=== PATIENT | male | born 1950 | race Caucasian/White ===

== ENCOUNTER 2020-10-27 12:43 | Inpatient (IN) ==
[2020-10-27] MEDS ORDERED: SODIUM CHLORIDE 0.9% 1000ML 1,000 ML IV ONE ×2 (12:59→13:52)
[2020-10-27 13:09] LABS: Basophils # (auto) 0.01 K/uL (0-0.2); Basophils % (auto) 0.2 %; Hematocrit (blood only) 38.5 % (42-52); Hemoglobin 13.2 g/dL (14.0-18.0); Immature Granulocytes # (auto) 0.01 K/uL (0.00-0.02); Immature Granulocytes % (auto) 0.2 %; Lymphocytes # (auto) 0.51 K/uL (1.2-3.4); Lymphocytes % (auto) 9.5 %; Mean Corpuscular Hemoglobin 29.7 pg (25-34); Mean Corpuscular Hgb Conc 34.3 g/dL (32-36); Mean Corpuscular Volume 86.7 fL (80-100); Mean Platelet Volume 9.6 fL (7.4-10.4); Monocytes # (auto) 0.44 K/uL (0.11-0.59); Monocytes % (auto) 8.2 %; Neutrophils # (auto) 4.42 K/uL (1.4-6.5); Neutrophils % (auto) 81.9 %; Platelet Count 271 K/uL (130-400); RDW Coefficient of Variation 13.9 % (11.5-14.5); RDW Standard Deviation 43.9 fL (36.4-46.3); Red Blood Count 4.44 M/uL (4.7-6.1); White Blood Count 5.39 K/uL (4.8-10.8)
[2020-10-27 13:20] LABS: BUN Creatinine Ratio 27.2 (10-20); Calcium 7.9 mg/dl (8.5-10.1); Est GFR (African American) 29.1; Est GFR (Non-African American) 25.1; Magnesium 2.7 mg/dl (1.8-2.4); Potassium 3.1 mmol/L (3.5-5.1)
[2020-10-27 13:21] LABS: Prothrombin Time 10.8 Seconds (9.0-12.0)
[2020-10-27 13:25] LABS: Albumin Globulin Ratio 0.7 (0.9-2); Bilirubin,Total 0.2 mg/dl (0.2-1); C Reactive Protein 5.79 mg/dl (0-0.29); Globulin 4.1 gm/dl (2.5-4.0); Total Protein 7.1 gm/dl (6.4-8.2); Troponin I 0.019 ng/ml (0-0.045)
[2020-10-27 13:51] LABS: Base Excess VBG 2.1 mEq/L; HCO3 VBG 27 mmol/L; Oxygen Saturation VBG < 60.0 %; PCO2 VBG 46 mmHg (38-50); PO2 VBG 26 mmHg
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
--- NOTE | 2020-10-27 14:31 | CT Scan Report ---
CT SCAN OF THE BRAIN WITHOUT IV CONTRAST CLINICAL HISTORY: Change in mental status. COMPARISON STUDY: MRI of the brain dated 05/09/2015. TECHNIQUE: Unenhanced axial CT scan of the brain is performed from the vertex to the skull base. A do se lowering technique was utilized adhering to the principles of ALARA. FINDINGS: Brain parenchyma: There are age-related involutional changes noting mild subcortical and periventric ular microangiopathic change. There is no hemorrhage, mass effect, or evidence of acute territorial i schemia by CT criteria. Tenorio-white matter differentiation is preserved. No extra-axial fluid collecti on is seen. Ventricles, sulci, cisterns: Prominent secondary to involutional change. Intracranial vasculature: There is atherosclerotic calcification of the cavernous carotid arteries. Calvarium: Unremarkable. Sinuses and mastoids: The visualized paranasal sinuses are clear. The mastoid air cells are well pneu matized. Orbits: The bony orbits are grossly intact. There are bilateral ocular lens implants. IMPRESSION: There is no hemorrhage, mass effect, or evidence of acute territorial ischemia by CT [facility]. ACT 112: Negative or not required by law. Electronically signed by: Basilio Ojeda M.D. 10/27/2020 2:30 PM
--- NOTE | 2020-10-27 14:37 | CT Scan Report ---
CT SCAN OF THE ABDOMEN AND PELVIS WITHOUT IV CONTRAST CLINICAL HISTORY: Acute renal insufficiency. COMPARISON STUDY: No priors. TECHNIQUE: CT scan of the abdomen and pelvis is performed from the lung bases to the proximal femora. Images are reviewed in the axial, sagittal, and coronal planes. IV contrast was not administered for this examination. A dose lowering technique was utilized adhering to the principles of ALARA. The ex amination is degraded by motion artifact, as well as by streak artifact from the arms which could not be elevated above the abdomen. CT DOSE: 2462.31 mGy.cm FINDINGS: Lung bases: The heart is enlarged and without pericardial effusion. There is patchy airspace consolid ation throughout the right lower lobe. No pleural effusion is identified. A calcified granuloma is no karuna in the lingula. Liver: The unenhanced liver is normal in size, contour, and attenuation. There is no intrahepatic sergey iary ductal dilatation. Gallbladder: Unremarkable. Spleen: Normal in size and attenuation. Pancreas: Unremarkable. Adrenal glands: Unremarkable. Kidneys: The unenhanced kidneys demonstrate mild cortical atrophy and are without hydronephrosis. The re are no renal calculi identified. There is no evidence of contour deforming renal mass lesion. Abdominal vasculature: There is mild/moderate atherosclerotic calcification and ectasia of the abdomi nal aorta. Bowel: There is mild colonic diverticulosis without CT evidence of acute diverticulitis. No bowel obs truction is seen. The appendix is normal in appearance. Peritoneum: There is no intraperitoneal free air or abdominal ascites. A benign-appearing mesenteric calcification is noted in the right lower quadrant. There is a small fat-containing umbilical hernia. Lymphadenopathy: None. Pelvic viscera: The prostate gland is enlarged and heterogeneous noting median lobe hypertrophy. The bladder is distended and otherwise normal as imaged. There are small fat-containing inguinal hernias. Skeletal structures: The skeletal structures are osteopenic. There is mild lumbosacral spondylosis. N o lytic or blastic lesions are seen. There are healed left pubic ring fractures. IMPRESSION: 1. Patchy airspace consolidation throughout the right lower lobe is typical for pneumonia/aspiration pneumonitis. Clinical correlation will be required and radiographic follow-up to resolution is recomm ended. 2. The kidneys demonstrate mild cortical atrophy and are without hydronephrosis. 3. Cardiomegaly. 4. Colonic diverticulosis without CT evidence of acute diverticulitis. 5. Additional findings as above. ACT 112: Negative or not required by law. Electronically signed by: Basilio Ojeda M.D. 10/27/2020 2:36 PM
[2020-10-27] MEDS ORDERED: PIPERACILLIN/TAZOBACTAM 4.5 GM/120 ML BAG IV ONE (14:42)
[2020-10-27] MEDS ORDERED: PIPERACILL/TAZOBAC CONSULT ACTIVE PRN ×2 (14:42→19:30)
--- NOTE | 2020-10-27 15:25 | XRay Report ---
XR chest 1V portable CLINICAL HISTORY: SEPSIS COMPARISON STUDY: Chest radiograph May 03, 2019. FINDINGS: There is no pneumothorax or pleural effusion. There is no evidence for pulmonary edema. Mod erate right lower lung consolidation is present. Minimal left basilar opacity favors atelectasis. The re is a calcified granuloma within the lingula. Cardiomediastinal silhouette is stable. IMPRESSION: Moderate right lower lung consolidation consistent with an infectious process. Radiograp hic follow-up is recommended to ensure resolution. ACT 112: Negative or not required by law. Electronically signed by: Ricki Stout M.D. 10/27/2020 3:23 PM
[2020-10-27 17:31] LABS: Influenza A virus by PCR Negative (Neg); Influenza B virus by PCR Negative (Neg); RSV by PCR Negative (Neg); SARS CoV2 RNA(COVID-19) InHosp NEGATIVE (Negative)
[2020-10-27] MEDS ORDERED: TRIAMCINOLONE ACET 0.1% OINT 15 GM TUBE TOP PRN (19:30)
[2020-10-27] MEDS ORDERED: POLYETHYLENE (MIRALAX) 17 GM PACK PO PRN (19:30)
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
[2020-10-27] MEDS ORDERED: LORazepam 1 MG/2 ML VIAL IV STA (21:11)
[2020-10-27] MEDS: PIPERACILLIN/TAZOBACTAM 3.375 GM in DEXTROSE 5% 100 ML IV SCH (22:10)
[2020-10-27] MEDS: POTASSIUM CHLORIDE / WTR 10 MEQ/100 ML PLCT IV SCH ×2 (22:11→23:15)
[2020-10-27] MEDS: HEPARIN SOD 5,000 UNIT/0.5 ML VIAL SQ SCH (22:13)
[2020-10-27 22:37] LABS: Appearance Urine Clear (Clear); Bacteria Urine Automated Negative (Negative); Bilirubin Urine Negative (Negative); Blood Urine Trace (Negative); Color Urine Yellow; Epithelial Cell Urine Auto 0-5 /lpf (0-5); Glucose Urine UA Negative (Negative); Ketones Urine Negative (Negative); Leukocyte Esterase Urine Negative (Negative); Nitrite Urine Negative (Negative); Protein Urine 1+ (Negative); RBC Urine Automated 0-4 /hpf (0-4); Specific Gravity Urine 1.019 (1.000-1.030); Urobilinogen Urine Negative (Negative)
--- NOTE | 2020-10-27 22:45 | Magnetic Resonance Report ---
MR brain wo con HISTORY: 70 years-old Male Altered mental status, Neg CT Brain acutely altered mental status COMPARISON: Head CT of same day, brain MRI from outside facility (images only without report) 06/08/20 TECHNIQUE: Multiplanar multisequence MRI of the brain was obtained without the use of IV contrast. FINDINGS: Study is mildly motion degraded. Potato Spotter localizer images demonstrate no gross extracranial abnormality . There is no restricted diffusion to suggest acute or subacute infarct. Midline structures including the corpus callosum, brainstem, optic chiasm, pituitary and pineal glands appear unremarkable on the sagittal T1 series. There is no cerebellar tonsillar herniation. Degenerative changes are noted invo lving the imaged cervical spine. No acute intracranial hemorrhage, midline shift, abnormal extra-axial collection, hydrocephalus or in tracranial mass. Mild age-related involutional changes with mild to moderate T2/FLAIR hyperintensitie s throughout the white matter suggestive of chronic microvascular ischemic disease. No pathologic blo oming artifact on the T2 star series. The cerebral venous sinuses and major arterial flow voids at the level the skull base appear unremark able as visualized. Findings suggest prior bilateral lens replacement. Skull and soft tissues are unr emarkable. Mastoid air cells are clear. Oral cavity susceptibility artifact is noted. IMPRESSION: Motion degraded exam without acute intracranial abnormality identified. Specifically, the re is no evidence of acute or subacute infarct. ACT 112: Negative or not required by law. The above report was generated using voice recognition software. It may contain grammatical, syntax o r spelling errors. Electronically signed by: Alton William M.D. 10/27/2020 10:44 PM
[2020-10-27 23:01] LABS: Amphetamines+Metham, Urine Neg (Neg); Barbiturates, Urine Neg (Neg); Benzodiazepine, Urine Neg (Neg); Cocaine, Urine Neg (Neg); MDMA (Ecstacy), Urine Neg (Neg); Methadone, Urine Neg (Neg); Opiate, Urine Neg (Neg); Phencyclidine, Urine Neg (Neg)
[2020-10-27] MEDS: CLOTRIMAZOLE/BETAMETHASONE CR 15 GM TUBE EXT SCH (23:25)
[2020-10-28] MEDS: POTASSIUM CHLORIDE / WTR 10 MEQ/100 ML PLCT IV SCH (00:03)
[2020-10-28] MEDS: NSS + 20MEQ KCL 20 MEQ/1,000 ML BAG IV SCH ×3 (01:02→17:01)
[2020-10-28] MEDS: PIPERACILLIN/TAZOBACTAM 3.375 GM in DEXTROSE 5% 100 ML IV SCH ×3 (05:36→22:11)
[2020-10-28 06:29] LABS: Basophils # (auto) 0.02 K/uL (0-0.2); Basophils % (auto) 0.5 %; Eosinophils # (auto) 0.01 K/uL (0-0.5); Eosinophils % (auto) 0.3 %; Hematocrit (blood only) 36.3 % (42-52); Hemoglobin 12.1 g/dL (14.0-18.0); Immature Granulocytes # (auto) 0.01 K/uL (0.00-0.02); Immature Granulocytes % (auto) 0.3 %; Lymphocytes % (auto) 30.9 %; Mean Corpuscular Hemoglobin 29.7 pg (25-34); Mean Corpuscular Hgb Conc 33.3 g/dL (32-36); Mean Platelet Volume 9.2 fL (7.4-10.4); Monocytes # (auto) 0.35 K/uL (0.11-0.59); Neutrophils # (auto) 2.29 K/uL (1.4-6.5); Platelet Count 265 K/uL (130-400); RDW Coefficient of Variation 14.2 % (11.5-14.5); RDW Standard Deviation 46.1 fL (36.4-46.3); Red Blood Count 4.08 M/uL (4.7-6.1); White Blood Count 3.88 K/uL (4.8-10.8)
--- NOTE | 2020-10-28 06:32 | Electrocardiogram Report ---
Test Reason : Blood Pressure : / mmHG Vent. Rate : 098 BPM Atrial Rate : 098 BPM P-R Int : 162 ms QRS Dur : 104 ms QT Int : 384 ms P-R-T Axes : 076 239 068 degrees QTc Int : 490 ms Poor data quality, interpretation may be adversely affected Sinus rhythm with sinus arrhythmia with atrial tachycardia Premature ventricular complexes Right superior axis deviation Right ventricular hypertrophy Abnormal ECG When compared with ECG of 01-JAN-1999 06:59, Questionable change in QRS axis Run of atrial tachycardia is now present Confirmed by Girish Briggs ([id number]) on 10/28/2020 6:32:20 AM Referred By: ED Confirmed By:Girish Briggs
[2020-10-28 07:12] LABS: BUN Creatinine Ratio 26.6 (10-20); Calcium 7.5 mg/dl (8.5-10.1); Creatinine Clr Calc Pharmacy 43.1 ml/min; Est GFR (African American) 53.5; Est GFR (Non-African American) 46.2; Potassium 3.1 mmol/L (3.5-5.1)
[2020-10-28] MEDS ORDERED: PNEUMOCOCCAL POLYSACCHARIDES 25 MCG/0.5 ML VIAL/SYR IM ONE (08:00)
[2020-10-28] MEDS ORDERED: PNEUMOCOCCAL ADMINISTRATION CHARGE ONE (08:00)
[2020-10-28] MEDS: CLOTRIMAZOLE/BETAMETHASONE CR 15 GM TUBE EXT SCH ×2 (08:46→22:09)
[2020-10-28] MEDS: LOSARTAN/HCTZ 50/12.5MG TAB PO SCH (08:46)
[2020-10-28] MEDS: HEPARIN SOD 5,000 UNIT/0.5 ML VIAL SQ SCH ×2 (08:47→22:12)
[2020-10-28] MEDS: FAMOTIDINE 20 MG in SYRINGE 3 ML IV SCH (09:47)
--- NOTE | 2020-10-28 15:08 | Hospitalist Progress Note ---
Date of Service October 28, 2020 Assessment & Plan (1) Pneumonia: Eren Saxena is a 70-year-old female with a notable past medical history of HTN, occipital neuralgia, chronic HAs, and a mild thoracic aortic aneurysm discovered on XR in 04/2019 who presented to [facility] by ambulance on 10/27 for evaluation of altered mental status, subsequently found to have historical items (provided by ex-) and imaging findings concerning for a possible underlying infection. He has been hemodynamically stable since his arrival. Altered Mental Status - Limited information is available regarding duration of this AMS, but - per ex- (Kanwal Dominguez, ) - this is not baseline for patient - Clinically, patient presents altered with increased speech latency and some word-searching patterns. No aphasia or dysarthria. Patient's ex- does note that she spoke with patient approx. 4 days prior to admission, where he was convinced he had calcium deficiency and that "his synapses were off" -- she reported that this type of report from him was very unusual. Hence, confusion may extend ~4+ days prior to admission. - Work-up upon admission was significant for: - Very mild anemia, no leukocytosis - Elevated inflammatory markers: ESR 56 / CRP 5.8 - Normal venous blood gasses - BMP: mild hyponatremia (133), hypokalemia (3.1), BUN elevated 67, Cr 2.48, Glc 101 - ECG without acute rhythm issues or ST-T abnormalities - CXR: Moderate RLL consolidation c/w infection - UA, UDS without abnormality - CT-Head: No acute process - MRI-Head: Motion-degraded, but no identified acute process / infarct - CT-Abd/Pelvis: Patchy airspace consolidation in RLL, concerning for PNA vs. aspiration pneumonitis - Blood Culture (preliminary, day 0): GPCs in clusters - No current evidence for CVA, neoplasm, metabolic derangement, UTI, drug/toxin, but considered - Suspect metabolic encephalopathy d/t possible infection (?PNA, ?bacteremia) and possible dehydration based on above findings and JUAN JOSE - await blood cultures, otherwise see below RLL Consolidation -- PNA vs. Aspiration Pneumonitis - Patient's ex- does report patient describing >1 week of chills, feelings of illness, and - by her report - increased work of breathing approx. 4 days prior to admission - Objectively normal ausculatory exam but with mild intermittent dry cough; is requiring 5L NC, but saturating >97% - CXR, CT Abd/Pelvis revealing of consolidation in RLL -- concerning for PNA vs. aspiration pneumonitis - COVID-19 negative x 2 - Sputum culture pending - Continue Zosyn -- await sputum/blood cultures, adjust PRN - Speech therapy consulted out of concern for aspiration - CBC qAM - F/U CXR on Friday (ordered) Acute Kidney Injury - Resolving - Presented with BUN/Cr of 67/2.48, suggestive of prerenal pattern -- possibly d/t dehydration - Improving 10/28: BUN/Cr at 40/1.5 - Continue NSS + KCl (20mEq) @ 125cc/hr - Pena in place for strict I+Os - BMP qAM Hypoklaemia - K at 3.1 at admission with normal magnesium - Replete with KCl 20+mEq PO PRN - Continue NSS + KCl, as above - BMP qAM HTN - Continue home losartan Dispo: Med/surg with Tele PPX: Heparin 5000U SQ F/E/N: NSS+KCl IVF, heart-healthy diet -- pending ST eval out of concern for aspiration Code: Full code (2) Acute alteration in mental status: (3) Acute kidney injury: (4) Hypertension: (5) Hypokalemia: (6) DVT prophylaxis: Admission and Anticipated Discharge Date Admission Date: October 27, 2020 Supervising Physician Co-Signing Physician Notes Resident Physician Supervision Note: I independently interviewed and examined the patient and verified the caldwell history and physical, reviewed labs and image studies, discussed the case with the resident Dr. Weldon and agree with the findings and care plan. Subjective No acute events overnight. Unfortunately, patient is not able to provide much of history given his altered mental status. Generally, he denies any pain, shortness of breath, or discomfort. When asked what happened yesterday that brought him into the hospital, he has trouble recollecting the events; he believes that he was at the dentist when 911 was called "for some reason." When asked if he feels confused, he does answer yes. Denies any recent illnesses subjectively, any weakness, numbness or tingling, or recent accidents. Although it took him some time to recall, he was able to provide his ex-'s phone number. He gave permission to speak with her directly and discussed medical information. On our discussion together, andpatient's ex-wifereports that she last talked with the patient approximately afternoon. At that time, he noted to her that he "could not get warm", was having chills, and feeling sick all week. She noted that on the phone, his breathing sounded "weird" which was not typical for him. Also endorses a mild cough. She also adds that he self diagnosed himself with a calcium deficiency, quoting something about his synapses being off. She denied that he had any history of alcohol abuse, regular use of any recreational drugs (although did note that he will occasionally utilize marijuana", and that approximately 25 years ago he was hospitalized at [facility] as well as [facility] because of some "unknown virus." Otherwise denies any similar instances of confusion in the past. Says this is definitely not his baseline. Review of Systems Review of Systems: Unobtainable due to cognitive status Physical Exam Constitutional: Relaxed appearing 70-year-old gentleman who is lying back in his hospital bed and eating his breakfast upon my entrance into the room. Even though he is confused, he does respond to my questions, but with significantly increased latency. There are intermittent periods of confabulation with his responses. No aphasia, no dysarthria. No acute distress. Respiratory: Good respiratory effort with symmetric expansion of the chest. Lungs are generally clear to auscultation bilaterally without any crackles or wheezes. Cardiovascular: Auscultation of the heart was somewhat difficult. Of what could be heard, S1 and S2 are present without any murmurs rubs or gallops. Gastrointestinal (Abdomen): Normal active bowel sounds. Abdomen is soft, very mildly distended, and nontender to palpation. No observable rashes. Neurologic: Cranial nerves II through XI grossly intact. Upper and lower extremity motor strength was 5 out of 5 bilaterally. Patient's baseline mental status is altered, but he does not report any sensory disturbances to light touch. Reflexes in upper and lower extremities were approximately 2-3+ bilaterally and equal throughout. No clonus. Gait not assessed. Psychiatric: Alert and oriented to person, time, and place. There are intermittent periods of confusion and confabulation. He is dressed appropriately. Behavior is appropriate, making good eye contact throughout our conversation. There is increased latency throughout his speech, and does intermittently exhibit word searching patterns. Insight to illness could not be properly assessed at this time. Results & Data Results & Data ([facility]) Vital Signs (Past 12 Hours) Vital Signs Temp Pulse Pulse Resp BP BP Pulse Ox 10/28/20 11:35 36.8 C 73 20 104/65 97 10/28/20 08:00 70 10/28/20 07:21 37.4 C 76 20 124/76 97 10/28/20 05:00 20 95 10/28/20 04:09 36.9 C 73 18 121/80 99 Resident Activity Tracking Resident Involvement: Resident Care Provided Care Provided: Adult Hospital Medicine (1) Pneumonia Laterality: unspecified laterality Lung location: unspecified part of lung Pneumonia type: due to unspecified organism Qualified Code(s): J18.9 - Pneumonia, unspecified organism
[2020-10-28 16:21] LABS: BUN Creatinine Ratio 25.7 (10-20); Calcium 7.5 mg/dl (8.5-10.1); Creatinine Clr Calc Pharmacy 47.8 ml/min; Est GFR (African American) 60.8; Est GFR (Non-African American) 52.4; Potassium 3.3 mmol/L (3.5-5.1)
[2020-10-28] MEDS: ACETAMINOPHEN 325 MG TAB PO PRN (20:01)
[2020-10-29] MEDS: NSS + 20MEQ KCL 20 MEQ/1,000 ML BAG IV SCH ×2 (03:01→11:59)
[2020-10-29] MEDS: PIPERACILLIN/TAZOBACTAM 3.375 GM in DEXTROSE 5% 100 ML IV SCH ×2 (05:14→11:59)
[2020-10-29] MEDS: ACETAMINOPHEN 325 MG TAB PO PRN ×3 (06:03→23:18)
[2020-10-29 07:42] LABS: Basophils # (auto) 0.02 K/uL (0-0.2); Basophils % (auto) 0.5 %; Eosinophils # (auto) 0.05 K/uL (0-0.5); Eosinophils % (auto) 1.3 %; Hematocrit (blood only) 34.1 % (42-52); Hemoglobin 11.1 g/dL (14.0-18.0); Immature Granulocytes # (auto) 0.01 K/uL (0.00-0.02); Immature Granulocytes % (auto) 0.3 %; Lymphocytes # (auto) 0.85 K/uL (1.2-3.4); Lymphocytes % (auto) 22.9 %; Mean Corpuscular Hemoglobin 29.2 pg (25-34); Mean Corpuscular Hgb Conc 32.6 g/dL (32-36); Mean Corpuscular Volume 89.7 fL (80-100); Mean Platelet Volume 9.2 fL (7.4-10.4); Monocytes # (auto) 0.44 K/uL (0.11-0.59); Monocytes % (auto) 11.9 %; Neutrophils # (auto) 2.34 K/uL (1.4-6.5); Neutrophils % (auto) 63.1 %; Platelet Count 290 K/uL (130-400); RDW Coefficient of Variation 14.4 % (11.5-14.5); RDW Standard Deviation 47.6 fL (36.4-46.3); White Blood Count 3.71 K/uL (4.8-10.8)
--- NOTE | 2020-10-29 07:59 | XRay Report ---
XR chest 1V portable HISTORY: 70 years-old Male Right lower lobe pneumonia acute shortness of breath with pneumonia COMPARISON: Chest radiograph 10/27/2020 TECHNIQUE: Portable AP view of the chest FINDINGS: Cardiomediastinal and hilar silhouettes are unchanged. Prominence of the thoracic aortic arch redemon strated. No pneumothorax. Progressively worsened right lung base airspace consolidation. Linear subse gmental left lung base opacities favor atelectasis. There is mild blunting of the costophrenic angles without large pleural effusion. Degenerative changes of the shoulders and spine. IMPRESSION: Progressively worsened right lung base airspace opacities suggestive of pneumonia. Follow -up recommended. ACT 112: Negative or not required by law. The above report was generated using voice recognition software. It may contain grammatical, syntax o r spelling errors. Electronically signed by: Alton William M.D. 10/29/2020 7:57 AM
[2020-10-29 08:41] LABS: BUN Creatinine Ratio 24.8 (10-20); Calcium 7.9 mg/dl (8.5-10.1); Creatinine Clr Calc Pharmacy 64.9 ml/min; Est GFR (African American) 88.4; Est GFR (Non-African American) 76.3; Potassium 3.3 mmol/L (3.5-5.1)
[2020-10-29] MEDS: CLOTRIMAZOLE/BETAMETHASONE CR 15 GM TUBE EXT SCH ×2 (09:39→20:47)
[2020-10-29] MEDS: LOSARTAN/HCTZ 50/12.5MG TAB PO SCH (09:39)
[2020-10-29] MEDS: HEPARIN SOD 5,000 UNIT/0.5 ML VIAL SQ SCH ×2 (09:39→20:47)
[2020-10-29] MEDS: FAMOTIDINE 20 MG in SYRINGE 3 ML IV SCH (09:40)
--- NOTE | 2020-10-29 10:56 | Hospitalist Progress Note ---
Date of Service October 29, 2020 Assessment & Plan (1) Pneumonia: Eren Saxena is a 70-year-old female with a notable past medical history of HTN, occipital neuralgia, chronic HAs, and a mild thoracic aortic aneurysm discovered on XR in 04/2019 who presented to [facility] by ambulance on 10/27 for evaluation of altered mental status, subsequently found to have historical items (provided by ex-) and imaging findings concerning for a possible underlying infection. He has been hemodynamically stable since his arrival. Altered Mental Status - Limited information is available regarding duration of this AMS, but - per ex- (Kanwal Dominguez, ) - this is not baseline for patient - Clinically, patient presents altered with increased speech latency and some word-searching patterns. No aphasia or dysarthria. Patient's ex- does note that she spoke with patient approx. 4 days prior to admission, where he was convinced he had calcium deficiency and that "his synapses were off" -- she reported that this type of report from him was very unusual. Hence, confusion may extend ~4+ days prior to admission. - Work-up upon admission was significant for: - Very mild anemia, no leukocytosis - Elevated inflammatory markers: ESR 56 / CRP 5.8 - Normal venous blood gasses - BMP: mild hyponatremia (133), hypokalemia (3.1), BUN elevated 67, Cr 2.48, Glc 101 - ECG without acute rhythm issues or ST-T abnormalities - CXR: Moderate RLL consolidation c/w infection - UA, UDS without abnormality - CT-Head: No acute process - MRI-Head: Motion-degraded, but no identified acute process / infarct - CT-Abd/Pelvis: Patchy airspace consolidation in RLL, concerning for PNA vs. aspiration pneumonitis - Blood Culture (preliminary, day 0): GPCs in clusters - No current evidence for CVA, neoplasm, metabolic derangement, UTI, drug/toxin, but considered - Suspect metabolic encephalopathy d/t possible infection (?PNA, ?bacteremia) and possible dehydration based on above findings and JUAN JOSE - Continue IV Zosyn for empiric treatment, await blood cultures, otherwise see below RLL Consolidation -- PNA vs. Aspiration Pneumonitis - Patient's ex- does report patient describing >1 week of chills, feelings of illness, and - by her report - increased work of breathing approx. 4 days prior to admission - Objectively normal ausculatory exam but with mild intermittent dry cough; is requiring 5L NC, but saturating >97% - CXR, CT Abd/Pelvis revealing of consolidation in RLL -- concerning for PNA vs. aspiration pneumonitis - COVID-19 negative x 2 - Sputum culture pending - Zosyn as above -- await sputum/blood cultures, adjust PRN - Speech therapy consulted out of concern for aspiration - CBC qAM - F/U CXR on Friday (ordered) Acute Kidney Injury - Resolving - Presented with BUN/Cr of 67/2.48, suggestive of prerenal pattern -- possibly d/t dehydration - Improving 10/28: BUN/Cr at 40/1.5 - Continue NSS + KCl (20mEq) @ 125cc/hr - Pena in place for strict I+Os - BMP qAM Hypoklaemia - K at 3.1 at admission with normal magnesium - Replete with KCl 20+mEq PO PRN - Continue NSS + KCl, as above - BMP qAM HTN - Continue home losartan Dispo: Med/surg with Tele PPX: Heparin 5000U SQ F/E/N: NSS+KCl IVF, heart-healthy diet -- pending ST eval out of concern for aspiration Code: Full code (2) Acute alteration in mental status: Patient with pneumonia and with acute kidney failure While this is possible etiology for his mental status changes other differentials need to be considered CT scan of the brain was negative. Consequently we will order an MRI of the brain with and without contrast tonight. Another consideration would be viral meningitis. If MRI is negative and patient has no significant provement in the next day or 2 with treatment for pneumonia and JUAN JOSE, consider LP No recent history of herpes zoster. This makes herpetic meningitis unlikely Patient is not on any prescription drugs that would cause encephalitis Ethyl alcohol level was less than 3 g/Philipp A urine drug profile is ordered and pending Continue to follow on medical telemetry (3) Acute kidney injury: Patient with elevated creatinine and BUN Pena catheter ordered for strict I's and O's Normal saline solution with 20 mEq of potassium chloride per liter ordered at 125 mL/h Follow serial labs (4) Hypertension: Continue losartan Follow vital signs per protocol (5) Hypokalemia: Potassium 3.1 30 mEq via rider have been ordered Magnesium is within normal limits Follow serial labs (6) DVT prophylaxis: Heparin 5000 units SQ every 12 hours Admission and Anticipated Discharge Date Admission Date: October 27, 2020 Results & Data Results & Data ([facility]) Vital Signs (Past 12 Hours) Vital Signs Temp Pulse Pulse Resp BP Pulse Ox 10/29/20 04:27 37.2 C 89 20 130/82 95 10/29/20 00:28 36.6 C 81 20 124/83 92 10/28/20 23:17 68 (1) Pneumonia Laterality: unspecified laterality Lung location: unspecified part of lung Pneumonia type: due to unspecified organism Qualified Code(s): J18.9 - Pneumonia, unspecified organism
--- NOTE | 2020-10-29 10:58 | Hospitalist Progress Note ---
Date of Service October 29, 2020 Assessment & Plan (1) Pneumonia: Eren Saxena is a 70-year-old female with a notable past medical history of HTN, occipital neuralgia, chronic HAs, and a mild thoracic aortic aneurysm discovered on XR in 04/2019 who presented to [facility] by ambulance on 10/27 for evaluation of altered mental status, subsequently found to have historical items (provided by ex-) and imaging findings concerning for Pneumonia. Altered Mental Status - Limited information is available regarding duration of this AMS, but - per ex- (Kanwal Dominguez, ) - this is not baseline for patient - Clinically, patient presents altered with increased speech latency and some word-searching patterns. No aphasia or dysarthria. Patient's ex- does note that she spoke with patient approx. 4 days prior to admission, where he was convinced he had calcium deficiency and that "his synapses were off" -- she reported that this type of report from him was very unusual. Hence, confusion may extend ~4+ days prior to admission. - Work-up upon admission was significant for: - Negative infection work up except pneumonia - JUAN JOSE - CT and MRI-Head: No acute process - CT-Abd/Pelvis: Patchy airspace consolidation in RLL, concerning for PNA vs. aspiration pneumonitis - Blood Culture: coag-negative staph (1/2) - suspect contaminant without true bacteremia - Suspect metabolic encephalopathy d/t possible infection (?PNA, ?bacteremia) and possible dehydration based on above findings and JUAN JOSE - treatment as below RLL Consolidation -- PNA vs. Aspiration Pneumonitis - Patient's ex- does report patient describing >1 week of chills, feelings of illness, and - by her report - increased work of breathing approx. 4 days prior to admission - Objectively normal ausculatory exam but with mild intermittent dry cough; is requiring 5L NC, but saturating >97% - CXR, CT Abd/Pelvis revealing of consolidation in RLL -- concerning for PNA vs. aspiration pneumonitis - COVID-19 negative x 2 - Sputum culture pending - Blood cx showed coag-negative staph (1/2) - likely contaminant - MRSA nares negative - Per speech therapy: concern for disordered swallowing - FL video swallow ordered for 10/30 to assess for aspiration - IV Zosyn transitioned to Augmentin 875/125mg PO BID x7 days (total of 10 days) to continue broad PO coverage (including anaerobes given concern for aspiration PNA) - CBC qAM Acute Kidney Injury - Resolved - Presented with BUN/Cr of 67/2.48, suggestive of prerenal pattern -- possibly d/t dehydration - Resolved 10/29: BUN 25, Cr 0.99 - d/c'd IVFs and coffman - BMP qAM Hypokalemia, resolving - K at 3.1 at admission with normal magnesium --> K 3.3 on 10/29 - BMP qAM, replete K PRN HTN - Continue home losartan Dispo: Med/surg with Tele PPX: Heparin 5000U SQ Q12H F/E/N: heart-healthy diet -- pending FL video swallow on 10/30 Code: Full code (2) Acute alteration in mental status: (3) Acute kidney injury: (4) Hypertension: (5) Hypokalemia: (6) DVT prophylaxis: Admission and Anticipated Discharge Date Admission Date: October 27, 2020 Supervising Physician Co-Signing Physician Notes Resident Physician Supervision Note: I independently interviewed and examined the patient and verified the caldwell history and physical, reviewed labs and image studies, discussed the case with the resident Dr. Peoples and agree with the findings and care plan. Subjective No acute events overnight. Patient is still unable to say which town or hospital he is in but continues to be oriented to self and date. Tolerating heart-healthy diet without swallowing issues, aspiration, N/V, abdominal pain. Denies fever/chills, cough, SOB, chest pain. Review of Systems Review of Systems: Pertinent positives and negatives mentioned in HPI Physical Exam Constitutional: WD/WN, vitals as above Respiratory: no labored breathing, no retractions and no cough Auscultation: + diminished lung sounds (bilaterally, although most pronounced in right lung base) and + crackles (right lung base); no wheezes Cardiovascular: RRR, no murmur, no edema Gastrointestinal (Abdomen): normal bowel sounds, soft, nontender, no hepatosplenomegaly Psychiatric: Orientation: alert, oriented to person and oriented to time; + not oriented to place Results & Data Results & Data ([facility]) Vital Signs (Past 12 Hours) Vital Signs Temp Pulse Pulse Resp BP Pulse Ox 10/29/20 04:27 37.2 C 89 20 130/82 95 10/29/20 00:28 36.6 C 81 20 124/83 92 10/28/20 23:17 68 Resident Activity Tracking Resident Involvement: Resident Care Provided Care Provided: Adult Hospital Medicine (1) Pneumonia Laterality: unspecified laterality Lung location: unspecified part of lung Pneumonia type: due to unspecified organism Qualified Code(s): J18.9 - Pneumonia, unspecified organism
[2020-10-29] MEDS: AMOXICILLIN/CLAVULANATE 875 MG TAB PO SCH (17:05)
[2020-10-30] MEDS: ACETAMINOPHEN 325 MG TAB PO PRN ×2 (05:59→19:29)
[2020-10-30 07:44] LABS: Basophils # (auto) 0.01 K/uL (0-0.2); Basophils % (auto) 0.2 %; Eosinophils # (auto) 0.11 K/uL (0-0.5); Hematocrit (blood only) 35.5 % (42-52); Hemoglobin 11.6 g/dL (14.0-18.0); Immature Granulocytes # (auto) 0.02 K/uL (0.00-0.02); Immature Granulocytes % (auto) 0.4 %; Lymphocytes # (auto) 1.35 K/uL (1.2-3.4); Lymphocytes % (auto) 25.1 %; Mean Corpuscular Hemoglobin 29.4 pg (25-34); Mean Corpuscular Hgb Conc 32.7 g/dL (32-36); Mean Corpuscular Volume 90.1 fL (80-100); Mean Platelet Volume 9.4 fL (7.4-10.4); Monocytes # (auto) 0.58 K/uL (0.11-0.59); Monocytes % (auto) 10.8 %; Neutrophils # (auto) 3.31 K/uL (1.4-6.5); Neutrophils % (auto) 61.5 %; Platelet Count 331 K/uL (130-400); RDW Coefficient of Variation 14.4 % (11.5-14.5); Red Blood Count 3.94 M/uL (4.7-6.1); White Blood Count 5.38 K/uL (4.8-10.8)
[2020-10-30 08:22] LABS: BUN Creatinine Ratio 22.9 (10-20); Calcium 8.2 mg/dl (8.5-10.1); Creatinine Clr Calc Pharmacy 85.1 ml/min; Est GFR (African American) 106.4; Est GFR (Non-African American) 91.8; Potassium 3.3 mmol/L (3.5-5.1)
[2020-10-30] MEDS: CLOTRIMAZOLE/BETAMETHASONE CR 15 GM TUBE EXT SCH ×2 (09:22→19:30)
[2020-10-30] MEDS: HEPARIN SOD 5,000 UNIT/0.5 ML VIAL SQ SCH ×2 (09:22→19:29)
[2020-10-30] MEDS: LOSARTAN/HCTZ 50/12.5MG TAB PO SCH (09:22)
[2020-10-30] MEDS: FAMOTIDINE 20 MG TAB PO SCH (09:22)
[2020-10-30] MEDS: POTASSIUM CHLORIDE CRTAB 20 MEQ TABCR PO SCH (09:23)
[2020-10-30] MEDS: AMOXICILLIN/CLAVULANATE 875 MG TAB PO SCH ×2 (09:23→16:57)
--- NOTE | 2020-10-30 11:59 | Fluoroscopy Report ---
FL video swallow CLINICAL HISTORY: 70 years-old Male with r/o aspiration. Acute shortness of breath with possible asp iration TECHNIQUE: Video fluoroscopic evaluation of swallowing was performed in the AP and lateral projection s by the speech pathology staff. The patient is fed nectar-thick and thin liquid barium, a barium coa karuna wafer, and barium pudding. FLUOROSCOPY TIME: 2.6 minutes.. COMPARISON STUDY: Chest radiograph 10/29/2020. FINDINGS: No appreciable penetration or aspiration identified. Mild esophageal dysmotility with necta r thick and pudding consistencies. IMPRESSION: 1. No aspiration identified. 2. Please see the speech pathologist report for detailed findings and recommendations. ACT 112: Negative or not required by law. Electronically signed by: Alton William M.D. 10/30/2020 11:57 AM
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
--- NOTE | 2020-10-30 13:16 | Hospitalist Progress Note ---
Date of Service October 30, 2020 Assessment & Plan (1) Pneumonia: Eren Saxena is a 70-year-old female with a notable past medical history of HTN, occipital neuralgia, chronic HAs, and a mild thoracic aortic aneurysm discovered on XR in 04/2019 who presented to [facility] by ambulance on 10/27 for evaluation of altered mental status, subsequently found to have historical items (provided by ex-) and imaging findings concerning for Pneumonia. He remained hemodynamically stable throughout his stay. Altered Mental Status - Limited information is available regarding duration of this AMS, but - per ex- - the presenting mental status was not typical for patient - Clinically, patient presented altered with increased speech latency and significant word-searching patterns. No aphasia or dysarthria. Patient's ex- does note that she spoke with patient approx. 4 days prior to admission, when she also thought he sounded confused - Work-up upon admission was significant for: - Negative infection work up except RLL infiltrate, likely PNA - JUAN JOSE - CT and MRI-Head: No acute process - CT-Abd/Pelvis: Patchy airspace consolidation in RLL, concerning for PNA vs. aspiration pneumonitis - Blood Culture: coag-negative staph in 11/13 after 48 hours, likely represented contaminant rather than true bacteremia (see below) - Suspect the primary cause for this metabolic encephalopathy d/t PNA and dehydration - Mentation has greatly improved since admission, but does still fluctuate throughout the day - BMP qAM Pneumonia of the RLL - Patient and his ex- endorse >1 week of chills, feelings of illness, and - by her report - increased work of breathing approx. 4 days prior to admission - CXR, CT Abd/Pelvis revealed consolidation in RLL that had showed worsening second day of admission (by CXR) - suggestive of RLL PNA - Work-up significant for the following: - Sputum culture demonstrated many GPCs alongside yeast - Blood cx showed coag-negative staph (11/13) after 48 hour, suggestive of contamination - Given patient's low risk for bacteremia (e.g., no hardware, prosthetic valve, catheter, etc.) and these findings, repeat blood cultures were deferred - MRSA nares negative - COVID-19 negative x 2 - Per speech therapy: concern for disordered swallowing - FL video swallow ordered to assess for aspiration, await results and appreciate recommendations - Study 10/30 demonstrated mild esophageal dysmotility, no aspiration identified - 2-step ordered for prior to d/c - Augmentin 875/125 PO b.i.d. until 11/05 for broad coverage (including anaerobes) [IV Zosyn discontinued for before] - CBC qAM Acute Kidney Injury - Resolved - Presented with BUN/Cr of 67/2.48, suggestive of prerenal pattern -- likely d/t dehydration while ill with PNA - Resolved 10/29: BUN 25, Cr 0.99 - BMP as above Hypokalemia, resolving - K at 3.1 at admission with normal magnesium --> K 3.3 on 10/29 - KCl 20mEq PO qAM - BMP qAM HTN - Home losartan Dispo: Med/surg with Tele PPX: Heparin 5000U SQ Q12H F/E/N: heart-healthy diet -- pending FL video swallow on 10/30 Code: Full code (2) Acute alteration in mental status: (3) Acute kidney injury: (4) Hypertension: (5) Hypokalemia: (6) DVT prophylaxis: Admission and Anticipated Discharge Date Admission Date: October 27, 2020 Supervising Physician Co-Signing Physician Notes Resident Physician Supervision Note: I independently interviewed and examined the patient and verified the [place] history and physical, reviewed labs and image studies, discussed the case with the resident Dr. Weldon and agree with the findings and care plan. Subjective Patient was attempted to wean off oxygen supplementation last night, but did have desaturations to the mid 80s. As such he was put back on 2 L by nasal cannula. Other than that no acute events overnight. At the bedside this morning, Mr. Saxena reports feeling well. Denies any shortness of breath, chills, or muscle aches. When asked more about his hospitalization (given that during this particular conversation, he was much more alert and oriented than previously), he did said that over the last week or so he had chills, myalgias, maybe a little bit of heavy breathing. Otherwise has felt fine. Denies any pain this morning. Continues to ask when he can go home. Afternoon update: Nurse called me at approximately 1 PM reporting that patient was appearing more confused to her compared to my exam this morning. She reported that he was unaware of what town he was in, and the time of day. Otherwise, remains hemodynamically stable and well. Review of Systems Review of Systems: As per HPI Physical Exam Constitutional: Generally, well-appearing 70-year-old gentleman who is lying back in his hospital bed, just having finished breakfast prior to my arrival. He does continue to display intermittent word finding difficulties, with just mildly increased latency throughout his speech. He is fully alert and oriented, referring to the hospital as a "retirement" as a joke. No acute distress. Eyes: Conjunctive a are noninjected, sclerae are nonicteric. Respiratory: Good respiratory effort with symmetric expansion of the chest. Lungs did demonstrate decreased lung sounds alongside crackles in the right lower lung area, egophony was present. Otherwise no crackles or wheezes throughout other lung linder. No conversational dyspnea. Cardiovascular: Normal rate and regular rhythm. S1 and S2 are present without any murmurs rubs or gallops. Gastrointestinal (Abdomen): Normoactive bowel sounds. Abdomen is soft, nontender, nondistended. Psychiatric: Appearance and behavior are appropriate for this interaction. He makes good eye contact throughout our conversation. Speech is notable for very mildly increased latency, as well as intermittent word finding difficulties, that has improved somewhat since 2 days ago. Otherwise rate and tone are appropriate. Mood is "okay". Affect is consistent with mood, objectively he does demonstrate improvements in his general impression compared to previous. During my interaction, he was alert and oriented x4. Results & Data Results & Data ([facility]) Vital Signs (Past 12 Hours) Vital Signs Temp Pulse Pulse Resp BP BP Pulse Ox 10/30/20 11:52 36.7 C 75 20 124/82 90 10/30/20 08:30 37.0 C 73 22 160/97 H 90 10/30/20 08:00 70 10/30/20 04:47 36.8 C 73 20 146/82 H 92 Pulse Ox 10/30/20 11:52 10/30/20 08:30 10/30/20 08:00 90 10/30/20 04:47 Resident Activity Tracking Resident Involvement: Resident Care Provided Care Provided: Adult Hospital Medicine (1) Pneumonia Laterality: unspecified laterality Lung location: unspecified part of lung Pneumonia type: due to unspecified organism Qualified Code(s): J18.9 - Pneumonia, unspecified organism
[2020-10-31] MEDS: ACETAMINOPHEN 325 MG TAB PO PRN (06:33)
[2020-10-31 07:13] LABS: Basophils # (auto) 0.03 K/uL (0-0.2); Basophils % (auto) 0.4 %; Eosinophils # (auto) 0.12 K/uL (0-0.5); Eosinophils % (auto) 1.8 %; Immature Granulocytes # (auto) 0.01 K/uL (0.00-0.02); Immature Granulocytes % (auto) 0.1 %; Lymphocytes # (auto) 1.31 K/uL (1.2-3.4); Lymphocytes % (auto) 19.3 %; Mean Corpuscular Hemoglobin 29.7 pg (25-34); Mean Corpuscular Hgb Conc 33.3 g/dL (32-36); Mean Corpuscular Volume 89.1 fL (80-100); Mean Platelet Volume 9.2 fL (7.4-10.4); Monocytes # (auto) 0.78 K/uL (0.11-0.59); Monocytes % (auto) 11.5 %; Neutrophils # (auto) 4.53 K/uL (1.4-6.5); Neutrophils % (auto) 66.9 %; Platelet Count 364 K/uL (130-400); RDW Coefficient of Variation 14.1 % (11.5-14.5); RDW Standard Deviation 46.3 fL (36.4-46.3); Red Blood Count 4.04 M/uL (4.7-6.1); White Blood Count 6.78 K/uL (4.8-10.8)
[2020-10-31 07:44] LABS: Calcium 8.7 mg/dl (8.5-10.1); Creatinine Clr Calc Pharmacy 91.9 ml/min; Est GFR (African American) 108.2; Est GFR (Non-African American) 93.3; Potassium 3.5 mmol/L (3.5-5.1)
[2020-10-31] MEDS: HEPARIN SOD 5,000 UNIT/0.5 ML VIAL SQ SCH (08:01)
[2020-10-31] MEDS: AMOXICILLIN/CLAVULANATE 875 MG TAB PO SCH (08:01)
[2020-10-31] MEDS: LOSARTAN/HCTZ 50/12.5MG TAB PO SCH (08:02)
[2020-10-31] MEDS: POTASSIUM CHLORIDE CRTAB 20 MEQ TABCR PO SCH (08:02)
[2020-10-31] MEDS: FAMOTIDINE 20 MG TAB PO SCH (08:02)
[2020-10-31] MEDS: CLOTRIMAZOLE/BETAMETHASONE CR 15 GM TUBE EXT SCH (08:03)
[2020-10-31 08:18] LABS: Base Excess ABG 2.9 mEq/L (-9-1.8); HCO3 ABG 26 mmol/L (19-24); Oxygen Saturation ABG 89.6 % (90-95); PCO2 ABG 35 mmHg (35-46); PO2 ABG 54 mmHg (80-95); pH ABG 7.49 (7.35-7.45)
[2020-10-31 08:19] LABS: Allen Test Pos (Pos)
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
== END 2020-10-31 12:58 | disposition home health service (06) ==
LOC: ED 12:43 → 2N 17:49 → SUATTDRO 17:49 → 2N 18:44

== ENCOUNTER 2022-11-18 18:50 | Inpatient (IN) ==
[2022-11-18 19:24] LABS: Basophils # (auto) 0.03 K/uL (0-0.2); Basophils % (auto) 0.4 %; Eosinophils # (auto) 0.16 K/uL (0-0.50); Hematocrit (blood only) 39.8 % (40.1-51.0); Hemoglobin 12.9 g/dl (14.0-18.0); Immature Granulocytes # (auto) 0.02 K/uL (0.00-0.02); Immature Granulocytes % (auto) 0.3 %; Mean Corpuscular Hemoglobin 29.4 pg (25.0-34.0); Mean Corpuscular Hgb Conc 32.4 g/dL (32.0-36.0); Mean Corpuscular Volume 90.7 fL (80.0-100.0); Mean Platelet Volume 9.6 fL (9.4-12.4); Monocytes # (auto) 0.94 K/uL (0.24-0.82); Monocytes % (auto) 11.9 %; Neutrophils # (auto) 5.63 K/uL (1.4-6.5); Neutrophils % (auto) 71.4 %; Platelet Count 253 K/uL (130-400); RDW Coefficient of Variation 14.5 % (11.5-14.5); RDW Standard Deviation 47.6 fL (36.4-46.3); Red Blood Count 4.39 M/uL (4.63-6.08); White Blood Count 7.88 K/ul (4.8-10.8)
[2022-11-18] MEDS ORDERED: methylPREDNISolone 125 MG/2 ML VIAL IV STA (19:36)
[2022-11-18] MEDS ORDERED: ALBUT/IPRATROP 3MG/0.5MG NEB 3 ML VIAL NEB ONE (19:36)
--- NOTE | 2022-11-18 19:40 | Emergency Department Note ---
Impression & Plan Acute exacerbation of chronic obstructive pulmonary disease, Hypoxia, Cough ED Provider Note Provider: Orlando Powers MD DATE OF SERVICE: 11/13/2022 CHIEF COMPLAINT: Shortness of breath, cough HISTORY OF PRESENT ILLNESS: Patient is a 72-year-old gentleman history of COPD and hypertension presenting here today reporting worsening shortness of breath and cough since yesterday. Some productive quality of cough with yellowish sputum. Reports a bit of slight chest pressure. Worsening shortness of breath with movement. Has used his albuterol at home without much improvement. Denies fever or sick contact. Denies GI upset. Patient reports former smoker and has quit and not on home oxygen. Denies leg swelling or pain. PAST MEDICAL HISTORY: As noted above MEDICATIONS: Reviewed home medications SOCIAL HISTORY: Former smoker, lives by himself PHYSICAL EXAM: GENERAL: alert and oriented seated on the stretcher with some increased work of breathing Head: normocephalic and atraumatic EYES: No injection, discharge or icterus. NECK: Trachea midline. Supple. ENT: Mucous membranes pink and moist. LUNGS: Airway patent. No retractions. Breath sounds diminished with poor air mo vement and some pursed lip breathing as well as increased work of breathing HEART: Regular rate and rhythm. No chest wall tenderness ABDOMEN: Soft and non-tender, without guarding or rebound. SKIN: Acyanotic, warm, dry, without rashes EXTREMITIES: Without swelling, tenderness or deformity NEUROLOGICAL: No focal deficits. No aphasia. No facial droop or slurred speech. Normal strength and tone in the extremities. Sensation to gross touch normal. Ambulatory. EKG: Rate beats per minute normal sinus rhythm with a right bundle branch block. No acute ST segment elevation with nonspecific T wave inversions and a QTC of 523 CONTINUOUS CARDIAC MONITORING: was ordered and showed a heart rate of bpm in normal sinus rhythm to sinus tachycardia Patient's laboratory studies and imaging reviewed. Differential includes Reactive airway disease, pneumonia, pneumothorax, COPD, CHF, infections, cardiac ischemia, pulmonary embolism, musculoskeletal, gastrointestinal, as well as other pathologies. IMPRESSION/MEDICAL DECISION MAKING: Patient without stigmata significant fluid overload in the lower extremities. Lower suspicion for VTE and again does not have any significant calf tenderness. Question exacerbation underlying COPD. Flu and COVID test sent. Given Solu- Medrol and DuoNeb given his increased work of breathing placed on BiPAP. Is requiring oxygen supplementation which is a new issue as well. Chest x-ray completed. Basic blood work including EKG and troponin sent. Mild troponin elevation. Unsure of chronic given on the last day. No severe electrolyte abnormality or signs of renal dysfunction. CO2 without abnormality and lower suspicion for hypercarbia given this and his fairly clear mental status. Mild anemia. No leukocytosis. Chest x-ray per radiology reassuring without evidence of pneumonia. Given work of breathing is on BiPAP with mild oxygen support but not normally requiring O2. COVID and flu test again is pending. With the DuoNeb he is receiving is not having some wheezing now and seems to be moving a bit more air. Discussed with him further care at the hospital. Hospitalist was contacted. DIAGNOSIS: COPD exacerbation, shortness of breath, hypoxia DISPOSITION: Hospitalist will evaluate Patient was agreeable with this plan. Critical Care I have personally spent 31 minutes of critical care time in the direct page gement of this patient. This includes bedside care, interpretation of diagnostic studies, and testing, discussion with consultants, patient, and other required patient management activities. These 31 minutes is in excess of all separately billable procedures. Past Med/Surg History Medical History (Updated 11/18/22 @ 23:08 by Orlando Powers M.D.) Chronic daily headache COPD (chronic obstructive pulmonary disease) based on CXR and smoking history, patient declines PFT's Hypertension Impaired fasting glucose Nocturnal hypoxia On 2L oxygen at night Thoracic aortic aneurysm seen on CXR, patient declines chest CT Surgical History History of cataract surgery Family History Father Myocardial infarction Other Dementia Heart disease Hypertension Denies family history of Rheumatoid arthritis Sudden SIDS (sudden infant syndrome) Ovarian cancer Prostate cancer Diabetes Deep vein thrombosis Osteoporosis Coronary heart disease Dyslipidemia Cerebral aneurysm Alzheimer disease Bipolar disorder Clotting disorder Crohn's disease Depression Kidney disease Osteoarthritis Breast cancer Schizophrenia Congenital kidney disease Gestational diabetes Lung cancer COPD (chronic obstructive pulmonary disease) Colorectal cancer Pulmonary embolism Lung disease Cancer Ulcerative colitis Colonic polyp Stroke Asthma Cystic kidney disease Social History (Updated 09/13/22 @ 09:03 by RASHAWN Loya) Smoking Status: Never smoker Tobacco Type: Cigarettes Age Started Using Tobacco: 19; Age Quit Using Tobacco: 70; packs per day: 1; Cigarettes Per Day: 20; Second Hand Exposure: No; Hx Alcohol Use: Yes Alcohol type: beer Alcohol Intake Frequency Comment: occasionally Hx Substance Use: No Preferred Language: Telugu Communication Ability: Effective Visual Impairment: No Limitations Hearing Ability: Normal Beliefs That Will Affect Care: None marital status: Current Living Situation: Alone Current Living Situation Comment: pt states lives alone in a house current occupational status: retired 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 Feels Safe at Home: Yes Childhood Exposure to Second-Hand Smoke: No caffeine: No during the past year weight has: remained stable Dental Care, Regularly: Yes Physical Activity Frequency: Does not Exercise Seatbelt Use: sometimes Sunscreen Use: Yes Assistive Devices: Oxygen - Continuous Allergies Allergies Allergy/AdvReac Type Severity Reaction Status Date / Time No Known Allergies Allergy Verified 11/18/22 20:48 Home Meds Home Medications Medication Instructions Recorded Confirmed turmeric 400 mg capsule 400 mg PO DAILY 04/20/19 11/18/22 Previous Rx's Medication Instructions Recorded clotrimazole-betamethasone 1 1 applic topical BID #15 grams 09/12/21 %-0.05 % topical cream sildenafil 50 mg tablet See Rx Instructions PO DAILY PRN 09/12/21 sexual activity #9 tabs losartan 50 mg-hydrochlorothiazide 1 tab PO DAILY #90 tabs 01/10/22 12.5 mg tablet albuterol sulfate 90 mcg/actuation 2 puff inhalation Q6H PRN 03/13/22 aerosol inhaler shortness of breath or wheezing #8.5 grams rosuvastatin 10 mg tablet 10 mg PO DAILY #30 tabs 10/08/22 triamcinolone acetonide 0.1 % 1 applic topical BID PRN / 10/22/22 topical ointment itching #80 grams tiotropium bromide 2.5 2 puff inhalation DAILY #4 grams 11/11/22 mcg/actuation mist for inhalation Results & Data (ED) Vital Signs Vital Signs - 24 hr 11/18/22 18:58 11/18/22 19:01 11/18/22 19:14 Temperature 36.7 C Temperature Source Temporal Artery Scan Pulse Rate 108 H Pulse Rate [Finger] Pulse Rate from SpO2 Sensor Pulse Rhythm [Finger] Pulse Strength [Finger] Respiratory Rate 22 30 H Respiratory Effort / Characteristics Non-Labored Spontaneous Respiratory Depth Normal Respiratory Pattern Blood Pressure 164/113 H Blood Pressure [Left Arm] Blood Pressure Mean 130 Blood Pressure Mean [Left Arm] Blood Pressure Position [Left Arm] Pulse Oximetry 83 L 83 L 94 Oxygen Delivery Method Room Air Room Air Nasal Cannula Nasal Cannula Oxygen Flow Rate 0 Fraction of Inspired Oxygen Sepsis Recent Fever Within 48 Hours No Sepsis New/Unexplained Change in Mental Status N/A Sepsis Action Taken by Nursing No Action Required Oxygen Flow Rate - Titration 4 Pulse Oximetry Post Tiitration 92 11/18/22 19:29 11/18/22 19:29 11/18/22 19:29 Temperature Temperature Source Pulse Rate Pulse Rate [Finger] 100 H Pulse Rate from SpO2 Sensor Pulse Rhythm [Finger] Regular Pulse Strength [Finger] Normal Respiratory Rate 26 H 26 H Respiratory Effort / Characteristics Labored Labored Nasal Flaring Pursed Lip Short of Breath Respiratory Depth Retractive Respiratory Pattern Regular Blood Pressure Blood Pressure [Left Arm] 158/104 H Blood Pressure Mean Blood Pressure Mean [Left Arm] 122 Blood Pressure Position [Left Arm] Sitting Pulse Oximetry 97 96 Oxygen Delivery Method Nasal Cannula Nasal Cannula Nasal Cannula Oxygen Flow Rate 4 4 Fraction of Inspired Oxygen Sepsis Recent Fever Within 48 Hours Sepsis New/Unexplained Change in Mental Status Sepsis Action Taken by Nursing Oxygen Flow Rate - Titration Pulse Oximetry Post Tiitration 11/18/22 20:12 11/18/22 19:50 11/18/22 19:20 Temperature Temperature Source Pulse Rate 95 H 103 H Pulse Rate [Finger] 94 H Pulse Rate from SpO2 Sensor 104 H Pulse Rhythm [Finger] Pulse Strength [Finger] Respiratory Rate 23 27 H Respiratory Effort / Characteristics Non-Labored Spontaneous Spontaneous Labored Short of Breath Respiratory Depth Deep Respiratory Pattern Blood Pressure Blood Pressure [Left Arm] Blood Pressure Mean Blood Pressure Mean [Left Arm] Blood Pressure Position [Left Arm] Pulse Oximetry 97 95 98 Oxygen Delivery Method Nebulizer Oxygen Flow Rate 6 Fraction of Inspired Oxygen 40 Sepsis Recent Fever Within 48 Hours Sepsis New/Unexplained Change in Mental Status Sepsis Action Taken by Nursing Oxygen Flow Rate - Titration Pulse Oximetry Post Tiitration 11/18/22 19:30 11/18/22 19:30 11/18/22 20:00 Temperature Temperature Source Pulse Rate 102 H 103 H Pulse Rate [Finger] Pulse Rate from SpO2 Sensor 102 H Pulse Rhythm [Finger] Pulse Strength [Finger] Respiratory Rate 15 23 Respiratory Effort / Characteristics Respiratory Depth Respiratory Pattern Blood Pressure 129/84 Blood Pressure [Left Arm] Blood Pressure Mean 99 Blood Pressure Mean [Left Arm] Blood Pressure Position [Left Arm] Pulse Oximetry 97 Oxygen Delivery Method Oxygen Flow Rate Fraction of Inspired Oxygen Sepsis Recent Fever Within 48 Hours Sepsis New/Unexplained Change in Mental Status Sepsis Action Taken by Nursing Oxygen Flow Rate - Titration Pulse Oximetry Post Tiitration 11/18/22 20:01 11/18/22 20:01 11/18/22 20:30 Temperature Temperature Source Pulse Rate 94 H Pulse Rate [Finger] Pulse Rate from SpO2 Sensor Pulse Rhythm [Finger] Pulse Strength [Finger] Respiratory Rate 21 Respiratory Effort / Characteristics Respiratory Depth Respiratory Pattern Blood Pressure 142/108 H 154/94 H Blood Pressure [Left Arm] Blood Pressure Mean 119 114 Blood Pressure Mean [Left Arm] Blood Pressure Position [Left Arm] Pulse Oximetry Oxygen Delivery Method Oxygen Flow Rate Fraction of Inspired Oxygen Sepsis Recent Fever Within 48 Hours Sepsis New/Unexplained Change in Mental Status Sepsis Action Taken by Nursing Oxygen Flow Rate - Titration Pulse Oximetry Post Tiitration 11/18/22 20:30 11/18/22 21:00 11/18/22 21:16 Temperature Temperature Source Pulse Rate 93 H 100 H Pulse Rate [Finger] Pulse Rate from SpO2 Sensor 95 H 100 H Pulse Rhythm [Finger] Pulse Strength [Finger] Respiratory Rate 18 22 Respiratory Effort / Characteristics Respiratory Depth Respiratory Pattern Blood Pressure 141/70 H Blood Pressure [Left Arm] Blood Pressure Mean 93 Blood Pressure Mean [Left Arm] Blood Pressure Position [Left Arm] Pulse Oximetry 98 96 Oxygen Delivery Method Oxygen Flow Rate Fraction of Inspired Oxygen Sepsis Recent Fever Within 48 Hours Sepsis New/Unexplained Change in Mental Status Sepsis Action Taken by Nursing Oxygen Flow Rate - Titration Pulse Oximetry Post Tiitration 11/18/22 21:16 11/18/22 21:30 11/18/22 21:30 Temperature Temperature Source Pulse Rate 111 H 116 H Pulse Rate [Finger] Pulse Rate from SpO2 Sensor 111 H 116 H Pulse Rhythm [Finger] Pulse Strength [Finger] Respiratory Rate 19 30 H Respiratory Effort / Characteristics Respiratory Depth Respiratory Pattern Blood Pressure 147/118 H Blood Pressure [Left Arm] Blood Pressure Mean 127 Blood Pressure Mean [Left Arm] Blood Pressure Position [Left Arm] Pulse Oximetry 100 93 Oxygen Delivery Method Oxygen Flow Rate Fraction of Inspired Oxygen Sepsis Recent Fever Within 48 Hours Sepsis New/Unexplained Change in Mental Status Sepsis Action Taken by Nursing Oxygen Flow Rate - Titration Pulse Oximetry Post Tiitration Laboratory Data 11/18/22 19:15 11/18/22 19:15 Lab Results 11/18/22 11/18/22 11/18/22 Range/Units 19:15 19:15 19:15 WBC 7.88 (4.8-10.8) K/ul RBC 4.39 L (4.63-6.08) M/uL Hgb 12.9 L (14.0-18.0) g/dl Hct 39.8 L (40.1-51.0) % MCV 90.7 (80.0-100.0) fL MCH 29.4 (25.0-34.0) pg MCHC 32.4 (32.0-36.0) g/dL RDW Std Deviation 47.6 H (36.4-46.3) fL RDW Coeff of Ge 14.5 (11.5-14.5) % Plt Count 253 (130-400) K/uL MPV 9.6 (9.4-12.4) fL Immature Gran % (Auto) 0.3 % Neut % (Auto) 71.4 % Lymph % (Auto) 14.0 % [place] % (Auto) 11.9 % Eos % (Auto) 2.0 % Baso % (Auto) 0.4 % Neut # (Auto) 5.63 (1.4-6.5) K/uL Lymph # (Auto) 1.10 L (1.2-3.4) K/uL [place] # (Auto) 0.94 H (0.24-0.82) K/uL Eos # (Auto) 0.16 (0-0.50) K/uL Baso # (Auto) 0.03 (0-0.2) K/uL Immature Gran # (Auto) 0.02 (0.00-0.02) K/uL PT 10.9 (9.0-12.0) Seconds INR 1.0 (0.9-1.1) APTT 25.3 (21.0-31.0) Seconds PTT Ratio 0.9 Sodium 138 (136-145) mmol/L Potassium 3.9 (3.5-5.1) mmol/L Chloride 100 (98-107) mmol/L Carbon Dioxide 30 (21-32) mmol/L Anion Gap 8 (3-11) BUN 15 (6-23) mg/dl Creatinine 1.03 (0.6-1.4) mg/dl Est Cr Clr Drug Dosing 69.0 ml/min Est GFR ( Amer) 83.1 ml/min Est GFR (Non-Af Amer) 71.7 ml/min BUN/Creatinine Ratio 14.6 (10-20) Glucose 190 H (70-99(Fasting)) mg/dl Calcium 9.1 (8.5-10.1) mg/dl Magnesium 1.7 (1.7-2.4) mg/dl Total Bilirubin 0.2 (0.2-1.0) mg/dl AST 26 (13-39) U/L ALT 35 (7-52) U/L Alkaline Phosphatase 83 (34-104) U/L Troponin I High Sens 24.3 H (0-20) pg/ml Total Protein 7.8 (6.0-8.3) gm/dl Albumin 4.4 (3.4-5.0) gm/dl Globulin 3.4 (2.5-4.0) gm/dl Albumin/Globulin Ratio 1.3 (0.9-2) SARS-CoV-2 (PCR) (Negative) Influenza Type A (PCR) (Neg) Influenza Type B (PCR) (Neg) RSV (RT-PCR) (Neg) 11/18/22 Range/Units 20:15 WBC (4.8-10.8) K/ul RBC (4.63-6.08) M/uL Hgb (14.0-18.0) g/dl Hct (40.1-51.0) % MCV (80.0-100.0) fL MCH (25.0-34.0) pg MCHC (32.0-36.0) g/dL RDW Std Deviation (36.4-46.3) fL RDW Coeff of Ge (11.5-14.5) % Plt Count (130-400) K/uL MPV (9.4-12.4) fL Immature Gran % (Auto) % Neut % (Auto) % Lymph % (Auto) % [place] % (Auto) % Eos % (Auto) % Baso % (Auto) % Neut # (Auto) (1.4-6.5) K/uL Lymph # (Auto) (1.2-3.4) K/uL [place] # (Auto) (0.24-0.82) K/uL Eos # (Auto) (0-0.50) K/uL Baso # (Auto) (0-0.2) K/uL Immature Gran # (Auto) (0.00-0.02) K/uL PT (9.0-12.0) Seconds INR (0.9-1.1) APTT (21.0-31.0) Seconds PTT Ratio Sodium (136-145) mmol/L Potassium (3.5-5.1) mmol/L Chloride (98-107) mmol/L Carbon Dioxide (21-32) mmol/L Anion Gap (3-11) BUN (6-23) mg/dl Creatinine (0.6-1.4) mg/dl Est Cr Clr Drug Dosing ml/min Est GFR ( Amer) ml/min Est GFR (Non-Af Amer) ml/min BUN/Creatinine Ratio (10-20) Glucose (70-99(Fasting)) mg/dl Calcium (8.5-10.1) mg/dl Magnesium (1.7-2.4) mg/dl Total Bilirubin (0.2-1.0) mg/dl AST (13-39) U/L ALT (7-52) U/L Alkaline Phosphatase (34-104) U/L Troponin I High Sens (0-20) pg/ml Total Protein (6.0-8.3) gm/dl Albumin (3.4-5.0) gm/dl Globulin (2.5-4.0) gm/dl Albumin/Globulin Ratio (0.9-2) SARS-CoV-2 (PCR) NEGATIVE (Negative) Influenza Type A (PCR) Negative (Neg) Influenza Type B (PCR) Negative (Neg) RSV (RT-PCR) Negative (Neg) Administered Medications Discontinued Medications Albuterol (Albut/Ipratrop 3mg/0.5mg Neb 3 Ml Vial) 12 ml NEB ONE ONE; Protocol Stop: 11/18/22 19:37 Last Admin: 11/18/22 20:07 Dose: 12 ml Documented By: EZIO Methylprednisolone (Methylprednisolone 125 Mg/2 Ml Vial) 125 mg IV NOW STA Stop: 11/18/22 19:37 Last Admin: 11/18/22 20:26 Dose: 125 mg Documented By: [place] Imaging Data Radiologist's Impression: Chest X-Ray 11/18/22 19:02 XR chest 1V portable HISTORY: Shortness of breath. COMPARISON: Chest 12/19/2020. FINDINGS: No pneumothorax. No pleural effusions. Punctate calcified granulomas again noted within the lungs. These remain unchanged. No new focal lung consoli dations to suggest a pneumonia. No evidence for pulmonary edema. There is a tortuous thoracic aorta, unchanged. The heart is normal in size. Mild emphysema persists. IMPRESSION: No significant change compared to the prior study. No acute process. ACT 112: Negative or not required by law. Electronically signed by: Shade Landaverde M.D. 11/18/2022 7:51 PM Discharge Plan Visit Data Chief Complaint: Shortness of Breath/Dyspnea Stated Complaint: TROUBLE BREATHING,COPD,SOB,FATIGUE ED Provider: Orlando Powers Discharge Problem: Acute exacerbation of chronic obstructive pulmonary disease, Hypoxia, Cough Patient Disposition: Admitted As Inpatient Discharge Instructions Interventions: ED Discharge Assessment Last Done: 11/18/22 22:46
[2022-11-18 19:41] LABS: Partial Thromboplastin Ratio 0.9; Partial Thromboplastin Time 25.3 Seconds (21.0-31.0); Prothrombin Time 10.9 Seconds (9.0-12.0)
--- NOTE | 2022-11-18 19:52 | XRay Report ---
XR chest 1V portable HISTORY: Shortness of breath. COMPARISON: Chest 12/19/2020. FINDINGS: No pneumothorax. No pleural effusions. Punctate calcified granulomas again noted within the lungs. These remain unchanged. No new focal lung consolidations to suggest a pneumonia. No evidence for pulmonary edema. There is a tortuous thoracic aorta, unchanged. The heart is normal in size. Mild emphysema persists. IMPRESSION: No significant change compared to the prior study. No acute process. ACT 112: Negative or not required by law. Electronically signed by: Shade Landaverde M.D. 11/18/2022 7:51 PM
[2022-11-18 19:55] LABS: Albumin Globulin Ratio 1.3 (0.9-2); Albumin Level 4.4 gm/dl (3.4-5.0); BUN Creatinine Ratio 14.6 (10-20); Bilirubin,Total 0.2 mg/dl (0.2-1.0); Calcium 9.1 mg/dl (8.5-10.1); Est GFR (African American) 83.1 ml/min; Est GFR (Non-African American) 71.7 ml/min; Globulin 3.4 gm/dl (2.5-4.0); Magnesium 1.7 mg/dl (1.7-2.4); Potassium 3.9 mmol/L (3.5-5.1); Total Protein 7.8 gm/dl (6.0-8.3)
[2022-11-18 20:00] LABS: Troponin I High Sensitivity 24.3 pg/ml (0-20)
[2022-11-18 21:09] LABS: Influenza A virus by PCR Negative (Neg); Influenza B virus by PCR Negative (Neg); RSV by PCR Negative (Neg); SARS CoV2 RNA(COVID-19) Ceph NEGATIVE (Negative)
--- NOTE | 2022-11-18 21:36 | History & Physical Report ---
Date of Service November 18, 2022 Assessment & Plan (1) Acute respiratory failure with hypoxia: Plan: 72yo male with history of HTN, presumed COPD presenting with 1-2 days of progressive cough productive for yellow sputum, fatigue and dyspnea. Hypoxic on arrival to 83% on room air (no home oxygen), increased work of breathing in the ER resulting in trial of BiPAP. Presently saturating well. BiPAP has been removed, now on 2L NC saturating 97%. No leukocytosis. Viral panel NEGATIVE to include Covid/Influenza A&B/RSV. CXR with no infiltrate, PTX or edema. Assume acute exacerbation of COPD. -Admit to PCU -Continue supplemental O2 as needed, BiPAP vs NC. Goal saturation 90% -DuoNebs q4 hours -Albuterol q 2 hours PRN -Solumedrol 40mg IV TID -Flutter valve QID -Incentive spirometry q2h WA -Mucinex 1200mg BID -Azithromycin 500mg now then 250mg daily x 5 days (2) Acute exacerbation of chronic obstructive pulmonary disease: Plan: Presumed diagnosis - patient had been seen by his PCP on 11/05/22 with complaint of progressive CORONADO. He has a significant smoking history of appx 50 pack years - quit 2 years ago. He was offered PFTs in the past but declined. He is now scheduled for a chest CT this week and to have PFTs in January. -Solumedrol 40mg IV TID -DuoNeb q 4 hours -Albuterol q 2 hours PRN -Azithromycin -Supplemental O2 as needed - target saturation 90% -Pulmonary toilet (3) Elevated troponin: Plan: Mild elevation of troponin at 24.3. No chest pain. Suspect demand ischemia in setting of hypoxia -Telemetry monitoring -Repeat troponin in AM (4) Hypertension: Plan: Blood pressure mildly elevated. Presently 149/74 -Continue HCTZ/Losartan -Monitor (5) Hyperlipidemia: Plan: Chronic. On Crestor -Continue Crestor 10mg po daily F/E/N - Heplock. Electroltyes WNL. Heart healthy diet as tolerated Ppx - Lovenox Code- DNR/DNI per discussion with patient Dispo - Admit to PCU for acute hypoxic respiratory failure, COPD requiring BiPAP for increased work of breathing. History of Present Illness Chief Complaint: cough, sputum, SOB Primary Care Provider: MD Eren Wallis is a 72yo male with history of HTN, presumed COPD presenting with 1-2 days of cough productive for yellow sputum, cough and SOB. Patient reports progression of cough, sputum production and SOB over the last day. Today he was having a difficult time catching his breath and dyspnea with minimal exertion and fatigue. He was using his home Albuterol with minimal improvement. He denies fever, chills, chest pain, palpitations, nausea, vomiting, diarrhea. No home oxygen use. Patient denies sick contacts or recent travel. Upon arrival to the ER he was tachycardic with HR of 108, tachypneic with RR of 30, saturating 83% on room air. He was placed on nasal cannula 4L with improvement in oxygen saturation to 98%, although still with increased work of breathing therefore was placed on BiPAP with improvement. No additional complaints at this time. ER Course: Solumedrol 125mg IV, Albuterol 12mL neb Allergies Allergy/AdvReac Type Severity Reaction Status Date / Time No Known Allergies Allergy Verified 11/18/22 20:48 Home Medications Medication Instructions Recorded Confirmed Type turmeric 400 mg capsule 400 mg PO DAILY 04/20/19 11/18/22 History clotrimazole-betamethasone 1 1 applic topical BID #15 grams 09/12/21 11/18/22 Rx %-0.05 % topical cream sildenafil 50 mg tablet See Rx Instructions PO DAILY PRN 09/12/21 11/18/22 Rx sexual activity #9 tabs losartan 50 mg-hydrochlorothiazide 1 tab PO DAILY #90 tabs 01/10/22 11/18/22 Rx 12.5 mg tablet albuterol sulfate 90 mcg/actuation 2 puff inhalation Q6H PRN 03/13/22 11/18/22 Rx aerosol inhaler shortness of breath or wheezing #8.5 grams rosuvastatin 10 mg tablet 10 mg PO DAILY #30 tabs 10/08/22 11/18/22 Rx triamcinolone acetonide 0.1 % 1 applic topical BID PRN 10/22/22 11/18/22 Rx topical ointment itching #80 grams tiotropium bromide 2.5 2 puff inhalation DAILY #4 grams 11/11/22 11/18/22 Rx mcg/actuation mist for inhalation Past Med/Surg History Medical History (Updated 11/18/22 @ 23:24 by Dawn Arizmendi DO) Chronic daily headache COPD (chronic obstructive pulmonary disease) based on CXR and smoking history Patient is to get PFTs in January 2023 Hyperlipidemia Hypertension Impaired fasting glucose Nocturnal hypoxia On 2L oxygen at night Thoracic aortic aneurysm seen on CXR, patient declines chest CT Surgical History History of cataract surgery Family History Father Myocardial infarction Other Dementia Heart disease Hypertension Denies family history of Rheumatoid arthritis Sudden SIDS (sudden infant syndrome) Ovarian cancer Prostate cancer Diabetes Deep vein thrombosis Osteoporosis Coronary heart disease Dyslipidemia Cerebral aneurysm Alzheimer disease Bipolar disorder Clotting disorder Crohn's disease Depression Kidney disease Osteoarthritis Breast cancer Schizophrenia Congenital kidney disease Gestational diabetes Lung cancer COPD (chronic obstructive pulmonary disease) Colorectal cancer Pulmonary embolism Lung disease Cancer Ulcerative colitis Colonic polyp Stroke Asthma Cystic kidney disease Social History (Updated 11/18/22 @ 23:16 by Dawn Arizmendi DO) Smoking Status: Former smoker Tobacco Type: Cigarettes Age Started Using Tobacco: 19; Age Quit Using Tobacco: 70; packs per day: 1; Cigarettes Per Day: 20; Second Hand Exposure: No; Hx Alcohol Use: Yes Alcohol type: beer Alcohol Intake Frequency Comment: occasionally Hx Substance Use: No Preferred Language: Italian Communication Ability: Effective Visual Impairment: No Limitations Hearing Ability: Normal Supervisor Powdered Sugar Required: No Beliefs That Will Affect Care: None marital status: Current Living Situation: Alone Current Living Situation Comment: pt states lives alone in a house current occupational status: retired 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 Other Information That Helps Us Care for You: No Feels Safe at Home: Yes Safety Concerns: Feels Safe At This Time Childhood Exposure to Second-Hand Smoke: No caffeine: No during the past year weight has: remained stable Dental Care, Regularly: Yes Physical Activity Frequency: Does not Exercise Seatbelt Use: sometimes Sunscreen Use: Yes Assistive Devices: Oxygen - Continuous Review of Systems Review of Systems: All systems reviewed & are unremarkable except as noted in HPI & below Physical Exam Physical Exam: General: patient resting comfortably, NAD, non-toxic in appearance, AA&O x 4, BiPAP in place / 35% FiO2 Skin: warm, dry, intact, no rashes or lesions HEENT: NC/AT, PERRL, EOMI, anicteric sclera, conjunctiva without injection, external ear normal to inspection and nontender, nares patent, moist mucus membranes, dentition intact, no oropharyngeal lesions, neck supple, trachea mi dline, no LAD, no thyromegaly, no JVD Heart: +S1/S2, regular, tachycardic, no m/r/g Lungs: patient still with tachypnea, BiPAP in place 35% FiO2, diminished breath sounds bilaterally with scattered end-expiratory wheezing throughout, no rhonchi/rales appreciated Abd: +BS, soft, NT/ND, no masses/organomegaly/ascites Ext: warm, 2+ pulses in UE/LE bilaterally, no clubbing/cyanosis or edema Neuro: nonfocal, patient AA&O x 4, speech intact, no facial droop, moving all extremities on command with equal strength 5/5 Results & Data Results & Data ([facility]) Vital Signs (Past 12 Hours) Vital Signs Temp Pulse Pulse Resp BP BP Pulse Ox 11/18/22 21:30 116 H 30 H 93 11/18/22 21:16 111 H 19 100 11/18/22 21:16 141/70 H 11/18/22 21:00 100 H 22 96 11/18/22 20:30 93 H 18 98 11/18/22 20:30 154/94 H 11/18/22 20:01 94 H 21 11/18/22 20:01 142/108 H 11/18/22 20:00 103 H 23 11/18/22 19:30 102 H 15 97 11/18/22 19:30 129/84 11/18/22 19:20 103 H 27 H 98 11/18/22 19:50 95 H 23 95 11/18/22 20:12 94 H 97 11/18/22 19:29 11/18/22 19:29 26 H 96 11/18/22 19:29 100 H 26 H 158/104 H 97 11/18/22 19:14 30 H 94 11/18/22 19:01 83 L 11/18/22 18:58 36.7 C 108 H 22 164/113 H 83 L O2 Del Method O2 Flow Rate FiO2 11/18/22 21:30 11/18/22 21:16 11/18/22 21:16 11/18/22 21:00 11/18/22 20:30 11/18/22 20:30 11/18/22 20:01 11/18/22 20:01 11/18/22 20:00 11/18/22 19:30 11/18/22 19:30 11/18/22 19:20 11/18/22 19:50 40 11/18/22 20:12 Nebulizer 6 11/18/22 19:29 Nasal Cannula 11/18/22 19:29 Nasal Cannula 4 11/18/22 19:29 Nasal Cannula 4 11/18/22 19:14 Nasal Cannula 11/18/22 19:01 Room Air, Nasal Cannula 0 11/18/22 18:58 Room Air Laboratory Results Laboratory Results WBC 7.88 K/ul (4.8-10.8) 11/18/22 19:15 RBC 4.39 M/uL (4.63-6.08) L 11/18/22 19:15 Hgb 12.9 g/dl (14.0-18.0) L 11/18/22 19:15 Hct 39.8 % (40.1-51.0) L 11/18/22 19:15 MCV 90.7 fL (80.0-100.0) 11/18/22 19:15 MCH 29.4 pg (25.0-34.0) 11/18/22 19:15 MCHC 32.4 g/dL (32.0-36.0) 11/18/22 19:15 RDW Std Deviation 47.6 fL (36.4-46.3) H 11/18/22 19:15 RDW Coeff of Ge 14.5 % (11.5-14.5) 11/18/22 19:15 Plt Count 253 K/uL (130-400) 11/18/22 19:15 MPV 9.6 fL (9.4-12.4) 11/18/22 19:15 Immature Gran % (Auto) 0.3 % 11/18/22 19:15 Neut % (Auto) 71.4 % 11/18/22 19:15 Lymph % (Auto) 14.0 % 11/18/22 19:15 [place] % (Auto) 11.9 % 11/18/22 19:15 Eos % (Auto) 2.0 % 11/18/22 19:15 Baso % (Auto) 0.4 % 11/18/22 19:15 Neut # (Auto) 5.63 K/uL (1.4-6.5) 11/18/22 19:15 Lymph # (Auto) 1.10 K/uL (1.2-3.4) L 11/18/22 19:15 [place] # (Auto) 0.94 K/uL (0.24-0.82) H 11/18/22 19:15 Eos # (Auto) 0.16 K/uL (0-0.50) 11/18/22 19:15 Baso # (Auto) 0.03 K/uL (0-0.2) 11/18/22 19:15 Immature Gran # (Auto) 0.02 K/uL (0.00-0.02) 11/18/22 19:15 PT 10.9 Seconds (9.0-12.0) 11/18/22 19:15 INR 1.0 (0.9-1.1) 11/18/22 19:15 APTT 25.3 Seconds (21.0-31.0) 11/18/22 19:15 PTT Ratio 0.9 11/18/22 19:15 Sodium 138 mmol/L (136-145) 11/18/22 19:15 Potassium 3.9 mmol/L (3.5-5.1) 11/18/22 19:15 Chloride 100 mmol/L (98-107) 11/18/22 19:15 Carbon Dioxide 30 mmol/L (21-32) 11/18/22 19:15 Anion Gap 8 (3-11) 11/18/22 19:15 BUN 15 mg/dl (6-23) 11/18/22 19:15 Creatinine 1.03 mg/dl (0.6-1.4) 11/18/22 19:15 Est Cr Clr Drug Dosing 69.0 ml/min 11/18/22 19:15 Est GFR ( Amer) 83.1 ml/min 11/18/22 19:15 Est GFR (Non-Af Amer) 71.7 ml/min 11/18/22 19:15 BUN/Creatinine Ratio 14.6 (10-20) 11/18/22 19:15 Glucose 190 mg/dl (70-99(Fasting)) H 11/18/22 19:15 Calcium 9.1 mg/dl (8.5-10.1) 11/18/22 19:15 Magnesium 1.7 mg/dl (1.7-2.4) 11/18/22 19:15 Total Bilirubin 0.2 mg/dl (0.2-1.0) 11/18/22 19:15 AST 26 U/L (13-39) 11/18/22 19:15 ALT 35 U/L (7-52) 11/18/22 19:15 Alkaline Phosphatase 83 U/L (34-104) 11/18/22 19:15 Troponin I High Sens 24.3 pg/ml (0-20) H 11/18/22 19:15 Total Protein 7.8 gm/dl (6.0-8.3) 11/18/22 19:15 Albumin 4.4 gm/dl (3.4-5.0) 11/18/22 19:15 Globulin 3.4 gm/dl (2.5-4.0) 11/18/22 19:15 Albumin/Globulin Ratio 1.3 (0.9-2) 11/18/22 19:15 SARS-CoV-2 (PCR) NEGATIVE (Negative) 11/18/22 20:15 Influenza Type A (PCR) Negative (Neg) 11/18/22 20:15 Influenza Type B (PCR) Negative (Neg) 11/18/22 20:15 RSV (RT-PCR) Negative (Neg) 11/18/22 20:15 Impressions Chest X-Ray 11/18/22 19:02 XR chest 1V portable HISTORY: Shortness of breath. COMPARISON: Chest 12/19/2020. FINDINGS: No pneumothorax. No pleural effusions. Punctate calcified granulomas again noted within the lungs. These remain unchanged. No new focal lung consolidations to suggest a pneumonia. No evidence for pulmonary edema. There is a tortuous thoracic aorta, unchanged. The heart is normal in size. Mild emphysema persists. IMPRESSION: No significant change compared to the prior study. No acute process. ACT 112: Negative or not required by law. Electronically signed by: Shade Landaverde M.D. 11/18/2022 7:51 PM ECG Additional Comments: Poor study - ST at 107, RBBB Code Status & VTE Plan VTE Prophylaxis Plan VTE Prophylaxis will be ordered: Yes PG Care Time/CCT Total # of Minutes Spent Total Time Spent with Patient: Total time spent is greater than 50% in coordination of care (as documented) at patient's floor/unit and/or counseling patient: Coding Level of Care Code 48522 INT INP/OBS CARE 3/75MIN Diagnoses Acute respiratory failure with hypoxia J96.01 Acute exacerbation of chronic obstructive pulmonary disease J44.1 Elevated troponin R77.8 Hypertension I10 Hyperlipidemia E78.5
[2022-11-18] MEDS ORDERED: ALBUTEROL 0.5% NEB SOLN 2.5 MG/0.5 ML VIAL NEB PRN (22:26)
[2022-11-18] MEDS ORDERED: AZITHROMYCIN 250 MG TAB PO ONE (23:00)
[2022-11-18] MEDS: ENOXAPARIN INJ 40 MG/0.4 ML SYR SQ SCH (23:49)
[2022-11-19] MEDS: ALBUT/IPRATROP 3MG/0.5MG NEB 3 ML VIAL NEB SCH ×7 (00:13→22:54)
[2022-11-19] MEDS: methylPREDNISolone 40 MG in SYRINGE 0 ML IV SCH ×3 (05:08→23:26)
[2022-11-19] MEDS: ACETAMINOPHEN 325 MG TAB PO PRN ×2 (06:18→13:00)
[2022-11-19] MEDS: ROSUVASTATIN CALCIUM 10 MG TAB PO SCH ×2 (08:00→08:03)
[2022-11-19] MEDS: guaiFENesin 600 MG TABCR PO SCH ×2 (08:00→21:49)
[2022-11-19] MEDS: LOSARTAN/HCTZ 50/12.5MG TAB PO SCH ×2 (08:01→08:03)
--- NOTE | 2022-11-19 08:08 | Electrocardiogram Report ---
Test Reason : Blood Pressure : / mmHG Vent. Rate : 100 BPM Atrial Rate : 100 BPM P-R Int : 174 ms QRS Dur : 122 ms QT Int : 406 ms P-R-T Axes : 072 257 076 degrees QTc Int : 523 ms Normal sinus rhythm Right bundle branch block Abnormal ECG When compared with ECG of 27-OCT-2020 13:25, Premature ventricular complexes are no longer Present Right bundle branch block is now Present Atrial tachycardia no longer present Confirmed by Nhan Mas ([id number]) on 11/19/2022 8:08:12 AM Referred By: REFERRED SELF Confirmed By:Nhan Mas
--- NOTE | 2022-11-19 15:04 | Hospitalist Progress Note ---
Date of Service November 19, 2022 Assessment & Plan (1) Acute respiratory failure with hypoxia: Plan: 72yo male with history of HTN, presumed COPD presenting with 1-2 days of progressive cough productive for yellow sputum, fatigue and dyspnea. Hypoxic on arrival to 83% on room air (no home oxygen), increased work of breathing in the ER resulting in trial of BiPAP. Presently saturating well. BiPAP has been removed, now on 2L NC saturating 97%. No leukocytosis. Viral panel NEGATIVE to include Covid/Influenza A&B/RSV. CXR with no infiltrate, PTX or edema. Acute hypoxic respiratory failure 2/2 COPD exacerbation -Admit to PCU -Continue supplemental O2 as needed, BiPAP vs NC. Goal saturation 90% -DuoNebs q4 hours -Albuterol q 2 hours PRN -Solumedrol 40mg IV TID, narrowed to twice daily -Flutter valve QID -Incentive spirometry q2h WA -Mucinex 1200mg BID -Continue azithromycin for 5-day total course Clinically improving, but remains on oxygen. Wean to goal SPO2 above 89% (2) Acute exacerbation of chronic obstructive pulmonary disease: Plan: Presumed diagnosis - patient had been seen by his PCP on 11/05/22 with complaint of progressive CORONADO. He has a significant smoking history of appx 50 pack years - quit 2 years ago. He was offered PFTs in the past but declined. He is now scheduled for a chest CT this week and to have PFTs in January. Treatment as otherwise noted (3) Elevated troponin: Plan: Mild elevation of troponin at 24.3. Repeat normal. No chest pain at morning assessment. Suspect demand. If otherwise will consider outpatient follow-up for stress (4) Hypertension: Plan: -Continue HCTZ/Losartan -Monitor (5) Hyperlipidemia: Plan: Chronic. On Crestor -Continue Crestor 10mg po daily F/E/N - Heplock. Electroltyes WNL. Heart healthy diet as tolerated Ppx - Lovenox Code- DNR/DNI per discussion with patient Dispo - Admit to PCU for acute hypoxic respiratory failure, COPD requiring BiPAP for increased work of breathing. Admission and Anticipated Discharge Date Admission Date: November 18, 2022 Oliverio Jason is seen at bedside this morning. He reports he feels congested and has a mild headache which has not improved with Tylenol. He is not short of breath, but does remain on oxygen with no home requirement. He thinks his wheezing is little better today. He frequently uses peppermint oil both for headaches and congestion, has tried this but is not helped today. Would like to know if additional treatments for his congestion are available. Otherwise no questions/concerns. Denies chest pain, chest pressure, dyspnea, fever, chills. Eating lunch at time of assessment. Review of Systems Review of Systems: All systems reviewed & are unremarkable except as noted in Subjective Physical Exam Physical Exam: General: A&Ox3. NAD. Cooperative. HEENT: Atraumatic, normocephalic. Vision/hearing intact Pulm: Diminished, no expiratory wheezes, no rales. Symmetrical chest rise. No increase in work of breathing. No respiratory distress. Cardiac: RRR, -mrg. Radial pulses intact and symmetrical. Abdominal: Nontender, nondistended, soft. BS present. Results & Data Results & Data ([facility]) Vital Signs (Past 12 Hours) Vital Signs Temp Pulse Resp BP Pulse Ox O2 Del Method O2 Flow Rate 11/19/22 14:33 88 20 93 Nasal Cannula 2 11/19/22 13:49 92 Nasal Cannula 1 11/19/22 13:49 87 L Room Air 11/19/22 13:12 90 Room Air 11/19/22 12:00 36.7 C 88 20 122/66 97 Room Air 11/19/22 10:12 95 H 18 95 Nasal Cannula 2 11/19/22 08:00 Nasal Cannula 2 11/19/22 08:18 36.8 C 89 20 115/67 97 Room Air 11/19/22 07:07 88 20 86 L Room Air 11/19/22 03:51 36.7 C 102 H 18 128/73 93 Nasal Cannula 2 11/19/22 03:05 78 20 93 Nasal Cannula 2 PG Care Time/CCT Total # of Minutes Spent Total Time Spent with Patient: Total time spent is greater than 50% in coordination of care (as documented) at patient's floor/unit and/or counseling patient: Coding Level of Care Code 57744 SUB INP/OBS CARE 2/35MIN Diagnoses Acute respiratory failure with hypoxia J96.01 Acute exacerbation of chronic obstructive pulmonary disease J44.1 Elevated troponin R77.8 Hypertension I10 Hyperlipidemia E78.5
[2022-11-19] MEDS: FLUTICASONE PROPIONATE NA SPR 16 GM BTL SCH (16:26)
[2022-11-19] MEDS: ENOXAPARIN INJ 40 MG/0.4 ML SYR SQ SCH (20:00)
[2022-11-19] MEDS ORDERED: KETOROLAC TROMETHAMINE 15 MG/ML VIAL IV ONE (21:00)
[2022-11-19] MEDS ORDERED: AZITHROMYCIN 250 MG TAB PO SCH (21:00)
[2022-11-20] MEDS: ALBUT/IPRATROP 3MG/0.5MG NEB 3 ML VIAL NEB SCH ×3 (04:01→10:43)
[2022-11-20] MEDS: FLUTICASONE PROPIONATE NA SPR 16 GM BTL SCH (08:50)
[2022-11-20] MEDS: guaiFENesin 600 MG TABCR PO SCH (08:50)
[2022-11-20] MEDS: LOSARTAN/HCTZ 50/12.5MG TAB PO SCH (08:50)
[2022-11-20] MEDS: ROSUVASTATIN CALCIUM 10 MG TAB PO SCH (08:50)
[2022-11-20] MEDS ORDERED: KETOROLAC TROMETHAMINE 15 MG/ML VIAL IV ONE (10:06)
[2022-11-20] MEDS: methylPREDNISolone 40 MG in SYRINGE 0 ML IV SCH (12:43)
--- NOTE | 2022-11-20 13:11 | Discharge Summary ---
Date of Service November 20, 2022 Admission HPI Per Admitting Provider Eren Saxena is a 72yo male with history of HTN, presumed COPD presenting with 1-2 days of cough productive for yellow sputum, cough and SOB. Patient reports progression of cough, sputum production and SOB over the last day. Today he was having a difficult time catching his breath and dyspnea with minimal exertion and fatigue. He was using his home Albuterol with minimal improvement. He denies fever, chills, chest pain, palpitations, nausea, vomiting, diarrhea. No home oxygen use. Patient denies sick contacts or recent travel. Upon arrival to the ER he was tachycardic with HR of 108, tachypneic with RR of 30, saturating 83% on room air. He was placed on nasal cannula 4L with improvement in oxygen saturation to 98%, although still with increased work of breathing therefore was placed on BiPAP with improvement. No additional complaints at this time. ER Course: Solumedrol 125mg IV, Albuterol 12mL neb Principal Diagnosis COPD Exacerbation Discharge Exam The patient is awake, alert and oriented 3, well developed and well nourished, normocephalic and atraumatic, lying in bed and in no acute distress. HEENT--PERRL, EOMI, mucous membranes and oropharynx mildly dry Neck--supple. No JVD. No bruits. Thyroid normal, trachea midline, no adenopathy. Heart--normal S1 and S2. No murmurs, rubs or gallops. Lungs--clear bilaterally, no respiratory distress, no accessory muscle use. Abdomen--normal bowel sounds and soft. Mild epigastric and left sided abdominal pain Extremities--no cyanosis or clubbing. No edema. Dermatologic--normal skin turgor, normal color, no abnormal lymph nodes, no rash. Neurologic--cranial nerves II through XII grossly intact. Rheumatologic--normal range of motion. Psychiatric--normal affect. Discharge Data Allergies Allergy/AdvReac Type Severity Reaction Status Date / Time No Known Allergies Allergy Verified 11/18/22 20:48 Consultations 11/18/22 20:38 ED Decision to Admit Stat Hospital Course (1) Acute respiratory failure with hypoxia: 72yo male with history of HTN, presumed COPD presenting with 1-2 days of progressive cough productive for yellow sputum, fatigue and dyspnea. Hypoxic on arrival to 83% on room air (no home oxygen), increased work of breathing in the ER resulting in trial of BiPAP. Presently saturating well. BiPAP has been removed, now on 2L NC saturating 97%. No leukocytosis. Viral panel NEGATIVE to include Covid/Influenza A&B/RSV. CXR with no infiltrate, PTX or edema. Acute hypoxic respiratory failure 2/2 COPD exacerbation -Admit to PCU -Continue supplemental O2 as needed, BiPAP vs NC. Goal saturation 90% -DuoNebs q4 hours -Albuterol q 2 hours PRN -Solumedrol 40mg IV TID, narrowed to twice daily -Flutter valve QID -Incentive spirometry q2h WA -Mucinex 1200mg BID -Continue azithromycin for 5-day total course Clinically improving, but remains on oxygen. Wean to goal SPO2 above 89% -2 Step determined he will need oxygen,2L at all times -Patient expressed a willingness to be discharged home, said he needed to attend a meeting (2) Acute exacerbation of chronic obstructive pulmonary disease: Presumed diagnosis - patient had been seen by his PCP on 11/05/22 with complaint of progressive CORONADO. He has a significant smoking history of appx 50 pack years - quit 2 years ago. He was offered PFTs in the past but declined. He is now scheduled for a chest CT this week and to have PFTs in January. Treatment as otherwise noted (3) Elevated troponin: Mild elevation of troponin at 24.3. Repeat normal. No chest pain at morning assessment. Suspect demand. If otherwise will consider outpatient follow-up for stress (4) Hypertension: -Continue HCTZ/Losartan -Monitor (5) Hyperlipidemia: Chronic. On Crestor -Continue Crestor 10mg po daily F/E/N - Heplock. Electroltyes WNL. Heart healthy diet as tolerated Ppx - Lovenox Code- DNR/DNI per discussion with patient Dispo - Admit to PCU for acute hypoxic respiratory failure, COPD requiring BiPAP for increased work of breathing. Plan d/c home on home oxygen 2L continuous Total Time Total Time Spent Total Time Spent (In Minutes): 35 Discharge Plan Discharge Items Patient Disposition: Home - Self-Care Reason For Visit: SOB, COPD EXACERBATION Discharge Diagnosis: COPD Exacerbation Activity: Resume your previous activity Non-emergency contact: Primary Care Provider and Planer Hand Call non-emergency contact if: you have any medication questions and your symptoms worsen Follow-up/Referrals: Flower Roberto CRNP [Nurse Practitioner] - 11/25/22 1:30 pm Diet: Regular Addtl Attending Provider Instructions: please make appointment to follow up with your Pulmonolgist Pending Studies at Discharge: No Stand-Alone Forms: My [facility], Smoking Cessation Medications and DC Order Prescriptions: New guaifenesin [Mucinex] 600 mg Tablet Extended Release 12hr 1,200 mg PO Q12 5 Days Qty: 20 0RF azithromycin 250 mg Tablet 250 mg PO HS 5 Days Qty: 5 0RF Continued losartan-hydrochlorothiazide 50-12.5 mg tablet 1 tab PO DAILY Qty: 90 3RF rosuvastatin 10 mg tablet 10 mg PO DAILY Qty: 30 2RF triamcinolone acetonide 0.1 % ointment 1 applic topical BID PRN (Reason: rash / itching) Qty: 80 1RF turmeric 400 mg capsule 400 mg PO DAILY clotrimazole-betamethasone 1-0.05 % cream 1 applic TOP BID Qty: 15 3RF sildenafil 50 mg tablet See Rx Instructions PO DAILY PRN (Reason: sexual activity) Qty: 9 3RF Rx Instructions: 1-2 tabs PO daily PRN; administer 30 minutes to 4 hours before activity albuterol sulfate 90 mcg/actuation HFA aerosol inhaler 2 puff inhalation Q6H PRN (Reason: shortness of breath or wheezing) Qty: 8.5 5RF tiotropium bromide 2.5 mcg/actuation mist 2 puff inhalation DAILY Qty: 4 3RF Rx Instructions: samples given Discharge Orders: Discharge Order (Routine); Ordered 11/20/22 Ordered By: Jez Kiser Admission Data Admit Date/Time: 11/18/22 21:36 Attending Provider: Jez Kiser Admit Provider: Dawn Arizmendi Primary Care Provider: Day Stout Other Providers: Dawn Arizmendi Other Interventions: Discharge Summary Assessment (RN) Last Done: 11/20/22 13:00 Coding Level of Care Code HOSP INP/OBS DISCH >30 MIN Diagnoses Acute respiratory failure with hypoxia J96.01 Acute exacerbation of chronic obstructive pulmonary disease J44.1 Elevated troponin R77.8 Hypertension I10 Hyperlipidemia E78.5 Time Spent (min) 35
== END 2022-11-20 13:17 | disposition home or self-care (01) | DRG 190 ==
LOC: ED 18:50 → 2S 21:36 → SUATTDRO 21:36 → 2S 22:46

== ENCOUNTER 2024-02-25 16:21 | Inpatient (IN) ==
--- NOTE | 2024-02-25 16:39 | ED Triage Note ---
Date of Service February 25, 2024 Provider in Triage Author: Chelsie Cox History of Present Illness This patient was briefly evaluated while in triage. An abbreviated physical exam was performed. This patient is a 73-year-old Male who presents to the ED for evaluation of abnormal lab work performed by his PCP. States he was contacted by PCP to visit ED. Physical Exam Initial orders for labs and / or imaging were placed and patient was placed in the waiting area until a bed is available. Please see further documentation for the full ED course.
[2024-02-25 17:14] LABS: Hematocrit (blood only) 23.8 % (42.0-52.0); Hemoglobin 7.5 g/dl (14.0-18.0); Mean Corpuscular Hemoglobin 25.5 pg (25.0-34.0); Mean Corpuscular Hgb Conc 31.5 g/dL (32.0-36.0); Mean Platelet Volume 8.8 fL (9.4-12.4); Platelet Count 535 K/uL (130-400); RDW Coefficient of Variation 15.1 % (11.5-14.5); RDW Standard Deviation 44.2 fL (36.4-46.3); Red Blood Count 2.94 M/uL (4.70-6.10)
[2024-02-25] MEDS ORDERED: SODIUM CHLORIDE 0.9% 250 ML IV PRN ×2 (17:29→19:34)
[2024-02-25 17:30] LABS: Anion Gap 13 (3-11); BUN Creatinine Ratio 22.7 (10-20); Blood Urea Nitrogen 49 mg/dl (6-23); Calcium 9.3 mg/dl (8.6-10.3); Carbon Dioxide 25 mmol/L (21-32); Chloride 93 mmol/L (98-107); Est GFR (African American) 33.7 ml/min; Est GFR (Non-African American) 29.1 ml/min; Glucose 182 mg/dl (70-99(Fasting)); Potassium 4.4 mmol/L (3.5-5.1); Sodium 131 mmol/L (136-145)
--- NOTE | 2024-02-25 17:32 | Emergency Department Note ---
Impression & Plan Acute blood loss anemia, Symptomatic anemia, Acute GI bleeding, Leukocytosis, Mass of mediastinum, JUAN JOSE (acute kidney injury) ED Provider Note NAME: KIM MILLER AGE: 73 SEX: M : 1950 ARRIVES VIA: Walk-In INFORMANT: Patient ED PROVIDER(S): Candido Estevez DO CHIEF COMPLAINT: Weakness and lethargy HPI: Patient is a 73-year-old male with a past medical history of smoking, mediastinal mass, retroperitoneal mass who presents to the ER for weakness. He denies all other complaints. He notes has been weak over the past week. He had blood work obtained by his primary care doctor was found to be anemic with a leukocytosis of 24,000. He was referred in. He denies any headache or change in vision. No chest pain or shortness of breath. No nausea, vomiting, or diarrhea. No dysuria, urgency, or frequency. No cough or congestion. No other exacerbating or remitting factors. No blood in his stool or dark tarry stool. No black stool. ADDITIONAL HISTORY OBTAINED: Per HPI Chronic Medical/Social Conditions Affecting Care: Per HPI PAST MEDICAL HISTORY:See Below PAST SURGICAL HISTORY:See Below FAMILY HISTORY:See Below SOCIAL HISTORY:See Below HOME MEDICATIONS:See Below ALLERGIES:See Below VITALS:See Below PHYSICAL EXAMINATION: GENERAL: Sitting up in bed, alert, ill-appearing, disheveled EYE EXAM: normal conjunctiva. PERRL and EOM's grossly intact. OROPHARYNX: mucous membranes are moist NECK: supple, no nuchal rigidity, no adenopathy, non-tender LUNGS: Clear to auscultation. Normal chest wall mechanics HEART: no murmurs, S1 normal and S2 normal ABDOMEN: abdomen soft, non-tender, normo-active bowel sounds, no masses, no rebound or guarding. UPPER EXTREMITIES: upper extremities are grossly normal. LOWER EXTREMITIES: No pitting edema. NEURO EXAM: Normal sensorium, cranial nerves II-XII grossly intact, normal speech, no gross weakness of arms, no gross weakness of legs. MEDICAL DECISION MAKING: Patient is a 73-year-old male who presents ER for above-stated complaint. IV was established medicals obtained. Labs show leukocytosis of 26,000. Significant anemia 7.5 down from 10. Platelets were elevated at 535. INR was unremarkable. BMP with a creatinine of 2.1 up from baseline of 0.9. LFTs bilirubin was unremarkable. Troponin was negative. Pro-Ashwin slightly up 1.68. UA was pending upon admission. Patient was typed and crossed and ordered PRBCs due to drop in hemoglobin without positive rectal. He denies any black or dark tarry stools. CT abdomen pelvis shows multiple masses including the cecum which could be the cause of the GI bleed. He was discussed with the hospitalist for further evaluation management treatment. He was monitored closely while in the ER Consults/Care Managements Discussions: Per MDM Triage Nursing notes reviewed. Limited review of prior medical records performed Vital Signs: reviewed and remarkable for htn Differential diagnosis: Differential diagnosis includes etiologies such as sepsis, UTI, pneumonia, metabolic, electrolyte abnormalities, cardiac sources, intracerebral event, toxicologic, neurological, as well as others were entertained. ER treatment provided: See below Diagnostics interpreted by me include EKG and cardiac monitoring as listed below: -Cardiac Monitoring: An order was placed for continuous cardiac monitoring. The monitor shows a rate of 90 with sinus rhythm. -ECG: Sinus rhythm rate 92 Right bundle branch block No PVCs QTc 502 -Laboratory studies:Interpreted by me as stated above in MDM and shown below. Imaging studies: Xrays: As interpreted by me: Portable AP upright 1 view of the chest shows retrocardial mass CTs show: CT abdomen pelvis as described above Procedures:none Critical Care: I have personally spent 32 minutes of critical care time in the direct management of this patient. This includes bedside care, interpretation of diagnostic studies, and testing, discussion with consultants, patient, and family members, and other required patient management activities. This 32 minutes is in excess of all separately billable procedures. Past Med/Surg History Medical History (Updated 02/25/24 @ 23:34 by Candido Estevez DO) COPD (chronic obstructive pulmonary disease) Hypertension Hyperlipidemia declines statin Nocturnal hypoxia On 2L oxygen at night Chronic daily headache Surgical History History of cataract surgery Family History Father Myocardial infarction Other Dementia Heart disease Hypertension Denies family history of Rheumatoid arthritis Sudden SIDS (sudden infant syndrome) Ovarian cancer Prostate cancer Diabetes Deep vein thrombosis Osteoporosis Coronary heart disease Dyslipidemia Cerebral aneurysm Alzheimer disease Bipolar disorder Clotting disorder Crohn's disease Depression Kidney disease Osteoarthritis Breast cancer Schizophrenia Congenital kidney disease Gestational diabetes Lung cancer COPD (chronic obstructive pulmonary disease) Colorectal cancer Pulmonary embolism Lung disease Cancer Ulcerative colitis Colonic polyp Stroke Asthma Cystic kidney disease Social History (Updated 01/28/24 @ 14:39 by Hina Leon LPN) Smoking Status: Former smoker Tobacco Type: Cigarettes Age Started Using Tobacco: 19; Age Quit Using Tobacco: 70; packs per day: 1; Cigarettes Per Day: 20; Second Hand Exposure: No; Do You Dip or Chew Tobacco: No; Hx Alcohol Use: No Hx Substance Use: No Preferred Language: Maori Communication Ability: Effective Visual Impairment: No Limitations Hearing Ability: Normal Photostatic Copy Maker Required: No Beliefs That Will Affect Care: None marital status: Current Living Situation: Alone Current Living Situation Comment: pt states lives alone in a house current occupational status: 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 Feels Safe at Home: Yes Childhood Exposure to Second-Hand Smoke: No Diet: regular caffeine: No during the past year weight has: remained stable Dental Care, Regularly: Yes Physical Activity Frequency: Does not Exercise Seatbelt Use: sometimes Sunscreen Use: No Assistive Devices: Glasses Allergies Allergies Allergy/AdvReac Type Severity Reaction Status Date / Time No Known Allergies Allergy Unverified 02/25/24 19:45 Home Meds Home Medications Medication Instructions Recorded Confirmed turmeric 400 mg capsule 400 mg PO DAILY 04/20/19 02/25/24 losartan 50 mg-hydrochlorothiazide 1 tab PO QAM 01/10/24 02/25/24 12.5 mg tablet Previous Rx's Medication Instructions Recorded Portable Oxygen E0431 #1 ea 01/29/24 albuterol sulfate 90 mcg/actuation 2 puff inhalation Q6H PRN 01/30/24 aerosol inhaler shortness of breath or wheezing #3 Inhalers fluticasone fur. 100 mcg-umeclid 1 inh inhalation DAILY #3 Inhalers 01/30/24 62.5 mcg-vilant 25 mcg inhalat.powder (Trelegy Ellipta) oxycodone 5 mg capsule 5 mg PO TID PRN pain #90 caps 02/24/24 tamsulosin 0.4 mg capsule 0.4 mg PO DAILY #90 caps 02/24/24 Results & Data (ED) Vital Signs Vital Signs - 24 hr 02/25/24 16:38 02/25/24 17:27 02/25/24 17:27 Temperature 36.0 C L Temperature Source Temporal Artery Scan Pulse Rate 103 H Pulse Rate [Apical] 95 H Pulse Rhythm Regular Pulse Strength Normal Respiratory Rate 20 20 Respiratory Effort / Characteristics Non-Labored Spontaneous Non-Labored Respiratory Depth Normal Normal Respiratory Pattern Regular Blood Pressure 112/68 Blood Pressure [Right Arm] 141/68 H Blood Pressure Mean 82 Blood Pressure Mean [Right Arm] 92 Blood Pressure Position Sitting Pulse Oximetry 94 97 95 Oxygen Delivery Method Room Air Room Air Room Air Sepsis Recent Fever Within 48 Hours No Sepsis New/Unexplained Change in Mental Status No Sepsis Action Taken by Nursing No Action Required 02/25/24 18:59 02/25/24 19:00 02/25/24 20:21 Temperature 36.4 C L Temperature Source Oral Pulse Rate 80 86 Pulse Rate [Apical] 83 Pulse Rhythm Pulse Strength Respiratory Rate 18 17 Respiratory Effort / Characteristics Respiratory Depth Respiratory Pattern Blood Pressure 132/88 Blood Pressure [Right Arm] 102/77 Blood Pressure Mean 102 Blood Pressure Mean [Right Arm] 85 Blood Pressure Position Pulse Oximetry 93 95 Oxygen Delivery Method Room Air Sepsis Recent Fever Within 48 Hours Sepsis New/Unexplained Change in Mental Status Sepsis Action Taken by Nursing 02/25/24 20:39 02/25/24 20:54 02/25/24 21:24 Temperature 36.7 C 36.7 C 36.6 C Temperature Source Oral Oral Oral Pulse Rate 92 H 88 90 Pulse Rate [Apical] Pulse Rhythm Pulse Strength Respiratory Rate 18 18 20 Respiratory Effort / Characteristics Respiratory Depth Respiratory Pattern Blood Pressure 100/77 131/103 H 131/83 Blood Pressure [Right Arm] Blood Pressure Mean 84 112 99 Blood Pressure Mean [Right Arm] Blood Pressure Position Pulse Oximetry 95 94 92 Oxygen Delivery Method Sepsis Recent Fever Within 48 Hours Sepsis New/Unexplained Change in Mental Status Sepsis Action Taken by Nursing 02/25/24 22:15 02/25/24 22:53 Temperature 36.9 C Temperature Source Oral Pulse Rate 94 H 94 H Pulse Rate [Apical] Pulse Rhythm Pulse Strength Respiratory Rate 20 Respiratory Effort / Characteristics Respiratory Depth Respiratory Pattern Blood Pressure 127/79 Blood Pressure [Right Arm] Blood Pressure Mean 95 Blood Pressure Mean [Right Arm] Blood Pressure Position Pulse Oximetry 92 Oxygen Delivery Method Sepsis Recent Fever Within 48 Hours Sepsis New/Unexplained Change in Mental Status Sepsis Action Taken by Nursing Laboratory Data 02/25/24 16:53 02/25/24 16:53 Lab Results 02/25/24 02/25/24 02/25/24 Range/Units 16:53 18:42 20:54 WBC 26.70 H (4.8-10.8) K/ul RBC 2.94 L (4.70-6.10) M/uL Hgb 7.5 L (14.0-18.0) g/dl Hct 23.8 L (42.0-52.0) % MCV 81.0 (80.0-100.0) fL MCH 25.5 (25.0-34.0) pg MCHC 31.5 L (32.0-36.0) g/dL RDW Std Deviation 44.2 (36.4-46.3) fL RDW Coeff of Ge 15.1 H (11.5-14.5) % Plt Count 535 H (130-400) K/uL MPV 8.8 L (9.4-12.4) fL Immature Gran % (Auto) 2.5 % Neut % (Auto) 85.2 % Lymph % (Auto) 4.9 % [place] % (Auto) 6.9 % Eos % (Auto) 0.2 % Baso % (Auto) 0.3 % Neut # (Auto) 22.78 H (1.40-6.50) K/uL Lymph # (Auto) 1.30 (1.20-3.40) K/uL [place] # (Auto) 1.84 H (0.11-0.59) K/uL Eos # (Auto) 0.05 (0.00-0.50) K/uL Baso # (Auto) 0.07 (0.00-0.20) K/uL Immature Gran # (Auto) 0.66 H (0.01-0.20) K/uL Polychromasia 1+ Ovalocytes 1+ PT 12.4 H (9.0-12.0) Seconds INR 1.1 (0.9-1.1) APTT 30 (21-31) Seconds PTT Ratio 1.1 Sodium 131 L (136-145) mmol/L Potassium 4.4 (3.5-5.1) mmol/L Chloride 93 L (98-107) mmol/L Carbon Dioxide 25 (21-32) mmol/L Anion Gap 13 H (3-11) BUN 49 H (6-23) mg/dl Creatinine 2.16 H D (0.6-1.4) mg/dl Est Cr Clr Drug Dosing 30.0 ml/min Est GFR ( Amer) 33.7 ml/min Est GFR (Non-Af Amer) 29.1 ml/min BUN/Creatinine Ratio 22.7 H (10-20) Glucose 182 H (70-99(Fasting)) mg/dl Lactate 3.4 H* 1.2 (0.4-2.0) mmol/L Calcium 9.3 (8.6-10.3) mg/dl Total Bilirubin 0.3 (0.2-1.0) mg/dl AST 18 (13-39) U/L ALT 24 (7-52) U/L Alkaline Phosphatase 115 H (34-104) U/L Troponin I High Sens 10.2 (0-20) pg/ml Total Protein 7.0 (6.0-8.3) gm/dl Albumin 3.5 (3.4-5.0) gm/dl Globulin 3.5 (2.5-4.0) gm/dl Albumin/Globulin Ratio 1.0 (0.9-2) Lipase < 3 L (11-82) U/L Procalcitonin 0.68 H (0-0.5) ng/ml POC Stool Occult Blood Positive A (Negative) Blood Type A Positive Blood Type Recheck A Positive Antibody Screen NEGATIVE Crossmatch See Detail Administered Medications Discontinued Medications Sodium Chloride (Nss) 1,000 mls @ 999 mls/hr IV .Q1H1M ONE Stop: 02/25/24 18:29 Last Infusion: 02/25/24 21:29 Dose: Infused Documented By: Admin: 02/25/24 17:52 Dose: 999 mls/hr Documented By: DOTTIE Ceftriaxone Sodium (Rocephin) 2,000 mg in 50 mls @ 100 mls/hr IV NOW STA Stop: 02/25/24 17:58 Last Infusion: 02/25/24 19:04 Dose: Infused Documented By: Admin: 02/25/24 17:56 Dose: 100 mls/hr Documented By: DOTTIE Pantoprazole Sodium 40 mg/ (Syringe) 10 mls @ 5 mls/min IV NOW ONE Stop: 02/25/24 21:16 Last Admin: 02/25/24 21:22 Dose: 5 mls/min Documented By: [facility] Imaging Data Radiologist's Impression: Chest X-Ray 02/25/24 17:29 XR chest 1V portable CLINICAL HISTORY: Sepsis. COMPARISON STUDY: Chest radiograph and chest CT January 10, 2024. FINDINGS: There is no pneumothorax or pleural effusion. There is no radiographic evidence for pulmonary edema. Mild interstitial thickening is unchanged. Bibasilar opacities are similar to prior chest radiograph and chest CT. Cardiomegaly is unchanged. A mediastinal mass is better depicted on chest CT January 10, 2024. IMPRESSION: 1. Bibasilar opacities, similar to prior exam. The findings favor atelectasis or scarring. An infectious process is considered less likely. 2. Mediastinal mass, better depicted on chest CT January 10, 2024. ACT 112: Negative or not required by law. Electronically signed by: Ricki Stout M.D. 02/25/2024 6:11 PM Abdomen/Pelvis CT 02/25/24 17:54 CT OF THE ABDOMEN AND PELVIS WITHOUT CONTRAST CLINICAL HISTORY: Leukocytosis. Anemia. Mediastinal mass. COMPARISON STUDY: CT of the chest, abdomen and pelvis January 10, 2024. TECHNIQUE: Axial images of the abdomen and pelvis were obtained without IV contrast. Images were reviewed in the axial, sagittal, and coronal planes. Automated exposure control was utilized for the study. A dose lowering technique was utilized adhering to the principles of ALARA. FINDINGS: Posterior mediastinal mass is partially imaged on this exam. This has increased in size since CT of January 10, 2024. This now measures approximately 8.6 x 6.1 cm, previously 5.3 x 3.9 cm. An adjacent mildly enlarged mediastinal lymph node has also increased in size. Lower lung opacities are similar to prior exam. There is emphysema. Evaluation of the abdomen and pelvis is suboptimal on this unenhanced exam. No pneumatosis, free air or portal venous gas is present. There is hepatic steatosis. Spleen, right adrenal gland, kidneys and pancreas are unremarkable. There is no hydronephrosis. A 5.7 cm left adrenal mass has increased in size since prior exam. This previously measured 4.3 cm. Adjacent elliptical density within the left anterior pararenal space has decreased in size, now measuring 5.5 x 3 cm. The attenuation has decreased. Adjacent hemorrhage has also decreased. There is no evidence for a bowel obstruction. Mass-like thickening of the cecum and ascending colon, measuring approximately 5.8 cm has developed since CT of January 10, 2024. There is mild adjacent stranding. The appendix is mildly dilated, measuring 1 cm in caliber. However, there is no periappendiceal infiltration. The findings do not suggest acute appendicitis. Ileocolic lymph nodes have mildly increased in size. Index node measures 1.5 x 1.2 cm. Several additional lymph nodes within the abdomen and pelvis also mildly increased in size. Aortocaval lymph node on image 120 measures 1.5 x 1 cm. There is colonic diverticulosis. IMPRESSION: 1. Increase in size of the mediastinal mass since CT of January 10, 2024. This is consistent with malignancy. 2. 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 Interval decrease in associated hemorrhage within the left anterior pararenal space. 3. Mass-like thickening of the cecum and ascending colon which has developed since CT of January 10, 2024. This is indeterminate and could be neoplastic or inflammatory. A neoplastic process is the diagnosis of exclusion although is atypical given rapid development. 4. Interval enlargement of multiple abdominal and pelvic lymph nodes since CT of January 10, 2024. These nodes are nonspecific but likely neoplastic. These could reflect metastatic disease. A lymphoproliferative disorder could appear similar. ACT 112: Negative or not required by law. Electronically signed by: Ricki Stout M.D. 02/25/2024 6:51 PM Discharge Plan Visit Data Chief Complaint: Abnormal Labs/Diagnostic Testing Stated Complaint: ABN LABS, WHITE/RED BLOOD COUNT OUT OF [facility] ED Provider: Candido Estevez Discharge Problem: Acute blood loss anemia, Symptomatic anemia, Acute GI bleeding, Leukocytosis, Mass of mediastinum, JUAN JOSE (acute kidney injury) Forms Stand Alone Forms: [facility] DocuTAP Prescriptions Prescriptions: No Action Trelegy Ellipta 100-62.5-25 mcg blister with device 1 inh inhalation DAILY Qty: 3 1RF albuterol sulfate 90 mcg/actuation HFA aerosol inhaler 2 puff inhalation Q6H PRN (Reason: shortness of breath or wheezing) Qty: 3 1RF oxycodone 5 mg capsule 5 mg PO TID PRN (Reason: pain) Qty: 90 0RF tamsulosin 0.4 mg capsule 0.4 mg PO DAILY Qty: 90 3RF turmeric 400 mg capsule 400 mg PO DAILY (DME) Portable Oxygen E0431 Misc See Rx Instructions .MEDSUPPLY Qty: 1 0RF Rx Instructions: Oxygen 3 liters continuous via nasal cannula on exertion with portable concentrator. JUAN 99 losartan-hydrochlorothiazide 50-12.5 mg tablet 1 tab PO QAM Referrals Referrals: Day Stout MD [Primary Care Provider] - Discharge Problem: Leukocytosis Qualifiers: Leukocytosis type: unspecified Qualified Code(s): D72.829 - Elevated white blood cell count, unspecified
[2024-02-25 17:33] LABS: Alanine Aminotransferase 24 U/L (7-52); Albumin Level 3.5 gm/dl (3.4-5.0); Alkaline Phosphatase 115 U/L (34-104); Aspartate Aminotransferase 18 U/L (13-39); Bilirubin,Total 0.3 mg/dl (0.2-1.0); Globulin 3.5 gm/dl (2.5-4.0); Lipase < 3 U/L (11-82)
[2024-02-25 17:36] LABS: Basophils # (auto) 0.07 K/uL (0.00-0.20); Basophils % (auto) 0.3 %; Eosinophils # (auto) 0.05 K/uL (0.00-0.50); Eosinophils % (auto) 0.2 %; Immature Granulocytes # (auto) 0.66 K/uL (0.01-0.20); Immature Granulocytes % (auto) 2.5 %; Lymphocytes % (auto) 4.9 %; Monocytes # (auto) 1.84 K/uL (0.11-0.59); Monocytes % (auto) 6.9 %; Neutrophils # (auto) 22.78 K/uL (1.40-6.50); Neutrophils % (auto) 85.2 %; Ovalocytes 1+; Polychromasia 1+; Troponin I High Sensitivity 10.2 pg/ml (0-20)
[2024-02-25 17:48] LABS: INR 1.1 (0.9-1.1); Partial Thromboplastin Ratio 1.1; Partial Thromboplastin Time 30 Seconds (21-31); Prothrombin Time 12.4 Seconds (9.0-12.0)
[2024-02-25] MEDS: SODIUM CHLORIDE 0.9% 1,000 ML IV ONE (17:52)
[2024-02-25] MEDS: cefTRIAXone SODIUM 2,000 MG/50 ML BAG IV STA (17:56)
--- NOTE | 2024-02-25 18:13 | XRay Report ---
XR chest 1V portable CLINICAL HISTORY: Sepsis. COMPARISON STUDY: Chest radiograph and chest CT January 10, 2024. FINDINGS: There is no pneumothorax or pleural effusion. There is no radiographic evidence for pulmona ry edema. Mild interstitial thickening is unchanged. Bibasilar opacities are similar to prior chest r adiograph and chest CT. Cardiomegaly is unchanged. A mediastinal mass is better depicted on chest CT January 10, 2024. IMPRESSION: 1. Bibasilar opacities, similar to prior exam. The findings favor atelectasis or scarring. An infecti ous process is considered less likely. 2. Mediastinal mass, better depicted on chest CT January 10, 2024. ACT 112: Negative or not required by law. Electronically signed by: Ricki Stout M.D. 02/25/2024 6:11 PM
--- NOTE | 2024-02-25 18:54 | CT Scan Report ---
CT OF THE ABDOMEN AND PELVIS WITHOUT CONTRAST CLINICAL HISTORY: Leukocytosis. Anemia. Mediastinal mass. COMPARISON STUDY: CT of the chest, abdomen and pelvis January 10, 2024. TECHNIQUE: Axial images of the abdomen and pelvis were obtained without IV contrast. Images were revi ewed in the axial, sagittal, and coronal planes. Automated exposure control was utilized for the koffi dy. A dose lowering technique was utilized adhering to the principles of ALARA. FINDINGS: Posterior mediastinal mass is partially imaged on this exam. This has increased in size sin ce CT of January 10, 2024. This now measures approximately 8.6 x 6.1 cm, previously 5.3 x 3.9 cm. An adj acent mildly enlarged mediastinal lymph node has also increased in size. Lower lung opacities are sim ilar to prior exam. There is emphysema. Evaluation of the abdomen and pelvis is suboptimal on this un enhanced exam. No pneumatosis, free air or portal venous gas is present. There is hepatic steatosis. Spleen, right adrenal gland, kidneys and pancreas are unremarkable. There is no hydronephrosis. A 5.7 cm left adrenal mass has increased in size since prior exam. This previously measured 4.3 cm. Adjace nt elliptical density within the left anterior pararenal space has decreased in size, now measuring 5 .5 x 3 cm. The attenuation has decreased. Adjacent hemorrhage has also decreased. There is no evidenc e for a bowel obstruction. Mass-like thickening of the cecum and ascending colon, measuring approxima tely 5.8 cm has developed since CT of January 10, 2024. There is mild adjacent stranding. The appendix i s mildly dilated, measuring 1 cm in caliber. However, there is no periappendiceal infiltration. The f indings do not suggest acute appendicitis. Ileocolic lymph nodes have mildly increased in size. Index node measures 1.5 x 1.2 cm. Several additional lymph nodes within the abdomen and pelvis also mildly increased in size. Aortocaval lymph node on image 120 measures 1.5 x 1 cm. There is colonic divertic ulosis. IMPRESSION: 1. Increase in size of the mediastinal mass since CT of January 10, 2024. This is consistent with malign leonel. 2. 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 Interval decrease in associated hemorrhage within t he left anterior pararenal space. 3. Mass-like thickening of the cecum and ascending colon which has developed since CT of January 09 4. This is indeterminate and could be neoplastic or inflammatory. A neoplastic process is the diagnos is of exclusion although is atypical given rapid development. 4. Interval enlargement of multiple abdominal and pelvic lymph nodes since CT of January 10, 2024. These nodes are nonspecific but likely neoplastic. These could reflect metastatic disease. A lymphoprolife rative disorder could appear similar. ACT 112: Negative or not required by law. Electronically signed by: Ricki Stout M.D. 02/25/2024 6:51 PM
--- NOTE | 2024-02-25 19:45 | History & Physical Report ---
Date of Service February 25, 2024 Assessment & Plan (1) Adenocarcinoma of lung, stage 4: Plan: Pt is a 73 yo male with PMH of recently diagnosed metastatic lung cancer (set to start chemo next week), HLD, HTN, and COPD presenting after discussion with his PCP d/t concerning outpatient lab work. Acute anemia secondary to blood loss - lab work significant for Hgb 7.5 (drop from 10.2 one month ago): FOBT positive - suspect pt's presyncope/syncopal episode while driving secondary to anemia; would recommend further discussion with pt concerning whether or not he is safe to drive - pt has never had a colonoscopy; CTAP showed new mass since last scan one month ago concerning for metastatic spread as described below - suspect anemia secondary to bleeding from new presumed met to colon - pt given protonix 40 mg IV; will continue daily upon admission - s/p 1 unit pRBCs transfused in ER; repeat H&H 1 hr after transfusion - keep NPO; GI consulted Metastatic lung adenocarcinoma - recently diagnosed; has not yet received any chemo tx - chest CT 01/2024 demonstrated posterior mediastinal mass; CTAP showed left hemorrhagic retroperitoneal mass - CTAP upon admission showed increased size of mediastinal mass, increased size of left adrenal met w/ decreased hemorrhage, and a new thickening of the cecum/ascending colon in addition to multiple abdominal/pelvic lymph nodes both concerning for metastatic spread - pt was set to start chemo tomorrow which has now obviously been delayed; consider hem/onc consult - pt does note that he has had considerable trouble swallowing d/t the mediastinal mass; he can only eat things now that are pureed or else he will vomit Leukocytosis - mild leukocytosis to 13 one month ago, outpatient labs 24.17, upon admission 26.70 - VSS, afebrile; no obvious sources of infection- CXR stable from prior; no recent PO steroid use - UA pending (however, pt w/o symptoms); pt notes he did have trouble urinating but this has seen resolved since restarting tamsulosin - blood cultures pending - s/p ceftriaxone given in ER; defer continued antibiotics upon admission as unclear etiology for infection and pt stable - recommend trending CBC, monitoring for signs of infection JUAN JOSE - Cr 1.66 on outpatient labs; Cr 2.16 upon admission; baseline around 0.8-1.0 - suspect pre renal in the setting of poor PO intake and decreased perfusion d/t anemia - hold home anti-hypertensives; renally dose meds as appropriate - s/p 1L NS given in ER, transfusing 1 unit pRBCs upon admission - monitor BMP COPD - no acute exacerbation - continue home inhalers HTN - will hold home losartan/HCTZ in the setting of JUAN JOSE BPH - will continue home tamsulosin 0.4mg daily Diet: NPO VTE ppx: deferred in the setting of acute bleed; however, d/t pt's active cancer, he should be placed on chemical VTE as soon as medically able Code: full Dispo: admit to med/tele (2) Hyperlipidemia: (3) Hypertension: (4) Acute kidney injury: (5) Leukocytosis: (6) COPD (chronic obstructive pulmonary disease): (7) Acute blood loss anemia: History of Present Illness Chief Complaint: referred by PCP d/t abnormal labs Primary Care Provider: Day Stout MD Pt is a 73 yo male with PMH of recently diagnosed metastatic lung cancer (set to start chemo next week), HLD, HTN, and COPD presenting after discussion with his PCP d/t concerning outpatient lab work. Pt's PCP notes that the pt was to be evaluated for worsening weakness, fatigue, and left hip pain for which she ordered lab work prior to an appointment. This l ab work revealed a leukocytosis to 24 and Hgb 7.5 (10.2 one month ago). PCP was concerned for bleeding metastasis as pt had a previous CTAP showing hemorrhagic mass. Pt notes that he has been feeling increasingly weak over the past days to weeks. He does note that he has had issues with his "brain" as in he feels unsafe to drive. He says he passed out for a very short amount of time while driving earlier this week which caused him to drive off the road. His left hip pain began suddenly on Friday. No injury and no hx of hip pain. He denies pain elsewhere. He denies any overt bleeding- no bright red blood per rectum, no hematemesis; however, he does say he thinks he has dark stools. In the ER, the pt was given 1L NS, ceftriaxone x1, and was ordered 1 unit of pRBCs. Allergies Allergy/AdvReac Type Severity Reaction Status Date / Time No Known Allergies Allergy Unverified 02/25/24 19:45 Home Medications Medication Instructions Recorded Confirmed Type turmeric 400 mg capsule 400 mg PO DAILY 04/20/19 02/25/24 History losartan 50 mg-hydrochlorothiazide 1 tab PO QAM 01/10/24 02/25/24 History 12.5 mg tablet Portable Oxygen E0431 #1 ea 01/29/24 02/25/24 Rx albuterol sulfate 90 mcg/actuation 2 puff inhalation Q6H PRN 01/30/24 02/25/24 Rx aerosol inhaler shortness of breath or wheezing #3 Inhalers fluticasone fur. 100 mcg-umeclid 1 inh inhalation DAILY #3 Inhalers 01/30/24 02/25/24 Rx 62.5 mcg-vilant 25 mcg inhalat.powder (Trelegy Ellipta) oxycodone 5 mg capsule 5 mg PO TID PRN pain #90 caps 02/24/24 02/25/24 Rx tamsulosin 0.4 mg capsule 0.4 mg PO DAILY #90 caps 02/24/24 02/25/24 Rx Past Med/Surg History Medical History (Updated 02/25/24 @ 23:34 by Candido Estevez DO) COPD (chronic obstructive pulmonary disease) Hypertension Hyperlipidemia declines statin Nocturnal hypoxia On 2L oxygen at night Chronic daily headache Surgical History History of cataract surgery Family History Father Myocardial infarction Other Dementia Heart disease Hypertension Denies family history of Rheumatoid arthritis Sudden SIDS (sudden infant syndrome) Ovarian cancer Prostate cancer Diabetes Deep vein thrombosis Osteoporosis Coronary heart disease Dyslipidemia Cerebral aneurysm Alzheimer disease Bipolar disorder Clotting disorder Crohn's disease Depression Kidney disease Osteoarthritis Breast cancer Schizophrenia Congenital kidney disease Gestational diabetes Lung cancer COPD (chronic obstructive pulmonary disease) Colorectal cancer Pulmonary embolism Lung disease Cancer Ulcerative colitis Colonic polyp Stroke Asthma Cystic kidney disease Social History (Updated 01/28/24 @ 14:39 by Hina Leon LPN) Smoking Status: Former smoker Tobacco Type: Cigarettes Age Started Using Tobacco: 19; Age Quit Using Tobacco: 70; packs per day: 1; Cigarettes Per Day: 20; Second Hand Exposure: No; Do You Dip or Chew Tobacco: No; Hx Alcohol Use: No Hx Substance Use: No Preferred Language: Norwegian Communication Ability: Effective Visual Impairment: No Limitations Hearing Ability: Normal Nuclear Equipment Test Engineer Required: No Beliefs That Will Affect Care: None marital status: Current Living Situation: Alone Current Living Situation Comment: pt states lives alone in a house current occupational status: retired 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 Respiratory: CTA bilaterally but diminished breath sounds throughout. Non labored breathing. No rhonchi, wheezing, or crackles. Cardiovascular: RRR. No murmurs noted. No LE edema. Gastrointestinal (Abdomen): Nontender, minimally distended, +BS. No masses noted. Skin: No rashes or skin lesions noted. Neurologic: Sensation grossly intact. No FND appreciated. Psychiatric: Speech of normal pace and content. Mood and affect congruent. Results & Data Results & Data Vital Signs (Past 12 Hours) Vital Signs Temp Pulse Pulse Resp BP BP Pulse Ox 02/25/24 18:59 80 02/25/24 17:27 95 02/25/24 17:27 95 H 20 141/68 H 97 02/25/24 16:38 36.0 C L 103 H 20 112/68 94 O2 Del Method 02/25/24 18:59 02/25/24 17:27 Room Air 02/25/24 17:27 Room Air 02/25/24 16:38 Room Air Supervising Physician Co-Signing Physician Notes Attending addendum: I have physically seen this patient, have supervised the medical residents activities, and agree with the H&P unless as otherwise noted. Assessment and Plan: Acute anemia secondary to blood loss- Likely cause of syncope/presyncope NPO Patient scheduled to receive 1 unit PRBCs from the ED H&H 1 hour after first transfusion H&H every 6 hours Pantoprazole 40 mg IV daily Admitted to monitored bed Metastatic lung adenocarcinoma stage IV- CT suggest increasing mediastinal mass, with increasing left adrenal mets with decreased hemorrhage compared to 01/31 Thickness in the cecum and ascending colon with increased lymphadenopathy Patient reports he was to start chemotherapy tomorrow Consult hematology/oncology Acute kidney injury- Creatinine 2.16 on admission, with baseline 0.9 to Should improve with transfusion and IV fluids Follow serial laboratories Remaining orders and notations as noted Resident Activity Tracking Resident Involvement: Resident Care Provided Care Provided: Adult Hospital Medicine
[2024-02-25] MEDS ORDERED: ACETAMINOPHEN 325 MG TAB PO PRN (20:54)
[2024-02-25] MEDS ORDERED: ONDANSETRON INJ 2 MG/ML 2 ML VIAL IV PRN (20:54)
[2024-02-25] MEDS: PANTOprazole 40 MG in SYRINGE 0 ML IV ONE (21:22)
[2024-02-25] MEDS ORDERED: ALBUTEROL HFA 8 GM INHALER INH PRN (23:54)
[2024-02-26 00:08] LABS: Hematocrit (blood only) 24.5 % (42.0-52.0); Hemoglobin 7.9 g/dl (14.0-18.0)
[2024-02-26 00:15] LABS: Appearance Urine Cloudy (Clear); Bacteria Urine Automated None Seen (None Seen); Bilirubin Urine Negative (Negative); Blood Urine Negative (Negative); Cast Urine Automated >20 /lpf (0-2); Color Urine Yellow; Epithelial Cell Urine Auto 0-2 /hpf (0-2); Glucose Urine UA Negative (Negative); Ketones Urine Negative (Negative); Leukocyte Esterase Urine Negative (Negative); Nitrite Urine Negative (Negative); Protein Urine 1+ (Negative); RBC Urine Automated 0-2 /hpf (0-2); Specific Gravity Urine 1.018 (1.000-1.030); Urobilinogen Urine Negative (Negative); WBC Urine Automated 0-5 /hpf (0-5)
[2024-02-26 00:27] LABS: Granular Casts Urine Present /lpf (None Prsent)
[2024-02-26] MEDS: MELATONIN 3 MG TAB PO PRN (02:01)
[2024-02-26 06:38] LABS: BUN Creatinine Ratio 28.9 (10-20); Calcium 8.5 mg/dl (8.6-10.3); Creatinine Clr Calc Pharmacy 45.6 ml/min; Est GFR (Non-African American) 48.3 ml/min; Potassium 4.2 mmol/L (3.5-5.1)
[2024-02-26 06:40] LABS: Hematocrit (blood only) 23.1 % (42.0-52.0); Hemoglobin 7.3 g/dl (14.0-18.0); Mean Corpuscular Hemoglobin 25.8 pg (25.0-34.0); Mean Corpuscular Hgb Conc 31.6 g/dL (32.0-36.0); Mean Corpuscular Volume 81.6 fL (80.0-100.0); Mean Platelet Volume 8.9 fL (9.4-12.4); Platelet Count 440 K/uL (130-400); RDW Coefficient of Variation 14.6 % (11.5-14.5); RDW Standard Deviation 43.5 fL (36.4-46.3); Red Blood Count 2.83 M/uL (4.70-6.10); White Blood Count 19.14 K/ul (4.8-10.8)
[2024-02-26] MEDS: UMECLIDINIUM/VILANTEROL 62.5/25MCG 7 PUFFS/INHALER INH SCH (08:45)
[2024-02-26] MEDS: FLUTICASONE FUROATE 100MCG 14 PUFFS/INHALER INH SCH (08:45)
[2024-02-26] MEDS ORDERED: NON-FORMULARY MEDICATION (Fluticasone-Umeclidin-Vilanter [Trelegy Ellipta] 100-62.5-25 mcg INH SCH (09:00)
--- NOTE | 2024-02-26 09:07 | Electrocardiogram Report ---
Test Reason : Blood Pressure : / mmHG Vent. Rate : 092 BPM Atrial Rate : 092 BPM P-R Int : 144 ms QRS Dur : 126 ms QT Int : 406 ms P-R-T Axes : 054 075 069 degrees QTc Int : 502 ms Normal sinus rhythm Right bundle branch block Abnormal ECG When compared with ECG of 12-JAN-2024 07:58, QRS axis Shifted right T wave inversion no longer evident in Anterior leads Confirmed by Carlos Tello ([id number]) on 02/26/2024 9:07:17 AM Referred By: Day Stout Confirmed By:Abel Tello
[2024-02-26] MEDS: TAMSULOSIN HCL 0.4 MG CAP PO SCH (10:04)
[2024-02-26 10:13] LABS: Hematocrit (blood only) 23.7 % (42.0-52.0); Hemoglobin 7.8 g/dl (14.0-18.0)
--- NOTE | 2024-02-26 11:00 | Gastrointestinal Consultation ---
Date of Consultation February 26, 2024 Assessment & Plan (1) Symptomatic anemia: Discussed with Dr. Mckenzie. Patient has metastatic lung cancer with likely non- obstructing mass in the cecum as seen on CT. Can cover patient with PPI for any potential upper GI source, however given his cancer we already have a reason for his anemia. Colonoscopy will not change the trajectory of his care at present and would advise conservative monitoring of his H/H. Proceed with cancer treatment as advised by oncologist. Supervising Physician Co-Signing Physician Notes Agree with АНДРЕЙ Pascual as above Interviewed and examined patient and agree with above Abd: Soft, NT, ND, +BS Continue current therapy and supportive care History of Present Illness Reason for Consultation: Anemia Attending Physician: Carlos Jesus MD History of Present Illness Patient is a 73 yo male who was recently diagnosed with metastatic lung cancer. CT imaging has show a hemorrhagic colonic mass. Pt is a 73 yo male with PMH of recently diagnosed metastatic lung cancer (set to start chemo next week), HLD, HTN, and COPD presenting after discussion with his PCP d/t concerning outpatient lab work. Pt's PCP notes that the pt was to be evaluated for worsening weakness, fatigue, and left hip pain for which she ordered lab work prior to an appointment. This lab work revealed a leukocytosis to 24 and Hgb 7.5 (10.2 one month ago). PCP was concerned for bleeding metastasis as pt had a previous CTAP shows a likely mass of the cecum concerning for metastatic disease: * Impression: Mass-like thickening of the cecum and ascending colon which has developed since CT of January 10, 2024. This is indeterminate and could be neoplastic or inflammatory. A neoplastic process is the diagnosis of exclusion although is atypical given rapid development. Patient had been feeling weaker and notes some dyspnea with exertion. Since arrival to the hospital, he was noted to have an H/H of 7.3/23.1. He denies overt GI bleeding--no melena, hematochezia, etc. He denies abdominal pain. Allergies Allergy/AdvReac Type Severity Reaction Status Date / Time No Known Allergies Allergy Unverified 02/25/24 19:45 Home Medications Medication Instructions Recorded Confirmed Type turmeric 400 mg capsule 400 mg PO DAILY 04/20/19 02/25/24 History losartan 50 mg-hydrochlorothiazide 1 tab PO QAM 01/10/24 02/25/24 History 12.5 mg tablet Portable Oxygen E0431 #1 ea 01/29/24 02/25/24 Rx albuterol sulfate 90 mcg/actuation 2 puff inhalation Q6H PRN 01/30/24 02/25/24 Rx aerosol inhaler shortness of breath or wheezing #3 Inhalers fluticasone fur. 100 mcg-umeclid 1 inh inhalation DAILY #3 Inhalers 01/30/24 02/25/24 Rx 62.5 mcg-vilant 25 mcg inhalat.powder (Trelegy Ellipta) oxycodone 5 mg capsule 5 mg PO TID PRN pain #90 caps 02/24/24 02/25/24 Rx tamsulosin 0.4 mg capsule 0.4 mg PO DAILY #90 caps 02/24/24 02/25/24 Rx Patient History Medical History (Updated 02/25/24 @ 23:34 by Candido Estevez DO) COPD (chronic obstructive pulmonary disease) Hypertension Hyperlipidemia declines statin Nocturnal hypoxia On 2L oxygen at night Chronic daily headache Surgical History History of cataract surgery Family History Father Myocardial infarction Other Dementia Heart disease Hypertension Denies family history of Rheumatoid arthritis Sudden SIDS (sudden syndrome) Ovarian cancer Prostate cancer Diabetes Deep vein thrombosis Osteoporosis Coronary heart disease Dyslipidemia Cerebral aneurysm Alzheimer disease Bipolar disorder Clotting disorder Crohn's disease Depression Kidney disease Osteoarthritis Breast cancer Schizophrenia Congenital kidney disease Gestational diabetes Lung cancer COPD (chronic obstructive pulmonary disease) Colorectal cancer Pulmonary embolism Lung disease Cancer Ulcerative colitis Colonic polyp Stroke Asthma Cystic kidney disease Social History (Updated 01/28/24 @ 14:39 by Hina Leon LPN) Smoking Status: Former smoker Tobacco Type: Cigarettes Age Started Using Tobacco: 19; Age Quit Using Tobacco: 70; packs per day: 1; Cigarettes Per Day: 20; Second Hand Exposure: No; Do You Dip or Chew Tobacco: No; Hx Alcohol Use: No Hx Substance Use: No Preferred Language: Bulgarian Communication Ability: Effective Visual Impairment: No Limitations Hearing Ability: Normal Production Crew Supervisor Required: No Beliefs That Will Affect Care: None marital status: Current Living Situation: Alone Current Living Situation Comment: pt states lives alone in a house current occupational status: retired 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 Other Information That Helps Us Care for You: No Feels Safe at Home: Yes Safety Concerns: Feels Safe At This Time Childhood Exposure to Second-Hand Smoke: No Diet: regular caffeine: No during the past year weight has: remained stable Dental Care, Regularly: Yes Physical Activity Frequency: Does not Exercise Seatbelt Use: sometimes Sunscreen Use: No Assistive Devices: Cane and Oxygen - at Night Review of Systems Constitutional: no fever and no chills Respiratory: no cough and no dyspnea Cardiovascular: no chest pain Gastrointestinal: no abdominal pain, no diarrhea/loose stools, no blood in stools and no melena Physical Exam Constitutional: well developed Respiratory: normal respiratory effort Cardiovascular: Rate/Rhythm: regular rate Gastrointestinal (Abdomen): normal bowel sounds, soft, nontender, no hepatosplenomegaly Psychiatric: Orientation: alert and oriented x 3 Results & Data Vital Signs (Past 12 Hours) Vital Signs Temp Pulse Pulse Pulse Resp BP BP 02/26/24 08:00 02/26/24 07:42 37 C 87 12 113/72 02/26/24 07:00 86 02/26/24 03:11 36.8 C 100 H 20 121/69 02/26/24 01:45 02/26/24 01:38 02/26/24 00:10 92 H 02/25/24 23:20 94 H 23 02/25/24 23:10 95 H 20 02/25/24 23:01 94 H 13 02/25/24 23:01 111/66 02/25/24 23:00 93 H 18 Pulse Ox O2 Del Method O2 Flow Rate 02/26/24 08:00 Room Air 02/26/24 07:42 92 Nasal Cannula 3 02/26/24 07:00 02/26/24 03:11 93 Nasal Cannula 3 02/26/24 01:45 Nasal Cannula 3 02/26/24 01:38 Nasal Cannula 4 02/26/24 00:10 02/25/24 23:20 95 02/25/24 23:10 91 Nasal Cannula 2 02/25/24 23:01 86 L Room Air 02/25/24 23:01 02/25/24 23:00 92 PG Care Time/CCT Total # of Minutes Spent Total Time Spent with Patient: Total time spent is greater than 50% in coordination of care (as documented) at patient's floor/unit and/or counseling patient: Coding Level of Care Code 23996 INT INP/OBS CARE MIN Diagnoses Symptomatic anemia D64.9
[2024-02-26] MEDS: PANTOprazole 40 MG in SYRINGE 0 ML IV SCH ×2 (11:08→20:11)
--- NOTE | 2024-02-26 11:24 | Hospitalist Progress Note ---
Date of Service February 26, 2024 Assessment & Plan (1) Adenocarcinoma of lung, stage 4: (2) Hyperlipidemia: (3) Hypertension: (4) Leukocytosis: (5) COPD (chronic obstructive pulmonary disease): (6) Acute blood loss anemia: Plan Mr. Saxena is a 73 yo male with PMH of recently diagnosed metastatic lung cancer (set to start chemo next week), HLD, HTN, and COPD who was admitted after he had been experiencing weakness, fatigue, and syncopal episode while driving, and labs done by his PCP showed hgb level of 7.5 with leukocytosis of 24. Of note, his hgb was 10.2 a month ago. Acute anemia secondary to blood loss - lab work significant for Hgb 7.5 (drop from 10.2 one month ago): FOBT positive - suspect pt's presyncope/syncopal episode while driving secondary to anemia - CTAP showed left hemorrhagic retroperitoneal mass which is possibly the source of his anemia - Hgb stabilized from 7.3 this morning to 7.8 four hours later - VSS - Continue Protonix 40mg IV and Zofran prn - Will monitor CBC in am labs - GI evaluated: consider CT findings are consistent with probable non-obstructing mass in the cecum Colonoscopy would not change his trajectory of care Agree with PPI Metastatic lung adenocarcinoma - Recently diagnosed; has not yet received any chemo tx - Chest CT 01/2024 demonstrated posterior mediastinal mass; CTAP showed left hemorrhagic retroperitoneal mass - CTAP upon admission showed increased size of mediastinal mass, increased size of left adrenal met w/ decreased hemorrhage, and a new thickening of the cecum/ascending colon in addition to multiple abdominal/pelvic lymph nodes both concerning for metastatic spread - Will defer on Heme/Onc consult for now - Ordered pureed diet due to trouble swallowing as a consequence to his mediastinal mass. Nutritional shakes also ordered tid. - Patient to f/u with Oncologist after discharge Leukocytosis - Leukocytosis of ~26 at admission that decreased to ~19 in am labs - CXR negative and no clear source of infection. No fevers recorded - U/A doesn't appear infected - Blood cultures pending - Single dose of Ceftriaxone given in the ER - Will defer initiation of abx until clear source is identified - Will continue monitoring CBC JUAN JOSE - Cr 2.16 upon admission which decreased to 1.42 in am labs (baseline 0.8-1) - Suspect pre renal in the setting of poor PO intake and decreased perfusion d/t anemia - Continue to hold home anti-hypertensives - Encourage PO fluid intake - Monitor BMP COPD - no acute exacerbation - continue home inhalers HTN - will hold home losartan/HCTZ in the setting of JUAN JOSE BPH - will continue home tamsulosin 0.4mg daily Diet: HH (pureed) diet plus nutritional shakes tid VTE ppx: will continue to hold; SCD Code: full Admission and Anticipated Discharge Date Admission Date: February 25, 2024 Supervising Physician Co-Signing Physician Notes Attending attestation Pt seen and examined in concert with Dr. Oliva. In agreement with the documented findings as noted in the resident documentation with any exceptions or additions as noted here. Resting in bed without complaint at present. Only coughing history reported is when he deviates from his mechanical soft diet resulting in significant vomiting/coughing, but nothing recently. Reports no fevers, urinary symptoms, abd pain, diarrhea, rashes, joint pain. On examination, S1/S2 nl RRR no MCG. CTAB. Abd NT/ND BS+ve. Tolerating PO intake well. Acute GI bleed with mild blood loss anemia - GI consultation - stable hemoglobin, continue to monitor q12 and re-evaluate in AM. PPI BID, ondansetron PRN Leukocytosis in the setting of stage IV adenocarcinoma of the lung - improved with hydration but persistently elevated without apparent infectious source. Fo llow up cultures (from 4.17 PM) and monitor for changes, restart abx coverage at that time. Else see resident documentation as noted. Subjective Mr. Saxena is a 73 yo male with PMH of recently diagnosed metastatic lung cancer (set to start chemo next week), HLD, HTN, and COPD who was admitted after he had been experiencing weakness, fatigue, and syncopal episode while driving, and labs done by his PCP showed hgb level of 7.5 with leukocytosis of 24. Of note, his hgb was 10.2 a month ago. He was evaluated at bedside and found to be alone, AAOx3, afebrile, and in NAD. He states he still feels some of the fatigue/weakness he had before being admitted, but not as severe. Denies chest pain, SOB, lightheadedness, fevers, chills, or any other symptom. Review of Systems Review of Systems: As per HPI Physical Exam Physical Exam: General: AAOx3, afebrile, NAD Chest: symmetric chest expansions with respirations CV: RRR, no r/m/g Pulm: no wheezing, crackles or rales; mild end-expiratory wheezing and mild decreased breath sounds; normal respiratory effort, no respiratory distress GI: soft, nontender, nondistended Ext: no swelling in bilateral LE, no calf tenderness Results & Data Results & Data Vital Signs (Past 12 Hours) Vital Signs Temp Pulse Pulse Pulse Resp BP Pulse Ox 02/26/24 08:00 02/26/24 07:42 37 C 87 12 113/72 92 02/26/24 07:00 86 02/26/24 03:11 36.8 C 100 H 20 121/69 93 02/26/24 01:45 02/26/24 01:38 02/26/24 00:10 92 H O2 Del Method O2 Flow Rate 02/26/24 08:00 Room Air 02/26/24 07:42 Nasal Cannula 3 02/26/24 07:00 02/26/24 03:11 Nasal Cannula 3 02/26/24 01:45 Nasal Cannula 3 02/26/24 01:38 Nasal Cannula 4 02/26/24 00:10 Resident Activity Tracking Resident Involvement: Resident Care Provided Care Provided: Adult Hospital Medicine
--- NOTE | 2024-02-26 21:41 | Billing Data ---
Date of Service February 26, 2024 Coding Level of Care Code 49888 INT INP/OBS CARE
[2024-02-27 06:32] LABS: Hematocrit (blood only) 24.7 % (42.0-52.0); Hemoglobin 7.9 g/dl (14.0-18.0); Mean Corpuscular Hemoglobin 26.2 pg (25.0-34.0); Mean Corpuscular Volume 82.1 fL (80.0-100.0); Mean Platelet Volume 9.1 fL (9.4-12.4); Platelet Count 479 K/uL (130-400); RDW Coefficient of Variation 14.9 % (11.5-14.5); RDW Standard Deviation 44.5 fL (36.4-46.3); Red Blood Count 3.01 M/uL (4.70-6.10); White Blood Count 18.69 K/ul (4.8-10.8)
[2024-02-27 06:55] LABS: BUN Creatinine Ratio 23.4 (10-20); Creatinine Clr Calc Pharmacy 60.6 ml/min; Est GFR (African American) 78.8 ml/min; Potassium 3.8 mmol/L (3.5-5.1)
[2024-02-27] MEDS: oxyCODONE HCL IR 5 MG TAB (IMMEDIATE RELEASE) PO PRN (08:44)
[2024-02-27] MEDS ORDERED: SODIUM CHLORIDE 0.9% 250 ML IV PRN (10:26)
--- NOTE | 2024-02-27 11:03 | XRay Report ---
XR chest 1V portable CLINICAL HISTORY: shortness of breath with leukocytosis COMPARISON STUDY: Chest CT January 10, 2024. Chest radiograph February 25, 2024. FINDINGS: No pneumothorax or pleural effusion is present. Posterior mediastinal mass is better depict ed on prior chest CT. Cardiomediastinal silhouette is stable. Bibasilar opacities favor atelectasis. No evidence for pulmonary edema. IMPRESSION: 1. Linear bibasilar densities which favor atelectasis. 2. No consolidation. 3. Posterior mediastinal mass better depicted on prior chest CT. ACT 112: Negative or not required by law. Electronically signed by: Ricki Stout M.D. 02/27/2024 11:01 AM
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
[2024-02-28 06:18] LABS: BUN Creatinine Ratio 22.6 (10-20); Creatinine Clr Calc Pharmacy 69.7 ml/min; Est GFR (African American) 93.4 ml/min; Est GFR (Non-African American) 80.6 ml/min; Potassium 4.1 mmol/L (3.5-5.1)
[2024-02-28 06:28] LABS: Hematocrit (blood only) 30.6 % (42.0-52.0); Mean Corpuscular Hemoglobin 26.4 pg (25.0-34.0); Mean Corpuscular Hgb Conc 32.7 g/dL (32.0-36.0); Mean Corpuscular Volume 80.7 fL (80.0-100.0); Mean Platelet Volume 8.8 fL (9.4-12.4); Platelet Count 450 K/uL (130-400); RDW Coefficient of Variation 15.4 % (11.5-14.5); RDW Standard Deviation 45.1 fL (36.4-46.3); Red Blood Count 3.79 M/uL (4.70-6.10); White Blood Count 20.99 K/ul (4.8-10.8)
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
== END 2024-02-28 15:35 | disposition home or self-care (01) | DRG 371 ==
LOC: ED 16:21 → EDINP 20:54 → SUATTDRO 20:54 → 2N 02-26 01:35

== ENCOUNTER 2024-04-25 16:01 | Inpatient (IN) ==
--- OUTSIDE RECORDS SUMMARY | 2024-04-25 16:07 | External Medical Summary | Summary of Care ---
Author Name Unknown Organization [facility] Address [address] [facility] [place] [address] Phone [phone] Care Team Providers Care Mental Health Assistant Name Role Phone Day Stout MD Primary Care Provid er Reason for Visit * Reason Onset Date Comments [facility]: Maintenance 04/25/2024 Encounter Details Date Type Department Care Team (Late st Contact Info) Description 04/25/2024 9:45 AM EDT Scheduled Telephone [facility], [facility] [address] [place] [address] [facility], Nurse [facility] 132 [place] [address] Allergies No known active allergiesdocumented as of this encounter (statuses as of 04/25/2024) Medications Medication Sig Dispensed Refills Start Date End Date Status Losartan Potassium-HCTZ 50-12.5 MG Oral Tablet (Hyzaar) Take 1 Tablet by mouth in the morning. Active Trelegy Ellipta 100-62.5-25 MCG/ACT Aerosol Powder Breath Activated (Fluticasone-Umeclidi nium-Vilanterol) Inhale 1 puff by mouth daily 60 Each 5 01/29/2024 Active Aspirin-Acetaminophen -Caffeine 250-250-65 MG Oral Tablet (Excedrin Migraine) Take 1 Tablet by mouth every 6 hours as needed for Headache. Active Peppermint Oil Oil Use 1 mL as directed once. Active Albuterol Sulfate HFA 108 (90 Base) MCG/ACT Inhalation Aerosol Solution Inhale 2 puffs by mouth every 6 hours As Needed for shortness of breath or wheezing 54 g 1 01/30/2024 Active oxyCODONE HCl 5 MG Oral Capsule (Oxy IR) TAKE 1 CAPSULE BY MOUTH EVERY 8 HOURS NEEDED FOR PAIN 01/28/2024 Active Docusate Sodium 100 MG Oral Capsule (Colace) Take 1 Capsule by mouth in the morning. Active Pantoprazole Sodium 40 MG Oral Tablet Delayed Release (Protonix) Take 1 Tablet by mouth in the morning. Active [place]-3 1000 MG Oral Capsule Take 2 Capsules by mouth in the morning and 2 Capsules before bedtime. Active Flaxseed Oil 1000 MG Oral Capsule Take 2 Capsules by mouth in the morning and 2 Capsules before bedtime. Active Cod Liver Oil Oral Capsule Take 3 Capsules by mouth in the morning and 3 Capsules before bedtime. Active Vitamin A 3 MG (75102 UT) Oral Capsule (Aquasol-A) Take 1 Capsule by mouth in the morning. Active documented as of this encounter (statuses as of 04/25/2024) Active Problems Problem Noted Date Diagnosed Date Chronic obstructive pulmonary disease 01/18/2024 Migraine without status migrainosus, not intract able 01/18/2024 Chronic hypoxemic respiratory failure 01/18/2024 Left renal mass 01/18/2024 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 01/18/2024 HTN, goal below 140/90 07/01/2014 Tension type headache 05/16/2014 History of tobacco use 05/16/2014 Marijuana abuse 05/16/2014 Dermatitis 12/06/2002 documented as of this encounter (statuses as of 04/25/2024) Social History Tobacco Use Types Packs/Day Years Used Date Smoking Tobacco: Former Cigarettes Smokeless Tobacco: Never Alcohol Use Standard Drinks/Week Comments Yes 1.7 (1 standard drink = 0.6 oz p ure alcohol) occ Sex and Gender Information Value Date Recorded Sex Assigned at Not on file Gender Identity Not on file Sexual Orientation Not on file Job Start Date Occupation Industry Not on file Not on file Not on file documented as of this encounter Miscellaneous Notes * Telephone Encounter - Inocencia Araujo RN - 04/25/2024 9:36 AM EDT Telephone call to pt to f/u on SOB Was advised to go to ED yesterday am No answer. LMOM for pt to return call documented in this encounter Plan of Treatment Upcoming Encounters Date Type Department Care Team (Late st Contact Info) Description 04/29/2024 9:00 AM EDT [facility], [facility] [place] [address] Mk Hairston PA-C [address] [place] [address] 05/21/2024 2:30 PM EDT [facility] Visit [facility] [place], [facility] [address] [place] [address] Inocencia Araujo RN [facility] [place] [address] 01/19/2025 9:00 AM EDT Office Visit [facility] [address] [place] [address] Evelia Manrique PA-C [address] [place], [place] [id number] Health Maintenance Due Date Last Done Comments Albumin/Creatinine Ratio 1967 Alpha-1 Antitrypsin 1967 Hepatitis C Screening 1967 DTaP,Tdap,and Td Vaccines (1 - Tdap) 1968 Zoster Vaccines (1 of 2) 1968 Depression Screening 04/20/2016 04/20/2015 GFR 04/24/2016 04/24/2015, 110 06/2014, 02/07/2014, Additional history exists *COPD SEVERITY VERIFIED BY PFT 01/20/2024 Influenza Vaccine (FLU shot) (Season Ended) 2024 09/06/2022, 08/20/2021, 08/10/2020, Additional history exists O2 ASSESSMENT COMPLETED IN PAST YEAR FOR COPD 02/11/2025 02/12/2024 Pneumococcal Vaccine: 65+ Years Completed 11/18/2022 COVID-19 Vaccine Completed 12/04/2023, , 09/06/2022, Additional history exists GARDASIL-HPV IMMUNIZATION SERIES Aged Out No longer eligible based on patient's age to complete this topic Hepatitis B Aged Out No longer eligi ble based on patient's age to complete this topic MENINGOCOCCAL (MENACTRA/MENVEO) Aged Out No longer eligible based on patient's age to complete this topic documented as of this encounter Medical Devices Implanted Type Area Airline Operations Agent Device Identifier Shelf Expiration Date Model / Serial / Lot Lens Intraoc 19.0 - [id number] - [id number] Implanted:Qty: 1 on 02/04/2019 by Ash Santamaria MD at OR [facility] [address] Left: Eye [employer]OM[employer] 09/09/2023 [id number] / [id number] / [id number] Lens Intraoc 20.0 - [id number] - [id number] Implanted:Qty: 1 on 02/16/2019 by Ash Santamaria MD at OR [facility] [address] Right: Eye [employer] LOMB 08/09/2023 [id number] / [id number] / [id number] documented as of this encounter Care Teams Mental Health Assistant Relationship Specialty Start Date End Date Day Stout MD [address] [place] [place] [address] [place] [address] PCP - General Internal Medicine 11/24/18 documented as of this encounter
--- OUTSIDE RECORDS SUMMARY | 2024-04-25 16:07 | External Medical Summary | Summary of Care ---
Author Name Unknown Organization [facility] Address [address] [facility] [place] [address] Phone [phone] Care Team Providers Care Lawn Care Professional Name Role Phone Day Stout MD Primary Care Provid er Reason for Visit * Reason Onset Date Comments [facility]: Maintenance 04/24/2024 Encounter Details Date Type Department Care Team (Late st Contact Info) Description 04/24/2024 9:30 AM EDT Scheduled Telephone [facility], [facility] 132 [facility] [place] [address] [facility], Nurse [facility] 132 [place] [address] Allergies No known active allergiesdocumented as of this encounter (statuses as of 04/24/2024) Medications Medication Sig Dispensed Refills Start Date [...] Tablet by mouth in the morning. Active [place]-3 1000 MG Oral Capsule Take 2 Capsules by mouth in the morning and 2 Capsules before bedtime. Active Flaxseed Oil 1000 MG Oral Capsule Take 2 Capsules by mouth in the morning and 2 Capsules before bedtime. Active Cod Liver Oil Oral Capsule Take 3 Capsules by mouth in the morning and 3 Capsules before bedtime. Active Vitamin A 3 MG (44332 UT) Oral Capsule (Aquasol-A) Take 1 Capsule by mouth in the morning. Active documented as of this encounter (statuses as of 04/24/2024) Active Problems Problem Noted Date Diagnosed Date [...] as of this encounter (statuses as of 04/24/2024) Social History Tobacco Use Types Packs/Day Years [...] Telephone Encounter - Inocencia Araujo RN - 04/24/2024 8:37 AM EDT Telephone call to pt to f/u occupational therapy manager in to [facility] this am. No answer. Left message on to return call when able. documented in this encounter Plan of Treatment Upcoming Encounters Date Type Department Care Team (Late st Contact Info) Description 04/29/2024 9:00 AM EDT [facility] Visit [facility], [facility] [address] [facility] [place] [address] Mk Hairston PA-C [address] [place] [address] 05/21/2024 2:30 PM EDT [facility] Visit [facility] [place], [facility] [address] [place] [address] Inocencia Araujo RN [address] [facility] [address] 01/19/2025 9:00 AM EDT Office Visit [facility] [address] [place] [address] Evelia Manrique PA-C [address] [place], [place] [phone] Health Maintenance Due Date Last Done Comments Albumin/Creatinine Ratio 1967 Alpha-1 Antitrypsin 1967 Hepatitis C Screening 1967 DTaP,Tdap,and Td Vaccines (1 - Tdap) 1968 Zoster Vaccines (1 of 2) 1968 Depression Screening 04/20/2016 04/20/2015 GFR 04/24/2016 04/24/2015, 06/2014, 02/07/2014, Additional history exists *COPD SEVERITY [...] this encounter Medical Devices Implanted Type Area Generalist Device Identifier Shelf Expiration Date Model / Serial / Lot Lens Intraoc 19.0 - [id number] - [id number] Implanted:Qty: 1 on 02/04/2019 by Ash Satnamaria MD at OR [facility] Left: Eye [employer] LOM[employer] 09/09/2023 [id number] / [id number] / [id number] Lens Intraoc 20.0 - [id number] - [id number] Implanted:Qty: 1 on 02/16/2019 by Ash Santamaria MD at OR [facility] Right: Eye [employer]CH [employer] LOMB 08/09/2023 [id number] / [id number] / [id number] documented as of this encounter Care Teams Lawn Care Professional Relationship Specialty Start Date End Date Day Stout MD [address] [place] [address] [place] [address] PCP - General Internal Medicine 11/24/18 documented as of this encounter
--- OUTSIDE RECORDS SUMMARY | 2024-04-25 16:07 | External Medical Summary | Summary of Care ---
Author Name Unknown Organization [facility] Address [address] [facility] [address] Phone [phone] Care Team Providers Care Wrapper And Preserver Name Role Phone Day Stout MD Primary Care Provid er Reason for Visit * Reason Comments [facility]: Acute Encounter Details Date Type Department Care Team (Late st Contact Info) Description 04/25/2024 2:00 PM EDT [facility] Visit [facility], [facility] 132 [facility] [place] [address] [facility], Nurse [facility] [address] [facility] [place] [address] Allergies No known active allergiesdocumented as of [...] Tablet by mouth in the morning. Active [place]-3 1000 MG Oral Capsule Take 2 Capsules by mouth in the morning and 2 Capsules before bedtime. Active Flaxseed Oil 1000 MG Oral Capsule Take 2 Capsules by mouth in the morning and 2 Capsules before bedtime. Active Cod Liver Oil Oral Capsule Take 3 Capsules by mouth in the morning and 3 Capsules before bedtime. Active Vitamin A 3 MG (88128 UT) Oral Capsule (Aquasol-A) Take 1 Capsule [...] on file documented as of this encounter Last Filed Vital Signs Vital Sign Reading Time Taken Comments Blood Pressure 90/48 04/25/2024 2:23 PM EDT left arm standing Pulse 98 04/25/2024 2:14 PM EDT Temperature 38.7 C (101.6 F) 04/25/2024 2:14 PM EDT Respiratory Rate 24 04/25/2024 2:14 PM EDT Oxygen Saturation 89% 04/25/2024 2:2 3 PM EDT o2 on at 2.5 l/min via nc Inhaled Oxygen Concentration - - Weight - - Height - - Body Mass Index - - documented in this encounter Progress Notes * Inocencia Araujo RN - 04/25/2024 2:00 PM EDT [facility] Body FinisherRailroad Signal Technician Visit Date: 04/25/2024 Time: 2:01 PM Name: Eren Saxena : 1950 Current Concerns: Communication Note Name: Eren Saxena Situation: Pt called in to [facility] yesterday am reporting increased SOB and generally not feeling well x several days He was advised to go to the ED Nurses had tried to call him throughout the day to check status and there was no answer Called this am and no answer again, LMOM Pt returned call and reported that he still wasn't feeling well and did not go to the ED Complains of increase SOB Increased weakness and fatigue Background: 74 y/o male pt of [facility]. Stout [facility] [place]: HTN, Chronic hypoxemic resp failure, COPD, non-hodgkin lymphoma Thoracic aortic aneurysm, Had Endoscopic U/S done on 02/11 with biopsy and found to have lung adenocarcinoma Did chemo 4 days ago Assessment: Pt lethargic but awakens easily with verbali stimuli Mild confusion, taking longer to respond to questions Pulse ox 83% on RA Oxygen applied at 2.5 l/min with pulse ox of 88-90% When checking oxygen machine, oxygen was very forceful coming out - had to turn off machine and reset the liter flow - ball of liter flow was not adjusting properly - unsure how many liters patient was actually getting before Reports cough more than usually - yellow sputum BP 100/58 left arm sitting BP 90/48 left arm standing Unsteady on feet + generalized weakness and fatigue Denies dizziness Having difficulty staying awake Temp 101.6 - 98 Regular, Respirations 24 Wheezes scattered throughout lung linder Recommendation: TT to workers compensation attorney provider Dr. Dill with above assessment Recommends pt be seen in ED Pt did not want to go by ambulance - called [facility] Kanwal but no answer - LMOM Pt then called another friend and no answer Found cell number for Kanwal and spoke with her - she will come and take pt to [facility] ED Report called to [place] at ED Problems/Symptoms: Review of Systems Constitutional: Positive for activity change (decreased), fatigue and fever. Respiratory: Positive for cough (yellow sputum) and shortness of breath. Musculoskeletal: Positive for gait problem. Neurological: Positive for weakness. Psychiatric/Behavioral: Positive for confusion (having difficulty finishing sentences). Physical Exam: BP 90/48 Comment: left arm standing | Pulse 98 | Temp (!) 38.7 C (101.6 F) | Resp 24 | SpO2 89%Comment: o2 on at 2.5 l/min via nc Pain 0 Physical Exam Constitutional: Appearance: Eren is ill-appearing. Cardiovascular: Rate and Rhythm: Tachycardia present. Pulses: Normal pulses. Pulmonary: Breath sounds: Wheezing present. Skin: General: Skin is warm and dry. Coloration: Skin is pale. Neurological: Mental Status: Eren is disoriented. [facility]-10 Completed this Visit: Yes. [facility]: Reason Completed: Status post acute event/change in baseline [facility]-10 ([facility]) Fall Risk Assessment Tool Age 65+: Yes (04/25/241399) Diagnosis (3 or more co-existing): Yes (04/25/241399) Prior history of falls within 3 months: Yes (04/25/241399) Incontinence: No (04/25/241399) Visual impairment: No (04/25/241399) Impaired functional mobility: Yes (04/25/241399) Environmental hazards: Yes (04/25/241399) Poly Pharmacy (4 or more prescriptions - any type): Yes (04/25/241399) Pain affecting level of function: No (04/25/241399) Cognitive impairment: Yes (04/25/241399) Score - a score of 4 or more is considered at risk for fallin (04/25/241399) [facility]-10 Interventions: Fall education provided, reviewed/provided Fall brochure Treatment/Plan: Pt to go to [facility] ED for further evaluation FCC scheduled for tomorrow to check status Pt refused ambulance - Friend Kanwal is going to drive him to ED Report called to [place] at [facility] ED Home Interventions Provided: Home Intervention: Other; eval Consulted PCP/Specialist Arranged Next Level of Care: Emergency Department Was the Transfer Center contacted? Yes Patient's 'Red Flags': Increased SOB Increased fatigue/weakness Uncontrolled pain Patient Needs to Remember: Call [facility] at with any new or worsening health concerns or problems, red flag symptoms. Referrals Needed: Other none Follow Up: Is there cellular connectivity/connectivity in the home? Yes Does the patient have internet in the home? Yes Patient encouraged to call the intake phone number for all urgent but not emergent issues. Scheduled to follow up with patient in 24 hrs. Inocencia Araujo RN 04/25/2024 2:01 PM documented in this encounter Plan of Treatment Upcoming Encounters Date Type Department Care Team (Late st Contact Info) Description 04/26/2024 1:00 PM EDT Scheduled Telephone [facility], [facility] [address] [place] [address] Coordinator, [facility] [address] [place] [address] 04/29/2024 9:00 AM EDT [facility], [facility] [address] [place] [address] Mk Hairston PA-C [address] [place] [address] 05/21/2024 2:30 PM EDT [facility] Visit [facility], [facility] [address] [place] [address] Inocencia Araujo RN [address] [place] [address] 01/19/2025 9:00 AM EDT Office Visit [facility] [address] [place] [id number] Evelia Manrique PA-C [address] [place] [address] Health Maintenance Due Date Last Done Comments [...] this encounter Medical Devices Implanted Type Area Industrial Electrician Journeyman Device Identifier Shelf Expiration Date Model / Serial / Lot Lens Intraoc 19.0 - [id number] - [id number] Implanted:Qty: 1 on 02/04/2019 by Ash Santamaria MD at OR [facility] Left: Eye [employer]OM[employer] 09/09/2023 [id number] / [id number] / [id number] Lens Intraoc 20.0 - [id number] - [id number] Implanted:Qty: 1 on 02/16/2019 by Ash Santamaria MD at OR [facility] Right: Eye BAUSCH [employer] LOMB 08/09/2023 [id number] / [id number] / [id number] documented as of this encounter Care Teams Wrapper And Preserver Relationship Specialty Start Date End Date Day Stout MD [address] [place] [address] [place] [address] PCP - General Internal Medicine 11/24/18 documented as of this encounter"
--- OUTSIDE RECORDS SUMMARY | 2024-04-25 16:08 | External Medical Summary | Summary of Care ---
Author Name Unknown Organization [facility] Address [address] [address] Phone [phone] Care Team Providers Care Crop Scout Name Role Phone Day Stout MD Primary Care Provid er Reason for Visit * Reason Comments [facility]: Enrollment Encounter Details Date Type Department Care Team (Late st Contact Info) Description 04/08/2024 12:30 PM EDT [facility] Visit [facility], [facility] [address] [place] [address] Inocencia Araujo, RN [address] [facility] [place] [address] Allergies No known active allergiesdocumented as of this encounter (statuses as of 04/08/2024) Medications Medication Sig Dispensed Refills Start Date End Date Status Losartan Potassium-HCTZ 50-12.5 MG Oral Tablet (Hyzaar) Take 1 Tablet by mouth in the morning. Active Trelegy Ellipta 100-62.5-25 MCG/ACT Aerosol Powder Breath Activated (Fluticasone-Umecl idinium-Vilanterol ) Inhale 1 puff by mouth daily 60 Each 5 01/29/2024 Active Aspirin-Acetaminop hen-Caffeine 250-250-65 MG Oral Tablet (Excedrin Migraine) Take [...] Tablet by mouth in the morning. Active Spalding-3 1000 MG Oral Capsule Take 2 Capsules by mouth in the morning and 2 Capsules before bedtime. Active Flaxseed Oil 1000 MG Oral Capsule Take 2 Capsules by mouth in the morning and 2 Capsules before bedtime. Active Cod Liver Oil Oral Capsule Take 3 Capsules by mouth in the morning and 3 Capsules before bedtime. Active Vitamin A 3 MG (75453 UT) Oral Capsule (Aquasol-A) Take 1 Capsule by mouth in the morning. Active Triamcinolone Acetonide 0.5 % creamIndications:P ruritic disorder APPLY TOPICALLY TO AFFECTED AREA 2 TIMES A DAY. TO AFFECTED AREA. 15 g 1 08/29/2016 04/08/2024 Discontinued (Medication List Clean Up) Riboflavin 400 MG Capsule Take 1 Cap by mouth daily. 30 Cap 11 01/01/2019 04/08/2024 Discontinued (Medication List Clean Up) amLODIPine (NORVASC) 5 MG Tablet Take 5 mg by mouth daily. 04/08/2024 Discontinued (Medication List Clean Up) topiramate (TOPAMAX) 25 MG TABS Two tablets at bedtime 75 Tab 5 05/24/2019 04/08/2024 Discontinued (Medication/ Dose Changed) ProAir HFA 108 (90 Base) MCG/ACT Inhalation Aerosol Solution Inhale by mouth . 04/08/2024 Discontinued (Medication List Clean Up) Aimovig 70 MG/ML Subcutaneous Solution Auto-injector (Erenumab-aooe) Inject under the skin 1 mL Every Month . 1 mL 5 06/11/2022 04/08/2024 Discontinued (Medication List Clean Up) Stiolto Respimat 2.5-2.5 MCG/ACT Inhalation Aerosol Solution (Tiotropium-Olodat antwon) inhale 2 puffs by mouth daily 12 g 3 01/09/2024 04/08/2024 Discontinued (Medication List Clean Up) Albuterol Sulfate HFA 108 (90 Base) MCG/ACT Inhalation Aerosol Solution Inhale 2 puffs by mouth every six hours as needed for shortness of breath or wheezing 8.5 g 5 01/29/2024 04/08/2024 Discontinued (Medication List Clean Up) Trelegy Ellipta 100-62.5-25 MCG/ACT Aerosol Powder Breath Activated (Fluticasone-Umecl idinium-Vilanterol ) Inhale 1 puff by mouth daily 180 Each 1 01/30/2024 04/08/2024 Discontinued (Medication List Clean Up) documented as of this encounter (statuses as of 04/08/2024) Active Problems Problem Noted Date Diagnosed Date [...] as of this encounter (statuses as of 04/08/2024) Social History Tobacco Use Types Packs/Day Years [...] Sign Reading Time Taken Comments Blood Pressure 114/64 04/08/2024 1:11 PM EDT Pulse 102 04/08/2024 1:11 PM EDT Temperature 37.1 C (98.8 F) 04/08/2024 1:11 PM ED T Respiratory Rate 18 04/08/2024 1:11 PM EDT Oxygen Saturation 95% 04/08/2024 1:11 PM EDT Inhaled Oxygen Concentration - - Weight - - Height - - Body Mass Index - - documented in this encounter Progress Notes * Inocencia Araujo RN - 04/08/2024 11:57 AM EDT [facility] 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 Stout with [facility] Dx include: Chronic hypoxemic respiratory failure, COPD, HTN, hx of tobacco use, left renal mass, non-hodgkin lymphoma. Thoracic aortic aneurysm, Had Endoscopic U/S done on 02/11 with biopsy and found to have lung adenocarcinoma Oncologist is Dr. Garnica Pt reports he had two infusions of chemotherapy and immunotherapy - going to be getting these every3 weeks He states he doesn't feel too bad getting these He did experience some severe itching all over between the 1st and 2nd infusions He was told it was because of the Keytruda and was told to take Zyrtec and was given a prescriptionof prednisone - he stopped taking the prednisone because it was keeping him awake all night and he reports he did tell his oncologist this He reports no further itching Next treatment is next week Denies any concerns with pain at this time Was having issues with back pain and was prescribed oxycodone and was taking up to 4 tablets a day - has since stopped taking oxy in past few weeks and no longer having pain He reports appetite is "not bad" He had to eat pureed foods x 2 weeks d/t mass pressing against his esophagus but reports that has subsided and is now back to eating a regular diet Has oxygen concentrator and portable oxygen tank that he uses as needed - uses between 2-3 l/min Physical Exam: BP 114/64 | Pulse 102 | Temp 37.1 C (98.8 F) | Resp 18 | SpO2 95% Pain 0 Physical Exam Constitutional: General: Eren is not in acute distress. Cardiovascular: Rate and Rhythm: Regular rhythm. Tachycardia present. Pulses: Normal pulses. Heart sounds: Normal heart sounds. Pulmonary: Effort: Pulmonary effort is normal. Comments: Lungs diminished throughout Skin: General: Skin is warm and dry. Neurological: Mental Status: Eren is alert. Problems/Symptoms: Review of Systems Constitutional: Positive for fatigue. HENT: Negative. Eyes: Negative. Respiratory: Positive for shortness of breath (CORONADO - at baseline). Cardiovascular: Negative. Gastrointestinal: Negative. Genitourinary: Negative. Musculoskeletal: Negative. Skin: Negative. Neurological: Positive for headaches (chronic). Psychiatric/Behavioral: Negative. Medication Reconciliation: (See medication list) Does patient take medications as ordered: No When asked about taking pantoprazole, states he only takes it if he thinks he needs it Patient Well Being: PHQ2/9: About Me Question 03/26/2024 5:14 PM EDT - Filed by Patient Demographics Section: I identify my ethnicity as: Not or I identify my race as: or or Other White My preferred language is: [place] I need an furniture arranger to communicate with you: No I identify my gender as: My pronouns are: she/her/hers he/him/his My sex assigned at and orginally recorded on my certificate was: My sexual orientation is: Have you ever served in the ? Never Served (Not a [employer]) Myc Visit Accident Related Question Question 03/26/2024 5:15 PM EDT - Filed by Patient Is this visit related to an accident? (i.e work, motor vehicle) No Lives alone in mobile home Has 2 cats indoor/outdoor Ex- helps out as needed Pt still drives - takes himself to his appts Uses case when outside of the home Does reports several falls - states it was because he tripped one time, cannot remember details of other fall [facility] Completed this Visit: Yes. [facility]: Reason Completed: Enrollment [facility] ([facility]) Fall Risk Assessment Tool Age 65+: Yes (04/08/241299) Diagnosis (3 or more co-existing): Yes (04/08/241299) Prior history of falls within 3 months: Yes (04/08/241299) Incontinence: No (04/08/241299) Visual impairment: No (04/08/241299) Impaired functional mobility: No (04/08/241299) Environmental hazards: No (04/08/241299) Poly Pharmacy (4 or more prescriptions - any type): Yes (04/08/241299) Pain affecting level of function: No (04/08/241299) Cognitive impairment: No (05/30/24 1300) Score - a score of 4 or more is considered at risk for fallin (04/08/24 1300) [facility] Interventions: Fall education provided, reviewed/provided Fall brochure Advanced Care Planning: No documentation, acp in progress. Patient's Goals of Care: Better sleep Less fatigue Reinforcement/Education: COPD: Pt instructed to: -Call with increased SOB, wheezing, chest tightness, increased cough, increased sputum with change in color or consistency and fever. -Wash hands often -Drink plenty of fluids -Use inhalers as directed, do not stop or skip doses -Avoid stress -Rest when tired or SOB -Avoid triggers -Clean inhalers once a week Educated on home safety: Create a fall proof home Clear floors of clutter, loose wires, throw rugs, and cords. Make sure halls, stairways, and entrances are well lit. Install a nightlight in your bedroom, hallway and bathroom. Install grab bars or handrails in the bathroom and on stairs. Use a non-skid tub/shower mat. Avoid climbing on a chair; instead use a step stool with a high handrail. Keep sidewalks and steps in good repair Keep steps and sidewalks free of snow and ice. Using aids to support and prevent falls If you have poor balance or have fallen in the past, consider additional support such as a cane or walker. Use a cane with good support and that is the proper length for you. Use a walker if a cane doesnt provide enough support. Avoid medications that increase the risk of falling by causing dizziness, change in sensation or slowed reflexes. Certain medicines may cause falls - blood pressure pills, heart medicines, water pills, or sleepingpills. Be sure to understand each medicine that you are taking and any side effects that may occur. Improve your balance and flexibility with muscle strengthening exercises. Ask your health care provider for some exercises that will be right for you. Reinforced safety education and fall prevention. and Reinforced medication regimen. Timing., Dosing., and Purspose. Treatment/Plan: Continue meds as prescribed/reviewed Oxygen at 2 l/min via [place] PRN Keep all appts as scheduled and attend [facility] PCP Dr. Girish Garnica is Oncologist at [facility] Bicycle I Assembler is [facility] - next appt in May Home Interventions Provided: Home Intervention: Other; eval Reinforced current Plan of Care, including self-management and medication regimen Updated Exacerbation Plan Patient's 'Red Flags': Increased SOB Increased fatigue/weakness Uncontrolled pain Patient Needs to Remember: Call [facility] at with any new or worsening health concerns or problems, red flag symptoms. Referrals Needed: Other none Follow Up: Is there cellular connectivity/connectivity in the home? Yes Does the patient have internet in the home? Yes Patient encouraged to call the intake phone number for all urgent but not emergent issues. Is the patient new to [facility] within the last 30 days? Yes, Is this a Transitions of Care visit? No Provider is in agreement with Plan of Care: Yes Scheduled to follow up with patient in 3 weeks with provider, 3 weeks after with RNCM . Inocencia Araujo RN 04/08/2024 11:58 AM documented in this encounter Plan of Treatment Upcoming Encounters Date Type Department Care Team (Late st Contact Info) Description 04/29/2024 9:00 AM EDT [facility] [address] [place] [address] Mk Hairston PA-C [address] [place] [address] 05/21/2024 2:30 PM EDT [facility] Visit [facility], [facility] [address] [address] Inocencia Araujo RN [address] [place] [address] 01/19/2025 9:00 AM EDT [facility] Visit [facility] [address] [place] [address] Evelia Manrique PA-C [address] [place] [address] Health Maintenance Due Date Last Done Comments Albumin/Creatinine Ratio 1967 Alpha-1 Antitrypsin 1967 Hepatitis C Screening 1967 DTaP,Tdap,and Td Vaccines (1 - Tdap) 1968 Zoster Vaccines (1 of 2) 1968 Depression Screening 04/20/2016 04/20/2015 GFR 04/24/2016 04/24/2015, 11/0 06/2014, 02/07/2014, Additional history exists *COPD SEVERITY [...] this encounter Medical Devices Implanted Type Area Supervisor Bleach Plant Device Identifier Shelf Expiration Date Model / Serial / Lot Lens Intraoc 19.0 - [id number] - [id number] Implanted:Qty: 1 on 02/04/2019 by Ash Santamaria MD at OR [facility] Left: Eye [employer] 09/09/2023 [id number] / [id number] / [id number] Lens Intraoc 20.0 - [id number] - [id number] Implanted:Qty: 1 on 02/16/2019 by Ash Santamaria MD at OR [facility] Right: Eye [employer] 08/09/2023 [id number] / [id number] / [id number] documented as of this encounter Care Teams Crop Scout Relationship Specialty Start Date End Date Day Stout MD [address] [place] [address] [place] [address] PCP - General Internal Medicine 11/24/18 documented as of this encounter
--- NOTE | 2024-04-25 16:15 | Emergency Department Note ---
Impression & Plan Sepsis, Acute and chronic respiratory failure with hypoxia, Adenocarcinoma of lung, stage 4, Pancytopenia, Multifocal pneumonia, COPD with acute exacerbation ED Provider Note NAME: KIM MILLER AGE: 74 SEX: M : 1950 ARRIVES VIA: Walk-In INFORMANT: Patient ED PROVIDER(S): Sukhwinder Andrade MD CHIEF COMPLAINT: Shortness of breath PLAN: Disposition: Admit MEDICAL DECISION MAKING: The patient is a pleasant 74-year-old gentleman with a past medical history of COPD, metastatic lung cancer with brain metastases who presents to the emergency department via walk-in accompanied by his sister for evaluation of worsening shortness of breath over the past week in setting of decline over the past couple of months. Patient reports she had not been using his oxygen all the time at home but over the past week she has needed it 02/06. He is a poor historian but denies fevers, chills, nausea, vomiting or diarrhea. He has had poor oral intake and has been continuing to lose weight. On my evaluation the patient is in mild to moderate respiratory distress O2 saturation 75% on room air improving to upper 80s/low 90s on nasal cannula. He appears clinically dry. He appears cachectic. He exhibits wheezes and rhonchi of bilateral mid to lower lung linder with moderate increased work of breathing. Respiratory rate was in the mid to upper 30s. Heart rate is in the 120s. Blood pressure stable. EKG without overt acute ischemia. CXR with multifocal airspace opacities concerning for pneumonia per my preliminary independent interpretation. WBC 1.35 with ANC of 0.30 consistent with neutropenia in the setting of the patient's cancer therapy. H/H 8.1/24.1 decreased from 9.6/3.310 days ago. Platelets 33 K, newly decreased in the past month. VBG without significant abnormality. Chemistry without metabolic acidosis. Potassium 3.1 and electrolytes otherwise without significant abnormality. High-sensitivity troponin 29, nonspecific as is BNP of 174. Lipase not elevated. Procalcitonin is elevated at 1.17, consistent with suspicion for pneumonia and sepsis in this immunocompromise patient. Respiratory BioFire was negative. CTA of the chest was performed and was negative for PE though further confirmed multifocal pneumonia seen on chest x-ray. CT of the abdomen pelvis was negative for acute intra-abdominal process. CT of the head demonstrates no acute changes but with previously seen subcentimeter lesions of the right cerebrum not visualized on the noncontrast CT. Further description of progressive mediastinal and hilar lymphadenopathy is seen. There is decrease in size of the large necrotic posterior mediastinal mass and left adrenal metastatic lesion suggestive of positive treatment response. The patient was treated with empiric Zosyn and vancomycin. He was additionally treated with hour-long DuoNeb, Solu-Medrol, guaifenesin and BiPAP therapy with improvement in his respiratory status. Case was discussed with KIA Joseph PAC, with Dr. Boyle [facility] hospitalist who will evaluate the patient for admission. Triage Nursing notes reviewed and agree them. Prior/external medical records reviewed Vital Signs: reviewed Differential diagnosis: Reactive airway disease, pneumonia, pneumothorax, COPD, CHF, infections, cardiac ischemia, pulmonary embolism, musculoskeletal, gastrointestinal, as well as other pathologies. ER treatment provided: See below. Diagnostics interpreted by me: ECG: Sinus tachycardia, 116 bpm, no ectopy, no overt ST elevation or depression, QTc 472, QTC 120. Cardiac Monitoring: An order for continuous cardiac monitoring was placed and demonstrated Sinus tachycardia, 116 bpm, no ectopy Laboratory studies: See below Imaging studies: See below Consultation(s): Case was discussed with KIA Joseph PAC, with Dr. Boyle [facility] hospitalist who will evaluate the patient for admission. HPI: The patient is a pleasant 74-year-old gentleman with a past medical history of COPD, metastatic lung cancer with brain metastases who presents to the emergency department via walk-in accompanied by his sister for evaluation of worsening shortness of breath over the past week in setting of decline over the past couple of months. Patient reports she had not been using his oxygen all the time at home but over the past week she has needed it 24/7. He is a poor historian but denies fevers, chills, nausea, vomiting or diarrhea. He has had poor oral intake and has been continuing to lose weight. ROS: See above HPI for pertinent positives & negatives. A total of 10 systems reviewed and were otherwise negative. VITALS:See Below PHYSICAL EXAMINATION: GENERAL: Awake, alert, acute on chronically ill-appearing, cachectic. Moderate respiratory distress. HENT: Normocephalic, atraumatic. Oropharynx unremarkable. EYES: Normal conjunctiva. Sclera non-icteric. NECK: Supple. No nuchal rigidity. FROM. No JVD. RESPIRATORY: Wheezes and rhonchi bilateral mid to lower lung linder with moderate increased work of breathing. CARDIAC: Tachycardic rate, normal rhythm. Extremities warm and well perfused. Pulses equal. ABDOMEN: Soft, non-distended. No tenderness to palpation. No rebound or guarding. No masses. MUSCULOSKELETAL: Chest examination reveals no tenderness. The back is symmetrical on inspection without obvious abnormality. There is no CVA tenderness to palpation. No joint edema. LOWER EXTREMITIES: Calves are equal size bilaterally and non-tender. No edema. No discoloration. NEURO: Normal sensorium. No sensory or motor deficits noted. SKIN: No rash or jaundice noted. ED COURSE: Critical Care: I have personally spent greater than 65 minutes of critical care time in the direct management of this patient. This includes bedside care, interpretation of diagnostic studies, and testing, discussion with consultants, patient, and family members, and other required patient management activities. This 65 minutes is in excess of all separately billable procedures. Sukhwinder Andrade MD Past Med/Surg History Problem List (Updated 04/26/24 @ 01:01 by Sukhwinder Andrade MD) COPD with acute exacerbation (Acute) Acute and chronic respiratory failure with hypoxia (Acute) Sepsis (Acute) Multifocal pneumonia (Acute) Pancytopenia (Acute) Lung cancer metastatic to brain (Chronic 03/11/24) COPD (chronic obstructive pulmonary disease) Leukocytosis Hypertension Adenocarcinoma of lung, stage 4 (Acute) Chronic respiratory failure with hypoxia Exertional shortness of breath Ex-smoker Hypokalemia (Acute) Mass of mediastinum (Acute) Retroperitoneal mass (Acute) Hyperlipidemia (Chronic) declines statin Chronic daily headache (Chronic) Medical History JUAN JOSE (acute kidney injury) Leukocytosis Acute GI bleeding Symptomatic anemia Acute blood loss anemia Nocturnal hypoxia On 2L oxygen at night Surgical History S/P tonsillectomy History of cataract surgery Bilateral Family History Father , 65yo Myocardial infarction Mother , 96yo Natural with unknown cause Brother Medical history unknown Son No problems noted. Daughter No problems noted. Other Dementia Heart disease Hypertension Denies family history of Rheumatoid arthritis Sudden SIDS (sudden syndrome) Ovarian cancer Prostate cancer Diabetes Deep vein thrombosis Osteoporosis Coronary heart disease Dyslipidemia Cerebral aneurysm Alzheimer disease Bipolar disorder Clotting disorder Crohn's disease Depression Kidney disease Osteoarthritis Breast cancer Schizophrenia Congenital kidney disease Gestational diabetes Lung cancer COPD (chronic obstructive pulmonary disease) Colorectal cancer Pulmonary embolism Lung disease Cancer Ulcerative colitis Colonic polyp Stroke Asthma Cystic kidney disease Social History Smoking Status: Former smoker Tobacco Type: Cigarettes Age Started Using Tobacco: 19; Age Quit Using Tobacco: 70; packs per day: 1; Cigarettes Per Day: 20; Second Hand Exposure: No; Do You Dip or Chew Tobacco: No; Hx Alcohol Use: No Hx Substance Use: No Preferred Language: Kiswahili Communication Ability: Effective Visual Impairment: No Limitations Hearing Ability: Normal Corporate 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 Required: No Beliefs That Will Affect Care: None marital status: Current Living Situation: Alone Current Living Situation Comment: pt states lives alone in a house current occupational status: retired current occupation: [email or web address] for 18 years How many Children do You have: 2 other: Ex- is supportive to pt Feels Safe at Home: Yes Safety Concerns: Feels Safe At This Time Diet: regular caffeine: No during the past year weight has: decreased > 10 lbs Seatbelt Use: sometimes Assistive Devices: Cane Allergies Allergies Allergy/AdvReac Type Severity Reaction Status Date / Time No Known Allergies Allergy Unverified 04/07/24 11:07 Home Meds Home Medications Medication Instructions Recorded Confirmed turmeric 400 mg capsule 400 mg PO DAILY 04/20/19 04/25/24 folic acid 1 mg tablet 1 mg PO DAILY 04/25/24 04/25/24 Previous Rx's Medication Instructions Recorded Portable Oxygen #1 ea 01/29/24 albuterol sulfate 90 mcg/actuation 2 puff inhalation Q6H PRN 01/30/24 aerosol inhaler shortness of breath or wheezing #3 Inhalers oxycodone 5 mg capsule 5 mg PO TID PRN pain #90 caps 02/24/24 tamsulosin 0.4 mg capsule 0.4 mg PO DAILY #90 caps 02/24/24 fluticasone fur. 100 mcg-umeclid 1 inh inhalation DAILY #3 Inhalers 04/19/24 62.5 mcg-vilant 25 mcg inhalat.powder (Trelegy Ellipta) losartan 50 mg-hydrochlorothiazide 1 tab PO DAILY #90 tabs 04/19/24 12.5 mg tablet Results & Data (ED) Vital Signs Vital Signs - 24 hr 04/25/24 16:03 04/25/24 16:11 04/25/24 16:21 Temperature 37.0 C Temperature Source Oral Pulse Rate 120 H 118 H Pulse Rate [Apical] Pulse Rate from SpO2 Sensor Respiratory Rate Respiratory Effort / Characteristics Blood Pressure 126/84 Blood Pressure [Left Arm] Blood Pressure Mean 98 Blood Pressure Mean [Left Arm] Pulse Oximetry 75 L 94 Oxygen Delivery Method Room Air Nasal Cannula Oxygen Flow Rate 6 Fraction of Inspired Oxygen Sepsis Recent Fever Within 48 Hours No Sepsis New/Unexplained Change in Mental Status No Sepsis Action Taken by Nursing No Action Required 04/25/24 17:00 04/25/24 17:09 04/25/24 17:37 Temperature Temperature Source Pulse Rate 111 H Pulse Rate [Apical] 111 H Pulse Rate from SpO2 Sensor 114 H Respiratory Rate 37 H 20 Respiratory Effort / Characteristics Spontaneous Blood Pressure 125/82 Blood Pressure [Left Arm] Blood Pressure Mean 92 Blood Pressure Mean [Left Arm] Pulse Oximetry 94 99 Oxygen Delivery Method Nasal Cannula Oxygen Flow Rate 6 Fraction of Inspired Oxygen 50 Sepsis Recent Fever Within 48 Hours Sepsis New/Unexplained Change in Mental Status Sepsis Action Taken by Nursing 04/25/24 17:37 04/25/24 18:27 04/25/24 19:15 Temperature Temperature Source Pulse Rate 111 H 120 H 124 H Pulse Rate [Apical] Pulse Rate from SpO2 Sensor 123 H Respiratory Rate 20 31 H 26 H Respiratory Effort / Characteristics Spontaneous Blood Pressure Blood Pressure [Left Arm] Blood Pressure Mean Blood Pressure Mean [Left Arm] Pulse Oximetry 99 93 94 Oxygen Delivery Method BiPAP Oxygen Flow Rate Fraction of Inspired Oxygen 50 50 40 Sepsis Recent Fever Within 48 Hours Sepsis New/Unexplained Change in Mental Status Sepsis Action Taken by Nursing 04/25/24 19:27 04/25/24 20:00 Temperature Temperature Source Pulse Rate 119 H Pulse Rate [Apical] 126 H Pulse Rate from SpO2 Sensor Respiratory Rate 21 31 H Respiratory Effort / Characteristics Blood Pressure Blood Pressure [Left Arm] 106/77 Blood Pressure Mean Blood Pressure Mean [Left Arm] 86 Pulse Oximetry 96 94 Oxygen Delivery Method BiPAP BiPAP Oxygen Flow Rate Fraction of Inspired Oxygen Sepsis Recent Fever Within 48 Hours Sepsis New/Unexplained Change in Mental Status Sepsis Action Taken by Nursing Laboratory Data Attestation: I reviewed the patient's lab results. 04/25/24 17:09 04/25/24 16:36 Lab Results 04/25/24 04/25/24 04/25/24 Range/Units 16:36 16:51 17:09 WBC Cancelled 1.35 L RBC Cancelled 2.80 L Hgb Cancelled 8.1 L Hct Cancelled 24.1 L MCV Cancelled 86.1 MCH Cancelled 28.9 MCHC Cancelled 33.6 RDW Std Deviation Cancelled 68.1 H RDW Coeff of Ge Cancelled 22.2 H Plt Count Cancelled 33 L MPV Cancelled 10.5 Immature Gran % (Auto) Cancelled Neut % (Auto) Cancelled Lymph % (Auto) Cancelled Chambers % (Auto) Cancelled Eos % (Auto) Cancelled Baso % (Auto) Cancelled Neut # (Auto) Cancelled Lymph # (Auto) Cancelled Chambers # (Auto) Cancelled Eos # (Auto) Cancelled Baso # (Auto) Cancelled Immature Gran # (Auto) Cancelled Absolute Nucleated RBC Cancelled Nucleated RBC % (auto) Cancelled Neutrophils % (Manual) Cancelled 22 Band Neutrophils % Cancelled Lymphocytes % (Manual) Cancelled 60 Prolymphocyte % Cancelled Reactive Lymphs % (Man) Cancelled Monocytes % (Manual) Cancelled 8 Eosinophils % (Manual) Cancelled Basophils % (Manual) Cancelled Metamyelocytes % (Man) Cancelled 7 Myelocytes % (Man) Cancelled 3 Promyelocytes % (Man) Cancelled Blast Cells % (Manual) Cancelled Plasma Cell % (Manual) Cancelled Other Cells % Cancelled Nucleated RBC % Cancelled Neutrophils # (Manual) Cancelled 0.30 L Band Neutrophils # Cancelled Total Absolute Neuts Cancelled 0.30 L* Lymphocytes # (Manual) Cancelled 0.81 L Prolymphocyte # Cancelled Reactive Lymphs # Cancelled Total Abs Lymphocytes Cancelled 0.81 L Monocytes # (Manual) Cancelled 0.11 Eosinophils # (Manual) Cancelled Basophils # (Manual) Cancelled Metamyelocytes # (Man) Cancelled 0.09 H Myelocytes # (Manual) Cancelled 0.04 H Promyelocytes # (Man) Cancelled Blast Cells # (Man) Cancelled Plasma Cell # (Manual) Cancelled Other Cells # Cancelled Nucleated RBCs # (Man) Cancelled Hypersegmented Neuts Cancelled Hyposegmented Neuts Cancelled Hypogranular Neuts Cancelled Large Granular Lymphs Cancelled # Lrg Granular Lymphs Cancelled Hairy Cells Cancelled Smudge Cells Cancelled Toxic Granulation Cancelled 1+ Toxic Vacuolation Cancelled Dohle Bodies Cancelled 1+ Elizabeth Rods Cancelled Platelet Estimate Cancelled Hypogranular Platelets Cancelled Giant Platelets Cancelled Platelet Satelliting Cancelled RBC Morphology Cancelled Polychromasia Cancelled 1+ Hypochromasia Cancelled Poikilocytosis Cancelled Basophilic Stippling Cancelled Anisocytosis Cancelled Microcytosis Cancelled Macrocytosis Cancelled Spherocytes Cancelled Pappenheimer Bodies Cancelled Sickle Cells Cancelled Target Cells Cancelled Tear Drop Cells Cancelled Ovalocytes Cancelled Stomatocytes Cancelled [place] Bodies Cancelled Echinocytes Cancelled Acanthocytes (Spur) Cancelled Rouleaux Cancelled RBC Agglutinates Cancelled Schistocytes Cancelled Sezary Cell Cancelled VBG pH 7.42 H (7.36-7.41) VBG pCO2 47 (38-50) mmHg VBG pO2 32 mmHg VBG HCO3 31 mmol/L VBG O2 Saturation < 60.0 % VBG Base Excess 5.1 mEq/L Sodium 136 (136-145) mmol/L Potassium 3.1 L (3.5-5.1) mmol/L Chloride 96 L (98-107) mmol/L Carbon Dioxide 29 (21-32) mmol/L Anion Gap 11 (3-11) BUN 32 H (6-23) mg/dl Creatinine 1.04 (0.6-1.4) mg/dl Est Cr Clr Drug Dosing Not Reportable Est GFR ( Amer) 81.0 ml/min Est GFR (Non-Af Amer) 69.9 ml/min BUN/Creatinine Ratio 30.8 H (10-20) Glucose 153 H (70-99(Fasting)) mg/dl Lactate 1.4 (0.4-2.0) mmol/L Calcium 9.3 (8.6-10.3) mg/dl Magnesium 1.7 (1.7-2.4) mg/dl Total Bilirubin 0.8 (0.2-1.0) mg/dl AST 17 (13-39) U/L ALT 18 (7-52) U/L Alkaline Phosphatase 112 H (34-104) U/L Troponin I High Sens 29.7 H (0-20) pg/ml B-Natriuretic Peptide 174 H (0-100) pg/ml Total Protein 7.5 (6.0-8.3) gm/dl Albumin 3.5 (3.4-5.0) gm/dl Globulin 4.0 (2.5-4.0) gm/dl Albumin/Globulin Ratio 0.9 (0.9-2) Lipase 7 L (11-82) U/L Procalcitonin 1.17 H (0-0.5) ng/ml Blood Parasites ID Cancelled 04/25/24 04/25/24 Range/Units 18:24 20:03 WBC RBC Hgb Hct MCV MCH MCHC RDW Std Deviation RDW Coeff of Ge Plt Count MPV Immature Gran % (Auto) Neut % (Auto) Lymph % (Auto) Chambers % (Auto) Eos % (Auto) Baso % (Auto) Neut # (Auto) Lymph # (Auto) Chambers # (Auto) Eos # (Auto) Baso # (Auto) Immature Gran # (Auto) Absolute Nucleated RBC Nucleated RBC % (auto) Neutrophils % (Manual) Band Neutrophils % Lymphocytes % (Manual) Prolymphocyte % Reactive Lymphs % (Man) Monocytes % (Manual) Eosinophils % (Manual) Basophils % (Manual) Metamyelocytes % (Man) Myelocytes % (Man) Promyelocytes % (Man) Blast Cells % (Manual) Plasma Cell % (Manual) Other Cells % Nucleated RBC % Neutrophils # (Manual) Band Neutrophils # Total Absolute Neuts Lymphocytes # (Manual) Prolymphocyte # Reactive Lymphs # Total Abs Lymphocytes Monocytes # (Manual) Eosinophils # (Manual) Basophils # (Manual) Metamyelocytes # (Man) Myelocytes # (Manual) Promyelocytes # (Man) Blast Cells # (Man) Plasma Cell # (Manual) Other Cells # Nucleated RBCs # (Man) Hypersegmented Neuts Hyposegmented Neuts Hypogranular Neuts Large Granular Lymphs # Lrg Granular Lymphs Hairy Cells Smudge Cells Toxic Granulation Toxic Vacuolation Dohle Bodies Elizabeth Rods Platelet Estimate Hypogranular Platelets Giant Platelets Platelet Satelliting RBC Morphology Polychromasia Hypochromasia Poikilocytosis Basophilic Stippling Anisocytosis Microcytosis Macrocytosis Spherocytes Pappenheimer Bodies Sickle Cells Target Cells Tear Drop Cells Ovalocytes Stomatocytes [place] Bodies Echinocytes Acanthocytes (Spur) Rouleaux RBC Agglutinates Schistocytes Sezary Cell VBG pH 7.38 (7.36-7.41) VBG pCO2 44 (38-50) mmHg VBG pO2 48 mmHg VBG HCO3 26 mmol/L VBG O2 Saturation 79.9 % VBG Base Excess 0.5 mEq/L Sodium (136-145) mmol/L Potassium (3.5-5.1) mmol/L Chloride (98-107) mmol/L Carbon Dioxide (21-32) mmol/L Anion Gap (3-11) BUN (6-23) mg/dl Creatinine (0.6-1.4) mg/dl Est Cr Clr Drug Dosing Est GFR ( Amer) ml/min Est GFR (Non-Af Amer) ml/min BUN/Creatinine Ratio (10-20) Glucose (70-99(Fasting)) mg/dl Lactate (0.4-2.0) mmol/L Calcium (8.6-10.3) mg/dl Magnesium (1.7-2.4) mg/dl Total Bilirubin (0.2-1.0) mg/dl AST (13-39) U/L ALT (7-52) U/L Alkaline Phosphatase (34-104) U/L Troponin I High Sens 27.6 H (0-20) pg/ml B-Natriuretic Peptide (0-100) pg/ml Total Protein (6.0-8.3) gm/dl Albumin (3.4-5.0) gm/dl Globulin (2.5-4.0) gm/dl Albumin/Globulin Ratio (0.9-2) Lipase (11-82) U/L Procalcitonin (0-0.5) ng/ml Blood Parasites ID Administered Medications Lactated Ringer's (Lr) 1,000 mls @ 100 mls/hr IV .Q10H KATHLEEN Stop: 04/26/24 17:29 Last Admin: 04/25/24 22:04 Dose: 100 mls/hr Documented By: SKM Piperacillin Sod/Tazobactam (Sod 4.5 gm/ Dextrose) 100 mls @ 25 mls/hr IV Q8H [facility]; Protocol Stop: 05/03/24 01:59 Last Admin: 04/26/24 04:21 Dose: 25 mls/hr Documented By: SELMA Discontinued Medications Albuterol (Albut/Ipratrop 3mg/0.5mg Neb 3 Ml Vial) 12 ml NEB ONE ONE; Protocol Stop: 04/25/24 16:37 Last Admin: 04/25/24 17:29 Dose: 12 ml Documented By: KAITLYNN Filgrastim (Filgrastim 480 Mcg/1.6 Ml Vial) 480 mcg SQ ONE ONE Stop: 04/25/24 22:16 Last Admin: 04/25/24 21:53 Dose: 480 mcg Documented By: NADEGE Guaifenesin (Guaifenesin 600 Mg Tabcr) 1,200 mg PO NOW STA Stop: 04/25/24 16:37 Last Admin: 04/25/24 17:25 Dose: 1,200 mg Documented By: AMADO Sodium Chloride (Nss) 1,000 mls @ 999 mls/hr IV .Q1H1M STA Stop: 04/25/24 17:14 Last Infusion: 04/25/24 18:30 Dose: Infused Documented By: Admin: 04/25/24 17:25 Dose: 999 mls/hr Documented By: AMADO Piperacillin Sod/Tazobactam (Sod 4.5 gm/ Dextrose) 100 mls @ 200 mls/hr IV NOW ONE; Protocol Stop: 04/25/24 19:32 Last Infusion: 04/25/24 21:12 Dose: Infused Documented By: Admin: 04/25/24 20:38 Dose: 200 mls/hr Documented By: NADEGE Sodium Chloride (Nss) 1,000 mls @ 999 mls/hr IV .Q1H1M ONE Stop: 04/25/24 20:10 Last Infusion: 04/25/24 22:03 Dose: Infused Documented By: Admin: 04/25/24 20:37 Dose: 999 mls/hr Documented By: NADEGE Vancomycin HCl 2,000 mg/ (Sodium Chloride) 540 mls @ 200 mls/hr IV NOW ONE Stop: 04/25/24 21:59 Last Infusion: 04/25/24 23:29 Dose: Infused Documented By: Admin: 04/25/24 20:43 Dose: 200 mls/hr Documented By: NADEGE Potassium Chloride (K Jason / Wtr) 10 meq in 100 mls @ 100 mls/hr IV Q1H KATHLEEN Stop: 04/25/24 22:59 Last Infusion: 04/26/24 00:07 Dose: Infused Documented By: Admin: 04/25/24 23:05 Dose: 100 mls/hr Documented By: Infusion: 04/25/24 23:03 Dose: Infused Documented By: Admin: 04/25/24 22:03 Dose: 100 mls/hr Documented By: Infusion: 04/25/24 22:03 Dose: Infused Documented By: Admin: 04/25/24 21:11 Dose: 100 mls/hr Documented By: NADEGE Ioversol (Optiray 320 125ml) 120 ml IV ONCE ONE Stop: 04/25/24 18:57 Last Admin: 04/25/24 18:56 Dose: 120 ml Documented By: MARY Methylprednisolone (Methylprednisolone 125 Mg/2 Ml Vial) 125 mg IV NOW STA Stop: 04/25/24 16:35 Last Admin: 04/25/24 17:27 Dose: 125 mg Documented By: Admin: 04/25/24 17:25 Dose: 125 mg Documented By: AMADO Imaging Data Radiologist's Impression: Abdomen/Pelvis CT 04/25/24 16:34 CT angio chest PE protocol, CT abd pelvis IV con only HISTORY: 74 years-old Male with sob, lung ca, r/o PE. Acute sepsis with shortness of breath. History of lung cancer. TECHNIQUE: Multiple CTA images of the chest were obtained after the intravenous administration of 120 ml Optiray. Coronal and sagittal MIPS were obtained from the axial data set and were submitted for review. All measurements were obtained according to NASCET criteria. CT abdomen and pelvis with IV contrast only also obtained. A dose lowering technique was utilized adhering to the principles of ALARA. COMPARISON: PET CT 03/04/2024, CT abdomen and pelvis 01/10/2024. FINDINGS: Motion degraded exam. CTA: Mild cardiomegaly. No pericardial effusion. Ectasia of the ascending thoracic aorta, 3.9 cm. Proximal descending thoracic aorta measures 3.7 cm with descending thoracic aortic tortuosity. No dissection. No pulmonary emboli identified. Suboptimal evaluation of the segmental and subsegmental branches secondary to respiratory motion. CT CHEST: Unremarkable thyroid. Pathologically enlarged mediastinal and hilar lymph nodes. 10 mm precarinal lymph node image 145 is stable. 2.4 x 1.3 cm AP window lymph node on image 149 previously measured 1.7 x 1.0 cm. Bilateral hilar lymph nodes measuring up to 1.3 cm in short axis on image 118 have increased in size. Large centrally necrotic posterior mediastinal mass measures up to 4 cm on image 81 series 8 previously 10 cm. Circumferential wall thickening with mild displacement/mass effect upon the adjacent esophagus. No pneumothorax, pleural effusion or overt pulmonary edema. Severe pulmonary emphysema. Patchy multifocal nodular areas of consolidation with associated groundglass density, most pronounced within the lung bases and right upper lobe, new from prior. Scattered calcified granulomata in the lungs. Central airways are patent. Unremarkable soft tissues. No acute fracture identified. No new skeletal lesions are seen. CT ABDOMEN/PELVIS: No free air. Unremarkable spleen, pancreas and visualized gallbladder. Hepatic steatosis. No hepatic mass lesions identified. There is patency of the hepatic and portal veins. Bilateral adrenal gland nodules redemonstrated measuring 1.47 m on the right which is stable. Central necrotic peripherally enhancing 3.4 x 3.1 cm left adrenal and metastatic focus previously measured 5.6 cm. No hydronephrosis. Prostatomegaly. Mild nonspecific urinary bladder wall thickening. Atherosclerosis of the aorta with eccentric plaque noted within the proximal abdominal aorta on image 112 series 11, progressed from 01/10/2024. No occlusion. No progressive lymphadenopathy. The majority of the large bowel is decompressed with wall thickening. Colonic diverticulosis. Surgical clips are noted adjacent to the cecum. The previously noted large hypermetabolic cecal mass measuring 5 cm is not clearly seen. Tiny fat filled umbilical hernia. No new skeletal lesions identified. IMPRESSION: 1. No pulmonary emboli identified on this limited exam. 2. Scattered bilateral multilobar distribution of nodular airspace opacities suggestive of multifocal pneumonia. Follow-up recommended. 3. Progressive mediastinal and hilar lymphadenopathy. 4. Decreased size of the large necrotic posterior mediastinal mass, and left adrenal metastatic lesion compatible with positive treatment response. The previously noted hypermetabolic cecal lesion is not visualized. 5. No bowel obstruction or bowel wall thickening. 6. Additional findings as above. ACT 112: Negative or not required by law. The above report was generated using voice recognition software. It may contain grammatical, syntax or spelling errors. Electronically signed by: Dwaine William M.D. 04/25/2024 7:55 PM Chest CTA 04/25/24 16:34 CT angio chest PE protocol, CT abd pelvis IV con only HISTORY: 74 years-old Male with sob, lung ca, r/o PE. Acute sepsis with shortness of breath. History of lung cancer. TECHNIQUE: Multiple CTA images of the chest were obtained after the intravenous administration of 120 ml Optiray. Coronal and sagittal MIPS were obtained from the axial data set and were submitted for review. All measurements were obtained according to NASCET criteria. CT abdomen and pelvis with IV contrast only also obtained. A dose lowering technique was utilized adhering to the principles of ALARA. COMPARISON: PET CT 03/04/2024, CT abdomen and pelvis 01/10/2024. FINDINGS: Motion degraded exam. CTA: Mild cardiomegaly. No pericardial effusion. Ectasia of the ascending thoracic aorta, 3.9 cm. Proximal descending thoracic aorta measures 3.7 cm with descending thoracic aortic tortuosity. No dissection. No pulmonary emboli identified. Suboptimal evaluation of the segmental and subsegmental branches secondary to respiratory motion. CT CHEST: Unremarkable thyroid. Pathologically enlarged mediastinal and hilar lymph nodes. 10 mm precarinal lymph node image 145 is stable. 2.4 x 1.3 cm AP window lymph node on image 149 previously measured 1.7 x 1.0 cm. Bilateral hilar lymph nodes measuring up to 1.3 cm in short axis on image 118 have increased in size. Large centrally necrotic posterior mediastinal mass measures up to 4 cm on image 81 series 8 previously 10 cm. Circumferential wall thickening with mild displacement/mass effect upon the adjacent esophagus. No pneumothorax, pleural effusion or overt pulmonary edema. Severe pulmonary emphysema. Patchy multifocal nodular areas of consolidation with associated groundglass density, most pronounced within the lung bases and right upper lobe, new from prior. Scattered calcified granulomata in the lungs. Central airways are patent. Unremarkable soft tissues. No acute fracture identified. No new skeletal lesions are seen. CT ABDOMEN/PELVIS: No free air. Unremarkable spleen, pancreas and visualized gallbladder. Hepatic steatosis. No hepatic mass lesions identified. There is patency of the hepatic and portal veins. Bilateral adrenal gland nodules redemonstrated measuring 1.47 m on the right which is stable. Central necrotic peripherally enhancing 3.4 x 3.1 cm left adrenal and metastatic focus previously measured 5.6 cm. No hydronephrosis. Prostatomegaly. Mild nonspecific urinary bladder wall thickening. Atherosclerosis of the aorta with eccentric plaque noted within the proximal abdominal aorta on image 112 series 11, progressed from 01/10/2024. No occlusion. No progressive lymphadenopathy. The majority of the large bowel is decompressed with wall thickening. Colonic diverticulosis. Surgical clips are noted adjacent to the cecum. The previously noted large hypermetabolic cecal mass measuring 5 cm is not clearly seen. Tiny fat filled umbilical hernia. No new skeletal lesions identified. IMPRESSION: 1. No pulmonary emboli identified on this limited exam. 2. Scattered bilateral multilobar distribution of nodular airspace opacities suggestive of multifocal pneumonia. Follow-up recommended. 3. Progressive mediastinal and hilar lymphadenopathy. 4. Decreased size of the large necrotic posterior mediastinal mass, and left adrenal metastatic lesion compatible with positive treatment response. The previously noted hypermetabolic cecal lesion is not visualized. 5. No bowel obstruction or bowel wall thickening. 6. Additional findings as above. ACT 112: Negative or not required by law. The above report was generated using voice recognition software. It may contain grammatical, syntax or spelling errors. Electronically signed by: Dwaine William M.D. 04/25/2024 7:[address] 04/25/24 16:34 CT head/brain wo con CLINICAL HISTORY: 74 years-old Male with ams. Acutely altered mental status TECHNIQUE: Multiple axial CT images of the head were obtained without contrast. A dose lowering technique was utilized adhering to the principles of ALARA. CT DOSE: 3113.47 mGy.cm COMPARISON: Brain MRI 03/11/2024 FINDINGS: No acute intracranial hemorrhage, midline shift, hydrocephalus, territorial ischemia or abnormal extra-axial collection. Involutional changes with chronic microvascular ischemic disease. Study is motion degraded. The previously noted subcentimeter enhancing lesions within the right cerebrum are not visualized by CT. The calvarium is intact. The paranasal sinuses, mastoid air cells, and middle ear cavities are clear. IMPRESSION: 1. No acute intracranial abnormality. 2.The previously noted subcentimeter enhancing lesions within the right cerebrum are not visualized on this nonenhanced exam ACT 112: Negative or not required by law. The above report was generated using voice recognition software. It may contain grammatical, syntax or spelling errors. Electronically signed by: Dwaine William M.D. 04/25/2024 7:25 PM Discharge Plan Visit Data Chief Complaint: Shortness of Breath/Dyspnea Stated Complaint: WEAKNESS,DIFFICULTY BREATHING,COPD, NOT EATING ED Provider: Sukhwinder Andrade Discharge Problem: Sepsis, Acute and chronic respiratory failure with hypoxia, Adenocarcinoma of lung, stage 4, Pancytopenia, Multifocal pneumonia, COPD with acute exacerbation Patient Disposition: Admitted As Inpatient Discharge Instructions Interventions: ED Discharge Assessment Last Done: 04/25/24 22:30 Discharge Problem: Sepsis Qualifiers: Sepsis type: sepsis due to unspecified organism Sepsis acute organ dysfunction status: with acute organ dysfunction Severe sepsis acute organ dysfunction type: acute respiratory failure Acute respiratory failure type: with hypoxia Severe sepsis shock status: without septic shock Qualified Code(s): A41.9 - Sepsis, unspecified organism Adenocarcinoma of lung, stage 4 Qualifiers: Laterality: unspecified laterality Qualified Code(s): C34.90 - Malignant neoplasm of unspecified part of unspecified bronchus or lung
--- NOTE | 2024-04-25 16:39 | XRay Report ---
XR chest 1V portable HISTORY: 74 years-old Male sob acute shortness of breath COMPARISON: PET CT 03/04/2024 TECHNIQUE: AP view of the chest FINDINGS: Large posterior mediastinal mass aerated. Mid to lower lung zone mixed interstitial and alveolar opac ities are new from prior. Emphysema. No pneumothorax or pleural effusion. Bones appear grossly intact . IMPRESSION: 1. Large posterior mediastinal mass redemonstrated, better evaluated on prior PET/CT. 2. Emphysema with mixed interstitial and alveolar opacities suggestive of multifocal pneumonia. ACT 112: Negative or not required by law. The above report was generated using voice recognition software. It may contain grammatical, syntax o r spelling errors. Electronically signed by: Dwaine William M.D. 04/25/2024 4:37 PM
[2024-04-25 16:53] LABS: Base Excess VBG 5.1 mEq/L; HCO3 VBG 31 mmol/L; Oxygen Saturation VBG < 60.0 %; PCO2 VBG 47 mmHg (38-50); PO2 VBG 32 mmHg; pH VBG 7.42 (7.36-7.41)
[2024-04-25 17:08] LABS: Albumin Level 3.5 gm/dl (3.4-5.0); Anion Gap 11 (3-11); Bilirubin,Total 0.8 mg/dl (0.2-1.0); Calcium 9.3 mg/dl (8.6-10.3); Carbon Dioxide 29 mmol/L (21-32); Chloride 96 mmol/L (98-107); Magnesium 1.7 mg/dl (1.7-2.4); Potassium 3.1 mmol/L (3.5-5.1); Sodium 136 mmol/L (136-145)
[2024-04-25 17:14] LABS: Alanine Aminotransferase 18 U/L (7-52); Albumin Globulin Ratio 0.9 (0.9-2); Alkaline Phosphatase 112 U/L (34-104); Aspartate Aminotransferase 17 U/L (13-39); BUN Creatinine Ratio 30.8 (10-20); Blood Urea Nitrogen 32 mg/dl (6-23); Est GFR (Non-African American) 69.9 ml/min; Glucose 153 mg/dl (70-99(Fasting)); Lipase 7 U/L (11-82); Total Protein 7.5 gm/dl (6.0-8.3)
[2024-04-25] MEDS: SODIUM CHLORIDE 0.9% 1,000 ML IV STA (17:25)
[2024-04-25] MEDS: guaiFENesin 600 MG TABCR PO STA (17:25)
[2024-04-25] MEDS: methylPREDNISolone 125 MG/2 ML VIAL IV STA (17:25)
[2024-04-25 17:29] LABS: Troponin I High Sensitivity 29.7 pg/ml (0-20)
[2024-04-25] MEDS: ALBUT/IPRATROP 3MG/0.5MG NEB 3 ML VIAL NEB ONE (17:29)
[2024-04-25 17:53] LABS: Hematocrit (blood only) 24.1 % (42.0-52.0); Hemoglobin 8.1 g/dl (14.0-18.0); Mean Corpuscular Hemoglobin 28.9 pg (25.0-34.0); Mean Corpuscular Hgb Conc 33.6 g/dL (32.0-36.0); Mean Corpuscular Volume 86.1 fL (80.0-100.0); Mean Platelet Volume 10.5 fL (9.4-12.4); Platelet Count 33 K/uL (130-400); RDW Coefficient of Variation 22.2 % (11.5-14.5); RDW Standard Deviation 68.1 fL (36.4-46.3); White Blood Count 1.35 K/ul (4.8-10.8)
[2024-04-25 18:32] LABS: Dohle Bodies 1+; Neutrophils % (manual) 22 %; Polychromasia 1+; Toxic Granulation 1+
[2024-04-25] MEDS: OPTIRAY 320 125ml IV ONE (18:56)
[2024-04-25 19:07] LABS: Adenovirus PCR Not Detected (NotDetected); Bordetella parapertussis PCR Not Detected (NotDetected); Bordetella pertussis PCR Not Detected (NotDetected); Chlamydia pneumoniae PCR Not Detected (NotDetected); Coronavirus 229E PCR Not Detected (NotDetected); Coronavirus CoV-2 (COVID19)PCR Not Detected (NotDetected); Coronavirus HKU1 PCR Not Detected (NotDetected); Coronavirus NL63 PCR Not Detected (NotDetected); Coronavirus OC43PCR Not Detected (NotDetected); Human Metapneumovirus PCR Not Detected (NotDetected); Influenza A PCR Not Detected (NotDetected); Influenza B PCR Not Detected (NotDetected); Mycoplasma pneumoniae PCR Not Detected (NotDetected); Parainfluenza Virus 1 PCR Not Detected (NotDetected); Parainfluenza Virus 2 PCR Not Detected (NotDetected); Parainfluenza Virus 3 PCR Not Detected (NotDetected); Parainfluenza Virus 4 PCR Not Detected (NotDetected); Respiratory Syncytial VirusPCR Not Detected (NotDetected); Rhinovirus/Enterovirus PCR Not Detected (NotDetected)
[2024-04-25] MEDS ORDERED: VANCOMYCIN CONSULT ACTIVE PRN (19:18)
--- NOTE | 2024-04-25 19:27 | CT Scan Report ---
CT head/brain wo con CLINICAL HISTORY: 74 years-old Male with ams. Acutely altered mental status TECHNIQUE: Multiple axial CT images of the head were obtained without contrast. A dose lowering tech nique was utilized adhering to the principles of ALARA. CT DOSE: 3113.47 mGy.cm COMPARISON: Brain MRI 03/11/2024 FINDINGS: No acute intracranial hemorrhage, midline shift, hydrocephalus, territorial ischemia or abnormal extr a-axial collection. Involutional changes with chronic microvascular ischemic disease. Study is motion degraded. The previously noted subcentimeter enhancing lesions within the right cerebrum are not vis ualized by CT. The calvarium is intact. The paranasal sinuses, mastoid air cells, and middle ear cavities are clear . IMPRESSION: 1. No acute intracranial abnormality. 2.The previously noted subcentimeter enhancing lesions within the right cerebrum are not visualized o n this nonenhanced exam ACT 112: Negative or not required by law. The above report was generated using voice recognition software. It may contain grammatical, syntax o r spelling errors. Electronically signed by: Dwaine William M.D. 04/25/2024 7:25 PM
--- NOTE | 2024-04-25 19:32 | History & Physical Report ---
Date of Service April 25, 2024 Assessment & Plan (1) Acute respiratory failure with hypoxia: Plan: Admit to the PCU on telemetry and pulse oximetry Currently stable on BiPAP and otherwise stable Presented to the ED today due to 3 to 4 days of progressive shortness of breath/respiratory distress Found to have multifocal pneumonia on chest x-ray and CTA of the chest CT of the chest with PE protocol was negative for pulmonary emboli, pleural effusion, and pulmonary edema Was given a dose of Zosyn and vancomycin while in the emergency department, will continue with both for now Will add on MRSA swab for further evaluation as well as sputum culture with Gram stain when patient is able to provide a sample Will continue with BiPAP for now, if repeat blood gases stable can consider trial of high flow nasal cannula If patient would continue to decline while on BiPAP to the point that he would require intubation he would want to be transition to comfort measures at that time Patient did receive 125 mg IV Solu-Medrol in the ED, will hold additional IV steroids for now as he does not appear to be in COPD exacerbation Can resume IV steroids tomorrow if needed Incentive spirometry, flutter therapy, scheduled DuoNebs, as needed O2 to keep SpO2 between 89 to 90% Will start bilateral SCDs for DVT prophylaxis with his thrombocytopenia Strict n.p.o. while on BiPAP AM CBC, CMP, mag, PT/INR,ABG (2) Sepsis: Plan: Patient met sepsis criteria on arrival with heart rate of 120, respiratory rate of 37, white blood cell count of 1.35, and source being his pneumonia Lactate was 1.4 Patient received 2 L normal saline, and a dose of both Zosyn and vancomycin in the ED Will continue maintenance fluids on admission along with broad-spectrum antibiotics moving forward (3) Pancytopenia: Plan: Patient noted to be pancytopenic today Neutropenic precautions have been ordered Hemoglobin is currently stable at 8 Absolute neutrophil count 0.30 Platelets at 33 No signs of acute bleeding on exam Likely due to chemotherapy and exacerbated with acute infection Will give 480 micrograms of SQ Neupogen tonight to see if we can stimulate his bone marrow Oncology consult placed as [facility] Blood consent has been obtained, will order type/screen and have 2 units of leukoirradiated packed red blood cells in preparation as there is a high chance he will require transfusion Monitor a.m. CBC (4) Hypokalemia: Plan: Potassium noted to be 3.1 on arrival Mag of 1.7 Will order 3 bags of 10 MEQ IV KCl on admission as he is currently n.p.o. while on BiPAP Continue to monitor on appellate conferee a.m. potassium and mag levels Continue to monitor on telemetry (5) Lung cancer metastatic to brain: Plan: Has completed 3 of 6 planned cycles of chemotherapy thus far Follow oncology consult (6) Elevated troponin: Plan: Initial high-sensitivity troponin elevated at 29, down to 27 on 2-hour repeat Patient denies chest pain, no acute ST segment or T wave changes on EKG today Likely due to demand for sepsis and acute hypoxic respiratory failure Continue to monitor on telemetry for now (7) COPD (chronic obstructive pulmonary disease): Plan: Care per acute hypoxic respiratory failure plan (8) Multifocal pneumonia: Plan: See acute hypoxic respiratory failure plan Plan The patient was discussed with Dr. 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 On arrival to the ED he was noted to be tachycardic at 120, tachypneic at 37, hypoxic at 75% on room air. Labs were significant for pancytopenia with a total absolute neutrophil count of 0.30. VBG pH of 7.42 with pCO2 and pO2 within normal limits, potassium of 3.1, initial high-sensitivity troponin of 29 with 2-hour repeat of 27, Pro- Ashwin of 1.17, and for respiratory bio fire negative. Chest x-ray was read as a large posterior mediastinal mass which was noted on his last PET/CT, emphysema with mixed interstitial and alveolar opacities suggestive of multifocal pneumonia. CT of the abdomen pelvis with IV contrast, CTA of the chest with PE protocol, and CT of the head/brain without contrast has been obtained but not yet read. Prior to admission the patient was given 125 mg IV Solu-Medrol, 1200 mg p.o. guaifenesin, and hour-long albuterol nebulizer, ordered 1 L normal saline, and ordered doses of Zosyn plus vancomycin. Patient was sitting in bed in no acute distress currently stable on BiPAP. He explains that he started having increased shortness of breath approximately 3 to 4 days ago, he tried to treat symptoms at home himself but they progressed. Denies recent fever/chills, denies current chest pain, does note increased cough with sputum production over this time, denies recent abdominal pain, nausea/vomiting, dysuria/hematuria, and recent trauma. He does note ongoing diarrhea with his chemotherapy but denies recent blood. When asked, he feels as though his breathing has improved compared to arrival, he is wanting to have BiPAP taken off. I explained to him that we will obtain a repeat VBG if stable, we can try to see how he is breathing off BiPAP. We discussed CODE STATUS, he clearly explains that he is a DNR/DNI. We discussed his wishes if he were to continue to clinically decline to the point that he would require intubation, at that point he would wish to be transition to comfort measures. His ex- would be his medical decision-maker if he cannot make decisions himself. Contact information for the patient's ex- is: Kanwal Garner [phone]. The patient gave permission for his ex- to be updated on his condition throughout his hospitalization. Please refer to Dr. Boyle's attestation for any changes to the treatment plan Allergies Allergy/AdvReac Type Severity Reaction Status Date / Time No Known Allergies Allergy Unverified 04/07/24 11:07 Home Medications Medication Instructions Recorded Confirmed Type turmeric 400 mg capsule 400 mg PO DAILY 04/20/19 04/25/24 History Portable Oxygen #1 ea 01/29/24 04/25/24 Rx albuterol sulfate 90 mcg/actuation 2 puff inhalation Q6H PRN 01/30/24 04/25/24 Rx aerosol inhaler shortness of breath or wheezing #3 Inhalers oxycodone 5 mg capsule 5 mg PO TID PRN pain #90 caps 02/24/24 04/25/24 Rx tamsulosin 0.4 mg capsule 0.4 mg PO DAILY #90 caps 02/24/24 04/25/24 Rx fluticasone fur. 100 mcg-umeclid 1 inh inhalation DAILY #3 Inhalers 04/19/24 04/25/24 Rx 62.5 mcg-vilant 25 mcg inhalat.powder (Trelegy Ellipta) losartan 50 mg-hydrochlorothiazide 1 tab PO DAILY #90 tabs 04/19/24 04/25/24 Rx 12.5 mg tablet folic acid 1 mg tablet 1 mg PO DAILY 04/25/24 04/25/24 History Past Med/Surg History Problem List (Updated 04/26/24 @ 01:01 by Sukhwinder Andrade MD) COPD with acute exacerbation (Acute) Acute and chronic respiratory failure with hypoxia (Acute) Sepsis (Acute) Multifocal pneumonia (Acute) Pancytopenia (Acute) Lung cancer metastatic to brain (Chronic 03/11/24) COPD (chronic obstructive pulmonary disease) Leukocytosis Hypertension Adenocarcinoma of lung, stage 4 (Acute) Chronic respiratory failure with hypoxia Exertional shortness of breath Ex-smoker Hypokalemia (Acute) Mass of mediastinum (Acute) Retroperitoneal mass (Acute) Hyperlipidemia (Chronic) declines statin Chronic daily headache (Chronic) Medical History JUAN JOSE (acute kidney injury) Leukocytosis Acute GI bleeding Symptomatic anemia Acute blood loss anemia Nocturnal hypoxia On 2L oxygen at night Surgical History S/P tonsillectomy History of cataract surgery Bilateral Family History Father , 65yo Myocardial infarction Mother , 96yo Natural with unknown cause Brother Medical history unknown Son No problems noted. Daughter No problems noted. Other Dementia Heart disease Hypertension Denies family history of Rheumatoid arthritis Sudden SIDS (sudden infant syndrome) Ovarian cancer Prostate cancer Diabetes Deep vein thrombosis Osteoporosis Coronary heart disease Dyslipidemia Cerebral aneurysm Alzheimer disease Bipolar disorder Clotting disorder Crohn's disease Depression Kidney disease Osteoarthritis Breast cancer Schizophrenia Congenital kidney disease Gestational diabetes Lung cancer COPD (chronic obstructive pulmonary disease) Colorectal cancer Pulmonary embolism Lung disease Cancer Ulcerative colitis Colonic polyp Stroke Asthma Cystic kidney disease Social History Smoking Status: Former smoker Tobacco Type: Cigarettes Age Started Using Tobacco: 19; Age Quit Using Tobacco: 70; packs per day: 1; Cigarettes Per Day: 20; Second Hand Exposure: No; Do You Dip or Chew Tobacco: No; Hx Alcohol Use: No Hx Substance Use: No Preferred Language: Romanian Communication Ability: Effective Visual Impairment: No Limitations Hearing Ability: Normal It Professional Required: No Beliefs That Will Affect Care: None marital status: Current Living Situation: Alone Current Living Situation Comment: pt states lives alone in a house current occupational status: retired 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 How many Children do You have: 2 other: Ex- is supportive to pt Feels Safe at Home: Yes Safety Concerns: Feels Safe At This Time Diet: regular caffeine: No during the past year weight has: decreased > 10 lbs Seatbelt Use: sometimes Assistive Devices: Cane Physical Exam Physical Exam: Physical Exam: General: In no acute distress, stated age, cachectic and chronically ill- appearing HEENT: Normocephalic, atraumatic, no scleral icterus, pupils around round, symmetrical, and reactive to light, dry mucus membranes, trachea midline, no thyromegaly Chest/Pulm: No respiratory distress while on Bipap, symmetrical chest expansion, scattered rhonchi and expiratory wheezing throughout Cardiac: tachycardic rate, regular rhythm, no murmurs noted Abdomen: Negative for ascites and bruising, normoactive bowel sounds, soft, non-tender to palpation throughout Musculoskeletal: Symmetrical and without signs of acute trauma, upper and lower extremities with full ROM, no atrophy, spasticity, or flaccidity Extremities: Radial, dorsalis pedis, and posterior tibial pulses are intact and symmetrical, no edema noted in the BL LE's Skin: Warm, dry, no rashes , lesions, or scars noted Neuro: Alert and oriented to person, place, month, year, and president, no focal defects, no tremors noted Psych: No acute distress, calm and cooperative during the exam Results & Data Results & Data Vital Signs (Past 12 Hours) Vital Signs Temp Pulse Pulse Resp BP Pulse Ox O2 Del Method 04/25/24 19:27 119 H 21 96 BiPAP 04/25/24 18:27 120 H 31 H 93 BiPAP 04/25/24 17:37 111 H 20 99 04/25/24 17:37 111 H 20 99 04/25/24 17:09 111 H 37 H 94 Nasal Cannula 04/25/24 17:00 125/82 04/25/24 16:21 118 H 04/25/24 16:11 94 Nasal Cannula 04/25/24 16:03 37.0 C 120 H 126/84 75 L Room Air O2 Flow Rate FiO2 04/25/24 19:27 04/25/24 18:27 50 04/25/24 17:37 50 04/25/24 17:37 50 04/25/24 17:09 6 04/25/24 17:00 04/25/24 16:21 04/25/24 16:11 6 04/25/24 16:03 Laboratory Results Abnormal lab results 04/25/24 04/25/24 04/25/24 Range/Units 16:36 16:51 17:09 WBC 1.35 L (4.8-10.8) K/ul RBC 2.80 L (4.70-6.10) M/uL Hgb 8.1 L (14.0-18.0) g/dl Hct 24.1 L (42.0-52.0) % RDW Std Deviation 68.1 H (36.4-46.3) fL RDW Coeff of Ge 22.2 H (11.5-14.5) % Plt Count 33 L (130-400) K/uL Neutrophils # (Manual) 0.30 L (1.40-6.50) K/uL Total Absolute Neuts 0.30 L* (1.4-6.5) K/uL Lymphocytes # (Manual) 0.81 L (1.2-3.4) K/uL Total Abs Lymphocytes 0.81 L (1.2-3.4) K/uL Metamyelocytes # (Man) 0.09 H (0-0) K/uL Myelocytes # (Manual) 0.04 H (0-0) K/uL VBG pH 7.42 H (7.36-7.41) Potassium 3.1 L (3.5-5.1) mmol/L Chloride 96 L (98-107) mmol/L BUN 32 H (6-23) mg/dl BUN/Creatinine Ratio 30.8 H (10-20) Glucose 153 H (70-99(Fasting)) mg/dl Alkaline Phosphatase 112 H (34-104) U/L Troponin I High Sens 29.7 H (0-20) pg/ml B-Natriuretic Peptide 174 H (0-100) pg/ml Lipase 7 L (11-82) U/L Procalcitonin 1.17 H (0-0.5) ng/ml / Range/Units 18:24 WBC (4.8-10.8) K/ul RBC (4.70-6.10) M/uL Hgb (14.0-18.0) g/dl Hct (42.0-52.0) % RDW Std Deviation (36.4-46.3) fL RDW Coeff of Ge (11.5-14.5) % Plt Count (130-400) K/uL Neutrophils # (Manual) (1.40-6.50) K/uL Total Absolute Neuts (1.4-6.5) K/uL Lymphocytes # (Manual) (1.2-3.4) K/uL Total Abs Lymphocytes (1.2-3.4) K/uL Metamyelocytes # (Man) (0-0) K/uL Myelocytes # (Manual) (0-0) K/uL VBG pH (7.36-7.41) Potassium (3.5-5.1) mmol/L Chloride (98-107) mmol/L BUN (6-23) mg/dl BUN/Creatinine Ratio (10-20) Glucose (70-99(Fasting)) mg/dl Alkaline Phosphatase (34-104) U/L Troponin I High Sens 27.6 H (0-20) pg/ml B-Natriuretic Peptide (0-100) pg/ml Lipase (11-82) U/L Procalcitonin (0-0.5) ng/ml ECG Additional Comments: Sinus tachycardia with occasional Premature ventricular complexes Right bundle branch block Abnormal ECG When compared with ECG of 25-FEB-2024 16:52, Premature ventricular complexes are now Present Questionable change in QRS axis Code Status & VTE Plan Code Status DNR/DNI VTE Prophylaxis Plan VTE Prophylaxis will be ordered: Yes Supervising Physician Co-Signing Physician Notes Attending addendum: I have physically seen this patient, have supervised the CATHRYN's activities, and agree with the H&P unless as otherwise noted. Assessment and Plan: Acute respiratory failure with hypoxia- The patient will be admitted to telemetry for serial cardiac enzymes, serial EKG's, cardiac rhythm monitoring CT chest PE protocol with multifocal pneumonia Continue vancomycin IV and Zosyn IV begun in the ED MRSA swab Presently improved on BiPAP, taper downward as symptoms improve Status post Solu-Medrol 125 mg IV from the ED Solu-Medrol 40 mg IV every 12 hours Duonebs every 4 hours while awake and every 2 hours when necessary. Sputum Gram stain and culture Zofran 4 mg IV every 6 hours as needed Sepsis due to multifocal pneumonia/neutropenic infection- Neutropenic precautions Give Neupogen 40 mcg subcu x 1 this evening Serial CBC with differential, chemistry profile and magnesium levels in the a.m. Pancytopenia-- WBC 1.35 with ANC 30, hemoglobin 8.1 and platelets 33 Follow serial laboratories Oncology consult Type and screen as noted Electrolyte disturbances/hypokalemia/hypomagnesemia- Potassium 3.1, replace with IV as noted, recheck laboratories in a.m. Magnesium 1.7 replace as noted, recheck laboratories in a.m. Remaining orders and notations as noted PG Care Time/CCT Total # of Minutes Spent Total Time Spent with Patient: Total time spent is greater than 50% in coordination of care (as documented) at patient's floor/unit and/or counseling patient: C[place] [address] INT INP/OBS CARE 3/75MIN Patient Type Established Medical Decision Making High Complexity Diagnoses Acute respiratory failure with hypoxia J96.01 Sepsis A41.9 Pancytopenia D61.818 Hypokalemia E87.6 Lung cancer metastatic to brain C34.90; C79.31 Elevated troponin R77.8 COPD (chronic obstructive pulmonary disease) J44.9 Multifocal pneumonia J18.9
--- NOTE | 2024-04-25 19:56 | CT Scan Report ---
CT angio chest PE protocol, CT abd pelvis IV con only HISTORY: 74 years-old Male with sob, lung ca, r/o PE. Acute sepsis with shortness of breath. Histor y of lung cancer. TECHNIQUE: Multiple CTA images of the chest were obtained after the intravenous administration of 120 ml Optiray. Coronal and sagittal MIPS were obtained from the axial data set and were submitted for review. All measurements were obtained according to NASCET criteria. CT abdomen and pelvis with IV c ontrast only also obtained. A dose lowering technique was utilized adhering to the principles of NING Juarez. COMPARISON: PET CT 03/04/2024, CT abdomen and pelvis 01/10/2024. FINDINGS: Motion degraded exam. CTA: Mild cardiomegaly. No pericardial effusion. Ectasia of the ascending thoracic aorta, 3.9 cm. Proximal descending thoracic aorta measures 3.7 cm with descending thoracic aortic tortuosity. No dissection. No pulmonary emboli identified. Suboptimal evaluation of the segmental and subsegmental branches sec ondary to respiratory motion. CT CHEST: Unremarkable thyroid. Pathologically enlarged mediastinal and hilar lymph nodes. 10 mm precarinal lym ph node image 145 is stable. 2.4 x 1.3 cm AP window lymph node on image 149 previously measured 1.7 x 1.0 cm. Bilateral hilar lymph nodes measuring up to 1.3 cm in short axis on image 118 have increased in size. Large centrally necrotic posterior mediastinal mass measures up to 4 cm on image 81 series 8 previously 10 cm. Circumferential wall thickening with mild displacement/mass effect upon the adjac ent esophagus. No pneumothorax, pleural effusion or overt pulmonary edema. Severe pulmonary emphysema. Patchy multif ocal nodular areas of consolidation with associated groundglass density, most pronounced within the l sunny bases and right upper lobe, new from prior. Scattered calcified granulomata in the lungs. Central airways are patent. Unremarkable soft tissues. No acute fracture identified. No new skeletal lesions are seen. CT ABDOMEN/PELVIS: No free air. Unremarkable spleen, pancreas and visualized gallbladder. Hepatic steatosis. No hepatic mass lesions identified. There is patency of the hepatic and portal veins. Bilateral adrenal gland no dules redemonstrated measuring 1.47 m on the right which is stable. Central necrotic peripherally enh ancing 3.4 x 3.1 cm left adrenal and metastatic focus previously measured 5.6 cm. No hydronephrosis. Prostatomegaly. Mild nonspecific urinary bladder wall thickening. Atherosclerosis of the aorta with eccentric plaque noted within the proximal abdominal aorta on image 112 series 11, progressed from 01/10/2024. No occlusion. No progressive lymphadenopathy. The majority of the large bow el is decompressed with wall thickening. Colonic diverticulosis. Surgical clips are noted adjacent to the cecum. The previously noted large hypermetabolic cecal mass measuring 5 cm is not clearly seen. Tiny fat filled umbilical hernia. No new skeletal lesions identified. IMPRESSION: 1. No pulmonary emboli identified on this limited exam. 2. Scattered bilateral multilobar distribution of nodular airspace opacities suggestive of multifocal pneumonia. Follow-up recommended. 3. Progressive mediastinal and hilar lymphadenopathy. 4. Decreased size of the large necrotic posterior mediastinal mass, and left adrenal metastatic lesio n compatible with positive treatment response. The previously noted hypermetabolic cecal lesion is no t visualized. 5. No bowel obstruction or bowel wall thickening. 6. Additional findings as above. ACT 112: Negative or not required by law. The above report was generated using voice recognition software. It may contain grammatical, syntax o r spelling errors. Electronically signed by: Dwaine William M.D. 04/25/2024 7:55 PM
[2024-04-25 20:08] LABS: Base Excess VBG 0.5 mEq/L; HCO3 VBG 26 mmol/L; Oxygen Saturation VBG 79.9 %; PCO2 VBG 44 mmHg (38-50); PO2 VBG 48 mmHg; pH VBG 7.38 (7.36-7.41)
[2024-04-25] MEDS: SODIUM CHLORIDE 0.9% 1,000 ML IV ONE (20:37)
[2024-04-25] MEDS: PIPERACILLIN/TAZOBACTAM 4.5 GM in DEXTROSE 5% MINI-B 100 ML IV ONE (20:38)
[2024-04-25] MEDS: VANCOMYCIN HCL 2,000 MG in SODIUM CHLORIDE 0.9% 500 ML IV ONE (20:43)
[2024-04-25] MEDS ORDERED: SODIUM CHLORIDE 0.9% 250 ML IV PRN (21:00)
[2024-04-25] MEDS: POTASSIUM CHLORIDE / WTR 10 MEQ/100 ML PLCT IV SCH (21:11)
[2024-04-25] MEDS: FILGRASTIM 480 MCG/1.6 ML VIAL SQ ONE (21:53)
[2024-04-25] MEDS: LACTATED RINGER'S 1,000 ML IV SCH (22:04)
[2024-04-26 02:41] LABS: Amorphous Sediment Urine Present (None Prsent); Appearance Urine Clear (Clear); Bacteria Urine Automated None Seen (None Seen); Bilirubin Urine Negative (Negative); Blood Urine Negative (Negative); Cast Urine Automated 0-2 /lpf (0-2); Color Urine Yellow; Epithelial Cell Urine Auto 0-2 /hpf (0-2); Glucose Urine UA Trace (Negative); Ketones Urine Trace (Negative); Leukocyte Esterase Urine Negative (Negative); Nitrite Urine Negative (Negative); Protein Urine 2+ (Negative); RBC Urine Automated 0-2 /hpf (0-2); Specific Gravity Urine > 1.045 (1.000-1.030); Urobilinogen Urine Negative (Negative); WBC Urine Automated 0-5 /hpf (0-5); pH Urine 5.5 (4.5-7.5)
[2024-04-26] MEDS: PIPERACILLIN/TAZOBACTAM 4.5 GM in DEXTROSE 5% MINI-B 100 ML IV SCH (04:21)
[2024-04-26] MEDS ORDERED: Nursing to Pharmacy Communication SCH (04:30)
[2024-04-26 05:56] LABS: HCO3 ABG 27 mmol/L (19-24); Oxygen Saturation ABG 99.4 % (90-95); PCO2 ABG 40 mmHg (35-46); PO2 ABG 137 mmHg (80-95); pH ABG 7.43 (7.35-7.45)
[2024-04-26 06:27] LABS: INR 1.1 (0.9-1.1); Prothrombin Time 11.9 Seconds (9.0-12.0)
[2024-04-26 06:34] LABS: Allen Test Pos (Pos)
[2024-04-26 06:35] LABS: Hematocrit (blood only) 21.7 % (42.0-52.0); Hemoglobin 6.9 g/dl (14.0-18.0); Mean Corpuscular Hemoglobin 28.5 pg (25.0-34.0); Mean Corpuscular Hgb Conc 31.8 g/dL (32.0-36.0); Mean Corpuscular Volume 89.7 fL (80.0-100.0); Mean Platelet Volume 10.4 fL (9.4-12.4); Platelet Count 21 K/uL (130-400); RDW Coefficient of Variation 22.5 % (11.5-14.5); RDW Standard Deviation 71.7 fL (36.4-46.3); Red Blood Count 2.42 M/uL (4.70-6.10); White Blood Count 1.92 K/ul (4.8-10.8)
[2024-04-26 06:52] LABS: Anisocytosis Present; Dohle Bodies 2+; Immature Granulocytes # (auto) 0.03 K/uL (0.01-0.20); Immature Granulocytes % (auto) 1.6 %; Lymphocytes # (auto) 0.53 K/uL (1.20-3.40); Lymphocytes % (auto) 27.6 %; Monocytes # (auto) 0.35 K/uL (0.11-0.59); Monocytes % (auto) 18.2 %; Neutrophils # (auto) 1.01 K/uL (1.40-6.50); Neutrophils % (auto) 52.6 %; Toxic Granulation 3+
[2024-04-26] MEDS: BUDESONIDE 0.5 MG/2 ML VIAL (PULMICORT) NEB SCH (07:08)
[2024-04-26] MEDS: FORMOTEROL 20 MCG/2 ML VIAL NEB SCH (07:08)
[2024-04-26] MEDS: ALBUT/IPRATROP 3MG/0.5MG NEB 3 ML VIAL NEB SCH (07:11)
[2024-04-26 07:25] LABS: Albumin Globulin Ratio 0.9 (0.9-2); BUN Creatinine Ratio 27.6 (10-20); Bilirubin,Total 0.4 mg/dl (0.2-1.0); Calcium 8.9 mg/dl (8.6-10.3); Creatinine Clr Calc Pharmacy 68.1 ml/min; Est GFR (African American) 87.1 ml/min; Est GFR (Non-African American) 75.1 ml/min; Globulin 3.4 gm/dl (2.5-4.0); Magnesium 1.8 mg/dl (1.7-2.4); Total Protein 6.4 gm/dl (6.0-8.3)
[2024-04-26] MEDS ORDERED: SODIUM CHLORIDE 0.9% 250 ML IV PRN (07:45)
--- NOTE | 2024-04-26 07:56 | Oncology Consultation ---
Date of Consultation April 26, 2024 Assessment & Plan (1) Acute and chronic respiratory failure with hypoxia: (2) Multifocal pneumonia: (3) Pancytopenia: Plan -Imaging suggestive of multifocal pneumonia. Doing better clinically. Agree with broad-spectrum antibiotics. If hypoxia persist, would have to entertain the possibility of immunotherapy induced pneumonitis. -Since ANC is above 500, no indication at this time for further G-CSF injections. -Transfuse for hemoglobin below 7.5 and platelet counts below 10,000. Recommend checking anemia labs although would expect iron studies to be falsely abnormal in the setting of recent PRBC transfusion -Plan to slightly dose reduce chemotherapy for future treatments given severe anemia and neutropenia thank you for this consult. Oncology will follow peripherally while he is in the hospital. Please feel free to call family further questions. History of Present Illness Reason for Consultation: Lung cancer Attending Physician: Candido Dimas DO History of Present Illness 74-year-old gentleman with stage IV adenocarcinoma of the lung for which he is currently on chemoimmunotherapy treatment with carboplatin, pemetrexed and pembrolizumab started on 03/04/2024. He received cycle 3 of treatment on 04/15/2024. Presented to the ER with hypoxia. CTA chest on 04/25/2024 was negative for PE but revealed scattered bilateral multilobar distribution with nodular airspace opacities suggestive of multifocal pneumonia, progressive mediastinal and hilar lymphadenopathy, decreased size of large necrotic posterior mediastinal mass and left adrenal metastatic lesion compatible with positive treatment response Labs revealed leukopenia with white cell count of 1.35 and ANC of 0.3 for which he received 1 dose of Neupogen. Labs today revealed WBC of 1.9, ANC of 1.01, hemoglobin of 6.9 and hematocrit of 21.7 platelet count of 21,000. Currently being transfused with 1 unit of PRBC Allergies Allergy/AdvReac Type Severity Reaction Status Date / Time No Known Allergies Allergy Unverified 04/07/24 11:07 Home Medications Medication Instructions Recorded Confirmed Type turmeric 400 mg capsule 400 mg PO DAILY 04/20/19 04/25/24 History Portable Oxygen #1 ea 01/29/24 04/25/24 Rx albuterol sulfate 90 mcg/actuation 2 puff inhalation Q6H PRN 01/30/24 04/25/24 Rx aerosol inhaler shortness of breath or wheezing #3 Inhalers oxycodone 5 mg capsule 5 mg PO TID PRN pain #90 caps 02/24/24 04/25/24 Rx tamsulosin 0.4 mg capsule 0.4 mg PO DAILY #90 caps 02/24/24 04/25/24 Rx fluticasone fur. 100 mcg-umeclid 1 inh inhalation DAILY #3 Inhalers 04/19/24 04/25/24 Rx 62.5 mcg-vilant 25 mcg inhalat.powder (Trelegy Ellipta) losartan 50 mg-hydrochlorothiazide 1 tab PO DAILY #90 tabs 04/19/24 04/25/24 Rx 12.5 mg tablet folic acid 1 mg tablet 1 mg PO DAILY 04/25/24 04/25/24 History Patient History Medical History JUAN JOSE (acute kidney injury) Leukocytosis Acute GI bleeding Symptomatic anemia Acute blood loss anemia Nocturnal hypoxia On 2L oxygen at night Surgical History S/P tonsillectomy History of cataract surgery Bilateral Family History Father , 65yo Myocardial infarction Mother , 96yo Natural with unknown cause Brother Medical history unknown Son No problems noted. Daughter No problems noted. Other Dementia Heart disease Hypertension Denies family history of Rheumatoid arthritis Sudden SIDS (sudden syndrome) Ovarian cancer Prostate cancer Diabetes Deep vein thrombosis Osteoporosis Coronary heart disease Dyslipidemia Cerebral aneurysm Alzheimer disease Bipolar disorder Clotting disorder Crohn's disease Depression Kidney disease Osteoarthritis Breast cancer Schizophrenia Congenital kidney disease Gestational diabetes Lung cancer COPD (chronic obstructive pulmonary disease) Colorectal cancer Pulmonary embolism Lung disease Cancer Ulcerative colitis Colonic polyp Stroke Asthma Cystic kidney disease Social History Smoking Status: Former smoker Tobacco Type: Cigarettes Age Started Using Tobacco: 19; Age Quit Using Tobacco: 70; packs per day: 1; Cigarettes Per Day: 20; Second Hand Exposure: No; Do You Dip or Chew Tobacco: No; Hx Alcohol Use: No Hx Substance Use: No Preferred Language: Kyrgyz Communication Ability: Effective Visual Impairment: No Limitations Hearing Ability: Normal Hemmer Automatic Required: No Beliefs That Will Affect Care: None marital status: Current Living Situation: Alone Current Living Situation Comment: pt states lives alone in a house current occupational status: retired 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 How many Children do You have: 2 other: Ex- is supportive to pt Feels Safe at Home: Yes Safety Concerns: Feels Safe At This Time Diet: regular caffeine: No during the past year weight has: decreased > 10 lbs Seatbelt Use: sometimes Assistive Devices: Cane Results & Data Vital Signs (Past 12 Hours) Vital Signs Temp Pulse Pulse Resp BP Pulse Ox Pulse Ox 04/26/24 07:18 36.7 C 92 H 20 135/86 95 04/26/24 07:12 98 H 18 94 04/26/24 05:25 80 16 104/68 93 04/26/24 04:00 81 04/26/24 04:00 04/26/24 03:30 36.7 C 82 18 98/61 L 97 04/26/24 02:02 04/26/24 02:00 93 H 16 141/91 H 92 04/26/24 00:00 91 H 21 122/81 97 04/26/24 00:00 987 H 04/25/24 22:00 103 H 28 H 112/85 96 04/25/24 20:17 118 H 04/25/24 20:00 126 H 31 H 106/77 94 O2 Del Method O2 Del Method O2 Flow Rate 04/26/24 07:18 Nasal Cannula 2 04/26/24 07:12 Nasal Cannula 5 04/26/24 05:25 Nasal Cannula 3 04/26/24 04:00 04/26/24 04:00 Nasal Cannula 3 04/26/24 03:30 Nasal Cannula 3 04/26/24 02:02 High Flow Nasal Cannula 04/26/24 02:00 High Flow Nasal Cannula 04/26/24 00:00 High Flow Nasal Cannula 04/26/24 00:00 High Flow Nasal Cannula 04/25/24 22:00 High Flow Nasal Cannula 04/25/24 20:17 04/25/24 20:00 BiPAP
[2024-04-26] MEDS: TAMSULOSIN HCL 0.4 MG CAP PO SCH (08:07)
[2024-04-26] MEDS: FOLIC ACID 1 MG TAB PO SCH (08:07)
[2024-04-26] MEDS: VANCOMYCIN HCL 1,500 MG in SODIUM CHLORIDE 0.9% 500 ML IV SCH (08:08)
--- NOTE | 2024-04-26 08:42 | Hospitalist Progress Note ---
Date of Service April 26, 2024 Assessment & Plan (1) Acute and chronic respiratory failure with hypoxia: Plan 1) Acute respiratory failure with hypoxia/Multifocal pneumonia Admit to the PCU on telemetry and pulse oximetry Currently stable on BiPAP and otherwise stable Presented to the ED today due to 3 to 4 days of progressive shortness of breath/respiratory distress Found to have multifocal pneumonia on chest x-ray and CTA of the chest CT of the chest with PE protocol was negative for pulmonary emboli, pleural effusion, and pulmonary edema Was given a dose of Zosyn and vancomycin while in the emergency department, will continue with both for now Will add on MRSA swab for further evaluation as well as sputum culture with Gram stain when patient is able to provide a sample Will continue with BiPAP for now, if repeat blood gases stable can consider trial of high flow nasal cannula If patient would continue to decline while on BiPAP to the point that he would require intubation he would want to be transition to comfort measures at that time Patient did receive 125 mg IV Solu-Medrol in the ED, will hold additional IV steroids for now as he does not appear to be in COPD exacerbation Can resume IV steroids tomorrow if needed Incentive spirometry, flutter therapy, scheduled DuoNebs, as needed O2 to keep SpO2 between 89 to 90% Will start bilateral SCDs for DVT prophylaxis with his thrombocytopenia Strict n.p.o. while on BiPAP AM CBC, CMP, mag, PT/INR,ABG (2) Sepsis: Plan: Patient met sepsis criteria on arrival with heart rate of 120, respiratory rate of 37, white blood cell count of 1.35, and source being his pneumonia Lactate was 1.4 Patient received 2 L normal saline, and a dose of both Zosyn and vancomycin in the ED Will continue maintenance fluids on admission along with broad-spectrum antibiotics moving forward (3) Pancytopenia Patient noted to be pancytopenic today Absolute neutrophil count 0.30 --> Neutropenic precautions have been ordered Hgb, 7.6 <-- 1 unit of PRBC's given <-- 6.9 <-- 8.1 Platelets, 33 No signs of acute bleeding on exam Likely due to chemotherapy and exacerbated with acute infection 480 micrograms of SQ Neupogen given upon admission Oncology consult placed as patient follows with the cancer [facility] Blood consent obtained, will order type/screen and have 2 units of leuko- irradiated packed red blood cells in preparation as there is a high chance he will require transfusion Daily CBC, H&H after blood transfusions (4) Hypokalemia, low-normal magnesium #resolved Potassium, 4.0 <-- 3.1 on arrival Mg, 1.8 <-- 1.7 on arrival 3 bags of 10 MEQ IV KCl on admissionwhile on BiPAP Continue to monitor on engineering consultant w/ AM labs: BMP, Mg (5) Lung cancer metastatic to brain: Has completed 3 of 6 planned cycles of chemotherapy thus far Follow oncology consult (6) Elevated troponin high-sensitivity troponin, 27 <-- 29 Patient denies chest pain, no acute ST segment or T wave changes on EKG today Likely due to demand for sepsis and acute hypoxic respiratory failure Continue to monitor on telemetry for now (7) COPD (chronic obstructive pulmonary disease): Care per acute hypoxic respiratory failure plan Code status: DNR/DNI Disposition: PCU-Tele DVT Prophylaxis: SCD FENGI: Heart Healthy, Soft bite-sized Admission and Anticipated Discharge Date Admission Date: April 25, 2024 Supervising Physician Co-Signing Physician Notes I personally examined the patient and verified all caldwell points of history and exam, discussed case, and agree with decision making with Dr Leyva feeling better than before. Notes he does have a little bit of trouble with his memory. Ex- present at the bedside and corroborates a lot of his history. Patient also notes that he has lost about 25 pounds before really working on nutrition was able to gain about 5 back. Has not had much of an appetite over the last week, but otherwise has been doing much better with nutrition. Ex- also notes that he has gotten frequent respiratory infections. wonders if there is anything that can be done to prevent them or at least treat them earlier. He notes that he stated home for at least a day past being recommended to seek care because it was too much work, too exhausting for him to get anywhere. Vitals noted, in general he is awake and alert does appear to be easily confused, but technically oriented, no distress but does appear to be quite fa tigued. HEENT normocephalic atraumatic mucous membranes moist. Lungs show faint diffuse wheezing good air entry no accessory muscle use. Skin without rashes pallor or icterus. Neuro without focal deficits. Acute hypoxic respiratory failure due to multi focal pneumonia with neutropenic sepsis in the context of chemotherapy-induced pancytopenia and mild myocardial demand ischemia all present on admissionimproving. MRSA nares negative, stop vancomycin. May not need quite as broader gram-negative coverage as Zosyn, but continue for now and continue to follow. Add flutter valve, continue inhalers. Follow wheezing, but given good air entry and feeling better, hold off on corticosteroids for now. no overt need for atypical coverage at this time - follow. Emphasized importance of nutrition. Appreciate access consultant input. Otherwise as above. 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 On arrival to the ED he was noted to be tachycardic at 120, tachypneic at 37, hypoxic at 75% on room air. Labs were significant for pancytopenia with a total absolute neutrophil count of 0.30. VBG pH of 7.42 with pCO2 and pO2 within normal limits, potassium of 3.1, initial high-sensitivity troponin of 29 with 2-hour repeat of 27, Pro-Ashwin of 1.17, and for respiratory bio fire negative. Chest x-ray was read as a large posterior mediastinal mass which was noted on his last PET/CT, emphysema with mixed interstitial and alveolar opacities suggestive of multifocal pneumonia. CT of the abdomen pelvis with IV contrast, CTA of the chest with PE protocol, and CT of the head/brain without contrast has been obtained but not yet read. Prior to admission the patient was given 125 mg IV Solu-Medrol, 1200 mg p.o. guaifenesin, and hour-long albuterol nebulizer, ordered 1 L normal saline, and ordered doses of Zosyn plus vancomycin.Patient had presented to the ED after three days of increasing fatigue Patient feeling subjectively better this morning although was still requiring 5 L O2 to maintain O2 Sat levels > 88%. Most concerning symptoms are significant fatigue, shortness of breath, productive cough. Review of Systems Constitutional: + fatigue; no fever and no chills Respiratory: no cough and no dyspnea (but on 5 L O2 NC) Cardiovascular: no chest pain and no palpitations Gastrointestinal: + diarrhea/loose stools (last BM yesterd ay and had diarrhea); no abdominal pain, no nausea and no vomiting Genitourinary: + difficulty urinating; no dysuria Neurologic: + tingling and + numbness (baseline carp al tunnel) Hematologic / Lymphatic: no easy bruising Physical Exam Constitutional: WD/WN, vitals as above Respiratory: + cough Auscultation: + crackles; + l ungs not clear to auscultation and breath sounds present Gastrointestinal (Abdomen): normal bowel sounds, soft, nontender, no hepatosplenomegaly Psychiatric: A+Ox3, euthymic affect Results & Data Results & Data Vital Signs (Past 12 Hours) Vital Signs Temp Pulse Pulse Resp BP Pulse Ox Pulse Ox 04/26/24 07:18 36.7 C 92 H 20 135/86 95 04/26/24 07:12 98 H 18 94 04/26/24 05:25 80 16 104/68 93 04/26/24 04:00 81 04/26/24 04:00 04/26/24 03:30 36.7 C 82 18 98/61 L 97 04/26/24 02:02 04/26/24 02:00 93 H 16 141/91 H 92 04/26/24 00:00 91 H 21 122/81 97 04/26/24 00:00 987 H 04/25/24 22:00 103 H 28 H 112/85 96 O2 Del Method O2 Del Method O2 Flow Rate 04/26/24 07:18 Nasal Cannula 2 04/26/24 07:12 Nasal Cannula 5 04/26/24 05:25 Nasal Cannula 3 04/26/24 04:00 04/26/24 04:00 Nasal Cannula 3 04/26/24 03:30 Nasal Cannula 3 04/26/24 02:02 High Flow Nasal Cannula 04/26/24 02:00 High Flow Nasal Cannula 04/26/24 00:00 High Flow Nasal Cannula 04/26/24 00:00 High Flow Nasal Cannula 04/25/24 22:00 High Flow Nasal Cannula
[2024-04-26 09:40] LABS: Plasma Cells # (manual) 0.04 K/uL (0-0); Plasma Cells % (manual) 3 %
[2024-04-26 09:44] LABS: ALC (manual) 0.63 K/uL (1.2-3.4); Lymphocytes % (manual) 44 %
[2024-04-26 09:45] LABS: Metamyelocytes % (manual) 0 %; Monocytes % (manual) 31 %; Myelocytes % (manual) 0 %
[2024-04-26 09:46] LABS: Lymphocytes # (manual) 0.59 K/uL (1.2-3.4); Monocytes # (manual) 0.42 K/uL (0.11-0.59)
[2024-04-26 14:53] LABS: Hemoglobin 7.6 g/dl (14.0-18.0)
--- NOTE | 2024-04-26 16:59 | Electrocardiogram Report ---
Test Reason : Blood Pressure : / mmHG Vent. Rate : 115 BPM Atrial Rate : 115 BPM P-R Int : 152 ms QRS Dur : 130 ms QT Int : 344 ms P-R-T Axes : 057 250 057 degrees QTc Int : 475 ms Sinus tachycardia with occasional Premature ventricular complexes Right bundle branch block Abnormal ECG When compared with ECG of 25-FEB-2024 16:52, Premature ventricular complexes are now Present Questionable change in QRS axis Confirmed by Robin Alejandre ([id number]) on 04/26/2024 4:59:29 PM Referred By: REFERRED SELF Confirmed By:Robin Alejandre
--- NOTE | 2024-04-26 18:30 | Billing Data ---
Date of Service April 26, 2024 Coding Level of Care Code 24720 SUB INP/OBS CARE MIN
--- NOTE | 2024-04-26 18:31 | Billing Data ---
Date of Service April 26, 2024 Coding Level of Care Code 77555 SUB INP/OBS CARE MIN
[2024-04-26] MEDS: ACETAMINOPHEN 325 MG TAB PO PRN (22:11)
[2024-04-27] MEDS: MELATONIN 3 MG TAB PO PRN (03:00)
[2024-04-27] MEDS: BENZONATATE 100 MG CAPSULE PO PRN (04:52)
[2024-04-27] MEDS: ALBUT/IPRATROP 3MG/0.5MG NEB 3 ML VIAL NEB STA (06:41)
[2024-04-27 07:25] LABS: Hematocrit (blood only) 26.7 % (42.0-52.0); Hemoglobin 8.8 g/dl (14.0-18.0); Mean Corpuscular Hemoglobin 28.9 pg (25.0-34.0); Mean Corpuscular Volume 87.5 fL (80.0-100.0); Platelet Count 17 K/uL (130-400); RDW Coefficient of Variation 21.1 % (11.5-14.5); RDW Standard Deviation 66.5 fL (36.4-46.3); Red Blood Count 3.05 M/uL (4.70-6.10); White Blood Count 5.24 K/ul (4.8-10.8)
[2024-04-27 07:36] LABS: Albumin Globulin Ratio 0.9 (0.9-2); BUN Creatinine Ratio 29.3 (10-20); Bilirubin,Total 0.7 mg/dl (0.2-1.0); Calcium 9.4 mg/dl (8.6-10.3); Creatinine Clr Calc Pharmacy 62.4 ml/min; Est GFR (Non-African American) 74.2 ml/min; Globulin 3.4 gm/dl (2.5-4.0); Magnesium 1.4 mg/dl (1.7-2.4); Potassium 3.2 mmol/L (3.5-5.1); Total Protein 6.4 gm/dl (6.0-8.3)
[2024-04-27 07:40] LABS: INR 1.1 (0.9-1.1); Prothrombin Time 11.8 Seconds (9.0-12.0)
[2024-04-27 08:08] LABS: Basophils # (auto) 0.06 K/uL (0.00-0.20); Basophils % (auto) 1.1 %; Dohle Bodies 1+; Immature Granulocytes # (auto) 0.42 K/uL (0.01-0.20); Lymphocytes # (auto) 1.26 K/uL (1.20-3.40); Monocytes # (auto) 0.31 K/uL (0.11-0.59); Monocytes % (auto) 5.9 %; Neutrophils # (auto) 3.19 K/uL (1.40-6.50); Polychromasia 2+; Toxic Granulation 1+
[2024-04-27] MEDS ORDERED: ALBUT/IPRATROP 3MG/0.5MG NEB 3 ML VIAL NEB PRN (08:09)
[2024-04-27] MEDS: MAGNESIUM OXIDE 400 MG TAB PO SCH (08:48)
[2024-04-27] MEDS: POTASSIUM CHLORIDE CRTAB 20 MEQ TABCR PO SCH (08:48)
[2024-04-27] MEDS: oxyCODONE HCL IR 5 MG TAB (IMMEDIATE RELEASE) PO PRN (08:50)
[2024-04-27] MEDS: MAGNESIUM SULFATE / D5W 1 GM/100 ML BAG IV SCH (12:03)
[2024-04-27] MEDS: DICLOFENAC SOD 1% GEL 100 GM TUBE EXT SCH (13:05)
[2024-04-27 16:36] LABS: Folate (Folic Acid),Ser orPlas 12.99 ng/ml (>5.38)
[2024-04-27 16:37] LABS: Vitamin B12 > 1500 pg/ml (180-914)
--- NOTE | 2024-04-27 19:33 | Hospitalist Progress Note ---
Date of Service April 27, 2024 Assessment & Plan (1) Acute and chronic respiratory failure with hypoxia: Plan 1) Acute respiratory failure with hypoxia: Plan: Due to multifocal pneumonia superimposed with sepsis present on admission on what appears to be severe COPD in the context of chemotherapy induced pancytopenia for lung cancer causing immune compromise ---> pneumonia appears to be improving. Considered de-escalating Zosyn to ceftriaxone, but given how tenuous his situation is, while we discontinued vancomycin yesterday, will continue Zosyn for now so as to not change spectrum of coverage. - Discussed catarrhal phase of pneumonia, and that unfortunately there is not a lot that we be able to do this very effective in helping suppress the cough, and also that we certainly want the mucus to come out. (2) Sepsis: Plan: Sepsis present on admissionfortunately improved (3) Pancytopenia: Plan: chemo-induced pancytopeniatransfused 1 unit packed red cells. Otherwise counts are largely stable. Continue to follow (4) deliriumfortunately seems to be mild delirium at this time, not really posing a risk to himself or othersi.e. no medical intervention appears to be warranted at all. This evening raising the curtains and getting him ice cream appeared to help calm him quite significantly. Unfortunately he is not fully disoriented, just seems to be easily agitated without being able to explain why. Reorientation, supportive care. Hopefully he will be on to get better sleep tonight (nursing was going to try to encourage him to sleep in the chair given that this may help him cough less while he is trying to rest (5) Lung cancer metastatic to brain: Plan: Has completed 3 of 6 planned cycles of chemotherapy thus far appreciate oncology inputfortunately lung findings are behaving more consistent with pneumonia than Immunotherapy pneumonitis at this point. (6) Elevated troponin: Plan: Initial high-sensitivity troponin elevated at 29, down to 27 on 2-hour repeat Patient denies chest pain, no acute ST segment or T wave changes on EKG today Likely due to demand for sepsis and acute hypoxic respiratory failure Continue to monitor on telemetry for now (7) COPD (chronic obstructive pulmonary disease): Plan: Care per acute hypoxic respiratory failure plan, continue inhalers (8) DVT prophylaxispharmacologic contraindicated due to severe thrombocytopenia; mechanical prophylaxis of dubious benefit and possible harm (fall risk, skin breakdown, delirium risk with more agitating factors) Admission and Anticipated Discharge Date Admission Date: April 25, 2024 Subjective breathing feels okaymaybe a little better. Still not good. Coughing but not bringing a whole lot upwas up most of the night coughing without good sleep. Low back pain. Later updated zac Brooks and answered all questions to the best my ability. Later around 6:00 was informed by nursing that he was getting very restless and agitated, urinated in the garbage can, and was angry. Reassessedhe could not really voice what was having him upset, felt trapped, but was also very easily distractible. Review of Systems Review of Systems: All systems reviewed & are unremarkable except as noted in HPI & below Physical Exam Physical Exam: Both times he is awake alert oriented x 3, although the second time he definitely has a harder time with any more complicated thought process and can even really express why he is upset and is quite easily distractible. This morning he is clearly focused. Cardio is distant, lungs are quiet but mostly clear no wheezing may be faint rales good effort no accessory muscle use. Lumbar paraspinals as well as thoracic paraspinals and rib cage high tone, tender, decreased range of motiondirect myofascial/inhibitory pressure with some improvement. Patient tolerated well. Results & Data Results & Data Vital Signs (Past 12 Hours) Vital Signs Temp Pulse Pulse Resp BP Pulse Ox O2 Del Method 04/27/24 17:32 105 H 04/27/24 15:00 97.7 F 109 H 18 137/76 91 Nasal Cannula 04/27/24 14:35 111 H 20 91 Nasal Cannula 04/27/24 10:39 97.5 F L 105 H 22 139/82 98 Nasal Cannula 04/27/24 10:29 102 H 20 92 Nasal Cannula 04/27/24 09:15 105 H 04/27/24 09:03 Nasal Cannula O2 Flow Rate 04/27/24 17:32 04/27/24 15:00 4 04/27/24 14:35 4 04/27/24 10:39 4 04/27/24 10:29 4 04/27/24 09:15 04/27/24 09:03 4 PG Care Time/CCT Total # of Minutes Spent Total Time Spent with Patient: Total time spent is greater than 50% in coordination of care (as documented) at patient's floor/unit and/or counseling patient: Coding Level of Care Code 63000 SUB INP/OBS CARE 350MIN Diagnoses Acute and chronic respiratory failure with hypoxia J96.21
[2024-04-27] MEDS: MELATONIN 3 MG TAB PO SCH (20:41)
--- NOTE | 2024-04-28 06:50 | Hospitalist Progress Note ---
Date of Service April 28, 2024 Assessment & Plan (1) Acute and chronic respiratory failure with hypoxia: Plan 1) Acute respiratory failure with hypoxia/Multifocal pneumonia Admit to the PCU on telemetry and pulse oximetry Currently stable on BiPAP and otherwise stable Presented to the ED due to 3-4 days of progressive shortness of breath/respiratory distress Found to have multifocal pneumonia on chest x-ray and CTA of the chest CT of the chest with PE protocol was negative for pulmonary emboli, pleural effusion, and pulmonary edema Was given a dose of Zosyn and vancomycin while in the emergency department, discontinued vancomycin Continued w/ BiPAP initially, transitioned to high flow nasal cannula Patient did receive 125 mg IV Solu-Medrol in the ED, held additional IV steroids afterwards COPD exacerbation Incentive spirometry, flutter therapy, scheduled DuoNebs, as needed O2 to keep SpO2 between 89 to 90% Will start bilateral SCDs for DVT prophylaxis with his thrombocytopenia AM CBC, CMP, mag, PT/INR,ABG - Consider DuoNebs when discharged as outpt (2) Sepsis: Patient met sepsis criteria on arrival with HR of 120, RR of 37, WBC of 1.35, and source being his pneumonia; lactate, 1.4 Patient received 2 L normal saline, and a dose of both Zosyn and vancomycin in the ED Broad-spectrum antibiotics narrowed to Zosyn only now - Blood Cx, negative after 48 hrs (3) Pancytopenia Patient noted to be pancytopenic on admission; ANC (Absolute neutrophil count), 0.30 --> Neutropenic precautions ordered - WBC, 7.6 <-- 5.2 <-- 1.4; ANC, 5.60 <-- 3.19 <-- 1.01 <-- 0.30 Hgb, 8.4 <-- 8.8 <-- 7.6 <-- 1 unit of PRBC's given <-- 6.9 <-- 8.1 Platelets, 14 <-- 17 <-- 21 <-- 33 No signs of acute bleeding on exam Likely due to chemotherapy and exacerbated with acute infection 480 micrograms of SQ Neupogen given upon admission Oncology consult placed as [facility] Blood consent obtained, will order type/screen and have 2 units of leuko- irradiated packed red blood cells in preparation as there is a high chance he will require transfusion Daily CBC, H&H after blood transfusions (4) Hypokalemia, low-normal magnesium #resolved Potassium, 4.0 <-- 3.1 on arrival Mg, 1.8 <-- 1.7 on arrival 3 bags of 10 MEQ IV KCl on admission while on BiPAP Continue to monitor on tool crib lead w/ AM labs: BMP, Mg (5) Lung cancer metastatic to brain: Has completed 3 of 6 planned cycles of chemotherapy thus far Follow oncology consult (6) Elevated troponin high-sensitivity troponin, 27 <-- 29 Patient denies chest pain, no acute ST segment or T wave changes on EKG today Likely due to demand for sepsis and acute hypoxic respiratory failure Continue to monitor on telemetry for now (7) COPD (chronic obstructive pulmonary disease): Care per acute hypoxic respiratory failure plan Code status: DNR/DNI Disposition: PCU-Tele DVT Prophylaxis: SCD FENGI: Heart Healthy, Soft bite-sized Admission and Anticipated Discharge Date Admission Date: April 25, 2024 Supervising Physician Co-Signing Physician Notes I personally examined the patient and verified all caldwell points of history and exam, discussed case, and agree with decision making with Dr Leyva feeling better, breathing better. Overall seems to be doing better. Feels like he slept better. Does still seem to be mildly easily confused but overall coherent to the situation. Vitals noted, in general he is awake alert oriented, just a little bit easily confused. HEENT normocephalic atraumatic mucous membranes moist. Lungs diminished air entry but no wheezing, faint Rales predominantly base left. No conversational dyspnea no accessory muscle use good effort. Gentle soft tissue myofascial OMT done to bilateral paraspinals both thoracic and lumbar (4 hopefully improved lung excursion/breathing, as well as improving low back pain). Acute hypoxic respiratory failure due to multi focal pneumonia with neutropenic sepsis in the context of chemotherapy-induced pancytopenia and mild myocardial demand ischemia all present on admissionimproving. Oxygen requirement bouncing around somesuspect that it is a combination of severe baseline COPD, acute pneumonia, and some degree of atelectasis/mucous plugging. Overall he is feeling better and examining betterwhich is all reassuring. Continue to follow closely. Does seem to be mildly confusedhard to tell how much might be a degree of delirium, versus (in discussion with his ex- who obviously knows him far better and notes this has been going on for a while) some degree of mild cognitive decline (age-related, vascular dementia, doubt relates to brain mets given how small they are)continue to follow. PT/OT eval and treat. Review of Systems Constitutional: + fatigue and + insomnia (better last ni ght after 6 mg instead of 3 mg melatonin); no fever and no chills Respiratory: + cough and + dyspnea (but on 5 L O2 NC) Cardiovascular: no chest pain and no palpitations Gastrointestinal: + diarrhea/loose stools (last BM yesterd ay and had diarrhea); no abdominal pain, no nausea and no vomiting Genitourinary: + difficulty urinating; no dysuria Neurologic: + tingling and + numbness (baseline carp al tunnel) Hematologic / Lymphatic: no easy bruising Physical Exam Constitutional: WD/WN, vitals as above Respiratory: + cough Auscultation: + crackles; + l ungs not clear to auscultation and breath sounds present Gastrointestinal (Abdomen): normal bowel sounds, soft, nontender, no h epatosplenomegaly Psychiatric: A+Ox3, euthymic affect Results & Data Results & Data Vital Signs (Past 12 Hours) Vital Signs Temp Pulse Pulse Pulse Resp BP BP 04/28/24 02:59 36.8 C 105 H 30 H 129/76 04/28/24 00:00 04/27/24 23:00 106 H 04/27/24 22:58 36.7 C 109 H 32 H 145/87 H 04/27/24 20:02 36.7 C 119 H 32 H 157/97 H 04/27/24 19:28 114 H 18 Pulse Ox Pulse Ox O2 Del Method O2 Del Method O2 Flow Rate O2 Flow Rate 04/28/24 02:59 91 Nasal Cannula 6 04/28/24 00:00 89 L Nasal Cannula 6 04/27/24 23:00 04/27/24 22:58 85 L Nasal Cannula 5 04/27/24 20:02 90 Nasal Cannula 5 04/27/24 19:28 87 L Nasal Cannula 3 Resident Activity Tracking Resident Involvement: Resident Care Provided Care Provided: Adult Hospital Medicine
[2024-04-28 07:28] LABS: Albumin Globulin Ratio 0.9 (0.9-2); Albumin Level 2.9 gm/dl (3.4-5.0); BUN Creatinine Ratio 18.8 (10-20); Bilirubin,Total 0.6 mg/dl (0.2-1.0); Calcium 9.3 mg/dl (8.6-10.3); Creatinine Clr Calc Pharmacy 72.6 ml/min; Est GFR (African American) 98.8 ml/min; Est GFR (Non-African American) 85.2 ml/min; Globulin 3.4 gm/dl (2.5-4.0); Magnesium 1.4 mg/dl (1.7-2.4); Potassium 3.5 mmol/L (3.5-5.1); Total Protein 6.3 gm/dl (6.0-8.3)
[2024-04-28 07:48] LABS: Basophils # (auto) 0.05 K/uL (0.00-0.20); Basophils % (auto) 0.7 %; Eosinophils # (auto) 0.01 K/uL (0.00-0.50); Eosinophils % (auto) 0.1 %; Hematocrit (blood only) 25.7 % (42.0-52.0); Hemoglobin 8.4 g/dl (14.0-18.0); Immature Granulocytes # (auto) 0.44 K/uL (0.01-0.20); Immature Granulocytes % (auto) 5.8 %; Lymphocytes # (auto) 1.05 K/uL (1.20-3.40); Lymphocytes % (auto) 13.9 %; Mean Corpuscular Hemoglobin 28.6 pg (25.0-34.0); Mean Corpuscular Hgb Conc 32.7 g/dL (32.0-36.0); Mean Corpuscular Volume 87.4 fL (80.0-100.0); Monocytes # (auto) 0.43 K/uL (0.11-0.59); Monocytes % (auto) 5.7 %; Neutrophils % (auto) 73.8 %; Nucleated RBC # (auto) 0.02 K/uL (0.00-0.12); Nucleated RBC % (auto) 0.3 %; Platelet Count 14 K/uL (130-400); RDW Standard Deviation 66.7 fL (36.4-46.3); Red Blood Count 2.94 M/uL (4.70-6.10); White Blood Count 7.58 K/ul (4.8-10.8)
[2024-04-28 07:53] LABS: INR 1.1 (0.9-1.1); Prothrombin Time 11.9 Seconds (9.0-12.0)
[2024-04-28] MEDS: MAGNESIUM SULFATE / D5W 1 GM/100 ML BAG IV SCH (09:23)
--- NOTE | 2024-04-28 13:23 | Billing Data ---
Date of Service April 28, 2024 Coding Level of Care Code 25460 SUB INP/OBS CARE MIN
[2024-04-29 08:41] LABS: Hematocrit (blood only) 24.1 % (42.0-52.0); Hemoglobin 7.9 g/dl (14.0-18.0); Mean Corpuscular Hemoglobin 28.8 pg (25.0-34.0); Mean Corpuscular Hgb Conc 32.8 g/dL (32.0-36.0); Platelet Count 18 K/uL (130-400); RDW Coefficient of Variation 21.1 % (11.5-14.5); RDW Standard Deviation 67.7 fL (36.4-46.3); Red Blood Count 2.74 M/uL (4.70-6.10); White Blood Count 6.89 K/ul (4.8-10.8)
[2024-04-29 09:16] LABS: Anisocytosis Present; Basophils # (auto) 0.02 K/uL (0.00-0.20); Basophils % (auto) 0.3 %; Dohle Bodies 1+; Eosinophils # (auto) 0.01 K/uL (0.00-0.50); Eosinophils % (auto) 0.1 %; Immature Granulocytes # (auto) 0.51 K/uL (0.01-0.20); Immature Granulocytes % (auto) 7.4 %; Lymphocytes # (auto) 0.84 K/uL (1.20-3.40); Lymphocytes % (auto) 12.2 %; Monocytes # (auto) 0.69 K/uL (0.11-0.59); Neutrophils # (auto) 4.82 K/uL (1.40-6.50); Toxic Granulation 1+
--- NOTE | 2024-04-29 09:16 | XRay Report ---
XR chest 2V PA/lateral CLINICAL HISTORY: increased O2 requirement, pneumonia, ?worsening TECHNIQUE: 2 views of the chest were obtained. Comparison: Comparison is made to chest radiograph 04/25/2024 FINDINGS: No lines and tubes are seen. The cardiomediastinal silhouette is normal. Multifocal airspace opacitie s are seen, slightly more pronounced than in the prior exam. Previously noted posterior mediastinal m ass is not well seen. No evidence of pleural effusion or pneumothorax. IMPRESSION: Slightly increased conspicuity of multifocal airspace opacities compatible with pneumonia. ACT 112: Negative or not required by law. Electronically signed by: Rajinder Payan M.D. 04/29/2024 9:15 AM
--- NOTE | 2024-04-29 10:46 | Hospitalist Progress Note ---
Date of Service April 29, 2024 Assessment & Plan (1) Acute and chronic respiratory failure with hypoxia: Plan 1) Acute respiratory failure with hypoxia/Multifocal pneumonia Admit to the PCU on telemetry and pulse oximetry Presented to the ED due to 3-4 days of progressive shortness of breath/respiratory distress Found to have multifocal pneumonia on chest x-ray and CTA of the chest --> see 2) Sepsis for Abx CT of the chest with PE protocol was negative for pulmonary emboli, pleural effusion, and pulmonary edema Continued w/ BiPAP initially, transitioned to high flow nasal cannula, currently on 7 L O2/min NC w/ O2 sats 91% Patient did receive 125 mg IV Solu-Medrol in the ED, held additional IV steroids afterwards COPD exacerbation Incentive spirometry, flutter therapy, scheduled DuoNebs, as needed O2 to keep SpO2 between 88 to 92% - Sputum culture: positive for Vicki albicans/dubliniensis (on chemotherapy, so most likely due to colonization) - repeat CXR: "slightly increased conspicuity of multifocal airspace opacities compatible w/ pneumonia" - schedule DuoNebs as inpatient, q4hrs, while awake (2) Sepsis: Patient met sepsis criteria on arrival with HR of 120, RR of 37, WBC of 1.35, and source being his pneumonia; lactate, 1.4 Patient received 2 L normal saline, and a dose of both Zosyn and vancomycin in the ED Broad-spectrum antibiotics narrowed to Zosyn only now - Blood Cx, negative after 48 hrs (3) Pancytopenia Patient noted to be pancytopenic on admission; ANC (Absolute neutrophil count), 0.30 --> Neutropenic precautions ordered - WBC, 6.9 <-- 5.2 <-- 1.4; ANC, 4.80 <-- 3.19 <-- 1.01 <-- 0.30 Hgb, 7.8 <-- 8.8 <-- 7.6 <-- 1 unit of PRBC's given <-- 6.9 <-- 8.1 Platelets, 18 <-- 14 <-- 21 <-- 33 No signs of acute bleeding on exam; Bilateral SCDs for DVT prophylaxis w/ thrombocytopenia Likely due to chemotherapy and exacerbated with acute infection 480 micrograms of SQ Neupogen given upon admission Oncology consult placed as [facility] Blood consent obtained, will order type/screen and have 2 units of leuko- irradiated packed red blood cells in preparation as there is a high chance he will require transfusion Daily CBC, H&H after blood transfusions (4) Hypokalemia, low-normal magnesium #resolved Potassium, 4.0 <-- 3.1 on arrival Mg, 1.8 <-- 1.7 on arrival 3 bags of 10 MEQ IV KCl on admission while on BiPAP Continue to monitor on supervisor edging w/ AM labs: BMP, Mg (5) Lung cancer metastatic to brain: Has completed 3 of 6 planned cycles of chemotherapy thus far Follow oncology consult (6) Elevated troponin high-sensitivity troponin, 27 <-- 29 Patient denies chest pain, no acute ST segment or T wave changes on EKG Likely due to demand for sepsis and acute hypoxic respiratory failure Continue to monitor on telemetry for now (7) COPD (chronic obstructive pulmonary disease): Care per acute hypoxic respiratory failure plan Code status: DNR/DNI Disposition: PCU-Tele DVT Prophylaxis: SCD FENGI: Heart Healthy, Soft bite-sized Admission and Anticipated Discharge Date Admission Date: April 25, 2024 Supervising Physician Co-Signing Physician Notes I personally examined the patient and verified all caldwell points of history and exam, discussed case, and agree with decision making with Dr Leyva no new complaints. Breathing feels okay. Increased oxygen requirement noted. Ex- present at the bedsideanswered all questions to the best my ability and to her satisfaction. Vitals noted, in general he is awake and alert pleasant no distress. HEENT normocephalic atraumatic mucous membranes moist. Breathing unlabored no accessory muscle use good effort. Lungs diminished bibasilar faint crackles slightly asymmetric but bilateral about a third of the way up, and then quiet but clear above. Skin without rashes pallor or icterus. Acute hypoxic respiratory failure due to multi focal pneumonia with neutropenic sepsis in the context of chemotherapy-induced pancytopenia and mild myocardial demand ischemia all present on admissionimproving. Oxygen requirement bouncing around somesuspect that it is a combination of severe baseline COPD, acute pneumonia, and some degree of atelectasis/mucous plugging. With increased oxygen requirement, repeated chest x-raybut it looks very comparable to before, and his exam seems to fit the most with atelectasis/mucous plugging. He is using incentive spirometry and flutter valve, and this seems to not be helping enoughgiven the severity of his COPD, will escalate pulmonary toilet with nebs [id number]. Continue to follow. PT/OT eval and treatcontinue to anticipate he will need rehab at discharge. Otherwise as above Subjective Patient continues to feel subjectively better today, as he felt yesterday, compared to how he felt on admission. Only slept ~ 4 hrs last night and has been having problems intermittently w/ insomnia since beginning chemotherapy treatment. Although patient is not having any subjective dyspnea at rest, he has required high NC O2 levels to maintain his O2 sats from 88-92%. Patient aware that goal would be to have him be discharged on no higher than his previous oxygen requirement (2 L NC O2/min) to maintain his O2 sats from 88-92%. Patient should have KATHLEEN q4hr duonebs Review of Systems Constitutional: + fatigue and + insomnia (now on 6 mg me latonin, qHS; has tried PCP Rx before but uncertain what med); no fever and no chills Respiratory: + cough and + dyspnea on exertion; no dy spnea (but on 7 L O2 NC) Cardiovascular: no chest pain and no palpitations Gastrointestinal: + diarrhea/loose stools (last BM yesterd ay and had diarrhea); no abdominal pain, no nausea and no vomiting Genitourinary: + difficulty urinating; no dysuria Neurologic: + tingling and + numbness (baseline carp al tunnel) Hematologic / Lymphatic: no easy bruising Physical Exam Constitutional: WD/WN, vitals as above Respiratory: + cough Auscultation: + crackles; + l ungs not clear to auscultation and breath sounds present Cardiovascular: RRR, no murmur, no edema Extremities: normal capillary refill; no calf tenderness and no pedal edema Gastrointestinal (Abdomen): normal bowel sounds, soft, nontender, no hepatosplenomegaly Psychiatric: A+Ox3, euthymic affect Results & Data Results & Data Vital Signs (Past 12 Hours) Vital Signs Temp Pulse Pulse Resp BP Pulse Ox Pulse Ox 04/29/24 07:47 36.4 C L 97 H 20 128/85 92 04/29/24 07:35 102 H 04/29/24 07:31 99 H 20 92 04/29/24 03:04 36.6 C 98 H 20 137/83 89 L 04/29/24 00:00 91 04/28/24 22:51 36.8 C 104 H 16 149/81 H 94 O2 Del Method O2 Del Method O2 Flow Rate O2 Flow Rate 04/29/24 07:47 Nasal Cannula 8 04/29/24 07:35 04/29/24 07:31 Nasal Cannula 8 04/29/24 03:04 Nasal Cannula 8 04/29/24 00:00 Nasal Cannula 6 04/28/24 22:51 High Flow Nasal Cannula 8
--- NOTE | 2024-04-29 17:58 | Billing Data ---
Date of Service April 29, 2024 Coding Level of Care Code 37770 SUB INP/OBS CARE MIN
[2024-04-29] MEDS: ALBUT/IPRATROP 3MG/0.5MG NEB 3 ML VIAL NEB SCH (19:49)
[2024-04-30 06:40] LABS: Hematocrit (blood only) 23.2 % (42.0-52.0); Hemoglobin 7.6 g/dl (14.0-18.0); Mean Corpuscular Hemoglobin 28.6 pg (25.0-34.0); Mean Corpuscular Hgb Conc 32.8 g/dL (32.0-36.0); Mean Corpuscular Volume 87.2 fL (80.0-100.0); Platelet Count 25 K/uL (130-400); RDW Coefficient of Variation 20.8 % (11.5-14.5); RDW Standard Deviation 66.2 fL (36.4-46.3); Red Blood Count 2.66 M/uL (4.70-6.10); White Blood Count 6.03 K/ul (4.8-10.8)
--- NOTE | 2024-04-30 06:57 | Hospitalist Progress Note ---
Date of Service April 30, 2024 Assessment & Plan (1) Acute and chronic respiratory failure with hypoxia: Plan 1) Acute respiratory failure with hypoxia/Multifocal pneumonia Presented to the ED due to 3-4 days of progressive shortness of breath/respiratory distress Found to have multifocal pneumonia on chest x-ray and CTA of the chest --> see 2) Sepsis for Abx CT of the chest with PE protocol was negative for pulmonary emboli, pleural effusion, and pulmonary edema Currently on 8 L O2/min NC w/ O2 sats 91% Patient did receive 125 mg IV Solu-Medrol in the ED, held additional IV steroids afterwards COPD exacerbation Incentive spirometry, flutter therapy, scheduled DuoNebs, as needed O2 to keep SpO2 between 88 to 92% - Sputum culture: positive for Vicki albicans/dubliniensis (on chemotherapy, so most likely due to colonization) - repeat CXR: "slightly increased conspicuity of multifocal airspace opacities compatible w/ pneumonia" - scheduled DuoNebs as inpatient, q4hrs, while awake but patient not endorsing improvement (2) Sepsis: Patient met sepsis criteria on arrival with HR of 120, RR of 37, WBC of 1.35, and source being his pneumonia; lactate, 1.4 Patient received 2 L normal saline, and a dose of both Zosyn and vancomycin in the ED Broad-spectrum antibiotics narrowed to Zosyn only now - Blood Cx, negative after 48 hrs (3) Pancytopenia Patient noted to be pancytopenic on admission; ANC (Absolute neutrophil count), 0.30 --> Neutropenic precautions ordered - WBC, 6.0 <-- 6.9 <-- 5.2 <-- 1.4; ANC, 4.80 <-- 3.19 <-- 1.01 <-- 0.30 Hgb, 7.6 <-- 8.8 <-- 7.6 <-- 1 unit of PRBC's given <-- 6.9 <-- 8.1 Platelets, 25 <-- 18 <-- 14 <-- 21 <-- 33 No signs of acute bleeding on exam; Bilateral SCDs for DVT prophylaxis w/ thrombocytopenia Likely due to chemotherapy and exacerbated with acute infection 480 micrograms of SQ Neupogen given upon admission Oncology consult placed as [facility] Daily CBC, H&H after blood transfusions (4) Hypokalemia, low-normal magnesium #resolved Potassium, 4.0 <-- 3.1 on arrival Mg, 1.8 <-- 1.7 on arrival Monitor w/ AM labs: BMP, Mg if necessary (5) Lung cancer metastatic to brain: Has completed 3 of 6 planned cycles of chemotherapy thus far Follow oncology consult (6) Elevated troponin #resolved high-sensitivity troponin, 27 <-- 29 Patient denies chest pain, no acute ST segment or T wave changes on EKG Likely due to demand for sepsis and acute hypoxic respiratory failure Continue to monitor on telemetry for now (7) COPD (chronic obstructive pulmonary disease): Care per acute hypoxic respiratory failure plan Code status: DNR/DNI Disposition: PCU-Tele DVT Prophylaxis: SCD FENGI: Heart Healthy, Soft bite-sized Admission and Anticipated Discharge Date Admission Date: April 25, 2024 Supervising Physician Co-Signing Physician Notes I personally examined the patient and verified all caldwell points of history and exam, discussed case, and agree with decision making with Dr Leyva Coughing a little bit more again, bring up a little bit more sputum again. No other new complaints. Ex- present at the bedside, answered all questions to the best my ability and to her satisfaction. Vitals noted, in general he is awake and alert pleasant no distress. HEENT normocephalic atraumatic mucous membranes moist. Breathing unlabored no accessory muscle use good effort. Stay lungs are more clear at the bases than they were yesterday (when they were diminished) now he has bibasilar crackles that clear to diminished but clear air entry from about a third of the way up to the top. No accessory muscle use good effort. Skin without rashes pallor or icterus Acute hypoxic respiratory failure due to multi focal pneumonia with neutropenic sepsis in the context of chemotherapy-induced pancytopenia and mild myocardial demand ischemia all present on admissionimproving. Oxygen requ irement bouncing around somesuspect that it is a combination of severe baseline COPD, acute pneumonia, and some degree of atelectasis/mucous plugging. With increased oxygen requirement, repeated chest x-raybut it looks very comparable to before, and his exam seems to fit the most with atelectasis/mucous plugging. continue incentive spirometry, flutter valve, nebulizersslowly improvingas I discussed with patient, I anticipate the catarrhal phase of his pneumonia to simply take a while due to his severity of baseline lung disease. PT/OT eval and treat ongoinganticipate either in [facility] at discharge once he is more stable overall. Otherwise as above Subjective Patient continues to feel subjectively better today, as he felt yesterday, compared to how he felt on admission. He has been having problems intermittently w/ insomnia since beginning chemotherapy treatment. Although patient is not having any subjective dyspnea at rest, he has required high NC O2 levels to maintain his O2 sats from 88-92%. Patient aware that goal would be to have him be discharged on no higher than his previous oxygen requirement (2 L NC O2/min) to maintain his O2 sats from 88-92%. This morning he was on 8L NC O2/min with an O2 sat of 91%. Patient also continues to express that the DuoNebs, regardless of how often they're administered, do not appear to be improving his health subjectively. Review of Systems Constitutional: + fatigue and + insomnia (now on 6 mg me latonin, qHS; has tried PCP Rx before but uncertain what med); no fever and no chills Respiratory: + cough and + dyspnea on exertion; no dy spnea (but on 7 L O2 NC) Cardiovascular: no chest pain and no palpitations Gastrointestinal: + diarrhea/loose stools (last BM yesterd ay and had d iarrhea); no abdominal pain, no nausea and no vomiting Genitourinary: + difficulty urinating; no dysuria Neurologic: + tingling and + numbness (baseline carp al tunnel) Hematologic / Lymphatic: no easy bruising Physical Exam Constitutional: WD/WN, vitals as above Respiratory: + cough Auscultation: + crackles (at bases of posterior lungs b/l as has been true throughout inpatient stay); + lungs not clear to auscultation and breath sounds present Cardiovascular: RRR, no murmur, no edema Extremities: normal capillary refi ll; no calf tenderness and no pedal edema Gastrointestinal (Abdomen): normal bowel sounds, soft, nontender, no hepatosplenomegaly Psychiatric: A+Ox3, euthymic affect Results & Data Results & Data Vital Signs (Past 12 Hours) Vital Signs Temp Pulse Pulse Resp BP Pulse Ox Pulse Ox 04/30/24 02:40 36.9 C 99 H 21 158/85 H 93 04/30/24 00:00 90 04/29/24 23:19 107 H 04/29/24 22:54 36.6 C 108 H 21 161/90 H 92 04/29/24 21:00 04/29/24 19:52 102 H 91 04/29/24 19:15 36.8 C 101 H 21 152/89 H 92 O2 Del Method O2 Del Method O2 Flow Rate O2 Flow Rate 04/30/24 02:40 High Flow Nasal Cannula 6 04/30/24 00:00 Nasal Cannula 6 04/29/24 23:19 04/29/24 22:54 High Flow Nasal Cannula 6 04/29/24 21:00 Nasal Cannula 6 04/29/24 19:52 Nasal Cannula 6 04/29/24 19:15 High Flow Nasal Cannula 6 Resident Activity Tracking Resident Involvement: Resident Care Provided Care Provided: Adult Hospital Medicine
[2024-04-30 06:58] LABS: Calcium 9.2 mg/dl (8.6-10.3); Creatinine Clr Calc Pharmacy 77.2 ml/min; Est GFR (African American) 101.3 ml/min; Est GFR (Non-African American) 87.4 ml/min; Potassium 3.8 mmol/L (3.5-5.1)
[2024-04-30 07:06] LABS: Basophils # (auto) 0.01 K/uL (0.00-0.20); Basophils % (auto) 0.2 %; Eosinophils # (auto) 0.01 K/uL (0.00-0.50); Eosinophils % (auto) 0.2 %; Immature Granulocytes # (auto) 0.31 K/uL (0.01-0.20); Immature Granulocytes % (auto) 5.1 %; Lymphocytes # (auto) 0.79 K/uL (1.20-3.40); Lymphocytes % (auto) 13.1 %; Monocytes # (auto) 0.97 K/uL (0.11-0.59); Monocytes % (auto) 16.1 %; Neutrophils # (auto) 3.94 K/uL (1.40-6.50); Neutrophils % (auto) 65.3 %; Polychromasia 1+; Spherocytes 1+; Toxic Granulation 1+
[2024-04-30 09:45] LABS: Base Excess VBG 9.4 mEq/L; HCO3 VBG 34 mmol/L; Oxygen Saturation VBG 79.3 %; PCO2 VBG 46 mmHg (38-50); PO2 VBG 46 mmHg; pH VBG 7.48 (7.36-7.41)
--- NOTE | 2024-04-30 17:20 | Billing Data ---
Date of Service April 30, 2024 Coding Level of Care Code 27121 SUB INP/OBS CARE MIN
--- NOTE | 2024-04-30 17:20 | Billing Data ---
Date of Service April 30, 2024 Coding Level of Care Code 33639 SUB INP/OBS CARE MIN
[2024-05-01] MEDS: MAGNESIUM SULFATE / D5W 1 GM/100 ML BAG IV SCH (07:51)
[2024-05-01] MEDS: SODIUM CHLORIDE 0.65% NA SOLN 45 ML (OCEAN) ONE (10:54)
--- NOTE | 2024-05-01 13:45 | Hospitalist Progress Note ---
Date of Service May 01, 2024 Assessment & Plan (1) Acute and chronic respiratory failure with hypoxia: Plan 1) Acute respiratory failure with hypoxia/Multifocal pneumonia Multifocal PNA CT of the chest with PE protocol was negative for pulmonary emboli, pleural effusion, and pulmonary edema Goal O2 88-92% One dose 125mg solumedrol given in ED, no steroids ongoing Incentive spirometry, flutter valve, scheduled DuoNebs q4 while awake - Sputum culture: positive for Vicki albicans/dubliniensis (on chemotherapy, so most likely due to colonization) - repeat CXR: "slightly increased conspicuity of multifocal airspace opacities compatible w/ pneumonia" - Zosyn - Pulm consult as he is followed by their service outpatient (2) Sepsis: - Blood Cx, negative after 48 hrs (3) Pancytopenia Patient noted to be pancytopenic on admission; ANC (Absolute neutrophil count), 0.30 --> Neutropenic precautions ordered SCDs for DVT prophylaxis w/ thrombocytopenia Likely due to chemotherapy and exacerbated with acute infection 480 micrograms of SQ Neupogen given upon admission Oncology consult placed as [facility] Daily CBC, H&H after blood transfusions (4) Hypokalemia, low-normal magnesium Goal K>4, Mg>2 Replete as indicated (5) Lung cancer metastatic to brain: Has completed 3 of 6 planned cycles of chemotherapy thus far oncology consult (6) Elevated troponin resolved HS trop peak 29 Suspect demand ischemia in setting of sepsis (7) COPD (chronic obstructive pulmonary disease): Care per acute hypoxic respiratory failure plan Code status: DNR/DNI Disposition: PCU-Tele DVT Prophylaxis: SCD FENGI: Heart Healthy, Soft bite-sized Admission and Anticipated Discharge Date Admission Date: April 25, 2024 Supervising Physician Co-Signing Physician Notes Attending Physician Supervision Note: I independently interviewed and examined the patient and verified the caldwell history and physical, reviewed labs and image studies and agree with findings and care plan noted above. Acute hypoxic respiratory failure sec to ? multifocal pneumonia vs extension of lung cancer vs mucous plugging with severe COPD Elevated procal could be from neoplastic process. -with worsening oxygen need again - consult pulmonology. -continue IV zosyn. -IS, flutter valve, nebs. -continue incentive spirometry, flutter valve, nebulizers Pancytopenia - wbc improved with Neupogen on admission. -platelet 25k- improving -hb 7.6 - stable. follow. PT/OT eval and treat ongoinganticipate [facility] at [facility] Subjective Patient seen and evaluated at bedside this morning. No acute events overnight. Now on 11l large bore NC. Not feeling much better today, states "it's all mental". Requiring 11L NC at this time Review of Systems Review of Systems: reviewed, per HPI Physical Exam Physical Exam: Constitutional: chronically ill appearing, NAD HEENT: NCAT CV: regular rhythm, extremities well-perfused, no LE edema Resp: 11L NC, diminished lung bases MSK: no gross deformities appreciated Skin: warm, dry, no rash appreciated Neuro: alert, oriented, no focal neurologic deficit appreciated Results & Data Results & Data Vital Signs (Past 12 Hours) Vital Signs Temp Pulse Pulse Resp BP Pulse Ox O2 Del Method 05/01/24 11:05 90 20 93 Nasal Cannula 05/01/24 10:55 36.4 C L 91 H 24 99/45 L 94 Nasal Cannula 05/01/24 07:19 36.5 C 89 20 151/83 H 92 Nasal Cannula 05/01/24 07:14 89 20 92 Nasal Cannula 05/01/24 07:00 95 H 05/01/24 02:40 36.6 C 78 20 143/77 H 98 Nasal Cannula O2 Flow Rate 05/01/24 11:05 11 05/01/24 10:55 11 05/01/24 07:19 9.0 05/01/24 07:14 9 05/01/24 07:00 05/01/24 02:40 6 Resident Activity Tracking Resident Involvement: Resident Care Provided Care Provided: Adult Hospital Medicine
[2024-05-01] MEDS: oxyCODONE HCL IR 5 MG TAB (IMMEDIATE RELEASE) PO STA (15:22)
--- NOTE | 2024-05-02 07:53 | Pulmonary Consultation ---
Date of Consultation May 02, 2024 Assessment & Plan (1) Acute and chronic respiratory failure with hypoxia: (2) Multifocal pneumonia: (3) Lung cancer metastatic to brain: (4) COPD (chronic obstructive pulmonary disease): Plan Impression: 74-year-old male with advanced adenocarcinoma of the lung now with progressive hypoxemic respiratory failure multifocal infiltrates. He did had an elevated procalcitonin on presentation and has been treated with aggressive antibiotics for 7 days but unfortunately clinical condition appears to be deteriorating with escalation of oxygen requirement and progression of pulmonary infiltrates. Pattern is highly concerning for pulmonary ICI toxicity. The patient is too unstable to consider bronchoscopy currently. Recommendations: 1. Diffuse pulmonary infiltrates with hypoxemic respiratory failure: Recommend initiation of high-dose Solu-Medrol 2 mg/kg and clinical and radiographic follow-up. If the patient deteriorates, consideration for pulsed dose might be appropriate but we will see how he does. Pembrolizumab should not be admin istered in the future. This would be grade 4 to grade 5 toxicity and is associated with significant morbidity and mortality 2. Patient is currently too unstable to consider bronchoscopy. Bronchoscopy may be useful in excluding other etiologies such as pulmonary hemorrhage (which would be treated by steroids) progression of malignancy, and potential infectious etiologies. Will recheck the patient's procalcitonin. Will also check BNP although the pattern is not consistent with atypical fluid overload. Other etiologies including PJP or fungal infections are likely. Will check galactomannan, urinary Legionella antigen, histoplasmosis antigen, and LDH. Patient has received 7 days of Zosyn which likely would be adequate. Continue until we are able to get repeat procalcitonin back. Repeating the sputum culture to see if we can get an adequate lower respiratory specimen would be appropriate 3. Lung cancer: Strongly recommend palliative care consultation in this patient with stage IV metastatic lung cancer in the event he fails to improve 4. Hypoxemic respiratory failure: Continue supplemental oxygen titrated to keep saturations at or above 88% Overall prognosis is guarded. Patient is significantly ill and a total of 75 minutes was spent in evaluation management stabilization of this patient History of Present Illness Attending Physician: Caroline Lehman MD History of Present Illness Asked by hospitalist to assist in evaluation management of this patient with metastatic non-small cell lung cancer currently undergoing chemo/immunotherapy with pulmonary infiltrates and hypoxemic respiratory failure. History is obtained from review electronic medical record as well as discussion with the patient at bedside. Patient is a 74-year-old male who has been seen by Dr. Hagan in the outpatient setting. He initially presented for evaluation of a subcarinal mass. EUS was performed with biopsy showing adenocarcinoma. staging was completed with MRI of the brain showing 2 punctate masses concerning for metastatic disease. He is seen by medical oncology and has been initiated on palliative chemoimmunotherapy with carboplatin and pemetrexed and pembrolizumab which started 03/04/2024. He is completed 3 cycles. He did develop some pruritus as well as dysphagia and itching. He presented to the hospital 04/25/2024 with shortness of breath and hypoxemia. He was pancytopenic. He had a CT scan showing multifocal airspace opacities. He received Solu-Medrol on presentation as well as Zosyn and vancomycin. Medical oncology consultation was obtained on presentation and the possibility of ICI toxicity was raised however it was felt the presentation initially was more consistent with multifocal pneumonia and the patient has received continued antibiotics. Unfortunately his oxygen requirement is escalated throughout his hospitalization. He is currently on 11 L with marginal saturations and tachypneic. He is day 7 Zosyn having received 2 days of vancomycin. He remains afebrile. The patient is coughing up some phlegm. An initial specimen was sent however it was contaminated with squamous epithelial cells. Cultures have been negative to date. Procalcitonin on presentation was elevated at 1.17. The patient denies any chest pain or palpitations. He has had some intermittent rash but states it is currently not an issue. He is not had any dysphagia or aspiration events Allergies Allergy/AdvReac Type Severity Reaction Status Date / Time No Known Allergies Allergy Unverified 04/07/24 11:07 Home Medications Medication Instructions Recorded Confirmed Type turmeric 400 mg capsule 400 mg PO DAILY 04/20/19 04/25/24 History Portable Oxygen #1 ea 01/29/24 04/25/24 Rx albuterol sulfate 90 mcg/actuation 2 puff inhalation Q6H PRN 01/30/24 04/25/24 Rx aerosol inhaler shortness of breath or wheezing #3 Inhalers oxycodone 5 mg capsule 5 mg PO TID PRN pain #90 caps 02/24/24 04/25/24 Rx tamsulosin 0.4 mg capsule 0.4 mg PO DAILY #90 caps 02/24/24 04/25/24 Rx fluticasone fur. 100 mcg-umeclid 1 inh inhalation DAILY #3 Inhalers 04/19/24 04/25/24 Rx 62.5 mcg-vilant 25 mcg inhalat.powder (Trelegy Ellipta) losartan 50 mg-hydrochlorothiazide 1 tab PO DAILY #90 tabs 04/19/24 04/25/24 Rx 12.5 mg tablet folic acid 1 mg tablet 1 mg PO DAILY 04/25/24 04/25/24 History Patient History Medical History JUAN JOSE (acute kidney injury) Leukocytosis Acute GI bleeding Symptomatic anemia Acute blood loss anemia Nocturnal hypoxia On 2L oxygen at night Surgical History S/P tonsillectomy History of cataract surgery Bilateral Family History Father , 65yo Myocardial infarction Mother , 96yo Natural with unknown cause Brother Medical history unknown Son No problems noted. Daughter No problems noted. Other Dementia Heart disease Hypertension Denies family history of Rheumatoid arthritis Sudden SIDS (sudden syndrome) Ovarian cancer Prostate cancer Diabetes Deep vein thrombosis Osteoporosis Coronary heart disease Dyslipidemia Cerebral aneurysm Alzheimer disease Bipolar disorder Clotting disorder Crohn's disease Depression Kidney disease Osteoarthritis Breast cancer Schizophrenia Congenital kidney disease Gestational diabetes Lung cancer COPD (chronic obstructive pulmonary disease) Colorectal cancer Pulmonary embolism Lung disease Cancer Ulcerative colitis Colonic polyp Stroke Asthma Cystic kidney disease Social History Smoking Status: Former smoker Tobacco Type: Cigarettes Age Started Using Tobacco: 19; Age Quit Using Tobacco: 70; packs per day: 1; Cigarettes Per Day: 20; Second Hand Exposure: No; Do You Dip or Chew Tobacco: No; Hx Alcohol Use: No Hx Substance Use: No Preferred Language: Hungarian Communication Ability: Effective Visual Impairment: No Limitations Hearing Ability: Normal Ballet Teacher Required: No Beliefs That Will Affect Care: None marital status: Current Living Situation: Alone Current Living Situation Comment: pt states lives alone in a house current occupational status: retired 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 No additions or deletions Physical Exam Constitutional: + ill appearing; not in distress Neck: trachea midline, no thyromegaly Respiratory: + labored breathing and + tachypneic; no cough Auscultation: + crackles and + rhonchi; no wheezes Cardiovascular: RRR, no murmur, no edema Gastrointestinal (Abdomen): normal bowel sounds, soft, nontender, no hepatosplenomegaly Musculoskeletal: Extremities: extremities normal to inspection Skin: no rashes, warm and dry Neurologic: Nonfocal exam Lymphatic: no cervical lymphadenopathy Results & Data Results & Data Vital Signs (Past 12 Hours) Vital Signs Temp Pulse Pulse Resp BP BP Pulse Ox 05/02/24 07:11 95 H 22 87 L 05/02/24 03:50 36.4 C L 88 16 125/78 94 05/02/24 00:00 05/01/24 23:41 36.7 C 99 H 16 138/84 94 05/01/24 23:00 98 H 05/01/24 20:25 36.4 C L 104 H 16 119/71 88 L 05/01/24 20:05 Pulse Ox O2 Del Method O2 Del Method O2 Flow Rate O2 Flow Rate 05/02/24 07:11 Nasal Cannula 11 05/02/24 03:50 High Flow Nasal Cannula 11 05/02/24 00:00 92 High Flow Nasal Cannula 11 05/01/24 23:41 High Flow Nasal Cannula 11 05/01/24 23:00 05/01/24 20:25 High Flow Nasal Cannula 11 05/01/24 20:05 High Flow Nasal Cannula 11 Critical Care Results & Data Vital Signs (Past 12 Hours) Vital Signs Temp Pulse Pulse Resp BP BP Pulse Ox 05/02/24 07:11 95 H 22 87 L 05/02/24 03:50 36.4 C L 88 16 125/78 94 05/02/24 00:00 05/01/24 23:41 36.7 C 99 H 16 138/84 94 05/01/24 23:00 98 H 05/01/24 20:25 36.4 C L 104 H 16 119/71 88 L 05/01/24 20:05 Pulse Ox O2 Del Method O2 Del Method O2 Flow Rate O2 Flow Rate 05/02/24 07:11 Nasal Cannula 11 05/02/24 03:50 High Flow Nasal Cannula 11 05/02/24 00:00 92 High Flow Nasal Cannula 11 05/01/24 23:41 High Flow Nasal Cannula 11 05/01/24 23:00 05/01/24 20:25 High Flow Nasal Cannula 11 05/01/24 20:05 High Flow Nasal Cannula 11 Lab & Micro Results (Past 24 Hours) No Data to Display No Data to Display No Data to Display Microbiology 04/25/24 16:35 Aerobic Blood Culture - Final Blood No growth in Aerobic bottle after 5 days. Anaerobic Blood Culture - Final No growth in Anaerobic bottle after 5 days. 04/25/24 16:51 Aerobic Blood Culture - Final Blood No growth in Aerobic bottle after 5 days. Anaerobic Blood Culture - Final No growth in Anaerobic bottle after 5 days. Diagnostic Findings (Past 24 Hours) CT of the chest from 04/25/2024 was independently reviewed. Multifocal interstitial opacities are identified. These appear to have progressed on the most recent chest x-ray. I & O Totals 24 Hours 05/01/24 05/02/24 05/03/24 06:59 06:59 06:59 Intake Total 1020 / 1020 1134.166 / 1134.166 Output Total 2701 / 2701 2175 / 2175 Balance -1681 / -1681 -1040.834 / -1040.834 Cumulative 04/25/24 16:01 thru 05/02/24 06:24 Intake Total 29545.333 Output Total 98184 Balance 1832.333 RT Ventilator Mngmt (Last Documented) Ventilator Ordered Settings Respiratory Rate 22 05/02/24 07:11 Fraction of Inspired Oxygen 40 04/25/24 19:15 Ventilator - PT Measurements Respiratory Rate 22 PG Care Time/CCT Total # of Minutes Spent Total Time Spent with Patient: Total time spent is greater than 50% in coordination of care (as documented) at patient's floor/unit and/or counseling patient: Coding Level of Care Code 01358 INT INP/OBS CARE 3/75MIN Diagnoses Acute and chronic respiratory failure with hypoxia J96.21 Multifocal pneumonia J18.9 Lung cancer metastatic to brain C34.90; C79.31 COPD (chronic obstructive pulmonary disease) J44.9
--- NOTE | 2024-05-02 08:09 | XRay Report ---
SINGLE VIEW CHEST CLINICAL HISTORY: Hypoxia FINDINGS: An AP, portable, upright chest radiograph is compared to study dated 04/29/2024 and correlat ed with chest CT dated 04/25/2024. The heart is enlarged noting atherosclerotic calcification and unco iling of the thoracic aorta. Fibrotic change in the left upper lung is unchanged. Advanced emphysema and chronic interstitial thickening is similar to previous. Multifocal airspace consolidation is aga in seen throughout both lungs with a mid to lower lobe predominance. This has worsened as compared to 04/29/2024. No large pleural effusion or pneumothorax is identified. The skeletal structures are oste openic. The bony thorax is grossly intact. IMPRESSION: 1. Cardiomegaly and advanced emphysema. 2. Multifocal airspace consolidation is again seen throughout both lungs. This has modestly worsened as compared to 04/29/2024 and the appearance favors multifocal pneumonia. Clinical correlation will be required and radiographic follow-up to resolution is recommended. ACT 112: Negative or not required by law. Electronically signed by: Basilio Ojeda M.D. 05/02/2024 8:07 AM
[2024-05-02 08:13] LABS: Basophils # (auto) 0.01 K/uL (0.00-0.20); Basophils % (auto) 0.1 %; Eosinophils # (auto) 0.01 K/uL (0.00-0.50); Eosinophils % (auto) 0.1 %; Hematocrit (blood only) 23.8 % (42.0-52.0); Hemoglobin 7.5 g/dl (14.0-18.0); Immature Granulocytes # (auto) 0.23 K/uL (0.01-0.20); Immature Granulocytes % (auto) 3.4 %; Lymphocytes # (auto) 0.76 K/uL (1.20-3.40); Lymphocytes % (auto) 11.1 %; Mean Corpuscular Hemoglobin 28.5 pg (25.0-34.0); Mean Corpuscular Hgb Conc 31.5 g/dL (32.0-36.0); Mean Corpuscular Volume 90.5 fL (80.0-100.0); Mean Platelet Volume 12.1 fL (9.4-12.4); Monocytes # (auto) 0.91 K/uL (0.11-0.59); Monocytes % (auto) 13.3 %; Platelet Count 52 K/uL (130-400); RDW Coefficient of Variation 21.4 % (11.5-14.5); RDW Standard Deviation 69.8 fL (36.4-46.3); Red Blood Count 2.63 M/uL (4.70-6.10); White Blood Count 6.82 K/ul (4.8-10.8)
[2024-05-02 08:26] LABS: Albumin Globulin Ratio 0.8 (0.9-2); Albumin Level 2.8 gm/dl (3.4-5.0); BUN Creatinine Ratio 14.7 (10-20); Bilirubin,Total 0.4 mg/dl (0.2-1.0); C Reactive Protein 12.89 mg/dl (0-0.5); Creatinine Clr Calc Pharmacy 62.9 ml/min; Est GFR (African American) 90.4 ml/min; Globulin 3.6 gm/dl (2.5-4.0); Magnesium 1.6 mg/dl (1.7-2.4); Potassium 4.1 mmol/L (3.5-5.1); Total Protein 6.4 gm/dl (6.0-8.3)
[2024-05-02] MEDS: methylPREDNISolone 60 MG in SYRINGE 0 ML IV SCH (08:38)
[2024-05-02 09:47] LABS: Anisocytosis Present; Polychromasia 1+
--- NOTE | 2024-05-02 12:04 | Hospitalist Progress Note ---
Date of Service May 02, 2024 Assessment & Plan (1) Acute and chronic respiratory failure with hypoxia: Plan 1) Acute respiratory failure with hypoxia/Multifocal pneumonia Multifocal PNA CT of the chest with PE protocol was negative for pulmonary emboli, pleural effusion, and pulmonary edema Goal O2 88-92% Incentive spirometry, flutter valve, scheduled DuoNebs q4 while awake - Sputum culture: positive for Vicki albicans/dubliniensis (on chemotherapy, s o most likely due to colonization) - Zosyn - Pulm consult as he is followed by their service outpatient Concern for Pembrolizumab toxicity high dose Solu-Medrol Testing for PJP, fungal, legionella, histoplasmosis Repeat sputum culture recommend palliative consult - ordered -Consult placed to oncology as well; Dr. Garnica is primary oncologist (2) Sepsis: - Blood Cx, negative after 48 hrs (3) Pancytopenia Patient noted to be pancytopenic on admission; counts improving Neutropenic precautions ordered SCDs for DVT prophylaxis w/ thrombocytopenia Likely due to chemotherapy and exacerbated with acute infection 480 micrograms of SQ Neupogen given upon admission Oncology consult placed as [facility] Daily CBC, H&H after blood transfusions (4) Hypokalemia, low-normal magnesium Goal K>4, Mg>2 Replete as indicated (5) Lung cancer metastatic to brain: Has completed 3 of 6 planned cycles of chemotherapy thus far oncology consult (6) Elevated troponin resolved HS trop peak 29 Suspect demand ischemia in setting of sepsis (7) COPD (chronic obstructive pulmonary disease): Care per acute hypoxic respiratory failure plan Code status: DNR/DNI Disposition: PCU-Tele DVT Prophylaxis: SCD FENGI: Heart Healthy, Soft bite-sized Admission and Anticipated Discharge Date Admission Date: April 25, 2024 Supervising Physician Co-Signing Physician Notes Attending Physician Supervision Note: I independently interviewed and examined the patient and verified the caldwell history and physical, reviewed labs and image studies and agree with findings and care plan noted above. Multifocal infiltrate - having treated appropriately with abx - presented highly concerning of Pulmonary ICI - Pembrolizumab. Severe underlying COPD Pul consulted -ICI - Start high dose IV steroids. -follow clinical and radiographic progress. -If deteriorates - to consider pulsed dose. -Too unstable to consider Bronchoscopy to r/o Pul hemorrhage(would be treated with steroids)/progression of malignancy and other infectious etiologies. -recheck procal -check BNP -check galactomannan - for fungal etiology including PJP. -urine legionella ag -histoplasma antigen -LDH. -continue zosyn -recheck sputum cx Lung ca- consult palliative and oncology. Acute hypoxic respiratory failure- Oxygen support for goal SaO2 88% and above. Pancytopenia - wbc improved with Neupogen on admission. -platelet 52k- improving -hb 7.5 - stable. follow. SCD PT/OT eval and treat ongoinganticipate [facility] at [facility] Subjective Patient seen and evaluated at bedside this morning. Increasing O2 requirement, now on 13L. Pt without complaints, in NAD. Episode of atrial flutter during encounter this morning. Spontaneously converted to NSR before 12 lead could be captured. 12 lead RBBB, poor quality. Review of Systems Review of Systems: reviewed, per HPI Physical Exam Physical Exam: Constitutional: chronically ill appearing, NAD HEENT: NCAT CV: regular rhythm, extremities well-perfused, no LE edema Resp: 13L NC, diminished lung bases MSK: no gross deformities appreciated Skin: warm, dry, no rash appreciated Neuro: alert, oriented, no focal neurologic deficit appreciated Results & Data Results & Data Vital Signs (Past 12 Hours) Vital Signs Temp Pulse Pulse Resp BP BP Pulse Ox 05/02/24 11:21 90 20 92 05/02/24 08:53 37 C 95 H 20 127/80 92 05/02/24 07:11 95 H 22 87 L 05/02/24 07:00 99 H 05/02/24 03:50 36.4 C L 88 16 125/78 94 05/02/24 00:00 Pulse Ox O2 Del Method O2 Del Method O2 Flow Rate O2 Flow Rate 05/02/24 11:21 Nasal Cannula 13 05/02/24 08:53 Nasal Cannula 13 05/02/24 07:11 Nasal Cannula 11 05/02/24 07:00 05/02/24 03:50 High Flow Nasal Cannula 11 05/02/24 00:00 92 High Flow Nasal Cannula 11 Resident Activity Tracking Resident Involvement: Resident Care Provided Care Provided: Adult Hospital Medicine
--- NOTE | 2024-05-03 07:04 | Hospitalist Progress Note ---
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 #Acute respiratory failure with hypoxia in the setting of multifocal pneumonia Multifocal PNA CT of the chest with PE protocol was negative for pulmonary emboli, pleural effusion, and pulmonary edema on admission Continue incentive spirometry, flutter valve, scheduled DuoNebs q4 while awake Goal O2 88-92%, wean O2 as tolerated to this goal range - Sputum culture: positive for Vicki albicans/dubliniensis (on chemotherapy, so most likely due to colonization) - Zosyn finished 05/03 for full 7 day course - Pulm consult as he is followed by their service outpatient; Concern for Pembrolizumab toxicity so avoid this high dose Solu-Medrol started, continue today Testing for PJP, fungal, legionella, histoplasmosis; pending Repeat sputum culture; pending recommend palliative consult; pending -Consult placed to oncology as well; Dr. Garnica is primary oncologist; pending recs #Sepsis: - Blood Cx, negative after 48 hrs #Pancytopenia -Patient noted to be pancytopenic on admission; counts improving -Neutropenic precautions ordered -SCDs for DVT prophylaxis w/ thrombocytopenia -Likely due to chemotherapy and exacerbated with acute infection -480 micrograms of SQ Neupogen given upon admission -Oncology consult placed as [facility] -will give 2 units PRBCs today for morning hemoglobin 7.1 #Hypokalemia, low-normal magnesium Goal K>4, Mg>2 Replete as indicated #Lung cancer metastatic to brain: Has completed 3 of 6 planned cycles of chemotherapy thus far oncology consult #Elevated troponin resolved HS trop peak 29 Suspect demand ischemia in setting of sepsis #COPD (chronic obstructive pulmonary disease): Care per acute hypoxic respiratory failure plan IVF; none DVT Prophylaxis: SCD Admission and Anticipated Discharge Date Admission Date: April 25, 2024 Supervising Physician Co-Signing Physician Notes Attending Physician Supervision Note: I independently interviewed and examined the patient and verified the caldwell history and physical, reviewed labs and image studies and agree with findings and care plan noted above. Multifocal infiltrate - having treated appropriately with abx - presented highly concerning of Pulmonary ICI toxicity - Pembrolizumab. Severe underlying COPD Pul consulted -ICI toxicity - Started high dose IV steroids 05/02 -follow clinical and radiographic progress. -If deteriorates - to consider pulsed dose. -Oncology considering infliximab as salvage therapy for ICI toxicity. -Too unstable to consider Bronchoscopy to r/o Pul hemorrhage(would be treated with steroids)/progression of malignancy and other infectious etiologies. -galactomannan pending - for fungal etiology including PJP. -urine legionella ag pending -histoplasma antigen pending -d/c continue zosyn -Added Bactrim MWF for prophylaxis. Lung ca with metastasis - consulted palliative and oncology. Acute hypoxic respiratory failure- Oxygen support for goal SaO2 88% and above. Pancytopenia - wbc improved with Neupogen on admission. -platelet 58k- improving -hb 7.1 - transfused 2 units of PRBC 05/03. 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 Today, pt states he really feels about the same as he has felt the last few days. He states his appetite is fine and his breathing feels no better or worse than yesterday. He notes that he has dismissed RT the last few times they have tried to see him because he states they have not been helpful. Otherwise, he has no questions or complaints. No chest pain but mild shortness of breath noted. Explained to him his hemoglobin this morning was 7.1 and he is agreeable to transfusion if needed. Review of Systems Review of Systems: Per HPI. Physical Exam Physical Exam: General:Alert and oriented, no acute distress, chronically ill appearing HEENT: Normocephalic, moist oral mucosa, Cardio: Regular rate and rhythm, no murmur, Resp:No wheezes on exam at this time, faint bibasilar crackles heard but otherwise clear to auscultation GI: Soft and nontender, nondistended, bowel sounds active Skin: Warm, pink, dry, Results & Data Results & Data Vital Signs (Past 12 Hours) Vital Signs Temp Pulse Pulse Resp BP BP Pulse Ox 05/03/24 03:03 37 C 74 18 136/82 98 05/03/24 00:00 05/02/24 23:11 36.6 C 96 H 18 141/95 H 94 05/02/24 21:40 05/02/24 19:53 36.4 C L 94 H 22 149/86 H 94 05/02/24 19:39 90 17 94 Pulse Ox O2 Del Method O2 Del Method O2 Flow Rate O2 Flow Rate 05/03/24 03:03 High Flow Nasal Cannula 12 05/03/24 00:00 94 High Flow Nasal Cannula 12 05/02/24 23:11 High Flow Nasal Cannula 12 05/02/24 21:40 High Flow Nasal Cannula 05/02/24 19:53 High Flow Nasal Cannula 13 05/02/24 19:39 Nasal Cannula 13 Resident Activity Tracking Resident Involvement: Resident Care Provided Care Provided: Adult Hospital Medicine
[2024-05-03 07:10] LABS: Basophils # (auto) 0.01 K/uL (0.00-0.20); Basophils % (auto) 0.2 %; Hematocrit (blood only) 22.6 % (42.0-52.0); Hemoglobin 7.1 g/dl (14.0-18.0); Immature Granulocytes # (auto) 0.12 K/uL (0.01-0.20); Immature Granulocytes % (auto) 2.8 %; Lymphocytes # (auto) 0.55 K/uL (1.20-3.40); Lymphocytes % (auto) 12.9 %; Mean Corpuscular Hemoglobin 28.3 pg (25.0-34.0); Mean Corpuscular Hgb Conc 31.4 g/dL (32.0-36.0); Monocytes # (auto) 0.33 K/uL (0.11-0.59); Monocytes % (auto) 7.7 %; Neutrophils # (auto) 3.26 K/uL (1.40-6.50); Neutrophils % (auto) 76.4 %; Platelet Count 58 K/uL (130-400); RDW Coefficient of Variation 20.8 % (11.5-14.5); RDW Standard Deviation 67.6 fL (36.4-46.3); Red Blood Count 2.51 M/uL (4.70-6.10); White Blood Count 4.27 K/ul (4.8-10.8)
[2024-05-03] MEDS ORDERED: SODIUM CHLORIDE 0.9% 250 ML IV PRN ×2 (07:22→09:15)
[2024-05-03 07:26] LABS: Albumin Globulin Ratio 0.8 (0.9-2); Albumin Level 2.8 gm/dl (3.4-5.0); BUN Creatinine Ratio 23.9 (10-20); Bilirubin,Total 0.3 mg/dl (0.2-1.0); Calcium 9.3 mg/dl (8.6-10.3); Creatinine Clr Calc Pharmacy 64.8 ml/min; Est GFR (Non-African American) 81.1 ml/min; Globulin 3.4 gm/dl (2.5-4.0); Magnesium 1.5 mg/dl (1.7-2.4); Potassium 4.5 mmol/L (3.5-5.1); Total Protein 6.2 gm/dl (6.0-8.3)
[2024-05-03 07:50] LABS: Polychromasia 1+
[2024-05-03] MEDS: MAGNESIUM SULFATE / D5W 1 GM/100 ML BAG IV SCH (08:05)
--- NOTE | 2024-05-03 08:23 | XRay Report ---
SINGLE VIEW CHEST CLINICAL HISTORY: Respiratory failure. FINDINGS: An AP, portable, upright chest radiograph is compared to study dated 05/02/2024 and correlat ed with chest CT dated 04/25/2024. The heart is enlarged noting atherosclerotic calcification and unco iling of the thoracic aorta. Fibrotic change in the left upper lung is unchanged. Advanced emphysema and chronic interstitial thickening is similar to previous. Multifocal airspace consolidation is aga in seen throughout both lungs with a mid to lower lobe predominance. This has not appreciably changed from yesterday. No large pleural effusion or pneumothorax is identified. The skeletal structures are osteopenic. The bony thorax is grossly intact. IMPRESSION: 1. Cardiomegaly and advanced emphysema. 2. Multifocal airspace consolidation is again seen throughout both lungs. This has not appreciably ch anged from yesterday. Clinical correlation will be required and radiographic follow-up to resolution is recommended. ACT 112: Negative or not required by law. Electronically signed by: Basilio Ojeda M.D. 05/03/2024 8:22 AM
--- NOTE | 2024-05-03 11:35 | Electrocardiogram Report ---
Test Reason : Blood Pressure : / mmHG Vent. Rate : 093 BPM Atrial Rate : 093 BPM P-R Int : 146 ms QRS Dur : 122 ms QT Int : 400 ms P-R-T Axes : 027 -20 050 degrees QTc Int : 497 ms Poor data quality, interpretation may be adversely affected Normal sinus rhythm Right bundle branch block Possible Old Inferior infarct Abnormal ECG When compared with ECG of 25-APR-2024 16:21, Borderline Criteria for Inferior infarct now present Premature ventricular complexes are no longer Present Confirmed by Nhan Mas ([id number]) on 05/03/2024 11:34:29 AM Referred By: REFERRED SELF Confirmed By:Nhan Mas
--- NOTE | 2024-05-03 11:43 | Hematology/Oncology Prog Note ---
Date of Service May 03, 2024 Assessment & Plan (1) Acute and chronic respiratory failure with hypoxia: (2) Chronic respiratory failure with hypoxia: (3) Adenocarcinoma of lung, stage 4: Plan -Currently on methylprednisolone 2 mg/kg/day for possible Grade 3 immune mediated pneumonitis. If oxygen requirement does not improve over the next 48 hours, consider a dose of infliximab 5 mg/kg. Will need hepatitis panel prior to infliximab.Would also need to have negative infectious workup prior to starting. -Agree with transfusing with 1 unit PRBC today for hemoglobin less than 7.5 Admission and Anticipated Discharge Date Admission Date: April 25, 2024 Subjective Oxygen requirement increasing despite being on antibiotics for about a week. Seen by pulmonology yesterday who started him on IV methylprednisolone 2 mg/kg/day for possible immune mediated pneumonitis. Being transfused with 1 unit PRBC for hemoglobin of 7.1 Results & Data Vital Signs (Past 12 Hours) Vital Signs Temp Pulse Pulse Resp BP BP Pulse Ox 05/03/24 11:26 94 H 22 95 05/03/24 11:09 36.4 C L 88 20 182/93 H 95 05/03/24 11:07 36.4 C L 92 H 20 182/93 H 95 05/03/24 10:39 88 18 171/95 H 96 05/03/24 10:24 36.5 C 85 18 162/92 H 96 05/03/24 10:24 36.5 C 85 18 162/92 H 96 05/03/24 10:00 36.4 C L 91 H 18 156/95 H 93 05/03/24 07:48 36.5 C 89 21 166/96 H 94 05/03/24 03:03 37 C 74 18 136/82 98 05/03/24 00:00 Pulse Ox O2 Del Method O2 Del Method O2 Flow Rate O2 Flow Rate 05/03/24 11:26 Nasal Cannula 12 05/03/24 11:09 05/03/24 11:07 12 05/03/24 10:39 05/03/24 10:24 05/03/24 10:24 05/03/24 10:00 12 05/03/24 07:48 High Flow Nasal Cannula 12 05/03/24 03:03 High Flow Nasal Cannula 12 05/03/24 00:00 94 High Flow Nasal Cannula 12 (3) Adenocarcinoma of lung, stage 4 Laterality: unspecified laterality Qualified Code(s): C34.90 - Malignant neoplasm of unspecified part of unspecified bronchus or lung
--- NOTE | 2024-05-03 14:44 | Pulmonology Progress Note ---
Date of Service May 03, 2024 Assessment & Plan (1) Acute and chronic respiratory failure with hypoxia: (2) Multifocal pneumonia: (3) Lung cancer metastatic to brain: (4) COPD (chronic obstructive pulmonary disease): Plan Impression: 74-year-old male with advanced adenocarcinoma of the lung now with progressive hypoxemic respiratory failure multifocal infiltrates. He did had an elevated procalcitonin on presentation and has been treated with aggressive antibiotics for 7 days but unfortunately clinical condition appears to be deteriorating with escalation of oxygen requirement and progression of pulmonary infiltrates. Pattern is highly concerning for pulmonary ICI toxicity. The patient is too unstable to consider bronchoscopy currently. Recommendations: 1. Diffuse pulmonary infiltrates with hypoxemic respiratory failure: Continue with IV methylprednisone. Oncology considering the initiation of infliximab as salvage therapy for ICI toxicity. Recommend initiating PJP prophylaxis with Bactrim every Friday, Friday and Friday. 2. Patient is currently too unstable to consider bronchoscopy. Bronchoscopy may be useful in excluding other etiologies such as pulmonary hemorrhage (which would be treated by steroids) progression of malignancy, and potential infectious etiologies. Procalcitonin and BNP were unremarkable. Discontinuing antibiotics at this time is reasonable. 3. Lung cancer: Recommend palliative care consultation. 4. Hypoxemic respiratory failure: Continue supplemental oxygen titrated to keep saturations at or above 88% Overall prognosis is guarded. Case discussed with bedside nurse and patient's hospitalist. Admission and Anticipated Discharge Date Admission Date: April 25, 2024 Subjective Lengthy discussion with patient and at bedside. All questions answered to the best of my ability. Patient's satisfied with the answers. He reports his symptoms are similar to yesterday and he has breathlessness with minimal activity such as sitting up. Minimal cough at this time. He has not been using his incentive spirometer. He notes that he has been using his flutter valve. Review of Systems Review of Systems: All systems reviewed & are unremarkable except as noted in HPI & below Physical Exam Constitutional: + ill appearing; not in distress Neck: trachea midline, no thyromegaly Respiratory: + labored breathing and + tachypneic; no cough Auscultation: + crackles and + rhonchi; no wheezes Cardiovascular: RRR, no murmur, no edema Gastrointestinal (Abdomen): normal bowel sounds, soft, nontender, no hepatosplenomegaly Musculoskeletal: Extremities: extremities normal to inspection Skin: no rashes, warm and dry Neurologic: Nonfocal exam Lymphatic: no cervical lymphadenopathy Results & Data Results & Data Vital Signs (Past 12 Hours) Vital Signs Temp Pulse Pulse Resp BP BP Pulse Ox 05/03/24 14:38 119 H 22 90 05/03/24 13:47 99 H 20 165/96 H 95 05/03/24 13:43 101 H 20 164/97 H 97 05/03/24 13:13 104 H 20 170/102 H 88 L 05/03/24 12:58 36.4 C L 99 H 20 160/100 H 94 05/03/24 12:39 36.5 C 99 H 20 158/91 H 92 05/03/24 12:24 36.5 C 97 H 20 169/97 H 94 05/03/24 12:09 36.4 C L 104 H 20 168/109 H 93 05/03/24 11:26 94 H 22 95 05/03/24 11:09 36.4 C L 88 20 182/93 H 95 05/03/24 11:07 36.4 C L 92 H 20 182/93 H 95 05/03/24 10:39 88 18 171/95 H 96 05/03/24 10:24 36.5 C 85 18 162/92 H 96 05/03/24 10:24 36.5 C 85 18 162/92 H 96 05/03/24 10:00 36.4 C L 91 H 18 156/95 H 93 05/03/24 07:48 36.5 C 89 21 166/96 H 94 05/03/24 07:00 05/03/24 03:03 37 C 74 18 136/82 98 O2 Del Method O2 Flow Rate 05/03/24 14:38 Nasal Cannula 7 05/03/24 13:47 05/03/24 13:43 05/03/24 13:13 05/03/24 12:58 05/03/24 12:39 12 05/03/24 12:24 05/03/24 12:09 12 05/03/24 11:26 Nasal Cannula 12 05/03/24 11:09 05/03/24 11:07 12 05/03/24 10:39 05/03/24 10:24 05/03/24 10:24 05/03/24 10:00 12 05/03/24 07:48 High Flow Nasal Cannula 12 05/03/24 07:00 High Flow Nasal Cannula 05/03/24 03:03 High Flow Nasal Cannula 12 PG Care Time/CCT Total # of Minutes Spent Total Time Spent with Patient: Total time spent is greater than 50% in coordination of care (as documented) at patient's floor/unit and/or counseling patient: Coding Level of Care Code 89239 SUB INP/OBS CARE 3/50MIN Diagnoses Acute and chronic respiratory failure with hypoxia J96.21 Multifocal pneumonia J18.9 Lung cancer metastatic to brain C34.90; C79.31 COPD (chronic obstructive pulmonary disease) J44.9
--- NOTE | 2024-05-03 15:31 | XRay Report ---
XR chest 1V portable CLINICAL HISTORY: Possible aspiration. COMPARISON STUDY: Chest CT April 25, 2024. Chest radiograph performed earlier today. FINDINGS: No pneumothorax or pleural effusion is present. There is no evidence for pulmonary edema. C ardiomediastinal silhouette is stable. Multifocal airspace opacities throughout the lungs have slight ly improved. This may be technical. There is underlying emphysema. IMPRESSION: Persistent multifocal airspace opacities, stable to slightly improved since prior exam. The findings favor pneumonia or aspiration pneumonitis. ACT 112: Negative or not required by law. Electronically signed by: Ricki Stout M.D. 05/03/2024 3:30 PM
[2024-05-03] MEDS ORDERED: SULFA/TRIMETH 400/80MG TAB PO SCH (15:45)
--- NOTE | 2024-05-03 16:34 | Palliative Care Consultation ---
Date of Consultation May 03, 2024 Assessment & Plan (1) Dyspnea and respiratory abnormalities: (2) Advanced care planning/counseling discussion: 45-minute advance care planning discussion was held with patient [id number] with his ex-, and, present by phone (speaker phone). He reports an understanding that he has an advanced lung cancer but that he is just initiated therapy and it is hopeful that the medicines will "fix things so that I am right again." And states that she would like more in-depth information about the overall complexity of his medical issues and would like to schedule a more [id number] in person meeting. We agreed to meet tomorrow at the bedside at 11 AM. Patient states that and is his primary support. Although they are , they have remained friendly through the years. He has 2 children who live in [place] and out of state. He is not close to either them and admits to an estranged relationship. They have not been updated about his medical condition nor does he feel they need to be at this time. He does not have other support when questioned however he states that "if I need help, I have friends who would help." And feels this is not sufficient. She feels he needs more help than he is allowing providers to be aware about and she worries about his safety. We discussed his overall respiratory decline and the fact that this is pneumonitis due to his immune checkpoint inhibitor therapy (pembrolizumab). He will not be able to start this medication again. Further determinations with regards to continuation of his chemo will be determined by oncology once he is over this acute admission. He anticipates a preference for being discharged home however and states she feels he should not be allowed to go home without going to rehab first. We agreed to discuss these and other issues further in depth tomorrow during our [id number] meeting. Patient has already elected and reaffirms a no CODE STATUS, CODE STATUS is noted to be DNR/DNI. He is clear that ultimately if he is not improving or his disease is worsening in time is more limited he would prefer to be at home and optimize what ever time he may have with his) as well as AN. He continues to insist he does not want his children involved or notified of the current issues. (3) Palliative care by specialist: Discussed Palliative Medicine provides specialized medical care for patients with a serious illness. We offer a focus on quality of life through reduction of symptom burden/more control over their illness, for patients and their family. Palliative Medicine interventions can be given along with curative treatment. I specifically clarified we are not hospice, which is a visiting nurse service that focuses on care delivered at the very end of life. Plan As above Thank you for allowing us to participate in the ongoing care of this patient. Please page with any additional concerns. Dylan An DNP Director, Palliative Medicine History of Present Illness Reason for Consultation: Goals of care, poor prognosis, new lung cancer Attending Physician: Caroline Lehman MD History of Present Illness 74-year-old gentleman admitted with acute on chronic respiratory failure (hypoxic) with adenocarcinoma of the lung, stage IV. 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 His oxygen requirement does not improve over the next 48 hours, dose of infliximab 5 mg/kg has been recommended by oncology. Reports initially being diagnosed in February of this year. He had a subcarinal mass for which biopsy demonstrated adenocarcinoma. MRI of the brain revealed 2 punctate masses concerning for metastatic disease. He was initiated on palliative chemotherapy with carboplatin and pemetrexed. Along with pembrolizumab beginning 03/04/2024. He has completed 3 cycles and reports that he did develop some pruritus and dysphagia. On 04/25/2024 he presented to the hospital with shortness of breath and hypoxemia and was found to be pancytopenic. CAT scan at that time demonstrated multifocal airspace opacities and he was started on Zosyn, bank, Solu-Medrol. A concern of ICI toxicity was noted however the initial presentation did seem more consistent with a multifocal pneumonia. Unfortunately, his oxygen requirement has been escalating throughout this hospitalization and he presently on 11 L with marginal saturations. He remains tachypneic. He has a loose rattling bronchitic cough. At times he will expectorate some sputum that has been puckett to clear. Cultures have been negative to date. Procalcitonin was elevated on admission (1.17.) He is currently receiving a unit of red blood cells at the time of my visit. He is not felt to be stable at this time for bronchoscopy. He states that he was overall feeling progressively more short of breath and weak for period of 2 weeks prior to coming to the hospital. He had sudden onset lower abdominal pain as well. He was started on antibiotics for presumptive pneumonia without substantial improvement. Yesterday, he was started on IV methylprednisolone 2 mg/kg/day for suspected pneumonitis.His imaging demonstrates diffuse pulmonary infiltrates. Overall, prognosis remains guarded. At the time of my evaluation, patient was on a phone call with his ex-, who he identifies as his primary support. She has to stay present by speaker phone for the duration of this consultation. Her name is Kanwal Garner. Allergies Allergy/AdvReac Type Severity Reaction Status Date / Time No Known Allergies Allergy Unverified 04/07/24 11:07 Home Medications Medication Instructions Recorded Confirmed Type turmeric 400 mg capsule 400 mg PO DAILY 04/20/19 04/25/24 History Portable Oxygen #1 ea 01/29/24 04/25/24 Rx albuterol sulfate 90 mcg/actuation 2 puff inhalation Q6H PRN 01/30/24 04/25/24 Rx aerosol inhaler shortness of breath or wheezing #3 Inhalers oxycodone 5 mg capsule 5 mg PO TID PRN pain #90 caps 02/24/24 04/25/24 Rx tamsulosin 0.4 mg capsule 0.4 mg PO DAILY #90 caps 02/24/24 04/25/24 Rx fluticasone fur. 100 mcg-umeclid 1 inh inhalation DAILY #3 Inhalers 04/19/24 04/25/24 Rx 62.5 mcg-vilant 25 mcg inhalat.powder (Trelegy Ellipta) losartan 50 mg-hydrochlorothiazide 1 tab PO DAILY #90 tabs 04/19/24 04/25/24 Rx 12.5 mg tablet folic acid 1 mg tablet 1 mg PO DAILY 04/25/24 04/25/24 History Patient History Medical History JUAN JOSE (acute kidney injury) Leukocytosis Acute GI bleeding Symptomatic anemia Acute blood loss anemia Nocturnal hypoxia On 2L oxygen at night Surgical History S/P tonsillectomy History of cataract surgery Bilateral Family History Father , 65yo Myocardial infarction Mother , 96yo Natural with unknown cause Brother Medical history unknown Son No problems noted. Daughter No problems noted. Other Dementia Heart disease Hypertension Denies family history of Rheumatoid arthritis Sudden SIDS (sudden syndrome) Ovarian cancer Prostate cancer Diabetes Deep vein thrombosis Osteoporosis Coronary heart disease Dyslipidemia Cerebral aneurysm Alzheimer disease Bipolar disorder Clotting disorder Crohn's disease Depression Kidney disease Osteoarthritis Breast cancer Schizophrenia Congenital kidney disease Gestational diabetes Lung cancer COPD (chronic obstructive pulmonary disease) Colorectal cancer Pulmonary embolism Lung disease Cancer Ulcerative colitis Colonic polyp Stroke Asthma Cystic kidney disease Social History Smoking Status: Former smoker Tobacco Type: Cigarettes Age Started Using Tobacco: 19; Age Quit Using Tobacco: 70; packs per day: 1; Cigarettes Per Day: 20; Second Hand Exposure: No; Do You Dip or Chew Tobacco: No; Hx Alcohol Use: No Hx Substance Use: No Preferred Language: Tunisian Communication Ability: Effective Visual Impairment: No Limitations Hearing Ability: Normal Abrasive Wheel Molder Required: No Beliefs That Will Affect Care: None marital status: Current Living Situation: Alone Current Living Situation Comment: pt states lives alone in a house current occupational status: retired 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 Bitemporal wasting noted. Conversational dyspnea noted. Use of accessory muscles noted. Trachea is midline, there is no JVD, there is no thyromegaly. He has a bronchitic wet cough. There are crackles and rhonchi throughout, there is no audible wheezing. Heart tones are S1-S2, there is no peripheral edema noted. Abdomen is soft, nontender with bowel sounds noted. His extremities are normal without peripheral edema. Generalized weakness. His skin is pale, warm and otherwise dry with a few scattered ecchymoses noted. He is awake alert and oriented x 3, at times his speech is pressured. Results & Data Vital Signs (Past 12 Hours) Vital Signs Temp Pulse Pulse Resp BP BP Pulse Ox 05/03/24 14:43 36.5 C 123 H 20 142/82 H 90 05/03/24 14:38 119 H 22 90 05/03/24 13:47 99 H 20 165/96 H 95 05/03/24 13:43 101 H 20 164/97 H 97 05/03/24 13:13 104 H 20 170/102 H 88 L 05/03/24 12:58 36.4 C L 99 H 20 160/100 H 94 05/03/24 12:39 36.5 C 99 H 20 158/91 H 92 05/03/24 12:24 36.5 C 97 H 20 169/97 H 94 05/03/24 12:09 36.4 C L 104 H 20 168/109 H 93 05/03/24 11:26 94 H 22 95 05/03/24 11:09 36.4 C L 88 20 182/93 H 95 05/03/24 11:07 36.4 C L 92 H 20 182/93 H 95 05/03/24 10:39 88 18 171/95 H 96 05/03/24 10:24 36.5 C 85 18 162/92 H 96 05/03/24 10:24 36.5 C 85 18 162/92 H 96 05/03/24 10:00 36.4 C L 91 H 18 156/95 H 93 05/03/24 07:48 36.5 C 89 21 166/96 H 94 05/03/24 07:00 O2 Del Method O2 Flow Rate 05/03/24 14:43 7.0 05/03/24 14:38 Nasal Cannula 7 05/03/24 13:47 05/03/24 13:43 05/03/24 13:13 05/03/24 12:58 05/03/24 12:39 12 05/03/24 12:24 05/03/24 12:09 12 05/03/24 11:26 Nasal Cannula 12 05/03/24 11:09 05/03/24 11:07 12 05/03/24 10:39 05/03/24 10:24 05/03/24 10:24 05/03/24 10:00 12 05/03/24 07:48 High Flow Nasal Cannula 12 05/03/24 07:00 High Flow Nasal Cannula Laboratory Results 05/03/24 05/03/24 05/02/24 Range/Units 07:30 06:45 16:40 WBC 4.27 L (4.8-10.8) K/ul RBC 2.51 L (4.70-6.10) M/uL Hgb 7.1 L (14.0-18.0) g/dl Hct 22.6 L (42.0-52.0) % MCV 90.0 (80.0-100.0) fL MCH 28.3 (25.0-34.0) pg MCHC 31.4 L (32.0-36.0) g/dL RDW Std Deviation 67.6 H (36.4-46.3) fL RDW Coeff of Ge 20.8 H (11.5-14.5) % Plt Count 58 L (130-400) K/uL MPV 11.0 (9.4-12.4) fL Immature Gran % (Auto) 2.8 % Neut % (Auto) 76.4 % Lymph % (Auto) 12.9 % [place] % (Auto) 7.7 % Eos % (Auto) 0.0 % Baso % (Auto) 0.2 % Neut # (Auto) 3.26 (1.40-6.50) K/uL Lymph # (Auto) 0.55 L (1.20-3.40) K/uL [place] # (Auto) 0.33 (0.11-0.59) K/uL Eos # (Auto) 0.00 (0.00-0.50) K/uL Baso # (Auto) 0.01 (0.00-0.20) K/uL Immature Gran # (Auto) 0.12 (0.01-0.20) K/uL Absolute Nucleated RBC (0.00-0.12) K/uL Nucleated RBC % (auto) % Toxic Granulation Dohle Bodies Polychromasia 1+ Anisocytosis Spherocytes PT (9.0-12.0) Seconds INR (0.9-1.1) VBG pH (7.36-7.41) VBG pCO2 (38-50) mmHg VBG pO2 mmHg VBG HCO3 mmol/L VBG O2 Saturation % VBG Base Excess mEq/L Sodium 136 (136-145) mmol/L Potassium 4.5 (3.5-5.1) mmol/L Chloride 98 (98-107) mmol/L Carbon Dioxide 33 H (21-32) mmol/L Anion Gap 5 (3-11) BUN 22 (6-23) mg/dl Creatinine 0.92 (0.6-1.4) mg/dl Est Cr Clr Drug Dosing 64.8 ml/min Est GFR ( Amer) 94.0 ml/min Est GFR (Non-Af Amer) 81.1 ml/min BUN/Creatinine Ratio 23.9 H (10-20) Glucose 221 H (70-99(Fasting)) mg/dl Calcium 9.3 (8.6-10.3) mg/dl Magnesium 1.5 L (1.7-2.4) mg/dl Total Bilirubin 0.3 (0.2-1.0) mg/dl AST 14 (13-39) U/L ALT 20 (7-52) U/L Alkaline Phosphatase 104 (34-104) U/L Lactate Dehydrogenase (86-244) U/L C-Reactive Protein (0-0.5) mg/dl Total Protein 6.2 (6.0-8.3) gm/dl Albumin 2.8 L (3.4-5.0) gm/dl Globulin 3.4 (2.5-4.0) gm/dl Albumin/Globulin Ratio 0.8 L (0.9-2) Vitamin B12 (180-914) pg/ml Folate (>5.38) ng/ml Procalcitonin (0-0.5) ng/ml U Histopl Galactoman Ag Pending Urine Legionella Ag Pending Beta-(1,3)-D-Glucan B-(1,3)-D-Glucan Intrp Blood Type A Positive Antibody Screen NEGATIVE Crossmatch See Detail 05/02/24 05/02/24 04/30/24 Range/Units 08:20 07:52 09:32 WBC 6.82 (4.8-10.8) K/ul RBC 2.63 L (4.70-6.10) M/uL Hgb 7.5 L (14.0-18.0) g/dl Hct 23.8 L (42.0-52.0) % MCV 90.5 (80.0-100.0) fL MCH 28.5 (25.0-34.0) pg MCHC 31.5 L (32.0-36.0) g/dL RDW Std Deviation 69.8 H (36.4-46.3) fL RDW Coeff of Ge 21.4 H (11.5-14.5) % Plt Count 52 L (130-400) K/uL MPV 12.1 (9.4-12.4) fL Immature Gran % (Auto) 3.4 % Neut % (Auto) 72.0 % Lymph % (Auto) 11.1 % [place] % (Auto) 13.3 % Eos % (Auto) 0.1 % Baso % (Auto) 0.1 % Neut # (Auto) 4.90 (1.40-6.50) K/uL Lymph # (Auto) 0.76 L (1.20-3.40) K/uL [place] # (Auto) 0.91 H (0.11-0.59) K/uL Eos # (Auto) 0.01 (0.00-0.50) K/uL Baso # (Auto) 0.01 (0.00-0.20) K/uL Immature Gran # (Auto) 0.23 H (0.01-0.20) K/uL Absolute Nucleated RBC (0.00-0.12) K/uL Nucleated RBC % (auto) % Toxic Granulation Dohle Bodies Polychromasia 1+ Anisocytosis Present Spherocytes PT (9.0-12.0) Seconds INR (0.9-1.1) VBG pH 7.48 H (7.36-7.41) VBG pCO2 46 (38-50) mmHg VBG pO2 46 mmHg VBG HCO3 34 mmol/L VBG O2 Saturation 79.3 % VBG Base Excess 9.4 mEq/L Sodium 136 (136-145) mmol/L Potassium 4.1 (3.5-5.1) mmol/L Chloride 96 L (98-107) mmol/L Carbon Dioxide 35 H (21-32) mmol/L Anion Gap 5 (3-11) BUN 14 (6-23) mg/dl Creatinine 0.95 (0.6-1.4) mg/dl Est Cr Clr Drug Dosing 62.9 ml/min Est GFR ( Amer) 90.4 ml/min Est GFR (Non-Af Amer) 78.0 ml/min BUN/Creatinine Ratio 14.7 (10-20) Glucose 147 H (70-99(Fasting)) mg/dl Calcium 9.0 (8.6-10.3) mg/dl Magnesium 1.6 L (1.7-2.4) mg/dl Total Bilirubin 0.4 (0.2-1.0) mg/dl AST 19 (13-39) U/L ALT 24 (7-52) U/L Alkaline Phosphatase 112 H (34-104) U/L Lactate Dehydrogenase 194 (86-244) U/L C-Reactive Protein 12.89 H (0-0.5) mg/dl Total Protein 6.4 (6.0-8.3) gm/dl Albumin 2.8 L (3.4-5.0) gm/dl Globulin 3.6 (2.5-4.0) gm/dl Albumin/Globulin Ratio 0.8 L (0.9-2) Vitamin B12 (180-914) pg/ml Folate (>5.38) ng/ml Procalcitonin 0.28 (0-0.5) ng/ml U Histopl Galactoman Ag Urine Legionella Ag Beta-(1,3)-D-Glucan Pending B-(1,3)-D-Glucan Intrp Pending Blood Type Antibody Screen Crossmatch 04/30/24 04/29/24 04/28/24 Range/Units 05:56 08:15 06:48 WBC 6.03 6.89 7.58 (4.8-10.8) K/ul RBC 2.66 L 2.74 L 2.94 L (4.70-6.10) M/uL Hgb 7.6 L 7.9 L 8.4 L (14.0-18.0) g/dl Hct 23.2 L 24.1 L 25.7 L (42.0-52.0) % MCV 87.2 88.0 87.4 (80.0-100.0) fL MCH 28.6 28.8 28.6 (25.0-34.0) pg MCHC 32.8 32.8 32.7 (32.0-36.0) g/dL RDW Std Deviation 66.2 H 67.7 H 66.7 H (36.4-46.3) fL RDW Coeff of Ge 20.8 H 21.1 H 21.0 H (11.5-14.5) % Plt Count 25 L* 18 L* 14 L* (130-400) K/uL MPV (9.4-12.4) fL Immature Gran % (Auto) 5.1 7.4 5.8 % Neut % (Auto) 65.3 70.0 73.8 % Lymph % (Auto) 13.1 12.2 13.9 % [place] % (Auto) 16.1 10.0 5.7 % Eos % (Auto) 0.2 0.1 0.1 % Baso % (Auto) 0.2 0.3 0.7 % Neut # (Auto) 3.94 4.82 5.60 (1.40-6.50) K/uL Lymph # (Auto) 0.79 L 0.84 L 1.05 L (1.20-3.40) K/uL [place] # (Auto) 0.97 H 0.69 H 0.43 (0.11-0.59) K/uL Eos # (Auto) 0.01 0.01 0.01 (0.00-0.50) K/uL Baso # (Auto) 0.01 0.02 0.05 (0.00-0.20) K/uL Immature Gran # (Auto) 0.31 H 0.51 H 0.44 H (0.01-0.20) K/uL Absolute Nucleated RBC 0.02 (0.00-0.12) K/uL Nucleated RBC % (auto) 0.3 % Toxic Granulation 1+ 1+ Dohle Bodies 1+ Polychromasia 1+ Anisocytosis Present Spherocytes 1+ PT 11.9 (9.0-12.0) Seconds INR 1.1 (0.9-1.1) VBG pH (7.36-7.41) VBG pCO2 (38-50) mmHg VBG pO2 mmHg VBG HCO3 mmol/L VBG O2 Saturation % VBG Base Excess mEq/L Sodium 137 139 (136-145) mmol/L Potassium 3.8 3.5 (3.5-5.1) mmol/L Chloride 97 L 100 (98-107) mmol/L Carbon Dioxide 34 H 31 (21-32) mmol/L Anion Gap 6 8 (3-11) BUN 12 16 (6-23) mg/dl Creatinine 0.80 0.85 (0.6-1.4) mg/dl Est Cr Clr Drug Dosing 77.2 72.6 ml/min Est GFR ( Amer) 101.3 98.8 ml/min Est GFR (Non-Af Amer) 87.4 85.2 ml/min BUN/Creatinine Ratio 15.0 18.8 (10-20) Glucose 185 H 189 H (70-99(Fasting)) mg/dl Calcium 9.2 9.3 (8.6-10.3) mg/dl Magnesium 1.4 L (1.7-2.4) mg/dl Total Bilirubin 0.6 (0.2-1.0) mg/dl AST 23 (13-39) U/L ALT 32 (7-52) U/L Alkaline Phosphatase 108 H (34-104) U/L Lactate Dehydrogenase (86-244) U/L C-Reactive Protein (0-0.5) mg/dl Total Protein 6.3 (6.0-8.3) gm/dl Albumin 2.9 L (3.4-5.0) gm/dl Globulin 3.4 (2.5-4.0) gm/dl Albumin/Globulin Ratio 0.9 (0.9-2) Vitamin B12 (180-914) pg/ml Folate (>5.38) ng/ml Procalcitonin (0-0.5) ng/ml U Histopl Galactoman Ag Urine Legionella Ag Beta-(1,3)-D-Glucan B-(1,3)-D-Glucan Intrp Blood Type Antibody Screen Crossmatch 04/27/24 04/25/24 Range/Units 06:46 21:17 WBC 5.24 (4.8-10.8) K/ul RBC 3.05 L (4.70-6.10) M/uL Hgb 8.8 L (14.0-18.0) g/dl Hct 26.7 L (42.0-52.0) % MCV 87.5 (80.0-100.0) fL MCH 28.9 (25.0-34.0) pg MCHC 33.0 (32.0-36.0) g/dL RDW Std Deviation 66.5 H (36.4-46.3) fL RDW Coeff of Ge 21.1 H (11.5-14.5) % Plt Count 17 L* (130-400) K/uL MPV (9.4-12.4) fL Immature Gran % (Auto) 8.0 % Neut % (Auto) 61.0 % Lymph % (Auto) 24.0 % [place] % (Auto) 5.9 % Eos % (Auto) 0.0 % Baso % (Auto) 1.1 % Neut # (Auto) 3.19 (1.40-6.50) K/uL Lymph # (Auto) 1.26 (1.20-3.40) K/uL [place] # (Auto) 0.31 (0.11-0.59) K/uL Eos # (Auto) 0.00 (0.00-0.50) K/uL Baso # (Auto) 0.06 (0.00-0.20) K/uL Immature Gran # (Auto) 0.42 H (0.01-0.20) K/uL Absolute Nucleated RBC (0.00-0.12) K/uL Nucleated RBC % (auto) % Toxic Granulation 1+ Dohle Bodies 1+ Polychromasia 2+ Anisocytosis Spherocytes PT 11.8 (9.0-12.0) Seconds INR 1.1 (0.9-1.1) VBG pH (7.36-7.41) VBG pCO2 (38-50) mmHg VBG pO2 mmHg VBG HCO3 mmol/L VBG O2 Saturation % VBG Base Excess mEq/L Sodium 140 (136-145) mmol/L Potassium 3.2 L (3.5-5.1) mmol/L Chloride 104 (98-107) mmol/L Carbon Dioxide 29 (21-32) mmol/L Anion Gap 7 (3-11) BUN 29 H (6-23) mg/dl Creatinine 0.99 (0.6-1.4) mg/dl Est Cr Clr Drug Dosing 62.4 ml/min Est GFR ( Amer) 86.0 ml/min Est GFR (Non-Af Amer) 74.2 ml/min BUN/Creatinine Ratio 29.3 H (10-20) Glucose 128 H (70-99(Fasting)) mg/dl Calcium 9.4 (8.6-10.3) mg/dl Magnesium 1.4 L (1.7-2.4) mg/dl Total Bilirubin 0.7 (0.2-1.0) mg/dl AST 50 H (13-39) U/L ALT 39 (7-52) U/L Alkaline Phosphatase 103 (34-104) U/L Lactate Dehydrogenase (86-244) U/L C-Reactive Protein (0-0.5) mg/dl Total Protein 6.4 (6.0-8.3) gm/dl Albumin 3.0 L (3.4-5.0) gm/dl Globulin 3.4 (2.5-4.0) gm/dl Albumin/Globulin Ratio 0.9 (0.9-2) Vitamin B12 > 1500 H (180-914) pg/ml Folate 12.99 (>5.38) ng/ml Procalcitonin (0-0.5) ng/ml U Histopl Galactoman Ag Urine Legionella Ag Beta-(1,3)-D-Glucan B-(1,3)-D-Glucan Intrp Blood Type Antibody Screen Crossmatch See Detail Diagnostic Findings Chest X-Ray 04/25/24 16:14 XR chest 1V portable HISTORY: 74 years-old Male sob acute shortness of breath COMPARISON: PET CT 03/04/2024 TECHNIQUE: AP view of the chest FINDINGS: Large posterior mediastinal mass aerated. Mid to lower lung zone mixed interstitial and alveolar opacities are new from prior. Emphysema. No pneumothorax or pleural effusion. Bones appear grossly intact. IMPRESSION: 1. Large posterior mediastinal mass redemonstrated, better evaluated on prior PET/CT. 2. Emphysema with mixed interstitial and alveolar opacities suggestive of multifocal pneumonia. ACT 112: Negative or not required by law. The above report was generated using voice recognition software. It may contain grammatical, syntax or spelling errors. Electronically signed by: Dwaine William M.D. 04/25/2024 4:37 PM Abdomen/Pelvis CT 04/25/24 16:34 CT angio chest PE protocol, CT abd pelvis IV con only HISTORY: 74 years-old Male with sob, lung ca, r/o PE. Acute sepsis with shortness of breath. History of lung cancer. TECHNIQUE: Multiple CTA images of the chest were obtained after the intravenous administration of 120 ml Optiray. Coronal and sagittal MIPS were obtained from the axial data set and were submitted for review. All measurements were obtained according to NASCET criteria. CT abdomen and pelvis with IV contrast only also obtained. A dose lowering technique was utilized adhering to the principles of ALARA. COMPARISON: PET CT 03/04/2024, CT abdomen and pelvis 01/10/2024. FINDINGS: Motion degraded exam. CTA: Mild cardiomegaly. No pericardial effusion. Ectasia of the ascending thoracic aorta, 3.9 cm. Proximal descending thoracic aorta measures 3.7 cm with descending thoracic aortic tortuosity. No dissection. No pulmonary emboli identified. Suboptimal evaluation of the segmental and subsegmental branches secondary to respiratory motion. CT CHEST: Unremarkable thyroid. Pathologically enlarged mediastinal and hilar lymph nodes. 10 mm precarinal lymph node image 145 is stable. 2.4 x 1.3 cm AP window lymph node on image 149 previously measured 1.7 x 1.0 cm. Bilateral hilar lymph nodes measuring up to 1.3 cm in short axis on image 118 have increased in size. Large centrally necrotic posterior mediastinal mass measures up to 4 cm on image 81 series 8 previously 10 cm. Circumferential wall thickening with mild displacement/mass effect upon the adjacent esophagus. No pneumothorax, pleural effusion or overt pulmonary edema. Severe pulmonary emphysema. Patchy multifocal nodular areas of consolidation with associated groundglass density, most pronounced within the lung bases and right upper lobe, new from prior. Scattered calcified granulomata in the lungs. Central airways are patent. Unremarkable soft tissues. No acute fracture identified. No new skeletal lesions are seen. CT ABDOMEN/PELVIS: No free air. Unremarkable spleen, pancreas and visualized gallbladder. Hepatic s teatosis. No hepatic mass lesions identified. There is patency of the hepatic and portal veins. Bilateral adrenal gland nodules redemonstrated measuring 1.47 m on the right which is stable. Central necrotic peripherally enhancing 3.4 x 3.1 cm left adrenal and metastatic focus previously measured 5.6 cm. No hydronephrosis. Prostatomegaly. Mild nonspecific urinary bladder wall thickening. Atherosclerosis of the aorta with eccentric plaque noted within the proximal abdominal aorta on image 112 series 11, progressed from 01/10/2024. No occlusion. No progressive lymphadenopathy. The majority of the large bowel is decompressed with wall thickening. Colonic diverticulosis. Surgical clips are noted adjacent to the cecum. The previously noted large hypermetabolic cecal mass measuring 5 cm is not clearly seen. Tiny fat filled umbilical hernia. No new skeletal lesions identified. IMPRESSION: 1. No pulmonary emboli identified on this limited exam. 2. Scattered bilateral multilobar distribution of nodular airspace opacities suggestive of multifocal pneumonia. Follow-up recommended. 3. Progressive mediastinal and hilar lymphadenopathy. 4. Decreased size of the large necrotic posterior mediastinal mass, and left adrenal metastatic lesion compatible with positive treatment response. The previously noted hypermetabolic cecal lesion is not visualized. 5. No bowel obstruction or bowel wall thickening. 6. Additional findings as above. ACT 112: Negative or not required by law. The above report was generated using voice recognition software. It may contain grammatical, syntax or spelling errors. Electronically signed by: Dwaine William M.D. 04/25/2024 7:55 PM Chest CTA 04/25/24 16:34 CT angio chest PE protocol, CT abd pelvis IV con only HISTORY: 74 years-old Male with sob, lung ca, r/o PE. Acute sepsis with shortness of breath. History of lung cancer. TECHNIQUE: Multiple CTA images of the chest were obtained after the intravenous administration of 120 ml Optiray. Coronal and sagittal MIPS were obtained from the axial data set and were submitted for review. All measurements were obtained according to NASCET criteria. CT abdomen and pelvis with IV contrast only also obtained. A dose lowering technique was utilized adhering to the principles of ALARA. COMPARISON: PET CT 03/04/2024, CT abdomen and pelvis 01/10/2024. FINDINGS: Motion degraded exam. CTA: Mild cardiomegaly. No pericardial effusion. Ectasia of the ascending thoracic aorta, 3.9 cm. Proximal descending thoracic aorta measures 3.7 cm with de scending thoracic aortic tortuosity. No dissection. No pulmonary emboli identified. Suboptimal evaluation of the segmental and subsegmental branches secondary to respiratory motion. CT CHEST: Unremarkable thyroid. Pathologically enlarged mediastinal and hilar lymph nodes. 10 mm precarinal lymph node image 145 is stable. 2.4 x 1.3 cm AP window lymph node on image 149 previously measured 1.7 x 1.0 cm. Bilateral hilar lymph nodes measuring up to 1.3 cm in short axis on image 118 have increased in size. Large centrally necrotic posterior mediastinal mass measures up to 4 cm on image 81 series 8 previously 10 cm. Circumferential wall thickening with mild displacement/mass effect upon the adjacent esophagus. No pneumothorax, pleural effusion or overt pulmonary edema. Severe pulmonary emphysema. Patchy multifocal nodular areas of consolidation with associated groundglass density, most pronounced within the lung bases and right upper lobe, new from prior. Scattered calcified granulomata in the lungs. Central airways are patent. Unremarkable soft tissues. No acute fracture identified. No new skeletal lesions are seen. CT ABDOMEN/PELVIS: No free air. Unremarkable spleen, pancreas and visualized gallbladder. Hepatic steatosis. No hepatic mass lesions identified. There is patency of the hepatic and portal veins. Bilateral adrenal gland nodules redemonstrated measuring 1.47 m on the right which is stable. Central necrotic peripherally enhancing 3.4 x 3.1 cm left adrenal and metastatic focus previously measured 5.6 cm. No hydronephrosis. Prostatomegaly. Mild nonspecific urinary bladder wall thickening. Atherosclerosis of the aorta with eccentric plaque noted within the proximal abdominal aorta on image 112 series 11, progressed from 01/10/2024. No occlusion. No progressive lymphadenopathy. The majority of the large bowel is decompressed with wall thickening. Colonic diverticulosis. Surgical clips are noted adjacent to the cecum. The previously noted large hypermetabolic cecal mass measuring 5 cm is not clearly seen. Tiny fat filled umbilical hernia. No new skeletal lesions identified. IMPRESSION: 1. No pulmonary emboli identified on this limited exam. 2. Scattered bilateral multilobar distribution of nodular airspace opacities suggestive of multifocal pneumonia. Follow-up recommended. 3. Progressive mediastinal and hilar lymphadenopathy. 4. Decreased size of the large necrotic posterior mediastinal mass, and left adrenal metastatic lesion compatible with positive treatment response. The previously noted hypermetabolic cecal lesion is not visualized. 5. No bowel obstruction or bowel wall thickening. 6. Additional findings as above. ACT 112: Negative or not required by law. The above report was generated using voice recognition software. It may contain grammatical, syntax or spelling errors. Electronically signed by: Dwaine William M.D. 04/25/2024 7:[address] 04/25/24 16:34 CT head/brain wo con CLINICAL HISTORY: 74 years-old Male with ams. Acutely altered mental status TECHNIQUE: Multiple axial CT images of the head were obtained without contrast. A dose lowering technique was utilized adhering to the principles of ALARA. CT DOSE: 3113.47 mGy.cm COMPARISON: Brain MRI 03/11/2024 FINDINGS: No acute intracranial hemorrhage, midline shift, hydrocephalus, territorial i schemia or abnormal extra-axial collection. Involutional changes with chronic microvascular ischemic disease. Study is motion degraded. The previously noted subcentimeter enhancing lesions within the right cerebrum are not visualized by CT. The calvarium is intact. The paranasal sinuses, mastoid air cells, and middle ear cavities are clear. IMPRESSION: 1. No acute intracranial abnormality. 2.The previously noted subcentimeter enhancing lesions within the right cerebrum are not visualized on this nonenhanced exam ACT 112: Negative or not required by law. The above report was generated using voice recognition software. It may contain grammatical, syntax or spelling errors. Electronically signed by: Dwaine William M.D. 04/25/2024 7:25 PM Chest X-Ray 04/29/24 07:51 XR chest 2V PA/lateral CLINICAL HISTORY: increased O2 requirement, pneumonia, ?worsening TECHNIQUE: 2 views of the chest were obtained. Comparison: Comparison is made to chest radiograph 04/25/2024 FINDINGS: No lines and tubes are seen. The cardiomediastinal silhouette is normal. Multifocal airspace opacities are seen, slightly more pronounced than in the prior exam. Previously noted posterior mediastinal mass is not well seen. No evidence of pleural effusion or pneumothorax. IMPRESSION: Slightly increased conspicuity of multifocal airspace opacities compatible with pneumonia. ACT 112: Negative or not required by law. Electronically signed by: Rajinder Payan M.D. 04/29/2024 9:15 AM Chest X-Ray 05/02/24 07:48 SINGLE VIEW CHEST CLINICAL HISTORY: Hypoxia FINDINGS: An AP, portable, upright chest radiograph is compared to study dated 04/29/2024 and correlated with chest CT dated 04/25/2024. The heart is enlarged no ting atherosclerotic calcification and uncoiling of the thoracic aorta. Fibrotic change in the left upper lung is unchanged. Advanced emphysema and chronic interstitial thickening is similar to previous. Multifocal airspace consolidation is again seen throughout both lungs with a mid to lower lobe predominance. This has worsened as compared to 04/29/2024. No large pleural effusion or pneumothorax is identified. The skeletal structures are osteopenic. The bony thorax is grossly intact. IMPRESSION: 1. Cardiomegaly and advanced emphysema. 2. Multifocal airspace consolidation is again seen throughout both lungs. This has modestly worsened as compared to 04/29/2024 and the appearance favors multifocal pneumonia. Clinical correlation will be required and radiographic follow-up to resolution is recommended. ACT 112: Negative or not required by law. Electronically signed by: Basilio Ojeda M.D. 05/02/2024 8:07 AM Chest X-Ray 05/03/24 07:00 SINGLE VIEW CHEST CLINICAL HISTORY: Respiratory failure. FINDINGS: An AP, portable, upright chest radiograph is compared to study dated 05/02/2024 and correlated with chest CT dated 04/25/2024. The heart is enlarged noting atherosclerotic calcification and uncoiling of the thoracic aorta. Fibrotic change in the left upper lung is unchanged. Advanced emphysema and chronic interstitial thickening is similar to previous. Multifocal airspace consolidation is again seen throughout both lungs with a mid to lower lobe predominance. This has not appreciably changed from yesterday. No large pleural effusion or pneumothorax is identified. The skeletal structures are osteopenic. The bony thorax is grossly intact. IMPRESSION: 1. Cardiomegaly and advanced emphysema. 2. Multifocal airspace consolidation is again seen throughout both lungs. This has not appreciably changed from yesterday. Clinical correlation will be required and radiographic follow-up to resolution is recommended. ACT 112: Negative or not required by law. Electronically signed by: Basilio Ojeda M.D. 05/03/2024 8:22 AM Chest X-Ray 05/03/24 14:49 XR chest 1V portable CLINICAL HISTORY: Possible aspiration. COMPARISON STUDY: Chest CT April 25, 2024. Chest radiograph performed earlier today. FINDINGS: No pneumothorax or pleural effusion is present. There is no evidence for pulmonary edema. Cardiomediastinal silhouette is stable. Multifocal airspace opacities throughout the lungs have slightly improved. This may be technical. There is underlying emphysema. IMPRESSION: Persistent multifocal airspace opacities, stable to slightly improved since prior exam. The findings favor pneumonia or aspiration pneumonitis. ACT 112: Negative or not required by law. Electronically signed by: Ricki Stout M.D. 05/03/2024 3:30 PM PG Care Time/CCT Total # of Minutes Spent Total Time Spent with Patient: Total time spent is greater than 50% in coordination of care (as documented) at patient's floor/unit and/or counseling patient: I spent 105 minutes overall addressing this case: 20 min in medical data review/discussion with referring provider(s) and/or preparation for the visit 20 min in direct interaction with the patient/exam 45 min in Advance Care Planning/Goals of Care discussions as detailed above in note (must be >16min) 10 min in subsequent review and synthesis of assessment and plan 10 min communicating with other providers regarding the patient's case: Primary team Advanced Care Planning 22668 Advanced Care Planning 30 Min 54513 Advanced Care Planning Additional 30 [place] [address] IN/OBS CONSULT LVL 4,60M (25 - SIGNIFICANT, SEPARATELY IDENTIFIABLE ) Patient Type New Medical Decision Making High Complexity Diagnoses Dyspnea and respiratory abnormalities R06.00; R06.89 Advanced care planning/counseling discussion Z71.89 Palliative care by specialist Z51.5 Additional Codes Advanced Care Planning - 16299 Advanced Care Planning 30 Min: 26033 Advanced Care Planning 30 Min ([id number]) Advanced Care Planning - 50124 Advanced Care Planning Additional 30 Min: 42656 Advanced Care Planning Additional 30 Min ([id number])
[2024-05-03] MEDS: SULFAMETHOXAZOLE/TRIMETHOPRIM DS 800/160MG TAB PO SCH (17:46)
[2024-05-03] MEDS: POTASSIUM CHLORIDE 20 MEQ/15 ML UDC PO SCH (21:18)
[2024-05-03] MEDS: SODIUM CHLORIDE 0.65% NA SOLN 45 ML (OCEAN) STA (22:59)
--- NOTE | 2024-05-04 07:16 | Hospitalist Progress Note ---
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 Overall pt with improved O2 status today, 12 L HF yesterday to 6 L NC this morning. Plan for palliative meeting today. Continue steroids and bactrim regime. [facility] plan once pt improvs further is rehab. #Acute respiratory failure with hypoxia in the setting of multifocal pneumonia, improving Multifocal PNA CT of the chest with PE protocol was negative for pulmonary emboli, pleural effusion, and pulmonary edema on admission Continue incentive spirometry, flutter valve, scheduled DuoNebs q4 transitioned to prn as pt declined it Goal O2 88-92%, wean O2 as tolerated to this goal range - Sputum culture: positive for Vicki albicans/dubliniensis (on chemotherapy, so most likely due to colonization) - Zosyn finished 05/03 for full 7 day course - Pulm consult as he is followed by their service outpatient; Concern for Pembrolizumab toxicity so avoid this high dose Solu-Medrol started, continue today Testing for PJP, fungal, legionella, histoplasmosis; pending Repeat sputum culture; pending recommend palliative consult; pending -Consult placed to oncology as well; Dr. Garnica is primary oncologist; continue steroids #Sepsis: - Blood Cx, negative after 5 days #Pancytopenia -Patient noted to be pancytopenic on admission; counts improving -Neutropenic precautions ordered -SCDs for DVT prophylaxis w/ thrombocytopenia -Likely due to chemotherapy and exacerbated with acute infection -480 micrograms of SQ Neupogen given upon admission -Oncology consult placed as [facility] - given 2 units PRBCs yesterday for hemoglobin 7.1, improved to 10.4 today #Lung cancer metastatic to brain: Has completed 3 of 6 planned cycles of chemotherapy thus far oncology consulted #Elevated troponin, resolved - HS trop peak 29 - Suspect demand ischemia in setting of sepsis #COPD (chronic obstructive pulmonary disease): Care per acute hypoxic respiratory failure plan IVF; none DVT Prophylaxis: SCD Admission and Anticipated Discharge Date Admission Date: April 25, 2024 Supervising Physician Co-Signing Physician Notes Attending Physician Supervision Note: I independently interviewed and examined the patient and verified the caldwell history and physical, reviewed labs and image studies and agree with findings and care plan noted above. Multifocal infiltrate - having treated appropriately with abx - presentation highly concerning of Pulmonary ICI toxicity - Pembrolizumab. Severe underlying COPD Pul consulted -ICI toxicity - Started high dose IV steroids 05/02 -oxygen demand improving. -Bronchoscopy not attempted d/t being too unstable - to r/o Pul hemorrhage(would be treated with steroids)/progression of malignancy and other infectious etiologies. -galactomannan pending - for fungal etiology including PJP. -urine legionella ag pending -histoplasma antigen pending -Added Bactrim MWF for PJP prophylaxis. Lung ca with metastasis - -consulted oncology and palliative - continue current care. . Acute hypoxic respiratory failure- Oxygen support for goal SaO2 88% and above. Pancytopenia - wbc improved with Neupogen on admission. -platelet 81k- improving -hb 10 - transfused 2 units of PRBC 05/03. 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 Today, pt states he is overall feeling better than yesterday. Breathing has improved some and he is in better spirits with family visiting him today. No questions or complaints at this time. Tolerating oral intake. No chest pain. Review of Systems Review of Systems: Per HPI. Physical Exam Physical Exam: General:Alert and oriented, no acute distress, chronically ill appearing but in brighter spirits today HEENT: Normocephalic, moist oral mucosa, Cardio: Regular rate and rhythm, no murmur, Resp:Faint wheezing bilaterally, otherwise clear to auscultation GI: Soft and nontender, nondistended, bowel sounds active Skin: Warm, pink, dry, Results & Data Results & Data Vital Signs (Past 12 Hours) Vital Signs Temp Pulse Pulse Resp BP BP Pulse Ox 05/04/24 02:26 36.7 C 78 18 159/94 H 92 05/04/24 00:00 05/03/24 22:45 36.6 C 93 H 18 168/93 H 90 05/03/24 20:02 05/03/24 19:54 37.1 C 100 H 20 89/64 L 99 Pulse Ox O2 Del Method O2 Del Method O2 Del Method O2 Flow Rate O2 Flow Rate 05/04/24 02:26 Nasal Cannula 05/04/24 00:00 93 High Flow Nasal Cannula Free Flow/Blow-by 6 05/03/24 22:45 Nasal Cannula 05/03/24 20:02 High Flow Nasal Cannula 6 05/03/24 19:54 Nasal Cannula 4 Resident Activity Tracking Resident Involvement: Resident Care Provided Care Provided: Adult Hospital Medicine
--- NOTE | 2024-05-04 07:24 | XRay Report ---
SINGLE VIEW CHEST CLINICAL HISTORY: Respiratory failure. FINDINGS: An AP, portable, upright chest radiograph is compared to study dated 05/03/2024 and correlat ed with chest CT dated 04/25/2024. The heart is enlarged noting atherosclerotic calcification and unco iling of the thoracic aorta. Fibrotic change in the left upper lung is unchanged. Advanced emphysema and chronic interstitial thickening is similar to previous. Multifocal airspace consolidation is aga in seen throughout both lungs with a mid to lower lobe predominance. This has not appreciably changed from yesterday. No large pleural effusion or pneumothorax is identified. The skeletal structures are osteopenic. The bony thorax is grossly intact. IMPRESSION: 1. Cardiomegaly and advanced emphysema. 2. Multifocal airspace consolidation is again seen throughout both lungs. This has not appreciably ch anged from yesterday. Clinical correlation will be required and radiographic follow-up to resolution is recommended. ACT 112: Negative or not required by law. Electronically signed by: Basilio Ojeda M.D. 05/04/2024 7:23 AM
[2024-05-04 07:53] LABS: Hematocrit (blood only) 31.3 % (42.0-52.0); Hemoglobin 10.4 g/dl (14.0-18.0); Mean Corpuscular Hemoglobin 29.1 pg (25.0-34.0); Mean Corpuscular Hgb Conc 33.2 g/dL (32.0-36.0); Mean Corpuscular Volume 87.4 fL (80.0-100.0); Mean Platelet Volume 9.9 fL (9.4-12.4); Platelet Count 81 K/uL (130-400); RDW Coefficient of Variation 20.5 % (11.5-14.5); RDW Standard Deviation 62.4 fL (36.4-46.3); Red Blood Count 3.58 M/uL (4.70-6.10); White Blood Count 5.96 K/ul (4.8-10.8)
[2024-05-04 08:02] LABS: Albumin Globulin Ratio 0.8 (0.9-2); BUN Creatinine Ratio 25.5 (10-20); Bilirubin,Total 0.4 mg/dl (0.2-1.0); Calcium 9.5 mg/dl (8.6-10.3); Creatinine Clr Calc Pharmacy 60.7 ml/min; Est GFR (African American) 87.1 ml/min; Est GFR (Non-African American) 75.1 ml/min; Globulin 3.8 gm/dl (2.5-4.0); Magnesium 1.5 mg/dl (1.7-2.4); Potassium 4.1 mmol/L (3.5-5.1); Total Protein 6.8 gm/dl (6.0-8.3)
[2024-05-04 08:18] LABS: ALC (manual) 0.95 K/uL (1.2-3.4); ANC (manual) 4.65 K/uL (1.4-6.5); Anisocytosis Present; Lymphocytes # (manual) 0.95 K/uL (1.2-3.4); Lymphocytes % (manual) 16 %; Monocytes % (manual) 5 %; Myelocytes # (manual) 0.06 K/uL (0-0); Myelocytes % (manual) 1 %; Neutrophils # (manual) 4.65 K/uL (1.40-6.50); Neutrophils % (manual) 78 %
--- NOTE | 2024-05-04 09:10 | Hematology/Oncology Prog Note ---
Date of Service May 04, 2024 Assessment & Plan (1) Acute and chronic respiratory failure with hypoxia: (2) Multifocal pneumonia: (3) Adenocarcinoma of lung, stage 4: Plan -Improvement in oxygenation with high-dose steroids indicated for immunotherapy induced pneumonitis. No indication for infliximab at this time since he is responding to steroids. -Will hold off on further immunotherapy treatments for now. Options for treatment would be continuation of chemotherapy with carboplatin/pemetrexed or switching to targeted therapy if liquid biopsy indicates targetable mutation. Admission and Anticipated Discharge Date Admission Date: April 25, 2024 Subjective Doing better. Supplemental O2 requirement has reduced to 6 L/min with high-dose steroids. Results & Data Vital Signs (Past 12 Hours) Vital Signs Temp Pulse Resp BP BP Pulse Ox Pulse Ox 05/04/24 07:59 36.8 C 88 16 151/63 H 92 05/04/24 07:28 18 91 05/04/24 07:16 05/04/24 02:26 36.7 C 78 18 159/94 H 92 05/04/24 00:00 93 05/03/24 22:45 36.6 C 93 H 18 168/93 H 90 O2 Del Method O2 Del Method O2 Del Method O2 Flow Rate O2 Flow Rate 05/04/24 07:59 Nasal Cannula 05/04/24 07:28 Nasal Cannula 6 05/04/24 07:16 High Flow Nasal Cannula 6 05/04/24 02:26 Nasal Cannula 05/04/24 00:00 High Flow Nasal Cannula Free Flow/Blow-by 6 05/03/24 22:45 Nasal Cannula (3) Adenocarcinoma of lung, stage 4 Laterality: unspecified laterality Qualified Code(s): C34.90 - Malignant neoplasm of unspecified part of unspecified bronchus or lung
[2024-05-04] MEDS ORDERED: ALBUT/IPRATROP 3MG/0.5MG NEB 3 ML VIAL NEB PRN (11:03)
[2024-05-04] MEDS: ALBUT/IPRATROP 3MG/0.5MG NEB 3 ML VIAL NEB SCH (14:15)
[2024-05-04] MEDS: ACETAMINOPHEN 325 MG TAB PO PRN (20:34)
--- NOTE | 2024-05-04 23:28 | Palliative Care Progress Note ---
Date of Service May 04, 2024 Assessment & Plan (1) Dyspnea and respiratory abnormalities: (2) Cancer related pain: (3) Advanced care planning/counseling discussion: Plan: A very lengthy and exhaustive, detailed advance care planning discussion was held [id number] with patient and his ex-/primary support and at the bedside today. Many questions were discussed with regards to his chemotherapy and cancer treatment options. He understands that his immune therapy at this point will be stopped due to the toxicity of his respiratory reaction. He is hopeful to resume chemotherapy and had discussed earlier today with Dr. Cole that he may be able to transition to an oral chemo formulation. We discussed that overall his scans were showing some improvement in disease so it is not unreasonable to plan for a resumption of cancer directed therapy once he improves from this acute hospitalization. Overall, we are hopeful that he will continue to demonstrate some improvement with reduction in oxygen needs. He will need to go to rehab and he has agreed to do that, and a noting they would prefer that [facility] because this has been the facility recommended to them. They have communicated this preference to the care management team. Emily feels the patient needs to be willing to engage in relying more on his friends and family for help. We discussed his unwillingness to share disclose his medical issues with his 2 adult children. He basically indicates that he is estranged from them and does not want to resume any relationship with them at this time. He was also quite hostile with and is recommendation that he allow his friends to help him because she feels that she is limited in what her capacity to help him i.e. she is happy to be his medical advocate and help manage his medical issues but she did not want to be respo nsible for things such as taking care of his cats, getting his mail, helping with the groceries, or mowing the lawn. Patient was quite angry with this line of discussion and ultimately we agreed that leaning on others especially those that we are close to who offered to help in times of need is not an unreasonable thing to do but 1 must be comfortable reaching out for help. We also discussed that our concerns as a medical team are always for his safety and wellbeing we would not want there to be an issue like a fall or an unintended complication at home where he was not able to reach out for help. He verbalized understanding of this but for now feels he does not need to reach out to his friends for additional assistance. We also discussed the findings of his swallow study and he reports that he feels this is a misunderstanding and it was just 1 issue 1 time with a rather large magnesium tablet that normally he would cut in half before taking. He declines the offer for further assessment and declines a video swallow. He has also declined radiation therapy for his brain lesions and feels that the risk is too high and will affect other areas of his brain such as his hearing, balance, walking etc. He feels that the chemo he is getting will "cross the blood-brain barrier and do the right thing." (4) Palliative care by specialist: (5) Lung cancer metastatic to brain: (6) COPD (chronic obstructive pulmonary disease): (7) Adenocarcinoma of lung, stage 4: Plan As noted above Thank you for allowing us to participate in the ongoing care of this patient. Please page with any additional concerns. Dylan An DNP Director, Palliative Medicine Admission and Anticipated Discharge Date Admission Date: April 25, 2024 Oliverio Jason is seen earlier this morning together with his ex-, Emily at the bedside. He is resting in bed and visibly dyspneic. He has conversational dyspnea. Steroids seem to be helping and overall, he feels like he is not working as hard to breathe. He had some issues with swallowing overnight and a bedside swallow study was done this morning. There was some subtle aspiration noted and a video swallow was suggested, which patient and his ex- would like to discuss further today. Review of Systems Review of Systems: All systems reviewed & are unremarkable except as noted in Subjective Physical Exam Physical Exam: Chronically ill-appearing, elderly male. Bitemporal wasting noted. Conversa tional dyspnea noted. Use of accessory muscles noted. Trachea is midline, there is no JVD, there is no thyromegaly. He has a bronchitic wet cough. There are crackles and rhonchi throughout, there is no audible wheezing. Heart tones are S1-S2, there is no peripheral edema noted. Abdomen is soft, nontender with bowel sounds noted. His extremities are normal without peripheral edema. Generalized weakness. His skin is pale, warm and otherwise dry with a few scattered ecchymoses noted. He is awake alert and oriented x 3, at times his speech is pressured. Results & Data Vital Signs (Past 12 Hours) Vital Signs Temp Pulse Pulse Resp BP BP Pulse Ox 05/04/24 22:50 36.5 C 83 20 160/93 H 96 05/04/24 20:46 93 H 20 93 05/04/24 20:00 05/04/24 19:29 37.2 C 100 H 22 156/93 H 93 05/04/24 16:00 36.6 C 115 H 18 145/78 H 94 O2 Del Method O2 Flow Rate 05/04/24 22:50 High Flow Nasal Cannula 05/04/24 20:46 Nasal Cannula 6 05/04/24 20:00 High Flow Nasal Cannula 6 05/04/24 19:29 High Flow Nasal Cannula 6 05/04/24 16:00 Nasal Cannula Laboratory Results Abnormal lab results 05/03/24 05/04/24 Range/Units 07:30 07:30 RBC 3.58 L (4.70-6.10) M/uL Hgb 10.4 L D (14.0-18.0) g/dl Hct 31.3 L (42.0-52.0) % RDW Std Deviation 62.4 H (36.4-46.3) fL RDW Coeff of Ge 20.5 H (11.5-14.5) % Plt Count 81 L (130-400) K/uL Lymphocytes # (Manual) 0.95 L (1.2-3.4) K/uL Total Abs Lymphocytes 0.95 L (1.2-3.4) K/uL Myelocytes # (Manual) 0.06 H (0-0) K/uL Chloride 97 L (98-107) mmol/L BUN 25 H (6-23) mg/dl BUN/Creatinine Ratio 25.5 H (10-20) Glucose 153 H (70-99(Fasting)) mg/dl Magnesium 1.5 L (1.7-2.4) mg/dl Alkaline Phosphatase 113 H (34-104) U/L Albumin 3.0 L (3.4-5.0) gm/dl Albumin/Globulin Ratio 0.8 L (0.9-2) Crossmatch See Detail Diagnostic Findings Laboratory Results WBC 5.96 K/ul (4.8-10.8) 05/04/24 07:30 RBC 3.58 M/uL (4.70-6.10) L 05/04/24 07:30 Hgb 10.4 g/dl (14.0-18.0) L D 05/04/24 07:30 Hct 31.3 % (42.0-52.0) L 05/04/24 07:30 MCV 87.4 fL (80.0-100.0) 05/04/24 07:30 MCH 29.1 pg (25.0-34.0) 05/04/24 07:30 MCHC 33.2 g/dL (32.0-36.0) 05/04/24 07:30 RDW Std Deviation 62.4 fL (36.4-46.3) H 05/04/24 07:30 RDW Coeff of Ge 20.5 % (11.5-14.5) H 05/04/24 07:30 Plt Count 81 K/uL (130-400) L 05/04/24 07:30 MPV 9.9 fL (9.4-12.4) 05/04/24 07:30 Immature Gran % (Auto) 2.8 % 05/03/24 06:45 Neut % (Auto) 76.4 % 05/03/24 06:45 Lymph % (Auto) 12.9 % 05/03/24 06:45 [place] % (Auto) 7.7 % 05/03/24 06:45 Eos % (Auto) 0.0 % 05/03/24 06:45 Baso % (Auto) 0.2 % 05/03/24 06:45 Neut # (Auto) 3.26 K/uL (1.40-6.50) 05/03/24 06:45 Lymph # (Auto) 0.55 K/uL (1.20-3.40) L 05/03/24 06:45 [place] # (Auto) 0.33 K/uL (0.11-0.59) 05/03/24 06:45 Eos # (Auto) 0.00 K/uL (0.00-0.50) 05/03/24 06:45 Baso # (Auto) 0.01 K/uL (0.00-0.20) 05/03/24 06:45 Immature Gran # (Auto) 0.12 K/uL (0.01-0.20) 05/03/24 06:45 Absolute Nucleated RBC 0.02 K/uL (0.00-0.12) 04/28/24 06:48 Nucleated RBC % (auto) 0.3 % 04/28/24 06:48 Neutrophils % (Manual) 78 % 05/04/24 07:30 Band Neutrophils % Cancelled 04/25/24 16:36 Lymphocytes % (Manual) 16 % 05/04/24 07:30 Prolymphocyte % Cancelled 04/25/24 16:36 Reactive Lymphs % (Man) Cancelled 04/25/24 16:36 Monocytes % (Manual) 5 % 05/04/24 07:30 Eosinophils % (Manual) Cancelled 04/25/24 16:36 Basophils % (Manual) Cancelled 04/25/24 16:36 Metamyelocytes % (Man) 0 % 04/25/24 17:09 Myelocytes % (Man) 1 % 05/04/24 07:30 Promyelocytes % (Man) Cancelled 04/25/24 16:36 Blast Cells % (Manual) Cancelled 04/25/24 16:36 Plasma Cell % (Manual) 3 % 04/25/24 17:09 Other Cells % Cancelled 04/25/24 16:36 Nucleated RBC % Cancelled 04/25/24 16:36 Neutrophils # (Manual) 4.65 K/uL (1.40-6.50) 05/04/24 07:30 Band Neutrophils # Cancelled 04/25/24 16:36 Total Absolute Neuts 4.65 K/uL (1.4-6.5) 05/04/24 07:30 Lymphocytes # (Manual) 0.95 K/uL (1.2-3.4) L 05/04/24 07:30 Prolymphocyte # Cancelled 04/25/24 16:36 Reactive Lymphs # Cancelled 04/25/24 16:36 Total Abs Lymphocytes 0.95 K/uL (1.2-3.4) L 05/04/24 07:30 Monocytes # (Manual) 0.30 K/uL (0.11-0.59) 05/04/24 07:30 Eosinophils # (Manual) Cancelled 04/25/24 16:36 Basophils # (Manual) Cancelled 04/25/24 16:36 Metamyelocytes # (Man) 0.00 K/uL (0-0) 04/25/24 17:09 Myelocytes # (Manual) 0.06 K/uL (0-0) H 05/04/24 07:30 Promyelocytes # (Man) Cancelled 04/25/24 16:36 Blast Cells # (Man) Cancelled 04/25/24 16:36 Plasma Cell # (Manual) 0.04 K/uL (0-0) H 04/25/24 17:09 Other Cells # Cancelled 04/25/24 16:36 Nucleated RBCs # (Man) Cancelled 04/25/24 16:36 Hypersegmented Neuts Cancelled 04/25/24 16:36 Hyposegmented Neuts Cancelled 04/25/24 16:36 Hypogranular Neuts Cancelled 04/25/24 16:36 Large Granular Lymphs Cancelled 04/25/24 16:36 # Lrg Granular Lymphs Cancelled 04/25/24 16:36 Hairy Cells Cancelled 04/25/24 16:36 Smudge Cells Cancelled 04/25/24 16:36 Blood Smear Review Cancelled 04/25/24 17:09 Toxic Granulation 1+ 04/30/24 05:56 Toxic Vacuolation Cancelled 04/25/24 16:36 Dohle Bodies 1+ 04/29/24 08:15 Elizabeth Rods Cancelled 04/25/24 16:36 Platelet Estimate Cancelled 04/25/24 16:36 Hypogranular Platelets Cancelled 04/25/24 16:36 Giant Platelets Cancelled 04/25/24 16:36 Platelet Satelliting Cancelled 04/25/24 16:36 RBC Morphology Cancelled 04/25/24 16:36 Polychromasia 1+ 05/03/24 06:45 Hypochromasia Cancelled 04/25/24 16:36 Poikilocytosis Cancelled 04/25/24 16:36 Basophilic Stippling Cancelled 04/25/24 16:36 Anisocytosis Present 05/04/24 07:30 Microcytosis Cancelled 04/25/24 16:36 Macrocytosis Cancelled 04/25/24 16:36 Spherocytes 1+ 04/30/24 05:56 Pappenheimer Bodies Cancelled 04/25/24 16:36 Sickle Cells Cancelled 04/25/24 16:36 Target Cells Cancelled 04/25/24 16:36 Tear Drop Cells Cancelled 04/25/24 16:36 Ovalocytes Cancelled 04/25/24 16:36 Stomatocytes Cancelled 04/25/24 16:36 [place] Bodies Cancelled 04/25/24 16:36 Echinocytes Cancelled 04/25/24 16:36 Acanthocytes (Spur) Cancelled 04/25/24 16:36 Rouleaux Cancelled 04/25/24 16:36 RBC Agglutinates Cancelled 04/25/24 16:36 Schistocytes Cancelled 04/25/24 16:36 Sezary Cell Cancelled 04/25/24 16:36 PT 11.9 Seconds (9.0-12.0) 04/28/24 06:48 INR 1.1 (0.9-1.1) 04/28/24 06:48 ABG pH 7.43 (7.35-7.45) 04/26/24 05:44 ABG pCO2 40 mmHg (35-46) 04/26/24 05:44 ABG pO2 137 mmHg (80-95) H 04/26/24 05:44 ABG HCO3 27 mmol/L (19-24) H 04/26/24 05:44 ABG O2 Saturation 99.4 % (90-95) H 04/26/24 05:44 ABG Base Excess 2.0 mEq/L (-9-1.8) H 04/26/24 05:44 Juan Test Pos (Pos) 04/26/24 05:44 VBG pH 7.48 (7.36-7.41) H 04/30/24 09:32 VBG pCO2 46 mmHg (38-50) 04/30/24 09:32 VBG pO2 46 mmHg 04/30/24 09:32 VBG HCO3 34 mmol/L 04/30/24 09:32 VBG O2 Saturation 79.3 % 04/30/24 09:32 VBG Base Excess 9.4 mEq/L 04/30/24 09:32 Oxygen Given 2L 04/26/24 05:44 Sodium 136 mmol/L (136-145) 05/04/24 07:30 Potassium 4.1 mmol/L (3.5-5.1) 05/04/24 07:30 Chloride 97 mmol/L (98-107) L 05/04/24 07:30 Carbon Dioxide 32 mmol/L (21-32) 05/04/24 07:30 Anion Gap 7 (3-11) 05/04/24 07:30 BUN 25 mg/dl (6-23) H 05/04/24 07:30 Creatinine 0.98 mg/dl (0.6-1.4) 05/04/24 07:30 Est Cr Clr Drug Dosing 60.7 ml/min 05/04/24 07:30 Est GFR ( Amer) 87.1 ml/min 05/04/24 07:30 Est GFR (Non-Af Amer) 75.1 ml/min 05/04/24 07:30 BUN/Creatinine Ratio 25.5 (10-20) H 05/04/24 07:30 Glucose 153 mg/dl (70-99(Fasting)) H 05/04/24 07:30 Lactate 1.4 mmol/L (0.4-2.0) 04/25/24 16:51 Calcium 9.5 mg/dl (8.6-10.3) 05/04/24 07:30 Magnesium 1.5 mg/dl (1.7-2.4) L 05/04/24 07:30 Total Bilirubin 0.4 mg/dl (0.2-1.0) 05/04/24 07:30 AST 19 U/L (13-39) 05/04/24 07:30 ALT 24 U/L (7-52) 05/04/24 07:30 Alkaline Phosphatase 113 U/L (34-104) H 05/04/24 07:30 Lactate Dehydrogenase 194 U/L (86-244) 05/02/24 07:52 Troponin I High Sens 27.6 pg/ml (0-20) H 04/25/24 18:24 C-Reactive Protein 12.89 mg/dl (0-0.5) H 05/02/24 07:52 B-Natriuretic Peptide 174 pg/ml (0-100) H 04/25/24 16:51 Total Protein 6.8 gm/dl (6.0-8.3) 05/04/24 07:30 Albumin 3.0 gm/dl (3.4-5.0) L 05/04/24 07:30 Globulin 3.8 gm/dl (2.5-4.0) 05/04/24 07:30 Albumin/Globulin Ratio 0.8 (0.9-2) L 05/04/24 07:30 Lipase 7 U/L (11-82) L 04/25/24 16:36 Vitamin B12 > 1500 pg/ml (180-914) H 04/27/24 06:46 Folate 12.99 ng/ml (>5.38) 04/27/24 06:46 Procalcitonin 0.28 ng/ml (0-0.5) 05/02/24 07:52 Urine Color Yellow 04/26/24 01:58 Urine Appearance Clear (Clear) 04/26/24 01:58 Urine pH 5.5 (4.5-7.5) 04/26/24 01:58 Ur Specific [place] > 1.045 (1.000-1.030) H 04/26/24 01:58 Urine Protein 2+ (Negative) H 04/26/24 01:58 Urine Glucose (UA) Trace (Negative) H 04/26/24 01:58 Urine Ketones Trace (Negative) H 04/26/24 01:58 Urine Blood Negative (Negative) 04/26/24 01:58 Urine Nitrite Negative (Negative) 04/26/24 01:58 Urine Bilirubin Negative (Negative) 04/26/24 01:58 Urine Urobilinogen Negative (Negative) 04/26/24 01:58 Ur Leukocyte Esterase Negative (Negative) 04/26/24 01:58 Urine WBC (Auto) 0-5 /hpf (0-5) 04/26/24 01:58 Urine RBC (Auto) 0-2 /hpf (0-2) 04/26/24 01:58 U Hyaline Cast (Auto) 0-2 /lpf (0-2) 04/26/24 01:58 U Epithel Cells (Auto) 0-2 /hpf (0-2) 04/26/24 01:58 Urine Bacteria (Auto) None Seen (None Seen) 04/26/24 01:58 Amorphous Sediment Present (None Prsent) A 04/26/24 01:58 Nasal Screen MRSA (PCR) Negative (Negative) 04/26/24 04:58 Adenovirus (PCR) Not Detected (NotDetected) 04/25/24 Unknown B. pertussis DNA (PCR) Not Detected (NotDetected) 04/25/24 Unknown B.parapertussis DNA PCR Not Detected (NotDetected) 04/25/24 Unknown C. pneumoniae DNA (PCR) Not Detected (NotDetected) 04/25/24 Unknown Coronavirus OC43 (PCR) Not Detected (NotDetected) 04/25/24 Unknown Coronavirus HKU1 (PCR) Not Detected (NotDetected) 04/25/24 Unknown Coronavirus 229E (PCR) Not Detected (NotDetected) 04/25/24 Unknown SARS-CoV-2 (PCR) Not Detected (NotDetected) 04/25/24 Unknown Coronavirus NL63 (PCR) Not Detected (NotDetected) 04/25/24 Unknown Human Metapneumovir PCR Not Detected (NotDetected) 04/25/24 Unknown Influenza Type A (PCR) Not Detected (NotDetected) 04/25/24 Unknown Influenza Type B (PCR) Not Detected (NotDetected) 04/25/24 Unknown M. pneumoniae (PCR) Not Detected (NotDetected) 04/25/24 Unknown Parainfluenza 1 (PCR) Not Detected (NotDetected) 04/25/24 Unknown Parainfluenza 2 (PCR) Not Detected (NotDetected) 04/25/24 Unknown Parainfluenza 3 (PCR) Not Detected (NotDetected) 04/25/24 Unknown Parainfluenza 4 (PCR) Not Detected (NotDetected) 04/25/24 Unknown RSV (PCR) Not Detected (NotDetected) 04/25/24 Unknown Entero/Rhino (PCR) Not Detected (NotDetected) 04/25/24 Unknown Blood Parasites ID Cancelled 04/25/24 16:36 Blood Type A Positive 05/03/24 07:30 Antibody Screen NEGATIVE 05/03/24 07:30 Crossmatch See Detail 05/03/24 07:30 Impressions Abdomen/Pelvis CT 04/25/24 16:34 CT angio chest PE protocol, CT abd pelvis IV con only HISTORY: 74 years-old Male with sob, lung ca, r/o PE. Acute sepsis with shortness of breath. History of lung cancer. TECHNIQUE: Multiple CTA images of the chest were obtained after the intravenous administration of 120 ml Optiray. Coronal and sagittal MIPS were obtained from the axial data set and were submitted for review. All measurements were obtained according to NASCET criteria. CT abdomen and pelvis with IV contrast only also obtained. A dose lowering technique was utilized adhering to the principles of ALARA. COMPARISON: PET CT 03/04/2024, CT abdomen and pelvis 01/10/2024. FINDINGS: Motion degraded exam. CTA: Mild cardiomegaly. No pericardial effusion. Ectasia of the ascending thoracic aorta, 3.9 cm. Proximal descending thoracic aorta measures 3.7 cm with descending thoracic aortic tortuosity. No dissection. No pulmonary emboli identified. Suboptimal evaluation of the segmental and subsegmental branches secondary to respiratory motion. CT CHEST: Unremarkable thyroid. Pathologically enlarged mediastinal and hilar lymph nodes. 10 mm precarinal lymph node image 145 is stable. 2.4 x 1.3 cm AP window lymph node on image 149 previously measured 1.7 x 1.0 cm. Bilateral hilar lymph nodes measuring up to 1.3 cm in short axis on image 118 have increased in size. Large centrally necrotic posterior mediastinal mass measures up to 4 cm on image 81 series 8 previously 10 cm. Circumferential wall thickening with mild displacement/mass effect upon the adjacent esophagus. No pneumothorax, pleural effusion or overt pulmonary edema. Severe pulmonary emphysema. Patchy multifocal nodular areas of consolidation with associated groundglass density, most pronounced within the lung bases and right upper lobe, new from prior. Scattered calcified granulomata in the lungs. Central airways are patent. Unremarkable soft tissues. No acute fracture identified. No new skeletal lesions are seen. CT ABDOMEN/PELVIS: No free air. Unremarkable spleen, pancreas and visualized gallbladder. Hepatic steatosis. No hepatic mass lesions identified. There is patency of the hepatic and portal veins. Bilateral adrenal gland nodules redemonstrated measuring 1.47 m on the right which is stable. Central necrotic peripherally enhancing 3.4 x 3.1 cm left adrenal and metastatic focus previously measured 5.6 cm. No hydronephrosis. Prostatomegaly. Mild nonspecific urinary bladder wall thickening. Atherosclerosis of the aorta with eccentric plaque noted within the proximal abdominal aorta on image 112 series 11, progressed from 01/10/2024. No occlusion. No progressive lymphadenopathy. The majority of the large bowel is decompressed with wall thickening. Colonic diverticulosis. Surgical clips are noted adjacent to the cecum. The previously noted large hypermetabolic cecal mass measuring 5 cm is not clearly seen. Tiny fat filled umbilical hernia. No new skeletal lesions identified. IMPRESSION: 1. No pulmonary emboli identified on this limited exam. 2. Scattered bilateral multilobar distribution of nodular airspace opacities suggestive of multifocal pneumonia. Follow-up recommended. 3. Progressive mediastinal and hilar lymphadenopathy. 4. Decreased size of the large necrotic posterior mediastinal mass, and left adrenal metastatic lesion compatible with positive treatment response. The previously noted hypermetabolic cecal lesion is not visualized. 5. No bowel obstruction or bowel wall thickening. 6. Additional findings as above. ACT 112: Negative or not required by law. The above report was generated using voice recognition software. It may contain grammatical, syntax or spelling errors. Electronically signed by: Dwaine William M.D. 04/25/2024 7:55 PM Chest CTA 04/25/24 16:34 CT angio chest PE protocol, CT abd pelvis IV con only HISTORY: 74 years-old Male with sob, lung ca, r/o PE. Acute sepsis with shortness of breath. History of lung cancer. TECHNIQUE: Multiple CTA images of the chest were obtained after the intravenous administration of 120 ml Optiray. Coronal and sagittal MIPS were obtained from the axial data set and were submitted for review. All measurements were obtained according to NASCET criteria. CT abdomen and pelvis with IV contrast only also obtained. A dose lowering technique was utilized adhering to the principles of ALARA. COMPARISON: PET CT 03/04/2024, CT abdomen and pelvis 01/10/2024. FINDINGS: Motion degraded exam. CTA: Mild cardiomegaly. No pericardial effusion. Ectasia of the ascending thoracic aorta, 3.9 cm. Proximal descending thoracic aorta measures 3.7 cm with descending thoracic aortic tortuosity. No dissection. No pulmonary emboli identified. Suboptimal evaluation of the segmental and subsegmental branches secondary to respiratory motion. CT CHEST: Unremarkable thyroid. Pathologically enlarged mediastinal and hilar lymph nodes. 10 mm precarinal lymph node image 145 is stable. 2.4 x 1.3 cm AP window lymph node on image 149 previously measured 1.7 x 1.0 cm. Bilateral hilar lymph nodes measuring up to 1.3 cm in short axis on image 118 have increased in size. Large centrally necrotic posterior mediastinal mass measures up to 4 cm on image 81 series 8 previously 10 cm. Circumferential wall thickening with mild disp lacement/mass effect upon the adjacent esophagus. No pneumothorax, pleural effusion or overt pulmonary edema. Severe pulmonary emphysema. Patchy multifocal nodular areas of consolidation with associated groundglass density, most pronounced within the lung bases and right upper lobe, new from prior. Scattered calcified granulomata in the lungs. Central airways are patent. Unremarkable soft tissues. No acute fracture identified. No new skeletal lesions are seen. CT ABDOMEN/PELVIS: No free air. Unremarkable spleen, pancreas and visualized gallbladder. Hepatic steatosis. No hepatic mass lesions identified. There is patency of the hepatic and portal veins. Bilateral adrenal gland nodules redemonstrated measuring 1.47 m on the right which is stable. Central necrotic peripherally enhancing 3.4 x 3.1 cm left adrenal and metastatic focus previously measured 5.6 cm. No hydronephrosis. Prostatomegaly. Mild nonspecific urinary bladder wall thickening. Atherosclerosis of the aorta with eccentric plaque noted within the proximal abdominal aorta on image 112 series 11, progressed from 01/10/2024. No occlusion. No progressive lymphadenopathy. The majority of the large bowel is decompressed with wall thickening. Colonic diverticulosis. Surgical clips are noted adjacent to the cecum. The previously noted large hypermetabolic cecal mass measuring 5 cm is not clearly seen. Tiny fat filled umbilical hernia. No new skeletal lesions identified. IMPRESSION: 1. No pulmonary emboli identified on this limited exam. 2. Scattered bilateral multilobar distribution of nodular airspace opacities suggestive of multifocal pneumonia. Follow-up recommended. 3. Progressive mediastinal and hilar lymphadenopathy. 4. Decreased size of the large necrotic posterior mediastinal mass, and left adr enal metastatic lesion compatible with positive treatment response. The previously noted hypermetabolic cecal lesion is not visualized. 5. No bowel obstruction or bowel wall thickening. 6. Additional findings as above. ACT 112: Negative or not required by law. The above report was generated using voice recognition software. It may contain grammatical, syntax or spelling errors. Electronically signed by: Dwaine William M.D. 04/25/2024 7:[address] 04/25/24 16:34 CT head/brain wo con CLINICAL HISTORY: 74 years-old Male with ams. Acutely altered mental status TECHNIQUE: Multiple axial CT images of the head were obtained without contrast. A dose lowering technique was utilized adhering to the principles of ALARA. CT DOSE: 3113.47 mGy.cm COMPARISON: Brain MRI 03/11/2024 FINDINGS: No acute intracranial hemorrhage, midline shift, hydrocephalus, territorial ischemia or abnormal extra-axial collection. Involutional changes with chronic microvascular ischemic disease. Study is motion degraded. The previously noted subcentimeter enhancing lesions within the right cerebrum are not visualized by CT. The calvarium is intact. The paranasal sinuses, mastoid air cells, and middle ear cavities are clear. IMPRESSION: 1. No acute intracranial abnormality. 2.The previously noted subcentimeter enhancing lesions within the right cerebrum are not visualized on this nonenhanced exam ACT 112: Negative or not required by law. The above report was generated using voice recognition software. It may contain grammatical, syntax or spelling errors. Electronically signed by: Dwaine William M.D. 04/25/2024 7:25 PM Chest X-Ray 05/04/24 07:00 SINGLE VIEW CHEST CLINICAL HISTORY: Respiratory failure. FINDINGS: An AP, portable, upright chest radiograph is compared to study dated 05/03/2024 and correlated with chest CT dated 04/25/2024. The heart is enlarged noting atherosclerotic calcification and uncoiling of the thoracic aorta. Fibrotic change in the left upper lung is unchanged. Advanced emphysema and chronic interstitial thickening is similar to previous. Multifocal airspace consolidation is again seen throughout both lungs with a mid to lower lobe predominance. This has not appreciably changed from yesterday. No large pleural effusion or pneumothorax is identified. The skeletal structures are osteopenic. The bony thorax is grossly intact. IMPRESSION: 1. Cardiomegaly and advanced emphysema. 2. Multifocal airspace consolidation is again seen throughout both lungs. This has not appreciably changed from yesterday. Clinical correlation will be required and radiographic follow-up to resolution is recommended. ACT 112: Negative or not required by law. Electronically signed by: Basilio Ojeda M.D. 05/04/2024 7:23 AM PG Care Time/CCT Total # of Minutes Spent Total Time Spent with Patient: Total time spent is greater than 50% in coordination of care (as documented) at patient's floor/unit and/or counseling patient: I spent 110 minutes overall addressing this case: 10 min in medical data review/discussion with referring provider(s) and/or preparation for the visit 10 min in direct interaction with the patient/exam 60 min in Advance Care Planning/Goals of Care discussions as detailed above in note (must be >16min) 15 min in subsequent review and synthesis of assessment and plan 15 min communicating with other providers regarding the patient's case: Advanced Care Planning 06234 Advanced Care Planning 30 Min 82923 Advanced Care Planning Additional 30 Min [place] [address] SUB INP/OBS CARE 3/50MIN (25 - SIGNIFICANT, SEPARATELY IDENTIFIABLE ) Patient Type Established Medical Decision Making High Complexity Diagnoses Dyspnea and respiratory abnormalities R06.00; R06.89 Cancer related pain G89.3 Advanced care planning/counseling discussion Z71.89 Palliative care by specialist Z51.5 Lung cancer metastatic to brain C34.90; C79.31 COPD (chronic obstructive pulmonary disease) J44.9 Adenocarcinoma of lung, stage 4 C34.90 Laterality: unspecified laterality Additional Codes Advanced Care Planning - 45331 Advanced Care Planning 30 Min: 49999 Advanced Care Planning 30 Min ([id number]) Advanced Care Planning - 57292 Advanced Care Planning Additional 30 Min: 08170 Advanced Care Planning Additional 30 Min ([id number]) (7) Adenocarcinoma of lung, stage 4 Laterality: unspecified laterality Qualified Code(s): C34.90 - Malignant neoplasm of unspecified part of unspecified bronchus or lung
--- NOTE | 2024-05-05 07:13 | Hospitalist Progress Note ---
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 #Acute respiratory failure with hypoxia in the setting of multifocal pneumonia, improving Multifocal PNA CT of the chest with PE protocol was negative for pulmonary emboli, pleural effusion, and pulmonary edema on admission Continue incentive spirometry, flutter valve, scheduled DuoNebs q4 transitioned to prn as pt declined it Goal O2 88-92%, wean O2 as tolerated to this goal range - Sputum culture: positive for Vicki albicans/dubliniensis (on chemotherapy, so most likely due to colonization) - Zosyn finished 05/03 for full 7 day course - Pulm consult as he is followed by their service outpatient; Concern for Pembrolizumab toxicity so avoid this high dose Solu-Medrol started, will transition to oral today 40 mg BID to be continued until eval by oncology next week Testing for PJP, fungal, legionella, histoplasmosis; pending Repeat sputum culture; negative recommend palliative consult; recs appreciated -Consult placed to oncology as well; Dr. Garnica is primary oncologist; continue steroids #Sepsis, resolved - Blood Cx, negative after 5 days #Pancytopenia -Patient noted to be pancytopenic on admission; counts improving -Neutropenic precautions ordered -SCDs for DVT prophylaxis w/ thrombocytopenia -Likely due to chemotherapy and exacerbated with acute infection -480 micrograms of SQ Neupogen given upon admission -Oncology consult placed as [facility] - given 2 units PRBCs 05/03 for hemoglobin 7.1, stable 10.4 today #Lung cancer metastatic to brain: Has completed 3 of 6 planned cycles of chemotherapy thus far oncology consulted #Elevated troponin, resolved - HS trop peak 29 - Suspect demand ischemia in setting of sepsis #COPD (chronic obstructive pulmonary disease): Care per acute hypoxic respiratory failure plan IVF; none DVT Prophylaxis: SCD Admission and Anticipated Discharge Date Admission Date: April 25, 2024 Supervising Physician Co-Signing Physician Notes Attending Physician Supervision Note: I independently interviewed and examined the patient and verified the caldwell history and physical, reviewed labs and image studies and agree with findings and care plan noted above. Diffuse Multifocal infiltrate - having treated appropriately with abx - presentation highly concerning of Pulmonary ICI toxicity - Pembrolizumab. Severe underlying COPD Pul consulted -ICI toxicity - Started high dose IV steroids 05/02. Transitioned to PO prednisone 05/05. -oxygen demand improving. -Bronchoscopy not attempted d/t being too unstable - to r/o Pul hemorrhage(would be treated with steroids)/progression of malignancy and other infectious etiologies. -galactomannan pending. -urine legionella ag pending -histoplasma antigen pending -Bactrim MWF for PJP prophylaxis. -sputum cx - many yeast. Lung ca with metastasis - -consulted oncology and palliative - continue current care. Acute hypoxic respiratory failure- Oxygen support for goal SaO2 88% and above. Pancytopenia - wbc improved with Neupogen on admission. -platelet 119k- improving -hb 10 - transfused 2 units of PRBC 05/03. SCD. consider chemical dvt proph starting in am. 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 Today, pt states he is feeling fine. No real questions or complaints today. He states his breathing has improved some since yesterday but hard to say how it is compared to baseline since he states it is just different. Still amendable to going to [facility]. No chest pain with quite mild SOB at times today. No abdominal pain or nausea. Tolerating meals well. Review of Systems Review of Systems: Per HPI. Physical Exam Physical Exam: General:Alert and oriented, no acute distress, chronically ill appearing HEENT: Normocephalic, moist oral mucosa, Cardio: Regular rate and rhythm, no murmur, Resp:Clear to auscultation bilaterally GI: Soft and nontender, nondistended, bowel sounds active Skin: Warm, pink, dry, Results & Data Results & Data Vital Signs (Past 12 Hours) Vital Signs Temp Pulse Pulse Resp BP BP Pulse Ox 05/05/24 07:09 87 16 88 L 05/05/24 02:35 36.5 C 72 20 151/80 H 96 05/05/24 00:00 05/04/24 22:50 36.5 C 83 20 160/93 H 96 05/04/24 20:46 93 H 20 93 05/04/24 20:00 05/04/24 19:29 37.2 C 100 H 22 156/93 H 93 Pulse Ox O2 Del Method O2 Del Method O2 Flow Rate O2 Flow Rate 05/05/24 07:09 Nasal Cannula 6 05/05/24 02:35 High Flow Nasal Cannula 6 05/05/24 00:00 94 High Flow Nasal Cannula 6 05/04/24 22:50 High Flow Nasal Cannula 05/04/24 20:46 Nasal Cannula 6 05/04/24 20:00 High Flow Nasal Cannula 6 05/04/24 19:29 High Flow Nasal Cannula 6 Resident Activity Tracking Resident Involvement: Resident Care Provided Care Provided: Adult Hospital Medicine
[2024-05-05 07:58] LABS: Hematocrit (blood only) 31.8 % (42.0-52.0); Hemoglobin 10.4 g/dl (14.0-18.0); Immature Granulocytes # (auto) 0.05 K/uL (0.01-0.20); Immature Granulocytes % (auto) 0.9 %; Lymphocytes # (auto) 0.94 K/uL (1.20-3.40); Lymphocytes % (auto) 16.7 %; Mean Corpuscular Hemoglobin 28.5 pg (25.0-34.0); Mean Corpuscular Hgb Conc 32.7 g/dL (32.0-36.0); Mean Corpuscular Volume 87.1 fL (80.0-100.0); Mean Platelet Volume 11.3 fL (9.4-12.4); Monocytes # (auto) 0.56 K/uL (0.11-0.59); Monocytes % (auto) 9.9 %; Neutrophils # (auto) 4.08 K/uL (1.40-6.50); Neutrophils % (auto) 72.5 %; Platelet Count 119 K/uL (130-400); RDW Coefficient of Variation 19.8 % (11.5-14.5); RDW Standard Deviation 61.7 fL (36.4-46.3); Red Blood Count 3.65 M/uL (4.70-6.10); White Blood Count 5.63 K/ul (4.8-10.8)
[2024-05-05 08:08] LABS: Albumin Globulin Ratio 0.9 (0.9-2); Albumin Level 3.2 gm/dl (3.4-5.0); BUN Creatinine Ratio 31.6 (10-20); Bilirubin,Total 0.4 mg/dl (0.2-1.0); Calcium 9.7 mg/dl (8.6-10.3); Est GFR (African American) 87.1 ml/min; Est GFR (Non-African American) 75.1 ml/min; Globulin 3.7 gm/dl (2.5-4.0); Magnesium 1.5 mg/dl (1.7-2.4); Potassium 4.4 mmol/L (3.5-5.1); Total Protein 6.9 gm/dl (6.0-8.3)
--- NOTE | 2024-05-05 08:27 | XRay Report ---
XR chest 1V portable CLINICAL HISTORY: resp failure TECHNIQUE: Single frontal radiograph of the chest was obtained. Comparison: Comparison is made to chest radiograph 05/04/2024 FINDINGS: No lines and tubes are seen. Cardiomegaly is noted. Interval mild improvement of airspace consolidati ons. No evidence of pleural effusion or pneumothorax. IMPRESSION: Interval mild improvement of airspace consolidations. ACT 112: Negative or not required by law. Electronically signed by: Rajinder Payan M.D. 05/05/2024 8:26 AM
[2024-05-05] MEDS: MAGNESIUM SULFATE / D5W 1 GM/100 ML BAG IV SCH (09:49)
--- NOTE | 2024-05-05 12:25 | Pulmonology Progress Note ---
Date of Service May 05, 2024 Assessment & Plan (1) Acute and chronic respiratory failure with hypoxia: (2) Multifocal pneumonia: (3) Lung cancer metastatic to brain: (4) COPD (chronic obstructive pulmonary disease): Plan Impression: 74-year-old male with advanced adenocarcinoma of the lung now with progressive hypoxemic respiratory failure multifocal infiltrates. He did had an elevated procalcitonin on presentation and has been treated with aggressive antibiotics for 7 days but unfortunately clinical condition appears to be deteriorating with escalation of oxygen requirement and progression of pulmonary infiltrates. Pattern is highly concerning for pulmonary ICI toxicity. The patient is too unstable to consider bronchoscopy currently. Recommendations: 1. Diffuse pulmonary infiltrates with hypoxemic respiratory failure: Continue prednisone 40 mg twice daily and then taper by 10 mg every 7 days. Continue PJP prophylaxis. PJP prophylaxis remain on board until he is down to 20 mg prednisone daily. Once he falls below 20 mg daily Bactrim should continue for 1 month after. 2. Patient is currently too unstable to consider bronchoscopy. Bronchoscopy may be useful in excluding other etiologies such as pulmonary hemorrhage (which would be treated by steroids) progression of malignancy, and potential infectious etiologies. Procalcitonin and BNP were unremarkable. Discontinuing antibiotics at this time is reasonable aside for PJP prophylaxis. 3. Lung cancer: Appreciate palliative care input. 4. Hypoxemic respiratory failure: Continue supplemental oxygen titrated to keep saturations at or above 88% Overall prognosis is guarded. No further recommendations from pulmonary perspective at this time. Consider transferring the patient to LTAC for long-term oxygen weaning. Discussed with hospitalist service. Please call with questions. Admission and Anticipated Discharge Date Admission Date: April 25, 2024 Subjective Patient seen and examined. He feels relatively better. Oxygen requirements remain stable compared to yesterday and remains on 6 L via nasal cannula with saturations of 90% Review of Systems Review of Systems: All systems reviewed & are unremarkable except as noted in HPI & below Physical Exam Constitutional: + ill appearing; not in distress Neck: trachea midline, no thyromegaly Respiratory: + labored breathing and + tachypneic; no cough Auscultation: + crackles and + rhonchi; no wheezes Cardiovascular: RRR, no murmur, no edema Gastrointestinal (Abdomen): normal bowel sounds, soft, nontender, no hepatosplenomegaly Musculoskeletal: Extremities: extremities normal to inspection Skin: no rashes, warm and dry Neurologic: Nonfocal exam Lymphatic: no cervical lymphadenopathy Results & Data Results & Data Vital Signs (Past 12 Hours) Vital Signs Temp Pulse Resp BP BP Pulse Ox O2 Del Method 05/05/24 10:45 36.3 C L 103 H 21 165/117 H 90 Nasal Cannula 05/05/24 07:24 36.6 C 82 20 166/115 H 90 Nasal Cannula 05/05/24 07:09 87 16 88 L Nasal Cannula 05/05/24 02:35 36.5 C 72 20 151/80 H 96 High Flow Nasal Cannula O2 Flow Rate 05/05/24 10:45 6 05/05/24 07:24 6 05/05/24 07:09 6 05/05/24 02:35 6 PG Care Time/CCT Total # of Minutes Spent Total Time Spent with Patient: Total time spent is greater than 50% in coordination of care (as documented) at patient's floor/unit and/or counseling patient: Coding Level of Care Code 58068 SUB INP/OBS CARE 2/35MIN Diagnoses Acute and chronic respiratory failure with hypoxia J96.21 Multifocal pneumonia J18.9 Lung cancer metastatic to brain C34.90; C79.31 COPD (chronic obstructive pulmonary disease) J44.9
[2024-05-05] MEDS: predniSONE 20 MG TAB PO SCH (20:08)
--- NOTE | 2024-05-06 07:05 | XRay Report ---
XR chest 1V portable CLINICAL HISTORY: resp failure TECHNIQUE: Single frontal radiograph of the chest was obtained. Comparison: Comparison is made to chest radiograph 05/05/2024 FINDINGS: No lines and tubes are seen. The aorta is tortuous. The remainder of the cardiomediastinal silhouette is unremarkable. Multifocal airspace opacities are seen. No evidence of pleural effusion or pneumoth orax. IMPRESSION: Multifocal airspace opacities may represent atelectasis, pneumonia, and/or aspiration. These are unch anged from prior exam. ACT 112: Negative or not required by law. Electronically signed by: Rajinder Payan M.D. 05/06/2024 7:04 AM
[2024-05-06 07:19] LABS: Basophils # (auto) 0.01 K/uL (0.00-0.20); Basophils % (auto) 0.2 %; Hematocrit (blood only) 30.8 % (42.0-52.0); Hemoglobin 9.9 g/dl (14.0-18.0); Immature Granulocytes # (auto) 0.05 K/uL (0.01-0.20); Immature Granulocytes % (auto) 0.9 %; Lymphocytes # (auto) 0.74 K/uL (1.20-3.40); Lymphocytes % (auto) 13.5 %; Mean Corpuscular Hemoglobin 28.5 pg (25.0-34.0); Mean Corpuscular Hgb Conc 32.1 g/dL (32.0-36.0); Mean Corpuscular Volume 88.8 fL (80.0-100.0); Mean Platelet Volume 10.5 fL (9.4-12.4); Monocytes % (auto) 9.1 %; Neutrophils # (auto) 4.17 K/uL (1.40-6.50); Neutrophils % (auto) 76.3 %; Platelet Count 142 K/uL (130-400); RDW Coefficient of Variation 19.7 % (11.5-14.5); RDW Standard Deviation 62.2 fL (36.4-46.3); Red Blood Count 3.47 M/uL (4.70-6.10); White Blood Count 5.47 K/ul (4.8-10.8)
--- NOTE | 2024-05-06 07:36 | Hospitalist Progress Note ---
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 Awaiting rehab placement. Pt prefers [facility]. #Acute respiratory failure with hypoxia in the setting of multifocal pneumonia, improving Multifocal PNA CT of the chest with PE protocol was negative for pulmonary emboli, pleural effusion, and pulmonary edema on admission Continue incentive spirometry, flutter valve, scheduled DuoNebs q4 transitioned to prn as pt declined it Goal O2 88-92%, wean O2 as tolerated to this goal range - Sputum culture: positive for Vicki albicans/dubliniensis (on chemotherapy, so most likely due to colonization) - Zosyn finished 05/03 for full 7 day course - Pulm consult as he is followed by their service outpatient; Concern for Pembrolizumab toxicity so avoid this high dose Solu-Medrol started, transitioned to oral 05/05 40 mg BID to be continued until eval by oncology next week Testing for PJP, fungal, legionella, histoplasmosis; pending Repeat sputum culture; negative recommend palliative consult; recs appreciated -Consult placed to oncology as well; Dr. Garnica is primary oncologist; continue steroids #Sepsis, resolved - Blood Cx, negative after 5 days #Pancytopenia -Patient noted to be pancytopenic on admission; counts improving -Neutropenic precautions ordered -SCDs for DVT prophylaxis w/ thrombocytopenia -Likely due to chemotherapy and exacerbated with acute infection -480 micrograms of SQ Neupogen given upon admission -Oncology consult placed as [facility] - given 2 units PRBCs 05/03 for hemoglobin 7.1, stable 9.9 today #Lung cancer metastatic to brain: Has completed 3 of 6 planned cycles of chemotherapy thus far oncology consulted #Elevated troponin, resolved - HS trop peak 29 - Suspect demand ischemia in setting of sepsis #COPD (chronic obstructive pulmonary disease): Care per acute hypoxic respiratory failure plan IVF; none DVT Prophylaxis: SCD Admission and Anticipated Discharge Date Admission Date: April 25, 2024 Supervising Physician Co-Signing Physician Notes Attending Physician Supervision Note: I independently interviewed and examined the patient and verified the caldwell history and physical, reviewed labs and image studies and agree with findings and care plan noted above. Diffuse Multifocal infiltrate - having treated appropriately with abx - presentation highly concerning of Pulmonary ICI toxicity - Pembrolizumab. Severe underlying COPD Pul consulted -ICI toxicity - Started high dose IV steroids 05/02. Transitioned to PO prednisone 05/05. O2 need stable at 6L. CXR unchanged -Bronchoscopy not attempted d/t being too unstable - to r/o Pul hemorrhage(would be treated with steroids)/progression of malignancy and other infectious etiologies. -galactomannan pending. -urine legionella ag pending -histoplasma antigen pending -Bactrim MWF for PJP prophylaxis. -sputum cx - many yeast. Lung ca with metastasis - -consulted oncology and palliative - continue current care. Acute hypoxic respiratory failure- Oxygen support for goal SaO2 88% and above. Pancytopenia - wbc improved with Neupogen on admission. -platelet normalized. -hb stable. transfused 2 units of PRBC 05/03. 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 Today, pt states he is feeling fine, no better or worse than yesterday. No questions or concerns at this time, awaiting rehab. No chest pain or SOB, no abdominal pain. Tolerating intake without issue. Review of Systems Review of Systems: Per HPI. Physical Exam Physical Exam: General:Alert and oriented, no acute distress, chronically ill appearing but more energetic today HEENT: Normocephalic, moist oral mucosa, Cardio: Regular rate and rhythm, no murmur, Resp:Clear to auscultation bilaterally GI: Soft and nontender, nondistended, bowel sounds active Skin: Warm, pink, dry, Results & Data Results & Data Vital Signs (Past 12 Hours) Vital Signs Temp Pulse Pulse Resp BP Pulse Ox Pulse Ox 05/06/24 07:05 87 20 93 05/06/24 03:05 36.5 C 69 18 139/78 98 05/06/24 00:00 89 L 05/05/24 22:44 36.6 C 83 20 149/95 H 94 05/05/24 22:00 85 05/05/24 20:43 05/05/24 20:23 88 16 90 O2 Del Method O2 Del Method O2 Flow Rate O2 Flow Rate 05/06/24 07:05 Nasal Cannula 7 05/06/24 03:05 Nasal Cannula 05/06/24 00:00 Oxymask 7 05/05/24 22:44 Nasal Cannula 05/05/24 22:00 05/05/24 20:43 Nasal Cannula 5 05/05/24 20:23 Nasal Cannula 6 Resident Activity Tracking Resident Involvement: Resident Care Provided Care Provided: Adult Hospital Medicine
[2024-05-06 07:46] LABS: Albumin Globulin Ratio 0.9 (0.9-2); Bilirubin,Total 0.3 mg/dl (0.2-1.0); Calcium 9.3 mg/dl (8.6-10.3); Creatinine Clr Calc Pharmacy 61.8 ml/min; Est GFR (Non-African American) 73.3 ml/min; Globulin 3.4 gm/dl (2.5-4.0); Magnesium 1.6 mg/dl (1.7-2.4); Potassium 4.3 mmol/L (3.5-5.1); Total Protein 6.4 gm/dl (6.0-8.3)
[2024-05-06] MEDS ORDERED: MAGNESIUM SULFATE / D5W 1 GM/100 ML BAG IV SCH (09:15)
[2024-05-06] MEDS: MAGNESIUM SULFATE / D5W 1 GM/100 ML BAG IV SCH (09:25)
[2024-05-06 19:52] LABS: Fungitell (1-3)-B-D-Glucan <31 pg/mL
[2024-05-06] MEDS: HEPARIN SOD 5,000 UNIT/0.5 ML VIAL SQ SCH (20:30)
[2024-05-07 07:23] LABS: Basophils # (auto) 0.01 K/uL (0.00-0.20); Basophils % (auto) 0.2 %; Hematocrit (blood only) 31.3 % (42.0-52.0); Hemoglobin 10.2 g/dl (14.0-18.0); Immature Granulocytes # (auto) 0.09 K/uL (0.01-0.20); Immature Granulocytes % (auto) 1.5 %; Lymphocytes # (auto) 0.76 K/uL (1.20-3.40); Lymphocytes % (auto) 12.6 %; Mean Corpuscular Hemoglobin 28.8 pg (25.0-34.0); Mean Corpuscular Hgb Conc 32.6 g/dL (32.0-36.0); Mean Corpuscular Volume 88.4 fL (80.0-100.0); Mean Platelet Volume 9.9 fL (9.4-12.4); Monocytes # (auto) 0.62 K/uL (0.11-0.59); Monocytes % (auto) 10.3 %; Neutrophils # (auto) 4.54 K/uL (1.40-6.50); Neutrophils % (auto) 75.4 %; Platelet Count 183 K/uL (130-400); RDW Coefficient of Variation 19.6 % (11.5-14.5); RDW Standard Deviation 62.1 fL (36.4-46.3); Red Blood Count 3.54 M/uL (4.70-6.10); White Blood Count 6.02 K/ul (4.8-10.8)
--- NOTE | 2024-05-07 07:23 | Hospitalist Progress Note ---
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 Awaiting rehab placement. Pt prefers [facility]. Insurance auth for [facility] pending. #Acute respiratory failure with hypoxia in the setting of multifocal pneumonia, improving presented with multifocal pneumonia noted on chest CT - pt has a known hx of lung cancer with mets to brain on chemotherapy currently, - Sputum culture: positive for Vicki albicans/dubliniensis (on chemotherapy, so most likely due to colonization) - was on zosyn for 7 days completed on 05/03 - pulm consulted this admission and recommend steroids for possible Pembrolizumab toxicity, oncology (Dr. Garnica is primary oncologist) in agreement and state to continue on discharge until evaluated by oncology next week, also recommend bactrim M-W-F dosing for PJP prevention - testing for PJP, histoplasmosis. legionella, pending - home O2 requirement is 2-3L #Sepsis, resolved - Blood Cx, negative after 5 days #Pancytopenia -Patient noted to be pancytopenic on admission; -Likely due to chemotherapy and exacerbated with acute infection -480 micrograms of SQ Neupogen given upon admission - given 2 units PRBCs 05/03 for hemoglobin 7.1, stable 10.2 today #Lung cancer metastatic to brain: Has completed 3 of 6 planned cycles of chemotherapy thus far oncology consulted #Elevated troponin, resolved - HS trop peak 29 - Suspect demand ischemia in setting of sepsis #COPD (chronic obstructive pulmonary disease): Care per acute hypoxic respiratory failure plan IVF; none DVT Prophylaxis: SCD Admission and Anticipated Discharge Date Admission Date: April 25, 2024 Anticipated date of discharge: 05/08/24 Supervising Physician Co-Signing Physician Notes Attending attestation Pt seen and examined in concert with Dr. Potts. In agreement with the documented findings as noted in the resident documentation with any exceptions or additions as noted here. Resting comfortably in bed, tolerating NC. On examination, S1/S2 nl RRR no MCG. Scattered ronchi w/ decreased breath sounds at bilateral bases. Abd NT/ND BS+ve Acute hypoxic respiratory failure in the setting of multifocal pneumonia, underlying adenocarcinoma of the lung - continue O2 per protocol and monitor. Completed course of abx. Follow up sendout testing Pancytopenia s/p 2U PRBC on 05.03 - stable, monitor CBC daily Else see resident documentation as noted. 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 Today, pt states he is feeling a bit better than yesterday with some improvement in his breathing. He states he is just tired of waiting to go to rehab at this point and states he is only willing to wait a few more days at most for rehab since he has already been here too long. Otherwise he has no questions or complaints. No chest pain, SOB, abdominal pain, nausea, or vomiting. Review of Systems Review of Systems: Per HPI. Physical Exam Physical Exam: General:Alert and oriented, no acute distress, chronically ill appearing HEENT: Normocephalic, moist oral mucosa, Cardio: Regular rate and rhythm, no murmur, Resp:Clear to auscultation bilaterally GI: Soft, nondistended, bowel sounds active Skin: Warm, pink, dry, Results & Data Results & Data Vital Signs (Past 12 Hours) Vital Signs Temp Pulse Pulse Resp BP Pulse Ox O2 Del Method 05/07/24 05:00 36.7 C 91 H 20 136/73 90 Nasal Cannula 05/06/24 22:41 36.6 C 99 H 20 161/98 H 91 Nasal Cannula 05/06/24 22:14 98 H 05/06/24 20:34 Nasal Cannula 05/06/24 20:05 85 18 90 Nasal Cannula O2 Flow Rate 05/07/24 05:00 05/06/24 22:41 7 05/06/24 22:14 05/06/24 20:34 7 05/06/24 20:05 7 Resident Activity Tracking Resident Involvement: Resident Care Provided Care Provided: Adult Hospital Medicine (1) COPD (chronic obstructive pulmonary disease) COPD type: chronic bronchitis Chronic bronchitis type: unspecified Qualified Code(s): J42 - Unspecified chronic bronchitis
[2024-05-07 07:46] LABS: Albumin Globulin Ratio 0.9 (0.9-2); BUN Creatinine Ratio 38.7 (10-20); Bilirubin,Total 0.3 mg/dl (0.2-1.0); Creatinine Clr Calc Pharmacy 66.4 ml/min; Est GFR (African American) 92.7 ml/min; Globulin 3.4 gm/dl (2.5-4.0); Magnesium 1.8 mg/dl (1.7-2.4); Potassium 4.6 mmol/L (3.5-5.1); Total Protein 6.4 gm/dl (6.0-8.3)
--- NOTE | 2024-05-07 11:49 | Discharge Summary ---
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 On arrival to the ED he was noted to be tachycardic at 120, tachypneic at 37, hypoxic at 75% on room air. Labs were significant for pancytopenia with a total absolute neutrophil count of 0.30. VBG pH of 7.42 with pCO2 and pO2 within normal limits, potassium of 3.1, initial high-sensitivity troponin of 29 with 2-hour repeat of 27, Pro- Ashwin of 1.17, and for respiratory bio fire negative. Chest x-ray was read as a large posterior mediastinal mass which was noted on his last PET/CT, emphysema with mixed interstitial and alveolar opacities suggestive of multifocal pneumonia. CT of the abdomen pelvis with IV contrast, CTA of the chest with PE protocol, and CT of the head/brain without contrast has been obtained but not yet read. Prior to admission the patient was given 125 mg IV Solu-Medrol, 1200 mg p.o. guaifenesin, and hour-long albuterol nebulizer, ordered 1 L normal saline, and ordered doses of Zosyn plus vancomycin. Patient was sitting in bed in no acute distress currently stable on BiPAP. He explains that he started having increased shortness of breath approximately 3 to 4 days ago, he tried to treat symptoms at home himself but they progressed. Denies recent fever/chills, denies current chest pain, does note increased cough with sputum production over this time, denies recent abdominal pain, nausea/vomiting, dysuria/hematuria, and recent trauma. He does note ongoing diarrhea with his chemotherapy but denies recent blood. When asked, he feels as though his breathing has improved compared to arrival, he is wanting to have BiPAP taken off. I explained to him that we will obtain a repeat VBG if stable, we can try to see how he is breathing off BiPAP. We discussed CODE STATUS, he clearly explains that he is a DNR/DNI. We discussed his wishes if he were to continue to clinically decline to the point that he would require intubation, at that point he would wish to be transition to comfort measures. His ex- would be his medical decision-maker if he cannot make decisions himself. Contact information for the patient's ex- is: Kanwal Garner [phone]. The patient gave permission for his ex- to be updated on his condition throughout his hospitalization. Please refer to Dr. Boyle's attestation for any changes to the treatment plan Admission Exam Per Admitting Provider General: In no acute distress, stated age, cachectic and chronically ill- appearing HEENT: Normocephalic, atraumatic, no scleral icterus, pupils around round, symmetrical, and reactive to light, dry mucus membranes, trachea midline, no thyromegaly Chest/Pulm: No respiratory distress while on Bipap, symmetrical chest expansion, scattered rhonchi and expiratory wheezing throughout Cardiac: tachycardic rate, regular rhythm, no murmurs noted Abdomen: Negative for ascites and bruising, normoactive bowel sounds, soft, non- tender to palpation throughout Musculoskeletal: Symmetrical and without signs of acute trauma, upper and lower extremities with full ROM, no atrophy, spasticity, or flaccidity Extremities: Radial, dorsalis pedis, and posterior tibial pulses are intact and symmetrical, no edema noted in the BL LE's Skin: Warm, dry, no rashes , lesions, or scars noted Neuro: Alert and oriented to person, place, month, year, and president, no focal defects, no tremors noted Psych: No acute distress, calm and cooperative during the exam Principal Diagnosis Acute hypoxic respiratory failure, multifocal pneumonia Discharge Exam General:Alert and oriented, no acute distress, chronically ill appearing HEENT: Normocephalic, moist oral mucosa, Cardio: Regular rate and rhythm, no murmur, Resp:Clear to auscultation bilaterally, no wheezes or rhonchi GI: Soft and nontender, nondistended, bowel sounds active Skin: Warm, pink, dry, Discharge Data Allergies Allergy/AdvReac Type Severity Reaction Status Date / Time No Known Allergies Allergy Unverified 04/07/24 11:07 Consultations 04/25/24 19:13 ED Decision to Admit Stat 04/25/24 20:58 Consult Oncology Routine 05/01/24 12:27 Consult Pulmonology Routine 05/02/24 09:55 Consult Oncology Routine 05/02/24 10:06 Consult Palliative Care Routine Ordered Studies 04/25/24 16:34 CT abd pelvis IV con only Stat CT angio chest PE protocol Stat CT head/brain wo con Stat Hospital Course (1) Acute and chronic respiratory failure with hypoxia: Plan Pt is a 74 yo male with a past med hx of 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 #Acute respiratory failure with hypoxia in the setting of multifocal pneumonia vs drug reaction, improved - pt noted Multifocal PNA CT of the chest with PE protocol was negative for pulmonary emboli, pleural effusion, and pulmonary edema on admission Continue incentive spirometry, flutter valve, scheduled DuoNebs q4 transitioned to prn as pt declined it Goal O2 88-92%, wean O2 as tolerated to this goal range - Sputum culture: positive for Vicki albicans/dubliniensis (on chemotherapy, so most likely due to colonization) - Zosyn finished 05/03 for full 7 day course - Pulm consult as he is followed by their service outpatient; Concern for Pembrolizumab toxicity so avoid this high dose Solu-Medrol started, transitioned to oral 05/05 40 mg BID to be continued until eval by oncology next week Testing for PJP, fungal, legionella, histoplasmosis; pending Repeat sputum culture; negative recommend palliative consult; recs appreciated -Consult placed to oncology as well; Dr. Garnica is primary oncologist; continue steroids #Sepsis, resolved - Blood Cx, negative after 5 days #Pancytopenia -Patient noted to be pancytopenic on admission; counts improving -Neutropenic precautions ordered -SCDs for DVT prophylaxis w/ thrombocytopenia -Likely due to chemotherapy and exacerbated with acute infection -480 micrograms of SQ Neupogen given upon admission -Oncology consult placed as [facility] - given 2 units PRBCs 05/03 for hemoglobin 7.1, stable 9.9 today #Lung cancer metastatic to brain: Has completed 3 of 6 planned cycles of chemotherapy thus far oncology consulted #Elevated troponin, resolved - HS trop peak 29 - Suspect demand ischemia in setting of sepsis #COPD (chronic obstructive pulmonary disease): Care per acute hypoxic respiratory failure plan IVF; none DVT Prophylaxis: SCD Total Time Total Time Spent Total Time Spent (In Minutes): As per attending attestation. Discharge Plan Discharge Items Patient Disposition: Transfer Inpatient Rehab Fac Reason For Visit: ACUTE HYPOXIC RESPIRATORY FAILURE, MULTIFOCAL PNEU Discharge Diagnosis: Acute hypoxic respiratory failure, multifocal pneumonia Activity: Resume your previous activity Non-emergency contact: Primary Care Provider Call non-emergency contact if: you have any medication questions, your symptoms worsen and your temperature is above 101 Follow-up/Referrals: Day Stout MD [Primary Care Provider] - Diet: Regular Addtl Attending Provider Instructions: You were admitted to the hospital for acute hypoxic respiratory failure (lower than normal blood oxygen levels) in the setting of multifocal pneumonia and possible toxicity of a cancer drug you were given called Pembrolizumab. You finished a course of antibiotics for your pneumonia and you are on steroids now for the inflammation caused by the drug. Please also follow up with your primary care physician once you are discharged from [facility] within 2-3 days of leaving [facility]. Our director nicu has suggested you take a medication called Bactrim (sulfamethoxazole-trimethoprim) on Friday, Friday, and Fridays to prevent you from getting an infection in your lungs that can occur more often in those who are immunocompromised called PJP. Oncology has suggested that you continue steroids at least until you see them in office next week. If you cannot get to your appointment next week, please call them for further instructions on tapering the steroid. Two weeks of this steroid has been sent to your pharmacy. Please do not stop this without further direction from your oncologist or director nicu. Pending Studies at Discharge: No Stand-Alone Forms: My [facility] Skilled Items Patient informed of condition?: Yes DNR: Yes Discharge Level of Care: Acute rehab Communicable Disease: No Discharge Prognosis: Stable Lines: None Urinary Catheter: No Medications and DC Order Prescriptions: New prednisone 20 mg Tablet 40 mg PO BID 14 Days Qty: 56 1RF sulfamethoxazole-trimethoprim [Bactrim DS] 800-160 mg Tablet 1 tab PO MoWeFr@0900 30 Days Qty: 13 1RF Continued albuterol sulfate 90 mcg/actuation HFA aerosol inhaler 2 puff inhalation Q6H PRN (Reason: shortness of breath or wheezing) Qty: 3 1RF oxycodone 5 mg capsule 5 mg PO TID PRN (Reason: pain) Qty: 90 0RF tamsulosin 0.4 mg capsule 0.4 mg PO DAILY Qty: 90 3RF Trelegy Ellipta 100-62.5-25 mcg blister with device 1 inh inhalation DAILY Qty: 3 1RF losartan-hydrochlorothiazide 50-12.5 mg tablet 1 tab PO DAILY Qty: 90 3RF Hold Instructions: Resume on 03/20/24. Hold until seen by your primary care physician. turmeric 400 mg capsule 400 mg PO DAILY (DME) Portable Oxygen Misc See Rx Instructions .MEDSUPPLY Qty: 1 0RF Rx Instructions: Oxygen 3 liters continuous via nasal cannula on exertion with portable concentrator. JUAN 99 folic acid 1 mg tablet 1 mg PO DAILY Discharge Orders: Discharge Order (Routine); Ordered 05/07/24 Ordered By: Rosie Potts Admission Data Admit Date/Time: 04/25/24 20:07 Attending Provider: Carlos Jesus Admit Provider: Cristian Boyle Primary Care Provider: Day Stout Other Providers: Cristian Boyle; Mynor Gonzalez; [facility]; [place]; Doyle Reddy; Kymberly Garnica; Nhi An
[2024-05-07] MEDS: IPRATROPIUM BROMIDE NASAL SPRAY 0.06% 15ML NAE PRN (17:35)
[2024-05-07] MEDS: FLUTICASONE PROPIONATE NA SPR 16 GM BTL PRN (20:22)
[2024-05-08 05:56] LABS: Basophils # (auto) 0.01 K/uL (0.00-0.20); Basophils % (auto) 0.2 %; Hematocrit (blood only) 32.1 % (42.0-52.0); Hemoglobin 10.4 g/dl (14.0-18.0); Immature Granulocytes # (auto) 0.07 K/uL (0.01-0.20); Immature Granulocytes % (auto) 1.2 %; Lymphocytes # (auto) 0.73 K/uL (1.20-3.40); Lymphocytes % (auto) 12.4 %; Mean Corpuscular Hemoglobin 28.8 pg (25.0-34.0); Mean Corpuscular Hgb Conc 32.4 g/dL (32.0-36.0); Mean Corpuscular Volume 88.9 fL (80.0-100.0); Mean Platelet Volume 9.8 fL (9.4-12.4); Monocytes % (auto) 6.8 %; Neutrophils # (auto) 4.67 K/uL (1.40-6.50); Neutrophils % (auto) 79.4 %; Platelet Count 197 K/uL (130-400); RDW Coefficient of Variation 19.7 % (11.5-14.5); RDW Standard Deviation 61.8 fL (36.4-46.3); Red Blood Count 3.61 M/uL (4.70-6.10); White Blood Count 5.88 K/ul (4.8-10.8)
[2024-05-08 06:18] LABS: Albumin Level 3.1 gm/dl (3.4-5.0); Bilirubin,Total 0.3 mg/dl (0.2-1.0); Calcium 9.3 mg/dl (8.6-10.3); Creatinine Clr Calc Pharmacy 70.2 ml/min; Est GFR (African American) 97.4 ml/min; Globulin 3.2 gm/dl (2.5-4.0); Magnesium 1.7 mg/dl (1.7-2.4); Potassium 4.9 mmol/L (3.5-5.1); Total Protein 6.3 gm/dl (6.0-8.3)
--- NOTE | 2024-05-08 07:32 | Hospitalist Progress Note ---
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 Awaiting rehab placement. Pt prefers [facility]. Insurance auth for [facility] pending. 1) Acute respiratory failure with hypoxia in the setting of multifocal pneumonia, improving presented with multifocal pneumonia noted on chest CT - pt has a known hx of lung cancer with mets to brain on chemotherapy currently, - Sputum culture: positive for Vicki albicans/dubliniensis (on chemotherapy, so most likely due to colonization) - was on zosyn for 7 days completed on 05/03 - pulm consulted this admission and recommend steroids for possible Pembrolizumab toxicity, oncology (Dr. Garnica is primary oncologist) in agreement and state to continue on discharge until evaluated by oncology next week, also recommend bactrim M-W-F dosing for PJP prevention - testing for PJP, histoplasmosis. legionella, pending - home O2 requirement is 2-3L 2) Sepsis, resolved # resolved - Blood Cx, negative after 5 days 3) Hypertension 4) Pancytopenia, resolved # resolved (but still at risk) -Patient noted to be pancytopenic on admission; -Likely due to chemotherapy and exacerbated with acute infection -480 micrograms of SQ Neupogen given upon admission - given 2 units PRBCs 05/03 for hemoglobin 7.1, stable 10.4 today - ANC, 4.7; Plts, 197 5) Lung cancer metastatic to brain: Has completed 3 of 6 planned cycles of chemotherapy thus far oncology consulted 6) Elevated troponin, resolved # resolved - HS trop peak 29 - Suspect demand ischemia in setting of sepsis 7) COPD (chronic obstructive pulmonary disease): Care per acute hypoxic respiratory failure plan Code status: Full IVF; none DVT Prophylaxis: SCD Admission and Anticipated Discharge Date Admission Date: April 25, 2024 Subjective Pt is a 74 yo male with a past med hx of 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 Today, pt feeling a bit better subjectively, oxygen levels almost at baseline, some improvement in his breathing. Inpatient waiting for rehab at this point and states he is only willing to wait a few more days at most for rehab since he has already been here too long. Otherwise he has no questions or complaints. No chest pain, SOB, abdominal pain, nausea, or vomiting. Review of Systems Review of Systems: Per HPI. Constitutional: + fatigue and + insomnia (now on 6 mg me latonin, qHS); no fever and no chills Respiratory: + cough and + dyspnea on exertion; no dy spnea (on 3 L NC O2, O2sat 93% this morning) Cardiovascular: no chest pain and no palpitations Gastrointestinal: + diarrhea/loose stools (last BM yesterd ay and had diarrhea); no abdominal pain, no nausea and no vomiting Genitourinary: no dysuria or no difficulty urinating Neurologic: + tingling and + numbness (baseline carp al tunnel) Hematologic / Lymphatic: no easy bruising Physical Exam Constitutional: WD/WN, vitals as above Respiratory: + cough Auscultation: + crackles (at bases of posterior lungs b/l as has been true throughout inpatient stay); + lungs not clear to auscultation and breath sounds present Cardiovascular: RRR, no murmur, no edema Extremities: normal capillary refill; no calf tenderness and no pedal edema Gastrointestinal (Abdomen): normal bowel sounds, soft, nontender, no hepatosplenomegaly Psychiatric: A+Ox3, euthymic affect Results & Data Results & Data Vital Signs (Past 12 Hours) Vital Signs Temp Pulse Pulse Pulse Resp BP BP 05/08/24 07:18 36.7 C 74 20 150/87 H 05/08/24 05:38 74 05/08/24 04:07 36.4 C L 67 18 143/75 H 05/07/24 23:55 05/07/24 23:53 36.4 C L 78 18 155/93 H 05/07/24 21:54 80 05/07/24 20:28 05/07/24 20:08 116 H 16 05/07/24 19:54 36.5 C 89 20 118/94 Pulse Ox Pulse Ox O2 Del Method O2 Del Method O2 Flow Rate O2 Flow Rate 05/08/24 07:18 94 Nasal Cannula 3 05/08/24 05:38 05/08/24 04:07 97 Nasal Cannula 3 05/07/24 23:55 93 Nasal Cannula 3 05/07/24 23:53 92 Nasal Cannula 5 05/07/24 21:54 05/07/24 20:28 Nasal Cannula 4 05/07/24 20:08 97 Nasal Cannula 4 05/07/24 19:54 94 Nasal Cannula 5
--- NOTE | 2024-05-08 14:45 | Discharge Summary ---
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 On arrival to the ED he was noted to be tachycardic at 120, tachypneic at 37, hypoxic at 75% on room air. Labs were significant for pancytopenia with a total absolute neutrophil count of 0.30. VBG pH of 7.42 with pCO2 and pO2 within normal limits, potassium of 3.1, initial high-sensitivity troponin of 29 with 2-hour repeat of 27, Pro-Ashwin of 1.17, and for respiratory bio fire negative. Chest x-ray was read as a large posterior mediastinal mass which was noted on his last PET/CT, emphysema with mixed interstitial and alveolar opacities suggestive of multifocal pneumonia. C T of the abdomen pelvis with IV contrast, CTA of the chest with PE protocol, and CT of the head/brain without contrast has been obtained but not yet read. Prior to admission the patient was given 125 mg IV Solu-Medrol, 1200 mg p.o. guaifenesin, and hour-long albuterol nebulizer, ordered 1 L normal saline, and ordered doses of Zosyn plus vancomycin. Patient was sitting in bed in no acute distress currently stable on BiPAP. He explains that he started having increased shortness of breath approximately 3 to 4 days ago, he tried to treat symptoms at home himself but they progressed. Denies recent fever/chills, denies current chest pain, does note increased cough with sputum production over this time, denies recent abdominal pain, nausea/vomiting, dysuria/hematuria, and recent trauma. He does note ongoing diarrhea with his chemotherapy but denies recent blood. When asked, he feels as though his breathing has improved compared to arrival, he is wanting to have BiPAP taken off. I explained to him that we will obtain a repeat VBG if stable, we can try to see how he is breathing off BiPAP. We discussed CODE STATUS, he clearly explains that he is a DNR/DNI. We discussed his wishes if he were to continue to clinically decline to the point that he would require intubation, at that point he would wish to be transition to comfort measures. His ex- would be his medical decision-maker if he cannot make decisions himself. Admission Exam Per Admitting Provider Physical Exam: General: In no acute distress, stated age, cachectic and chronically ill- appearing HEENT: Normocephalic, atraumatic, no scleral icterus, pupils around round, symmetrical, and reactive to light, dry mucus membranes, trachea midline, no thyromegaly Chest/Pulm: No respiratory distress while on Bipap, symmetrical chest expansion, scattered rhonchi and expiratory wheezing throughout Cardiac: tachycardic rate, regular rhythm, no murmurs noted Abdomen: Negative for ascites and bruising, normoactive bowel sounds, soft, non- tender to palpation throughout Musculoskeletal: Symmetrical and without signs of acute trauma, upper and lower extremities with full ROM, no atrophy, spasticity, or flaccidity Extremities: Radial, dorsalis pedis, and posterior tibial pulses are intact and symmetrical, no edema noted in the BL LE's Skin: Warm, dry, no rashes , lesions, or scars noted Neuro: Alert and oriented to person, place, month, year, and president, no focal defects, no tremors noted Psych: No acute distress, calm and cooperative during the exam Principal Diagnosis Pneumonia, COPD exacerbation Discharge Exam Constitutional WD/WN, vitals as above Respiratory + cough Auscultation: + crackles (residual crackles, bases of posterior lungs b/l, throughout inpatient stay); breath sounds present Cardiovascular RRR, no murmur, no edema Extremities: normal capillary refill; no calf tenderness and no pedal edema Gastrointestinal (Abdomen) normal bowel sounds, soft, nontender, no hepatosplenomegaly Psychiatric A+Ox3, euthymic affect Discharge Data Allergies Allergy/AdvReac Type Severity Reaction Status Date / Time No Known Allergies Allergy Unverified 04/07/24 11:07 Consultations 04/25/24 19:13 ED Decision to Admit Stat 04/25/24 20:58 Consult Oncology Routine 05/01/24 12:27 Consult Pulmonology Routine 05/02/24 09:55 Consult Oncology Routine 05/02/24 10:06 Consult Palliative Care Routine Ordered Studies 04/25/24 16:34 CT abd pelvis IV con only Stat CT angio chest PE protocol Stat CT head/brain wo con Stat Hospital Course (1) COPD with acute exacerbation: (2) Lung cancer metastatic to brain: (3) COPD (chronic obstructive pulmonary disease): (4) Adenocarcinoma of lung, stage 4: (5) Exertional shortness of breath: Plan 1) Acute respiratory failure with hypoxia in the setting of multifocal pneumonia, improving presented with multifocal pneumonia noted on chest CT - pt has a known hx of lung cancer with mets to brain on chemotherapy currently, - Sputum culture: positive for Vicki albicans/dubliniensis (on chemotherapy, so most likely due to colonization) - was on zosyn for 7 days completed on 05/03 - pulm consulted this admission and recommend steroids for possible Pembrolizumab toxicity, oncology (Dr. Garnica is primary oncologist) in agreement and state to continue on discharge until evaluated by oncology next week, also recommend bactrim M-W-F dosing for PJP prevention - testing for PJP, histoplasmosis. legionella, pending - home O2 requirement is 2-3L, patient's O2Sats between 88-92% on 2 L O2 --> back to home O2 requirements 2) Sepsis, resolved # resolved - Blood Cx, negative after 5 days 3) Hypertension - patient has been experiencing intermittent hypertensive readings throughout hospital stay, up to SBP of 162 - F/U w/ PCP as outpatient 4) Pancytopenia, resolved # resolved (but still at risk) -Patient noted to be pancytopenic on admission; -Likely due to chemotherapy and exacerbated with acute infection -480 micrograms of SQ Neupogen given upon admission - given 2 units PRBCs 05/03 for hemoglobin 7.1, stable 10.4 today - ANC, 4.7; Plts, 197 5) Lung cancer metastatic to brain: Has completed 3 of 6 planned cycles of chemotherapy thus far oncology consulted 6) Elevated troponin, resolved # resolved - HS trop peak 29 - Suspect demand ischemia in setting of sepsis 7) COPD (chronic obstructive pulmonary disease): Care per acute hypoxic respiratory failure plan Total Time Total Time Spent Total Time Spent (In Minutes): see attending attestation Discharge Plan Discharge Items Patient Disposition: Home - Self-Care Reason For Visit: ACUTE HYPOXIC RESPIRATORY FAILURE, MULTIFOCAL PNEU Discharge Diagnosis: Acute hypoxic respiratory failure, multifocal pneumonia Activity: Resume your previous activity Non-emergency contact: Primary Care Provider Call non-emergency contact if: you have any medication questions, your symptoms worsen and your temperature is above 101 Follow-up/Referrals: Day Stout MD [Primary Care Provider] - Diet: Regular Addtl Attending Provider Instructions: You were admitted to the hospital for acute hypoxic respiratory failure (lower than normal blood oxygen levels) in the setting of multifocal pneumonia and possible toxicity of a cancer drug you were given called Pembrolizumab. You finished a course of antibiotics for your pneumonia and you are on steroids now for the inflammation caused by the drug. Please also follow up with your primary care physician once you are discharged from [facility] within 2-3 days of leaving [facility]. Our consultant nurse has suggested you take a medication called Bactrim (sulfamethoxazole-trimethoprim) on Friday, Friday, and Fridays to prevent you from getting an infection in your lungs that can occur more often in those who are immunocompromised called PJP. Oncology has suggested that you continue steroids at least until you see them in office next week. If you cannot get to your appointment next week, please call them for further instructions on tapering the steroid. Two weeks of this steroid has been sent to your pharmacy. Please do not stop this without further direction from your oncologist or consultant nurse. Pending Studies at Discharge: Yes Studies:: urine Legionella antigen, urine histoplasma galactomannan antigen Stand-Alone Forms: My [facility] Takeac[employer], Smoking Cessation Medications and DC Order Prescriptions: New prednisone 20 mg Tablet 40 mg PO BID 14 Days Qty: 56 1RF sulfamethoxazole-trimethoprim [Bactrim DS] 800-160 mg Tablet 1 tab PO MoWeFr@0900 30 Days Qty: 13 1RF Continued albuterol sulfate 90 mcg/actuation HFA aerosol inhaler 2 puff inhalation Q6H PRN (Reason: shortness of breath or wheezing) Qty: 3 1RF oxycodone 5 mg capsule 5 mg PO TID PRN (Reason: pain) Qty: 90 0RF tamsulosin 0.4 mg capsule 0.4 mg PO DAILY Qty: 90 3RF Trelegy Ellipta 100-62.5-25 mcg blister with device 1 inh inhalation DAILY Qty: 3 1RF losartan-hydrochlorothiazide 50-12.5 mg tablet 1 tab PO DAILY Qty: 90 3RF Hold Instructions: Resume on 03/20/24. Hold until seen by your primary care physician. turmeric 400 mg capsule 400 mg PO DAILY (DME) Portable Oxygen Misc See Rx Instructions .MEDSUPPLY Qty: 1 0RF Rx Instructions: Oxygen 3 liters continuous via nasal cannula on exertion with portable concentrator. JUAN 99 folic acid 1 mg tablet 1 mg PO DAILY Discharge Orders: Discharge Order (Routine); Ordered 05/08/24 Ordered By: Carlos Araiza/Other Patient Handouts: What Is Heart Failure, Heart Failure Flare Up Signs, Heart Failure Make Changes Diet Admission Data Admit Date/Time: 04/25/24 20:07 Attending Provider: Carlos Jesus Admit Provider: Cristian Boyle Primary Care Provider: Day Stout Other Providers: Cristian Boyle; Mynor Gonzalez; [facility]; [place],[facility], [place]; Doyle Reddy; Kymberly Garnica; Nhi An Supervising Physician Co-Signing Physician Notes Attending attestation Pt seen and examined in concert with Dr. Potts. In agreement with the documented findings as noted in the resident documentation with any exceptions or additions as noted here. Resting comfortably in bed, tolerating NC at baseline 2-3L NC. Gradually improving symptoms. Tolerating exercises at bedside, working actively w/ PT. After discussion regarding ongoing delay in placement and clinical improvement, patient elects discharge to home rather than rehab services inpatient at [facility]. On examination, S1/S2 nl RRR no MCG. Scattered ronchi w/ decreased breath sounds at bilateral bases. Abd NT/ND BS+ve Acute hypoxic respiratory failure in the setting of multifocal pneumonia, underlying adenocarcinoma of the lung - baseline O2 2-3L NC. Completed course of abx. Follow up sendout testing for occult pulmonary infection Pancytopenia s/p 2U PRBC on . - stable, monitor CBC daily Else see resident documentation as noted. Total attending physician time spent with this patient's care on the day of discharge: 35 minutes. Resident Activity Tracking Resident Involvement: Resident Care Provided Care Provided: Adult Hospital Medicine
--- NOTE | 2024-05-08 19:24 | Electrocardiogram Report ---
Test Reason : Blood Pressure : / mmHG Vent. Rate : 102 BPM Atrial Rate : 102 BPM P-R Int : 152 ms QRS Dur : 120 ms QT Int : 372 ms P-R-T Axes : 058 225 063 degrees QTc Int : 484 ms Sinus tachycardia Right bundle branch block Inferior infarct (cited on or before 02-MAY-2024) Abnormal ECG When compared with ECG of 02-MAY-2024 08:20, QRS axis Shifted left Confirmed by Girish Briggs ([id number]) on 05/08/2024 7:23:44 PM Referred By: REFERRED SELF Confirmed By:Girish Briggs
== END 2024-05-08 17:46 | disposition home or self-care (01) | DRG 871 ==
LOC: ED 16:01 → EDINP 20:07 → SUATTDRO 20:07 → 2S 22:30

== ENCOUNTER 2024-08-15 17:01 | Inpatient (IN) ==
--- OUTSIDE RECORDS SUMMARY | 2024-08-15 17:07 | External Medical Summary | Summary of Care ---
Author Name Unknown Organization [facility] Address [address] [place] [address] Phone [phone] Care Team Providers Care Dowel Maker Name Role Phone Day Stout MD Primary Care Provid er Reason for Visit * Reason Onset Date Comments Information 08/09/2024 Encounter Details Date Type Department Care Team (Late st Contact Info) Description 08/09/2024 Telephone [facility] [place] [place] [address] [place] [address] [id number] Madan Sorenson OSA [address], [place] [phone] Information Allergies No known active allergiesdocumented as of this encounter (statuses as of 08/09/2024) Medications Medication Sig Dispensed Refills Start Date End Date Status Iker Ellipalcon 100-62.5-25 MCG/ACT Aerosol Powder Breath Activated (Fluticasone-Umecli dinium-Vilanterol) Inhale 1 puff by mouth daily 60 Each 5 01/29/2024 Active Additional Information Patient not taking.Reported on 08/05/2024 Albuterol Sulfate HFA 108 (90 Base) MCG/ACT Inhalation Aerosol Solution Inhale 2 puffs by mouth every 6 hours As Needed for shortness of breath or wheezing 54 g 1 01/30/2024 Active oxyCODONE HCl 5 MG Oral Capsule (Oxy IR) Take 2 Capsules by mouth every 6 hours as needed for Pain, Severe. 01/28/2024 Active predniSONE 20 MG Oral Tablet (Deltasone) Take 2 Tablets by mouth in the morning. Tapering dose managed by oncologist - on 40mg daily as of 06/15/24. Active Folic Acid 1 MG Oral Tablet Take 1 Tablet by mouth in the morning. Active Tamsulosin HCl 0.4 MG Oral Capsule (Flomax) Take 1 Capsule by mouth in the morning. Active Thiamine 100 MG OR Tablet Take 1 Tablet by mouth in the morning. Active Magnesium Citrate 100 MG Oral Tablet Take 100 mg by mouth in the morning. Active Vitamin D3 125 MCG (5000 UT) Oral Capsule Take 1 Capsule by mouth in the morning. Active Losartan Potassium 25 MG Oral Tablet (Cozaar) Take 0.5 Tablets by mouth in the morning. 30 Tablet 2 07/02/2024 Active Combivent Respimat 20-100 MCG/ACT Inhalation Aerosol Solution (Ipratropium-Albute rol) Inhale 1 Puff by mouth 4 times a day as needed for Wheezing. 07/21/2024 Active Vitamin C 1000 MG Oral Tablet Take 2 Tablets by mouth in the morning. Active Ipratropium-Albuter ol 0.5-2.5 (3) MG/3ML Inhalation Solution (Duoneb) Inhale 3 mL by mouth every 6 hours as needed for Wheezing or Shortness of Breath. 90 mL 2 08/05/2024 Active documented as of this encounter (statuses as of 08/09/2024) Active Problems Problem Noted Date Diagnosed Date Adenocarcinoma of lung, stage 4 05/27/2024 Overview: Diagnosis: Lung adenocarcinoma, diagnosed 02/12/2024 Stage: IV Palliative chemoimmunotherapy with carboplatin, pemetrexed and pembrolizumab started on 2024 Last Assessment & Plan: Has elected against further cancer treatment at this time Not interested in hospice yet Megaloblastic anemia due to poor nutrition 05/27 Pancytopenia 05/27/2024 Last Assessment & Plan: Given neupogen and PRBC during recent admission Atrial flutter 05/27/2024 Last Assessment & Plan: Single episode during recent admission, converted back to NSR spontaneously Immunodeficiency 05/27/2024 Last Assessment & Plan: On bactrim for PJP prophylaxis Lung cancer metastatic to brain 03/11/2024 Overview: Declined brain radiation Last Assessment & Plan: Declined brain radiation at this time Chronic obstructive pulmonary disease 01/18/2024 Last Assessment & Plan: Continue spiriva Supplemental o2, using prn Migraine without status migrainosus, not intract able 01/18/2024 Chronic hypoxemic respiratory failure 01/18/2024 Last Assessment & Plan: Has oxygen in the home, only using intermittently during the day Left renal mass 01/18/2024 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 01/18/2024 HTN, goal below 140/90 07/01/2014 Tension type headache 05/16/2014 History of tobacco use 05/16/2014 Marijuana abuse 05/16/2014 Dermatitis 12/06/2002 documented as of this encounter (statuses as of 08/09/2024) Social History Tobacco Use Types Packs/Day Years [...] encounter Miscellaneous Notes * Telephone Encounter - Madan Sorenson OSA - 08/09/2024 4:42 PM EDT DME order Referral [id number] Nebulizer Kit Message from Ohanae Maribel - supplier matched on [facility] [employer] - [employer] unable to contact pt for delivery August 06 [employer] still no answer to schedule delivery August 09 Spoke with patient and gave Ohanae phone number so patient can call and coordinate delivery. Scheduled a follow up call for tomorrow. documented in this encounter Plan of Treatment Upcoming Encounters Date Type Department Care Team (Late st Contact Info) Description 08/10/2024 9:30 AM EDT Scheduled Telephone [facility], [facility] [address] [place] [id number] Coordinator, [facility] [address] [place] [id number] 09/06/2024 3:00 PM EDT Home Visit [facility] [address] [place] [address] Mk Hairston PA-C [address] [place] [id number] 09/30/2024 8:30 AM EST Home Visit [facility], [facility] [address] [place] [address] Inocencia Araujo RN [address] [place] [address] 01/19/2025 9:00 AM EDT [facility] [address], [place] [phone] Evelia Manrique PA-C [address], [place] [phone] Health Maintenance Due Date Last Done Comments Albumin/Creatinine Ratio 1968 Alpha-1 Antitrypsin 1967 Hepatitis C Screening 1967 DTap/Tdap Vaccines (1 - Tdap) 1968 Zoster Vaccines (1 of 2) 1968 Depression Screening 04/20/2016 04/20/2015 GFR 04/24/2016 04/24/2015, 1106/2014, 02/07/2014, Additional history exists *COPD SEVERITY VERIFIED BY PFT 01/20/2024 COVID-19 Vaccine ( season) 2024 12/04/2023, 08/22/2023, 09/06/2022, Additional history exists Influenza Vaccine (FLU shot) (#1) 2024 09/06/2022, 08/20/2021, 08/10/2020, Additional history exists O2 ASSESSMENT COMPLETED IN PAST YEAR FOR COPD 02/11/2025 02/12/2024 Pneumococcal Vaccine: 65+ Years Completed 11/18/2022 HPV (Gardasil) Vaccine Aged Out No lo nger eligible based on patient's age to complete this topic Hepatitis B Vaccine Aged Out No longe r eligible based on patient's age to complete this topic MENINGOCOCCAL (MENACTRA/MENVEO) Aged Out No longer eligible based on patient's age to complete this topic documented as of this encounter Medical Devices Implanted Type Area Braider Operator Device Identifier Shelf Expiration Date Model / Serial / Lot Lens Intraoc 19.0 - [id number] - [id number] Implanted:Qty: 1 on 02/04/2019 by Ash Santamaria MD at [facility] Left: Eye [employer] 09/09/2023 [id number] / [id number] / [id number] Lens Intraoc 20.0 - [id number] - [id number] Implanted:Qty: 1 on 02/16/2019 by Ash Santamaria MD at [facility] Right: Eye [employer]OM[employer] 08/09/2023 [id number] / [id number] / [id number] documented as of this encounter Care Teams Dowel Maker Relationship Specialty Start Date End Date Day Stout MD [address] [place] [address] [place] [id number] PCP - General Internal Medicine 11/24/18 documented as of this encounter
--- OUTSIDE RECORDS SUMMARY | 2024-08-15 17:07 | External Medical Summary | Summary of Care ---
Author Name Unknown Organization [facility] Address [address] [facility] [place] [address] Phone [phone] Care Team Providers Care Box Toe Cutter Name Role Phone Day Stout MD Primary Care Provid er Reason for Visit * Reason Onset Date Comments [facility]: Maintenance 08/11/2024 Encounter Details Date Type Department Care Team (Late st Contact Info) Description 08/11/2024 9:00 AM EDT Scheduled Telephone [facility], [facility] [address] [facility] [place] [address] Coordinator, [facility] [address] [facility] [place] [address] Allergies No known active allergiesdocumented as of this encounter (statuses as of 08/11/2024) Medications Medication Sig Dispensed Refills Start Date End Date Status Treleberenice Ellipta 100-62.5-25 MCG/ACT Aerosol Powder Breath Activated (Fluticasone-Umecli [...] as of this encounter (statuses as of 08/11/2024) Active Problems Problem Noted Date Diagnosed Date [...] as of this encounter (statuses as of 08/11/2024) Social History Tobacco Use Types Packs/Day Years [...] Telephone Encounter - Madan Sorenson OSA - 08/11/2024 4:35 PM EDT DME order Referral [id number] Nebulizer Kit Status is delivered on [employer] 24/7. Spoke with patient, still has not received it. Patient said he just spoke with the supplier today to set date and time for delivery. It should be coming in by tomorrow or latest on Friday. Scheduled a follow up call for Friday. documented in this encounter Plan of Treatment Upcoming Encounters Date Type Department Care Team (Late st Contact Info) Description 08/13/2024 12:00 PM EDT Scheduled Telephone [facility], [facility] [address] [place] [address] Coordinator, [facility] [address] [place] [address] 09/06/2024 3:00 PM EDT Home Visit [facility], [facility] [address] [place] [address] Mk Hairston PA-C [address] [place] [address] 09/30/2024 8:30 AM EST Home Visit [facility], [facility] [address] [place] [address] Inocencia Araujo RN [address] [place] [address] 01/19/2025 9:00 AM EDT Office Visit [facility] [address] [place], [place] [phone] Evelia Manrique PA-C [address] [place] [address] Health Maintenance Due Date Last [...] this encounter Medical Devices Implanted Type Area Metal Hanging Helper Device Identifier Shelf Expiration Date Model / Serial / Lot Lens Intraoc 19.0 - [id number] - [id number] Implanted:Qty: 1 on 02/04/2019 by Ash Santamaria MD at OR [facility] Left: Eye [employer] 09/09/2023 [id number] / [id number] / [id number] Lens Intraoc 20.0 - [id number] - [id number] Implanted:Qty: 1 on 02/16/2019 by Ash Santamaria MD at OR [facility] Right: Eye [employer]OM[employer] 08/09/2023 [id number] / [id number] / [id number] documented as of this encounter Care Teams Box Toe Cutter Relationship Specialty Start Date End Date Day Stout MD [address] [place] [address] [place] [address] PCP - General Internal Medicine 11/24/18 documented as of this encounter
--- OUTSIDE RECORDS SUMMARY | 2024-08-15 17:07 | External Medical Summary | Summary of Care ---
Author Name Unknown Organization [facility] Address [address] [facility] [place] [address] Phone [phone] Care Team Providers Care Coater Carbon Paper Name Role Phone Day Stout MD Primary Care Provid er Reason for Visit * Reason Onset Date Comments [facility]: Maintenance 08/10/2024 Encounter Details Date Type Department Care Team (Late st Contact Info) Description 08/10/2024 9:30 AM EDT Scheduled Telephone [facility], [facility] [address] [facility] [place] [address] Coordinator, [facility] [address] [facility] [place] [address] Allergies No known active allergiesdocumented as of this encounter (statuses as of 08/10/2024) Medications Medication Sig Dispensed Refills Start Date [...] as of this encounter (statuses as of 08/10/2024) Active Problems Problem Noted Date Diagnosed Date [...] as of this encounter (statuses as of 08/10/2024) Social History Tobacco Use Types Packs/Day Years [...] Telephone Encounter - Madan Sorenson OSA - 08/10/2024 2:47 PM EDT DME order Referral [id number] Nebulizer Kit Message from [employer] Maribel - supplier matched on [facility] [employer] - still waiting to make contactwith patient to set up delivery. Spoke with patient and he forgot to call the supplier. He will give them a call today. Scheduled a follow up call for tomorrow. documented in this encounter Plan of Treatment Upcoming Encounters Date Type Department Care Team (Late st Contact Info) Description 08/11/2024 9:00 AM EDT Scheduled Telephone [facility], [facility] [address] [place] [address] Coordinator, [facility] [address] [place] [address] 09/06/2024 3:00 PM EDT Home Visit [facility], [facility] [address] [place] [address] Mk Hairston PA-C [address] [place] [address] 09/30/2024 8:30 AM EST Home Visit [facility], [facility] [address] [place] [address] Inocencia Araujo RN [address] [place] [address] 01/19/2025 9:00 AM EDT Office Visit [facility] [address] [place], [place] [id number] Evelia Manrique PA-C [address] [place] [address] Health Maintenance Due Date Last [...] this encounter Medical Devices Implanted Type Area Consulting Senior Practice Director Device Identifier Shelf Expiration Date Model / Serial / Lot Lens Intraoc 19.0 - [id number] - [id number] Implanted:Qty: 1 on 02/04/2019 by Ash Santamaria MD at OR [facility] Left: Eye [employer] 09/09/2023 [id number] / [id number] / [id number] Lens Intraoc 20.0 - [id number] - [id number] Implanted:Qty: 1 on 02/16/2019 by Ash Santamaria MD at OR [facility] Right: Eye [employer] 08/09/2023 [id number] / [id number] / [id number] documented as of this encounter Care Teams Coater Carbon Paper Relationship Specialty Start Date End Date Day Stout MD [address] [place] [address] [place] [address] PCP - General Internal Medicine 11/24/18 documented as of this encounter
--- OUTSIDE RECORDS SUMMARY | 2024-08-15 17:07 | External Medical Summary | Summary of Care ---
Author Name Unknown Organization [facility] Address [address] [facility] [place] [address] Phone [phone] Care Team Providers Care Screwhead Stoner And Polisher Name Role Phone Day Stout MD Primary Care Provid er Reason for Visit * Reason Onset Date Comments [facility]: Maintenance 08/13/2024 Encounter Details Date Type Department Care Team (Late st Contact Info) Description 08/13/2024 12:00 PM EDT Scheduled Telephone [facility], [facility] [address] [facility] [place] [address] Coordinator, [facility] [address] [facility] [place] [address] Allergies No known active allergiesdocumented as of this encounter (statuses as of 08/13/2024) Medications Medication Sig Dispensed Refills Start Date [...] as of this encounter (statuses as of 08/13/2024) Active Problems Problem Noted Date Diagnosed Date [...] as of this encounter (statuses as of 08/13/2024) Social History Tobacco Use Types Packs/Day Years [...] Telephone Encounter - Madan Sorenson OSA - 08/13/2024 2:10 PM EDT DME order Referral [id number] Nebulizer Kit Delivered on August 12 confirmed by patient. documented in this encounter Plan of Treatment Upcoming Encounters Date Type Department Care Team (Late st Contact Info) Description 09/06/2024 3:00 PM EDT Home Visit [facility], [facility] [address] [facility] [place] [address] Mk Hairston PA-C [address] [facility] [place] [address] 09/30/2024 8:30 AM EST Home Visit [facility], [facility] [address] [facility] [place] [address] Inocencia Araujo RN [address] [facility] [place] [address] 01/19/2025 9:00 AM EDT Office Visit [facility] [address] [place] [address] Evelia Manrique PA-C [address] [place], [place] [id number] Health Maintenance Due Date Last Done Comments [...] this encounter Medical Devices Implanted Type Area Milk Inspector Device Identifier Shelf Expiration Date Model / Serial / Lot Lens Intraoc 19.0 - [id number] - [id number] Implanted:Qty: 1 on 02/04/2019 by Ash Santamaria MD at OR [facility] Left: Eye [employer] 09/09/2023 [id number] / [id number] / [id number] Lens Intraoc 20.0 - [id number] - [id number] Implanted:Qty: 1 on 02/16/2019 by Ash Santamaria MD at OR [facility] Right: Eye [employer] 08/09/2023 [id number] / [id number] / [id number] documented as of this encounter Care Teams Screwhead Stoner And Polisher Relationship Specialty Start Date End Date Day Stout MD [address] [place] [address] [place] [address] PCP - General Internal Medicine 11/24/18 documented as of this encounter
[2024-08-15 17:59] LABS: iSTAT Creatinine 1.5 mg/dl (0.6-1.3); iSTAT Hemoglobin 12.2 g/dl (14.0-18.0); iSTAT Ionized Calcium 1.21 mmol/l (1.12-1.32); iSTAT Potassium 4.2 mmol/L (3.3-5.0)
--- NOTE | 2024-08-15 17:59 | Emergency Department Note ---
Impression & Plan Back pain, Compression fracture of thoracic vertebra, JUAN JOSE (acute kidney injury), Acute hypoxemic respiratory failure ED Provider Note HISTORY OF PRESENT ILLNESS: Patient is a 74-year-old male presenting with midline back pain and abdominal pain. Patient reports for the last 1.5 weeks he has been having pain in in his back. He states that this started shortly after his first session with pulmonary rehab. He states that pain is worse with certain movements. He has been taking 50 mg of oxycodone every 4-6 hours with only slight relief in his symptoms. He denies any significant chest pain. He does report some diffuse abdominal pain intermittently over the last week. He denies any nausea, vomiting or diarrhea. He denies any fevers. Denies any dysuria or hematuria. He denies any falls or injury to the back. He states that he has noticed some slight swelling of his lower extremities starting today. He does report some shortness of breath with minimal exertion. He denies any DVT or PE history. He is not on any anticoagulation. He denies any history of cardiac stents. ROS: as above PHYSICAL EXAM: Constitutional: Patient appears in no acute distress. HENT: Head: Normocephalic and atraumatic. Eyes: EOMI, PERRL Mouth/Throat: Mucous membranes moist. Neck: Trachea midline. Neck supple. Cardiovascular: Tachycardic with regular rhythm. No murmurs, rubs or gallops. Intact distal pulses. Pulmonary/Chest: No respiratory distress. Breath sounds clear and equal bilaterally. No wheezes or rales. Patient is conversationally dyspneic. On 6 L nasal cannula. Abdominal: Abdomen soft, no tenderness, rebound or guarding. Back: No midline spinal tenderness, no paraspinal tenderness, no CVA tenderness. No rashes noted on back. Musculoskeletal: No tenderness or deformity noted. +1 pitting edema bilateral lower extremities extending to the mid tibia. Skin: Warm and dry. No rash, erythema, pallor or cyanosis Psychiatric: Appropriate mood and affect for situation. Neurological: Alert and keenly responsive. CN II-XII grossly intact, moving all extremities equally and fully. MDM: - Vitals signs showed tachycardic and hypoxic. Placed and placed on 6L NC. - History obtained via patient. History as above. - Chronic conditions affecting care: Metastatic lung cancer; HLD; HTN; COPD - Differential diagnoses include, but are not limited to: ACS; aortic dissection; musculoskeletal pain; compression fracture; AAA; PE; pneumonia - Order placed for continuous cardiac monitoring. At this time, monitor showed rate of 91 bpm with normal sinus rhythm, per my interpretation. - External medical records reviewed. On-call medicine telephone visit note from today was reviewed. Patient has a history of metastatic lung cancer and had called because of having severe back pain. He was referred to the emergency department for imaging and pain control. - EKG interpreted by myself showed normal sinus rhythm. Rate 94 bpm. QT 392. No acute ischemic changes. Note of a right bundle branch block. - Laboratory workup interpreted by myself showed normal WBC; anemia (Hgb 11.7); normal PT/INR; JUAN JOSE (Cr 1.47); stable electrolytes; normal lactate; normal troponin; normal BNP; normal lipase - CTA chest negative for PE. Noted to have an acute to subacute appearing superior endplate compression fracture at T9. No airspace consolidation. Stable posterior mediastinal mass and left adrenal metastases. - CT abdomen/pelvis with IV contrast negative for acute abnormality. Chronic etiologies noted - Viral respiratory panel negative - Given patient's significant oxygen requirement, will admit to hospitalist service. - Discussion was had with telephonic case manager about patient's case and need for admission - Hospitalist, Dr. Arizmendi, consulted for admission - Patient admitted to [facility] hospitalist service for further evaluation and management. 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) COPD (chronic obstructive pulmonary disease) Leukocytosis Hypertension Adenocarcinoma of lung, stage 4 (Acute) Exertional shortness of breath Ex-smoker Mass of mediastinum (Acute) Retroperitoneal mass (Acute) Hyperlipidemia (Chronic) declines statin Chronic daily headache (Chronic) Medical History JUAN JOSE (acute kidney injury) Leukocytosis Acute GI bleeding Symptomatic anemia Acute blood loss anemia Nocturnal hypoxia On 2L oxygen at night Surgical History S/P tonsillectomy History of cataract surgery Family History Father Myocardial infarction Mother Natural with unknown cause Brother Medical history unknown Son No problems noted. Daughter No problems noted. Other Dementia Heart disease Hypertension Denies family history of Rheumatoid arthritis Sudden SIDS (sudden infant syndrome) Ovarian cancer Prostate cancer Diabetes Deep vein thrombosis Osteoporosis Coronary heart disease Dyslipidemia Cerebral aneurysm Alzheimer disease Bipolar disorder Clotting disorder Crohn's disease Depression Kidney disease Osteoarthritis Breast cancer Schizophrenia Congenital kidney disease Gestational diabetes Lung cancer COPD (chronic obstructive pulmonary disease) Colorectal cancer Pulmonary embolism Lung disease Cancer Ulcerative colitis Colonic polyp Stroke Asthma Cystic kidney disease Social History Smoking Status: Former smoker Tobacco Type: Cigarettes Age Started Using Tobacco: 19; Age Quit Using Tobacco: 70; packs per day: 1; Cigarettes Per Day: 20; Second Hand Exposure: No; Do You Dip or Chew Tobacco: No; Hx Alcohol Use: No Hx Substance Use: No Preferred Language: Tristanian Communication Ability: Effective Visual Impairment: No Limitations Hearing Ability: Normal [place] Press Feeder Required: No Beliefs That Will Affect Care: None marital status: Current Living Situation: Alone Current Living Situation Comment: pt states lives alone in a house current occupational status: retired 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 How many Children do You have: 2 other: Ex- is supportive to pt Feels Safe at Home: Yes Diet: regular caffeine: No during the past year weight has: decreased > 10 lbs Seatbelt Use: sometimes Assistive Devices: Cane Allergies Allergies Allergy/AdvReac Type Severity Reaction Status Date / Time pembrolizumab [From [facility]] AdvReac Severe Difficulty Verified 08/15/24 19:25 Breathing Home Meds Home Medications Medication Instructions Recorded Confirmed turmeric 400 mg capsule 400 mg PO DAILY 04/20/19 07/06/24 folic acid 1 mg tablet 1 mg PO DAILY 04/25/24 07/06/24 Previous Rx's Medication Instructions Recorded albuterol sulfate 90 mcg/actuation 2 puff inhalation Q6H PRN 01/30/24 aerosol inhaler shortness of breath or wheezing #3 Inhalers tamsulosin 0.4 mg capsule 0.4 mg PO DAILY #90 caps 02/24/24 losartan 50 mg-hydrochlorothiazide 1 tab PO DAILY #90 tabs 04/19/24 12.5 mg tablet prednisone 20 mg tablet 40 mg (2 x 20 mg) PO BID 14 days 05/07/24 #56 tabs sulfamethoxazole 800 1 tab PO MoWeFr@0900 30 days #13 05/07/24 mg-trimethoprim 160 mg tablet tabs (Bactrim DS) ipratropium 20 mcg-albuterol 100 1 puff inhalation Q6H #4 grams 05/08/24 mcg/actuation mist for inhalation (Combivent Respimat) Portable Oxygen #1 ea 05/18/24 clotrimazole 10 mg carol 10 mg mucous membrane 5XD 7 days 06/24/24 #35 tabs fluticasone fur. 100 mcg-umeclid 1 inh inhalation DAILY #3 Inhalers 07/06/24 62.5 mcg-vilant 25 mcg inhalat.powder (Trelegy Ellipta) oxycodone 10 mg tablet 10 mg PO Q4H PRN pain #60 tabs 08/05/24 Results & Data (ED) Vital Signs Vital Signs - 24 hr 08/15/24 17:16 08/15/24 17:34 08/15/24 17:34 Temperature 36.9 C Temperature Source Temporal Artery Scan Pulse Rate 99 H Pulse Rate [Apical] 94 H Pulse Rate from SpO2 Sensor Respiratory Rate 12 15 Respiratory Effort / Characteristics Non-Labored Spontaneous Respiratory Depth Normal Blood Pressure 124/67 Blood Pressure [Right Arm] 116/79 Blood Pressure Mean 86 Blood Pressure Mean [Right Arm] 91 Pulse Oximetry 86 L 95 94 Oxygen Delivery Method Room Air Nasal Cannula Nasal Cannula Oxygen Flow Rate 6 6 Sepsis Recent Fever Within 48 Hours No Sepsis New/Unexplained Change in Mental Status N/A Sepsis Action Taken by Nursing No Action Required 08/15/24 17:45 08/15/24 17:53 08/15/24 18:16 Temperature Temperature Source Pulse Rate 93 H Pulse Rate [Apical] Pulse Rate from SpO2 Sensor Respiratory Rate Respiratory Effort / Characteristics Respiratory Depth Blood Pressure 110/70 144/97 H Blood Pressure [Right Arm] Blood Pressure Mean 78 113 Blood Pressure Mean [Right Arm] Pulse Oximetry Oxygen Delivery Method Oxygen Flow Rate Sepsis Recent Fever Within 48 Hours Sepsis New/Unexplained Change in Mental Status Sepsis Action Taken by Nursing 08/15/24 18:18 08/15/24 18:24 08/15/24 18:30 Temperature Temperature Source Pulse Rate 95 H 92 H Pulse Rate [Apical] Pulse Rate from SpO2 Sensor 94 H 92 H Respiratory Rate 18 24 Respiratory Effort / Characteristics Respiratory Depth Blood Pressure 138/91 Blood Pressure [Right Arm] Blood Pressure Mean 113 Blood Pressure Mean [Right Arm] Pulse Oximetry 95 95 Oxygen Delivery Method Nasal Cannula Nasal Cannula Oxygen Flow Rate 6 Sepsis Recent Fever Within 48 Hours Sepsis New/Unexplained Change in Mental Status Sepsis Action Taken by Nursing 08/15/24 18:33 08/15/24 19:01 Temperature Temperature Source Pulse Rate 92 H Pulse Rate [Apical] 91 H Pulse Rate from SpO2 Sensor 93 H Respiratory Rate 21 23 Respiratory Effort / Characteristics Non-Labored Spontaneous Respiratory Depth Normal Blood Pressure Blood Pressure [Right Arm] 135/89 Blood Pressure Mean Blood Pressure Mean [Right Arm] 104 Pulse Oximetry 96 92 Oxygen Delivery Method Nasal Cannula Nasal Cannula Oxygen Flow Rate 6 6 Sepsis Recent Fever Within 48 Hours Sepsis New/Unexplained Change in Mental Status Sepsis Action Taken by Nursing Laboratory Data 08/15/24 17:35 08/15/24 17:35 Lab Results 08/15/24 08/15/24 Range/Units 17:35 17:47 WBC 8.48 (4.8-10.8) K/ul RBC 3.55 L (4.70-6.10) M/uL Hgb 11.7 L (14.0-18.0) g/dl POC Hgb 12.2 L (14.0-18.0) g/dl Hct 36.1 L (42.0-52.0) % POC Hct 36 L (42-52) % MCV 101.7 H (80.0-100.0) fL MCH 33.0 (25.0-34.0) pg MCHC 32.4 (32.0-36.0) g/dL RDW Std Deviation 47.3 H (36.4-46.3) fL RDW Coeff of Ge 12.6 (11.5-14.5) % Plt Count 286 (130-400) K/uL MPV 9.2 L (9.4-12.4) fL Immature Gran % (Auto) 0.5 % Neut % (Auto) 76.3 % Lymph % (Auto) 10.5 % [place] % (Auto) 10.8 % Eos % (Auto) 1.4 % Baso % (Auto) 0.5 % Neut # (Auto) 6.47 (1.40-6.50) K/uL Lymph # (Auto) 0.89 L (1.20-3.40) K/uL [place] # (Auto) 0.92 H (0.11-0.59) K/uL Eos # (Auto) 0.12 (0.00-0.50) K/uL Baso # (Auto) 0.04 (0.00-0.20) K/uL Immature Gran # (Auto) 0.04 (0.01-0.20) K/uL PT 10.7 (9.0-12.0) Seconds INR 1.0 (0.9-1.1) POC Sodium 141 (135-144) mmol/L Sodium 143 (136-145) mmol/L POC Potassium 4.2 (3.3-5.0) mmol/L Potassium 4.3 (3.5-5.1) mmol/L POC Chloride 101 (101-112) mmol/L Chloride 102 (98-107) mmol/L Carbon Dioxide 33 H (21-32) mmol/L POC Total CO2 30 (24-31) mmol/L Anion Gap 8 (3-11) POC Anion Gap 15.0 L (16-25) mmol/L POC BUN 21 H (7-18) mg/dl BUN 22 (6-23) mg/dl Creatinine 1.47 H (0.6-1.4) mg/dl POC Creatinine 1.5 H (0.6-1.3) mg/dl Est Cr Clr Drug Dosing 43.4 ml/min eGFR 49.43 BUN/Creatinine Ratio 15.0 (10-20) Glucose 126 H (70-99(Fasting)) mg/dl POC Glucose (other) 123 H (70-99) mg/dl Lactate 0.8 (0.4-2.0) mmol/L Calcium 9.3 (8.6-10.3) mg/dl POC Ioniz Calcium Toni 1.21 (1.12-1.32) mmol/l Total Bilirubin 0.2 (0.2-1.0) mg/dl AST 18 (13-39) U/L ALT 23 (7-52) U/L Alkaline Phosphatase 58 (34-104) U/L Troponin I High Sens 12.7 (0-20) pg/ml B-Natriuretic Peptide 54 (0-100) pg/ml Total Protein 6.3 (6.0-8.3) gm/dl Albumin 3.9 (3.4-5.0) gm/dl Globulin 2.4 L (2.5-4.0) gm/dl Albumin/Globulin Ratio 1.6 (0.9-2) Lipase 8 L (11-82) U/L Adenovirus (PCR) Not Detected (NotDetected) B. pertussis DNA (PCR) Not Detected (NotDetected) B.parapertussis DNA PCR Not Detected (NotDetected) C. pneumoniae DNA (PCR) Not Detected (NotDetected) Coronavirus OC43 (PCR) Not Detected (NotDetected) Coronavirus HKU1 (PCR) Not Detected (NotDetected) Coronavirus 229E (PCR) Not Detected (NotDetected) SARS-CoV-2 (PCR) Not Detected (NotDetected) Coronavirus NL63 (PCR) Not Detected (NotDetected) Human Metapneumovir PCR Not Detected (NotDetected) Influenza Type A (PCR) Not Detected (NotDetected) Influenza Type B (PCR) Not Detected (NotDetected) M. pneumoniae (PCR) Not Detected (NotDetected) Parainfluenza 1 (PCR) Not Detected (NotDetected) Parainfluenza 2 (PCR) Not Detected (NotDetected) Parainfluenza 3 (PCR) Not Detected (NotDetected) Parainfluenza 4 (PCR) Not Detected (NotDetected) RSV (PCR) Not Detected (NotDetected) Entero/Rhino (PCR) Not Detected (NotDetected) Administered Medications Discontinued Medications Ioversol (Optiray 320 125ml) 119 ml IV ONCE ONE Stop: 08/15/24 18:02 Last Admin: 08/15/24 18:02 Dose: 119 ml Documented By: NICOL Imaging Data Radiologist's Impression: Abdomen/Pelvis CT 10/06/24 17:25 CT SCAN OF THE ABDOMEN AND PELVIS WITH IV CONTRAST CLINICAL HISTORY: Lower abdominal pain. Back pain. Lung cancer. COMPARISON STUDY: Abdominal CT dated 04/25/2024. PET/CT dated 06/02/2024. TECHNIQUE: Following the IV administration of 119 cc of Optiray 320, CT scan of the abdomen and pelvis is performed from the lung bases to the proximal femora. Images are reviewed in the axial, sagittal, and coronal planes. IV contrast was administered without complication. A dose lowering technique was utilized adhering to the principles of ALARA. FINDINGS: Lung bases: The heart is mildly enlarged and without pericardial effusion. Advanced emphysematous changes noted at the lung bases. There is bibasilar scarring/atelectasis. Calcified granulomas are observed. No airspace consolidation or pleural effusion is identified. A posterior mediastinal mass is partially visualized and was discussed on today's chest CT. Liver: The contrast-enhanced liver is normal in size and contour. Attenuation is diffusely diminished indicating steatosis. Fatty sparing is seen adjacent to the gallbladder fossa. There is no intrahepatic biliary ductal dilatation. The hepatic veins and portal veins are patent. Gallbladder: Unremarkable. Spleen: Normal in size and attenuation. Pancreas: Moderately atrophic and grossly unremarkable. Adrenal glands: A 2.4 cm left adrenal metastasis has not significantly changed the 06/02/2024 PET examination. The right adrenal gland is normal in appearance. Kidneys: The contrast enhanced kidneys demonstrate mild cortical atrophy and are without hydronephrosis. The kidneys enhance symmetrically. Abdominal vasculature: There is advanced atherosclerotic calcification and mild ectasia of the abdominal aorta. Bowel: There is moderate colonic diverticulosis without CT evidence of acute diverticulitis. No bowel obstruction is seen. Mild to moderate fecal retention is seen throughout the colon. The appendix is well-visualized and normal. Peritoneum: There is no intraperitoneal free air or abdominal ascites. A fat- containing umbilical hernia is noted. Lymphadenopathy: Prominent subcentimeter retroperitoneal and iliac chain lymph nodes are similar to the prior studies. A a front desk representative right iliac chain node on image #193 measures 9 mm in short axis. Pelvic viscera: The prostate gland is diminutive and heterogeneous. The bladder wall appears thickened/trabeculated indicating chronic outlet obstruction. There is a small fat-containing left groin hernia. Skeletal structures: The skeletal structures are osteopenic. Mild degenerative change is seen in the spine. No lytic or blastic lesions are seen. There is chronic deformity of the left pubic ring. IMPRESSION: 1. No acute infectious or inflammatory findings are identified in the abdomen or pelvis. 2. Cardiomegaly and emphysema. 3. A posterior mediastinal mass and a left adrenal metastasis have not significantly changed from 06/02/2024. 4. Colonic diverticulosis without CT evidence of acute diverticulitis. 5. Constipation. 6. Prominent nonspecific retroperitoneal and iliac chain lymph nodes are similar to prior studies. 7. Hepatic steatosis. 8. Additional findings as above. ACT 112: Negative or not required by law. Electronically signed by: Basilio Ojeda M.D. 08/15/2024 7:57 PM Chest CTA 08/15/24 17:33 CT ANGIOGRAM OF THE CHEST COMBO CLINICAL HISTORY: Hypoxia. Non-small cell lung cancer. COMPARISON STUDY: Chest CT dated 06/25/2024. Chest x-ray dated 05/06/2024. TECHNIQUE: Before and following the IV administration of 119 cc of Optiray 320, CT angiogram of the chest was performed from the thoracic inlet to the upper abdomen utilizing the dissection protocol. Images are reviewed in the axial, sagittal, and coronal planes. 3-D MIPS images are created and assessed. IV contrast was administered without complication. A dose lowering technique was utilized adhering to the principles of ALARA. CT DOSE: 1956.42 mGy.cm FINDINGS: Thyroid: Imaged portions of the thyroid gland are normal in size and attenuation. Thoracic aorta: No intramural hematoma is seen on the unenhanced series. There is atherosclerotic calcification of the thoracic aorta, which is normal in caliber and demonstrates standard 3-vessel arch anatomy. There is tortuosity of the thoracic aorta. No dissection is seen. The arch vessels are widely patent. Pulmonary vasculature: The pulmonary trunk is normal in caliber. There are no filling defects identified in the main, lobar, or segmental pulmonary arteries to indicate pulmonary embolus. Heart: The heart is enlarged and without pericardial effusion. There is coronary artery atherosclerosis. Lungs and pleural spaces: There is moderate to advanced emphysematous change. No airspace consolidation typical for pneumonia or pleural effusion is identified. The trachea and central airway are clear. There are scattered calcified granulomas. Foci of parenchymal scarring are noted throughout both lungs. A formal matter focus of pleural-based nodularity in the right middle lobe on image #139 is unchanged. Mediastinum: A posterior mediastinal mass on the posterior/right lateral border of the esophagus is unchanged. This measures approximately 3 x 5 cm as seen on image #147. No additional findings are suspicious for mediastinal lymphadenopathy. Mavis: Clear. Axillae: There is no axillary lymphadenopathy. Upper abdomen: A small hiatal hernia is noted. A left adrenal metastasis is similar to previous. This measures up to 2.2 cm. The liver appears steatotic. Skeletal structures: The skeletal structures are osteopenic. There is an acute to subacute superior end plate compression fracture of T9. This is new from 06/25/2024. There is mild loss of height. No significant residual fragments is seen. Mild paravertebral edema is noted. A mild chronic compression deformity of T7 is unchanged. No lytic or blastic bony lesions are seen. IMPRESSION: 1. Unremarkable CT angiogram of the thoracic aorta. 2. There is no evidence of pulmonary embolus in the main, lobar, or segmental pulmonary arteries. 3. There is an acute to subacute superior endplate compression fracture of T9 which is new from 06/25/2024. There is a mild loss of height and no retropulsion of fragments is seen. Correlate for point tenderness. 4. Cardiomegaly and emphysema. 5. There is no airspace consolidation typical for pneumonia or pleural effusion. 6. A posterior mediastinal mass and a left adrenal metastasis have not significantly changed from previous. 7. Additional findings as above. ACT 112: Negative or not required by law. Electronically signed by: Basilio Ojeda M.D. 08/15/2024 6:38 PM Discharge Plan Visit Data Chief Complaint: Abdominal Pain Stated Complaint: ABD PAIN ED Provider: Vikki Bansal Discharge Problem: Back pain, Compression fracture of thoracic vertebra, JUAN JOSE (acute kidney injury), Acute hypoxemic respiratory failure Forms Stand Alone Forms: My [facility] [employer] Prescriptions Prescriptions: No Action albuterol sulfate 90 mcg/actuation HFA aerosol inhaler 2 puff inhalation Q6H PRN (Reason: shortness of breath or wheezing) Qty: 3 1RF tamsulosin 0.4 mg capsule 0.4 mg PO DAILY Qty: 90 3RF losartan-hydrochlorothiazide 50-12.5 mg tablet 1 tab PO DAILY Qty: 90 3RF Hold Instructions: Resume on 03/20/24. Hold until seen by your primary care physician. clotrimazole 10 mg carol 10 mg mucous membrane 5XD 7 Days Qty: 35 0RF oxycodone 10 mg tablet 10 mg PO Q4H MDD 6 tabs PRN (Reason: pain) Qty: 60 0RF turmeric 400 mg capsule 400 mg PO DAILY (DME) Portable Oxygen Misc See Rx Instructions .MEDSUPPLY Qty: 1 0RF Rx Instructions: Oxygen 2 liters continuous via nasal cannula on exertion with portable concentrator. JUAN 99 Trelegy Ellipta 100-62.5-25 mcg blister with device 1 inh inhalation DAILY Qty: 3 1RF folic acid 1 mg tablet 1 mg PO DAILY prednisone 20 mg Tablet 40 mg PO BID 14 Days Qty: 56 1RF sulfamethoxazole-trimethoprim [Bactrim DS] 800-160 mg Tablet 1 tab PO MoWeFr@0900 30 Days Qty: 13 1RF Combivent Respimat 20-100 mcg/actuation mist 1 puff inhalation Q6H Qty: 4 0RF Referrals Referrals: Day Stout MD [Primary Care Provider] -
[2024-08-15] MEDS: OPTIRAY 320 125ml IV ONE (18:02)
[2024-08-15 18:10] LABS: Basophils # (auto) 0.04 K/uL (0.00-0.20); Basophils % (auto) 0.5 %; Eosinophils # (auto) 0.12 K/uL (0.00-0.50); Eosinophils % (auto) 1.4 %; Hematocrit (blood only) 36.1 % (42.0-52.0); Hemoglobin 11.7 g/dl (14.0-18.0); Immature Granulocytes # (auto) 0.04 K/uL (0.01-0.20); Immature Granulocytes % (auto) 0.5 %; Lymphocytes # (auto) 0.89 K/uL (1.20-3.40); Lymphocytes % (auto) 10.5 %; Mean Corpuscular Hgb Conc 32.4 g/dL (32.0-36.0); Mean Corpuscular Volume 101.7 fL (80.0-100.0); Mean Platelet Volume 9.2 fL (9.4-12.4); Monocytes # (auto) 0.92 K/uL (0.11-0.59); Monocytes % (auto) 10.8 %; Neutrophils # (auto) 6.47 K/uL (1.40-6.50); Neutrophils % (auto) 76.3 %; Platelet Count 286 K/uL (130-400); RDW Coefficient of Variation 12.6 % (11.5-14.5); RDW Standard Deviation 47.3 fL (36.4-46.3); Red Blood Count 3.55 M/uL (4.70-6.10); White Blood Count 8.48 K/ul (4.8-10.8)
[2024-08-15 18:29] LABS: Albumin Globulin Ratio 1.6 (0.9-2); Albumin Level 3.9 gm/dl (3.4-5.0); Bilirubin,Total 0.2 mg/dl (0.2-1.0); Calcium 9.3 mg/dl (8.6-10.3); Creatinine Clr Calc Pharmacy 43.4 ml/min; Globulin 2.4 gm/dl (2.5-4.0); Potassium 4.3 mmol/L (3.5-5.1); Total Protein 6.3 gm/dl (6.0-8.3)
[2024-08-15 18:35] LABS: Troponin I High Sensitivity 12.7 pg/ml (0-20)
--- NOTE | 2024-08-15 18:41 | CT Scan Report ---
CT ANGIOGRAM OF THE CHEST COMBO CLINICAL HISTORY: Hypoxia. Non-small cell lung cancer. COMPARISON STUDY: Chest CT dated 06/25/2024. Chest x-ray dated 05/06/2024. TECHNIQUE: Before and following the IV administration of 119 cc of Optiray 320, CT angiogram of the c hest was performed from the thoracic inlet to the upper abdomen utilizing the dissection protocol. Im ages are reviewed in the axial, sagittal, and coronal planes. 3-D MIPS images are created and assesse d. IV contrast was administered without complication. A dose lowering technique was utilized adherin g to the principles of ALARA. CT DOSE: 1956.42 mGy.cm FINDINGS: Thyroid: Imaged portions of the thyroid gland are normal in size and attenuation. Thoracic aorta: No intramural hematoma is seen on the unenhanced series. There is atherosclerotic steff cification of the thoracic aorta, which is normal in caliber and demonstrates standard 3-vessel arch anatomy. There is tortuosity of the thoracic aorta. No dissection is seen. The arch vessels are widel y patent. Pulmonary vasculature: The pulmonary trunk is normal in caliber. There are no filling defects identif ied in the main, lobar, or segmental pulmonary arteries to indicate pulmonary embolus. Heart: The heart is enlarged and without pericardial effusion. There is coronary artery atheroscleros is. Lungs and pleural spaces: There is moderate to advanced emphysematous change. No airspace consolidati on typical for pneumonia or pleural effusion is identified. The trachea and central airway are clear. There are scattered calcified granulomas. Foci of parenchymal scarring are noted throughout both azul gs. A formal matter focus of pleural-based nodularity in the right middle lobe on image #139 is uncha nged. Mediastinum: A posterior mediastinal mass on the posterior/right lateral border of the esophagus is u nchanged. This measures approximately 3 x 5 cm as seen on image #147. No additional findings are susp icious for mediastinal lymphadenopathy. Mavis: Clear. Axillae: There is no axillary lymphadenopathy. Upper abdomen: A small hiatal hernia is noted. A left adrenal metastasis is similar to previous. This measures up to 2.2 cm. The liver appears steatotic. Skeletal structures: The skeletal structures are osteopenic. There is an acute to subacute superior e nd plate compression fracture of T9. This is new from 06/25/2024. There is mild loss of height. No sig nificant residual fragments is seen. Mild paravertebral edema is noted. A mild chronic compression de formity of T7 is unchanged. No lytic or blastic bony lesions are seen. IMPRESSION: 1. Unremarkable CT angiogram of the thoracic aorta. 2. There is no evidence of pulmonary embolus in the main, lobar, or segmental pulmonary arteries. 3. There is an acute to subacute superior endplate compression fracture of T9 which is new from 2023. There is a mild loss of height and no retropulsion of fragments is seen. Correlate for point te nderness. 4. Cardiomegaly and emphysema. 5. There is no airspace consolidation typical for pneumonia or pleural effusion. 6. A posterior mediastinal mass and a left adrenal metastasis have not significantly changed from pre vious. 7. Additional findings as above. ACT 112: Negative or not required by law. Electronically signed by: Basilio Ojeda M.D. 08/15/2024 6:38 PM
[2024-08-15 18:43] LABS: Prothrombin Time 10.7 Seconds (9.0-12.0)
--- NOTE | 2024-08-15 19:51 | History & Physical Report ---
Date of Service August 15, 2024 Assessment & Plan (1) Acute hypoxemic respiratory failure: Plan: Patient with reported saturation of 70% on room air, documented 86% on room air upon arrival. Now with adequate oxygenation at 96% on 6L NC. No cough or congestion. CTA of the chest with no acute findings. Respiratory Biofire panel unremarkable as well. Unclear etiology for hypoxia. Patient with underlying COPD but does not exhibit signs of acute exacerbation at this time. Splinting secondary to discomfort likely contributing. -Admit to medical -Continue supplemental O2 as needed to maintain saturation of 88-92% -Incentive spirometry and flutter valve -Continue Umeclidinium/Vilanterol -Ipratropium inhaled daily -Fluticasone inhaled daily -Albuterol as needed (2) Back pain: Plan: Patient with superior endplate fracture of T9 - likely contributing to his discomfort. No pneumothorax on imaging -Continue home Oxycodone - patient reports he takes 15mg po q 4-6 hours as needed -Morphine IV for breakthrough - (1mg IV q 3 hours PRN pain 1-5 and 2mg IV q3hr PRN pain 6-10) - adjust as needed -Lidoderm patch -Scheduled Tylenol -Consider transitioning patient to extended release scheduled opioids as he has considerable amount of chronic pain Plan Chronic Medical Condition: Hypertension- blood pressure mildly elevated -Continue Losartan/HCTZ -Continue to monitor BPH - chronic -Continue Flomax F/E/N - Saline lock. Electrolytes WNL. Regular diet as tolerate Ppx - Lovenox Code - DNR/DNI per discussion with patient Dispo - Admit to medical History of Present Illness Chief Complaint: back pain Primary Care Provider: Day Stout MD Eren Saxena is a 74yo male with stage IV non-small cell lung cancer diagnosed on 02/12/2024 presenting with severe thoracic back pain. 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 Patient is currently not undergoing any cancer-directed therapy. He continues to follow with Dr. 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 During the Oncology visit on 07/27/24 the plan was to decrease his Prednisone to 10mg daily and to followup with Pulmonary and Pulmonary rehab. Patient was participating in Pulmonary Rehab earlier in the week when he had an acute onset of severe thoracic back pain. He denies trauma. He reports that the pain comes intermittently most commonly with certain positions or movement. His pain is pleuritic as well. He denies chest pain, palpitations, fever, chills, abdominal pain, nausea, vomiting. He does feel a little more short of breath than usual and noted some bilateral LE edema today which is new for him. Upon arrival to the ER patient afebrile, mildly elevated HR, saturating 86% on room air. He has bee placed on supplemental O2 - 6L/min by [place] with improvement in saturations. No report of cough. ER Course: Morphine 2mg IV Tylenol 1gm Lidoderm patch Allergies Allergy/AdvReac Type Severity Reaction Status Date / Time pembrolizumab [From [employer]] AdvReac Severe Difficulty Verified 08/15/24 19:25 Breathing Home Medications Medication Instructions Recorded Confirmed Type turmeric 400 mg capsule 400 mg PO DAILY 04/20/19 08/15/24 History albuterol sulfate 90 mcg/actuation 2 puff inhalation Q6H PRN 01/30/24 08/15/24 Rx aerosol inhaler shortness of breath or wheezing #3 Inhalers losartan 50 mg-hydrochlorothiazide 1 tab PO DAILY #90 tabs 04/19/24 08/15/24 Rx 12.5 mg tablet folic acid 1 mg tablet 1 mg PO DAILY 04/25/24 08/15/24 History ipratropium 20 mcg-albuterol 100 1 puff inhalation Q6H #4 grams 05/08/24 08/15/24 Rx mcg/actuation mist for inhalation (Combivent Respimat) Portable Oxygen #1 ea 05/18/24 08/15/24 Rx fluticasone fur. 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) COPD (chronic obstructive pulmonary disease) Leukocytosis Hypertension Adenocarcinoma of lung, stage 4 (Acute) Exertional shortness of breath Ex-smoker Mass of mediastinum (Acute) Retroperitoneal mass (Acute) Hyperlipidemia (Chronic) declines statin Chronic daily headache (Chronic) Medical History Advanced care planning/counseling discussion Palliative care by specialist Dyspnea and respiratory abnormalities Acute and chronic respiratory failure with hypoxia Sepsis Multifocal pneumonia Chronic respiratory failure with hypoxia Hypokalemia JUAN JOSE (acute kidney injury) Leukocytosis Acute GI bleeding Symptomatic anemia Acute blood loss anemia Nocturnal hypoxia On 2L oxygen at night Surgical History S/P tonsillectomy History of cataract surgery Bilateral Family History Father , 65yo Myocardial infarction Mother , 96yo Natural with unknown cause Brother Medical history unknown Son No problems noted. Daughter No problems noted. Other Dementia Heart disease Hypertension Denies family history of Rheumatoid arthritis Sudden SIDS (sudden syndrome) Ovarian cancer Prostate cancer Diabetes Deep vein thrombosis Osteoporosis Coronary heart disease Dyslipidemia Cerebral aneurysm Alzheimer disease Bipolar disorder Clotting disorder Crohn's disease Depression Kidney disease Osteoarthritis Breast cancer Schizophrenia Congenital kidney disease Gestational diabetes Lung cancer COPD (chronic obstructive pulmonary disease) Colorectal cancer Pulmonary embolism Lung disease Cancer Ulcerative colitis Colonic polyp Stroke Asthma Cystic kidney disease Social History Smoking Status: Former smoker Tobacco Type: Cigarettes Age Started Using Tobacco: 19; Age Quit Using Tobacco: 70; packs per day: 1; Cigarettes Per Day: 20; Second Hand Exposure: No; Do You Dip or Chew Tobacco: No; Hx Alcohol Use: No Hx Substance Use: No Preferred Language: Estonian Communication Ability: Effective Visual Impairment: No Limitations Hearing Ability: Normal Finishing Frame Runner Required: No Beliefs That Will Affect Care: None marital status: Current Living Situation: Alone Current Living Situation Comment: pt states lives alone in a house current occupational status: retired 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 How many Children do You have: 2 Other Information That Helps Us Care for You: No other: Ex- is supportive to pt Feels Safe at Home: Yes Safety Concerns: Feels Safe At This Time Diet: regular caffeine: No during the past year weight has: decreased > 10 lbs Seatbelt Use: sometimes Assistive Devices: Hospital Bed and Oxygen - Continuous Review of Systems Review of Systems: All systems reviewed & are unremarkable except as noted in HPI & below Physical Exam Physical Exam: General: patient in significant pain, reports recent positional change caused him to have significant right sided discomfort, answering questions appropriately and following commands Skin: warm, dry, intact, no rashes or lesions HEENT: NC/AT, PERRL, EOMI, anicteric sclera, conjunctiva without injection, external ear normal to inspection and nontender, nares patent, moist mucus membranes, dentition intact, no oropharyngeal lesions, neck supple, trachea midline, no LAD, no thyromegaly, no JVD Heart: +S1/S2, regular, no m/r/g Lungs: equal air entry bilaterally, no rales/rhonchi/wheezes, patient visibly splinting - short/shallow breathing- secondary to pain Abd: +BS, soft, NT/ND, no masses/organomegaly/ascites Ext: warm, 2+ pulses in UE/LE bilaterally, no clubbing/cyanosis or edema Neuro: nonfocal, patient AA&O x 4, speech intact, no facial droop, moving all extremities on command with equal strength 5/5 Pain with palpation of right upper thoracic spine with discomfort, no obvious muscle spasm Results & Data Results & Data Vital Signs (Past 12 Hours) Vital Signs Temp Pulse Pulse Resp BP BP Pulse Ox 08/15/24 19:01 91 H 23 135/89 92 08/15/24 18:33 92 H 21 96 08/15/24 18:30 138/91 08/15/24 18:24 92 H 24 95 08/15/24 18:18 95 H 18 95 08/15/24 18:16 144/97 H 08/15/24 17:53 93 H 08/15/24 17:45 110/70 08/15/24 17:34 94 08/15/24 17:34 94 H 15 116/79 95 08/15/24 17:16 36.9 C 99 H 12 124/67 86 L O2 Del Method O2 Flow Rate 08/15/24 19:01 Nasal Cannula 6 08/15/24 18:33 Nasal Cannula 6 08/15/24 18:30 08/15/24 18:24 Nasal Cannula 6 08/15/24 18:18 Nasal Cannula 08/15/24 18:16 08/15/24 17:53 08/15/24 17:45 08/15/24 17:34 Nasal Cannula 6 08/15/24 17:34 Nasal Cannula 6 08/15/24 17:16 Room Air Laboratory Results Laboratory Results WBC 8.48 K/ul (4.8-10.8) 08/15/24 17:35 RBC 3.55 M/uL (4.70-6.10) L 08/15/24 17:35 Hgb 11.7 g/dl (14.0-18.0) L 08/15/24 17:35 POC Hgb 12.2 g/dl (14.0-18.0) L 08/15/24 17:47 Hct 36.1 % (42.0-52.0) L 08/15/24 17:35 POC Hct 36 % (42-52) L 08/15/24 17:47 MCV 101.7 fL (80.0-100.0) H 08/15/24 17:35 MCH 33.0 pg (25.0-34.0) 08/15/24 17:35 MCHC 32.4 g/dL (32.0-36.0) 08/15/24 17:35 RDW Std Deviation 47.3 fL (36.4-46.3) H 08/15/24 17:35 RDW Coeff of Ge 12.6 % (11.5-14.5) 08/15/24 17:35 Plt Count 286 K/uL (130-400) 08/15/24 17:35 MPV 9.2 fL (9.4-12.4) L 08/15/24 17:35 Immature Gran % (Auto) 0.5 % 08/15/24 17:35 Neut % (Auto) 76.3 % 08/15/24 17:35 Lymph % (Auto) 10.5 % 08/15/24 17:35 Camp % (Auto) 10.8 % 08/15/24 17:35 Eos % (Auto) 1.4 % 08/15/24 17:35 Baso % (Auto) 0.5 % 08/15/24 17:35 Neut # (Auto) 6.47 K/uL (1.40-6.50) 08/15/24 17:35 Lymph # (Auto) 0.89 K/uL (1.20-3.40) L 08/15/24 17:35 Camp # (Auto) 0.92 K/uL (0.11-0.59) H 08/15/24 17:35 Eos # (Auto) 0.12 K/uL (0.00-0.50) 08/15/24 17:35 Baso # (Auto) 0.04 K/uL (0.00-0.20) 08/15/24 17:35 Immature Gran # (Auto) 0.04 K/uL (0.01-0.20) 08/15/24 17:35 PT 10.7 Seconds (9.0-12.0) 08/15/24 17:35 INR 1.0 (0.9-1.1) 08/15/24 17:35 POC Sodium 141 mmol/L (135-144) 08/15/24 17:47 Sodium 143 mmol/L (136-145) 08/15/24 17:35 POC Potassium 4.2 mmol/L (3.3-5.0) 08/15/24 17:47 Potassium 4.3 mmol/L (3.5-5.1) 08/15/24 17:35 POC Chloride 101 mmol/L (101-112) 08/15/24 17:47 Chloride 102 mmol/L (98-107) 08/15/24 17:35 Carbon Dioxide 33 mmol/L (21-32) H 08/15/24 17:35 POC Total CO2 30 mmol/L (24-31) 08/15/24 17:47 Anion Gap 8 (3-11) 08/15/24 17:35 POC Anion Gap 15.0 mmol/L (16-25) L 08/15/24 17:47 POC BUN 21 mg/dl (7-18) H 08/15/24 17:47 BUN 22 mg/dl (6-23) 08/15/24 17:35 Creatinine 1.47 mg/dl (0.6-1.4) H 08/15/24 17:35 POC Creatinine 1.5 mg/dl (0.6-1.3) H 08/15/24 17:47 Est Cr Clr Drug Dosing 43.4 ml/min 08/15/24 17:35 eGFR 49.43 08/15/24 17:35 BUN/Creatinine Ratio 15.0 (10-20) 08/15/24 17:35 Glucose 126 mg/dl (70-99(Fasting)) H 08/15/24 17:35 POC Glucose (other) 123 mg/dl (70-99) H 08/15/24 17:47 Lactate 0.8 mmol/L (0.4-2.0) 08/15/24 17:35 Calcium 9.3 mg/dl (8.6-10.3) 08/15/24 17:35 POC Ioniz Calcium Toni 1.21 mmol/l (1.12-1.32) 08/15/24 17:47 Total Bilirubin 0.2 mg/dl (0.2-1.0) 08/15/24 17:35 AST 18 U/L (13-39) 08/15/24 17:35 ALT 23 U/L (7-52) 08/15/24 17:35 Alkaline Phosphatase 58 U/L (34-104) 08/15/24 17:35 Troponin I High Sens 12.7 pg/ml (0-20) 08/15/24 17:35 B-Natriuretic Peptide 54 pg/ml (0-100) 08/15/24 17:35 Total Protein 6.3 gm/dl (6.0-8.3) 08/15/24 17:35 Albumin 3.9 gm/dl (3.4-5.0) 08/15/24 17:35 Globulin 2.4 gm/dl (2.5-4.0) L 08/15/24 17:35 Albumin/Globulin Ratio 1.6 (0.9-2) 08/15/24 17:35 Lipase 8 U/L (11-82) L 08/15/24 17:35 Urine Color Yellow 08/15/24 21:07 Urine Appearance Clear (Clear) 08/15/24 21:07 Urine pH 5.5 (4.5-7.5) 08/15/24 21:07 Ur Specific [place] > 1.045 (1.000-1.030) H 08/15/24 21:07 Urine Protein Negative (Negative) 08/15/24 21:07 Urine Glucose (UA) Negative (Negative) 08/15/24 21:07 Urine Ketones Negative (Negative) 08/15/24 21:07 Urine Blood Negative (Negative) 08/15/24 21:07 Urine Nitrite Negative (Negative) 08/15/24 21:07 Urine Bilirubin Negative (Negative) 08/15/24 21:07 Urine Urobilinogen Negative (Negative) 08/15/24 21:07 Ur Leukocyte Esterase Negative (Negative) 08/15/24 21:07 Adenovirus (PCR) Not Detected (NotDetected) 08/15/24 17:35 B. pertussis DNA (PCR) Not Detected (NotDetected) 08/15/24 17:35 B.parapertussis DNA PCR Not Detected (NotDetected) 08/15/24 17:35 C. pneumoniae DNA (PCR) Not Detected (NotDetected) 08/15/24 17:35 Coronavirus OC43 (PCR) Not Detected (NotDetected) 08/15/24 17:35 Coronavirus HKU1 (PCR) Not Detected (NotDetected) 08/15/24 17:35 Coronavirus 229E (PCR) Not Detected (NotDetected) 08/15/24 17:35 SARS-CoV-2 (PCR) Not Detected (NotDetected) 08/15/24 17:35 Coronavirus NL63 (PCR) Not Detected (NotDetected) 08/15/24 17:35 Human Metapneumovir PCR Not Detected (NotDetected) 08/15/24 17:35 Influenza Type A (PCR) Not Detected (NotDetected) 08/15/24 17:35 Influenza Type B (PCR) Not Detected (NotDetected) 08/15/24 17:35 M. pneumoniae (PCR) Not Detected (NotDetected) 08/15/24 17:35 Parainfluenza 1 (PCR) Not Detected (NotDetected) 08/15/24 17:35 Parainfluenza 2 (PCR) Not Detected (NotDetected) 08/15/24 17:35 Parainfluenza 3 (PCR) Not Detected (NotDetected) 08/15/24 17:35 Parainfluenza 4 (PCR) Not Detected (NotDetected) 08/15/24 17:35 RSV (PCR) Not Detected (NotDetected) 08/15/24 17:35 Entero/Rhino (PCR) Not Detected (NotDetected) 08/15/24 17:35 Impressions Abdomen/Pelvis CT 08/15/24 17:25 CT SCAN OF THE ABDOMEN AND PELVIS WITH IV CONTRAST CLINICAL HISTORY: Lower abdominal pain. Back pain. Lung cancer. COMPARISON STUDY: Abdominal CT dated 04/25/2024. PET/CT dated 06/02/2024. TECHNIQUE: Following the IV administration of 119 cc of Optiray 320, CT scan of the abdomen and pelvis is performed from the lung bases to the proximal femora. Images are reviewed in the axial, sagittal, and coronal planes. IV contrast was administered without complication. A dose lowering technique was utilized adhering to the principles of ALARA. FINDINGS: Lung bases: The heart is mildly enlarged and without pericardial effusion. Advanced emphysematous changes noted at the lung bases. There is bibasilar scarring/atelectasis. Calcified granulomas are observed. No airspace consolid ation or pleural effusion is identified. A posterior mediastinal mass is partially visualized and was discussed on today's chest CT. Liver: The contrast-enhanced liver is normal in size and contour. Attenuation is diffusely diminished indicating steatosis. Fatty sparing is seen adjacent to the gallbladder fossa. There is no intrahepatic biliary ductal dilatation. The hepatic veins and portal veins are patent. Gallbladder: Unremarkable. Spleen: Normal in size and attenuation. Pancreas: Moderately atrophic and grossly unremarkable. Adrenal glands: A 2.4 cm left adrenal metastasis has not significantly changed the 06/02/2024 PET examination. The right adrenal gland is normal in appearance. Kidneys: The contrast enhanced kidneys demonstrate mild cortical atrophy and are without hydronephrosis. The kidneys enhance symmetrically. Abdominal vasculature: There is advanced atherosclerotic calcification and mild ectasia of the abdominal aorta. Bowel: There is moderate colonic diverticulosis without CT evidence of acute diverticulitis. No bowel obstruction is seen. Mild to moderate fecal retention is seen throughout the colon. The appendix is well-visualized and normal. Peritoneum: There is no intraperitoneal free air or abdominal ascites. A fat- containing umbilical hernia is noted. Lymphadenopathy: Prominent subcentimeter retroperitoneal and iliac chain lymph nodes are similar to the prior studies. A a passenger service representative right iliac chain node on image #193 measures 9 mm in short axis. Pelvic viscera: The prostate gland is diminutive and heterogeneous. The bladder wall appears thickened/trabeculated indicating chronic outlet obstruction. There is a small fat-containing left groin hernia. Skeletal structures: The skeletal structures are osteopenic. Mild degenerative change is seen in the spine. No lytic or blastic lesions are seen. There is chronic deformity of the left pubic ring. IMPRESSION: 1. No acute infectious or inflammatory findings are identified in the abdomen or pelvis. 2. Cardiomegaly and emphysema. 3. A posterior mediastinal mass and a left adrenal metastasis have not significantly changed from 06/02/2024. 4. Colonic diverticulosis without CT evidence of acute diverticulitis. 5. Constipation. 6. Prominent nonspecific retroperitoneal and iliac chain lymph nodes are similar to prior studies. 7. Hepatic steatosis. 8. Additional findings as above. ACT 112: Negative or not required by law. Electronically signed by: Basilio Ojeda M.D. 08/15/2024 7:57 PM Chest CTA 08/15/24 17:33 CT ANGIOGRAM OF THE CHEST COMBO CLINICAL HISTORY: Hypoxia. Non-small cell lung cancer. COMPARISON STUDY: Chest CT dated 06/25/2024. Chest x-ray dated 05/06/2024. TECHNIQUE: Before and following the IV administration of 119 cc of Optiray 320, CT angiogram of the chest was performed from the thoracic inlet to the upper abdomen utilizing the dissection protocol. Images are reviewed in the axial, sagittal, and coronal planes. 3-D MIPS images are created and assessed. IV contrast was administered without complication. A dose lowering technique was utilized adhering to the principles of ALARA. CT DOSE: 1956.42 mGy.cm FINDINGS: Thyroid: Imaged portions of the thyroid gland are normal in size and attenuation. Thoracic aorta: No intramural hematoma is seen on the unenhanced series. There is atherosclerotic calcification of the thoracic aorta, which is normal in caliber and demonstrates standard 3-vessel arch anatomy. There is tortuosity of the thoracic aorta. No dissection is seen. The arch vessels are widely patent. Pulmonary vasculature: The pulmonary trunk is normal in caliber. There are no filling defects identified in the main, lobar, or segmental pulmonary arteries to indicate pulmonary embolus. Heart: The heart is enlarged and without pericardial effusion. There is coronary artery atherosclerosis. Lungs and pleural spaces: There is moderate to advanced emphysematous change. No airspace consolidation typical for pneumonia or pleural effusion is identified. The trachea and central airway are clear. There are scattered calcified granulomas. Foci of parenchymal scarring are noted throughout both lungs. A formal matter focus of pleural-based nodularity in the right middle lobe on image #139 is unchanged. Mediastinum: A posterior mediastinal mass on the posterior/right lateral border of the esophagus is unchanged. This measures approximately 3 x 5 cm as seen on image #147. No additional findings are suspicious for mediastinal lymphadenopathy. Mavis: Clear. Axillae: There is no axillary lymphadenopathy. Upper abdomen: A small hiatal hernia is noted. A left adrenal metastasis is similar to previous. This measures up to 2.2 cm. The liver appears steatotic. Skeletal structures: The skeletal structures are osteopenic. There is an acute to subacute superior end plate compression fracture of T9. This is new from 06/25/2024. There is mild loss of height. No significant residual fragments is seen. Mild paravertebral edema is noted. A mild chronic compression deformity of T7 is unchanged. No lytic or blastic bony lesions are seen. IMPRESSION: 1. Unremarkable CT angiogram of the thoracic aorta. 2. There is no evidence of pulmonary embolus in the main, lobar, or segmental pulmonary arteries. 3. There is an acute to subacute superior endplate compression fracture of T9 which is new from 06/25/2024. There is a mild loss of height and no retropulsion of fragments is seen. Correlate for point tenderness. 4. Cardiomegaly and emphysema. 5. There is no airspace consolidation typical for pneumonia or pleural effusion. 6. A posterior mediastinal mass and a left adrenal metastasis have not significantly changed from previous. 7. Additional findings as above. ACT 112: Negative or not required by law. Electronically signed by: Basilio Ojeda M.D. 08/15/2024 6:38 PM Code Status & VTE Plan VTE Prophylaxis Plan VTE Prophylaxis will be ordered: Yes PG Care Time/CCT Total # of Minutes Spent Total Time Spent with Patient: Total time spent is greater than 50% in coordination of care (as documented) at patient's floor/unit and/or counseling patient: Coding Level of Care Code 85681 INT INP/OBS CARE MIN Diagnoses Acute hypoxemic respiratory failure J96.01 Back pain M54.9
--- NOTE | 2024-08-15 19:59 | CT Scan Report ---
CT SCAN OF THE ABDOMEN AND PELVIS WITH IV CONTRAST CLINICAL HISTORY: Lower abdominal pain. Back pain. Lung cancer. COMPARISON STUDY: Abdominal CT dated 04/25/2024. PET/CT dated 06/02/2024. TECHNIQUE: Following the IV administration of 119 cc of Optiray 320, CT scan of the abdomen and pelv is is performed from the lung bases to the proximal femora. Images are reviewed in the axial, sagitta l, and coronal planes. IV contrast was administered without complication. A dose lowering technique w as utilized adhering to the principles of ALARA. FINDINGS: Lung bases: The heart is mildly enlarged and without pericardial effusion. Advanced emphysematous anders nges noted at the lung bases. There is bibasilar scarring/atelectasis. Calcified granulomas are obser juanita. No airspace consolidation or pleural effusion is identified. A posterior mediastinal mass is par tially visualized and was discussed on today's chest CT. Liver: The contrast-enhanced liver is normal in size and contour. Attenuation is diffusely diminished indicating steatosis. Fatty sparing is seen adjacent to the gallbladder fossa. There is no intrahepa tic biliary ductal dilatation. The hepatic veins and portal veins are patent. Gallbladder: Unremarkable. Spleen: Normal in size and attenuation. Pancreas: Moderately atrophic and grossly unremarkable. 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 The right adrenal gland is normal in appearance. Kidneys: The contrast enhanced kidneys demonstrate mild cortical atrophy and are without hydronephros is. The kidneys enhance symmetrically. Abdominal vasculature: There is advanced atherosclerotic calcification and mild ectasia of the abdomi nal aorta. Bowel: There is moderate colonic diverticulosis without CT evidence of acute diverticulitis. No bowel obstruction is seen. Mild to moderate fecal retention is seen throughout the colon. The appendix is well-visualized and normal. Peritoneum: There is no intraperitoneal free air or abdominal ascites. A fat-containing umbilical her easton is noted. Lymphadenopathy: Prominent subcentimeter retroperitoneal and iliac chain lymph nodes are similar to t he prior studies. A a commissary representative right iliac chain node on image #[id number] measures 9 mm in short axis . Pelvic viscera: The prostate gland is diminutive and heterogeneous. The bladder wall appears thickene d/trabeculated indicating chronic outlet obstruction. There is a small fat-containing left groin cynthia ia. Skeletal structures: The skeletal structures are osteopenic. Mild degenerative change is seen in the spine. No lytic or blastic lesions are seen. There is chronic deformity of the left pubic ring. IMPRESSION: 1. No acute infectious or inflammatory findings are identified in the abdomen or pelvis. 2. Cardiomegaly and emphysema. 3. A posterior mediastinal mass and a left adrenal metastasis have not significantly changed from 05/11. 4. Colonic diverticulosis without CT evidence of acute diverticulitis. 5. Constipation. 6. Prominent nonspecific retroperitoneal and iliac chain lymph nodes are similar to prior studies. 7. Hepatic steatosis. 8. Additional findings as above. ACT 112: Negative or not required by law. Electronically signed by: Basilio Ojeda M.D. 08/15/2024 7:57 PM
[2024-08-15 20:04] LABS: Adenovirus PCR Not Detected (NotDetected); Bordetella parapertussis PCR Not Detected (NotDetected); Bordetella pertussis PCR Not Detected (NotDetected); Chlamydia pneumoniae PCR Not Detected (NotDetected); Coronavirus 229E PCR Not Detected (NotDetected); Coronavirus CoV-2 (COVID19)PCR Not Detected (NotDetected); Coronavirus HKU1 PCR Not Detected (NotDetected); Coronavirus NL63 PCR Not Detected (NotDetected); Coronavirus OC43PCR Not Detected (NotDetected); Human Metapneumovirus PCR Not Detected (NotDetected); Influenza A PCR Not Detected (NotDetected); Influenza B PCR Not Detected (NotDetected); Mycoplasma pneumoniae PCR Not Detected (NotDetected); Parainfluenza Virus 1 PCR Not Detected (NotDetected); Parainfluenza Virus 2 PCR Not Detected (NotDetected); Parainfluenza Virus 3 PCR Not Detected (NotDetected); Parainfluenza Virus 4 PCR Not Detected (NotDetected); Respiratory Syncytial VirusPCR Not Detected (NotDetected); Rhinovirus/Enterovirus PCR Not Detected (NotDetected)
[2024-08-15 21:14] LABS: Appearance Urine Clear (Clear); Bilirubin Urine Negative (Negative); Blood Urine Negative (Negative); Color Urine Yellow; Glucose Urine UA Negative (Negative); Ketones Urine Negative (Negative); Leukocyte Esterase Urine Negative (Negative); Nitrite Urine Negative (Negative); Protein Urine Negative (Negative); Specific Gravity Urine > 1.045 (1.000-1.030); Urobilinogen Urine Negative (Negative); pH Urine 5.5 (4.5-7.5)
[2024-08-15] MEDS: MoRPHine SULFATE 2 MG/ML CARP IV PRN (21:56)
[2024-08-15] MEDS: ACETAMINOPHEN 500 MG TAB PO SCH (21:57)
[2024-08-15] MEDS ORDERED: oxyCODONE HCL IR 5 MG TAB (IMMEDIATE RELEASE) PO PRN (22:14)
[2024-08-15] MEDS ORDERED: ALBUTEROL HFA 8 GM INHALER INH PRN (22:14)
[2024-08-15] MEDS ORDERED: IPRATROPIUM BROMIDE/ALBUTEROL respimat INH INH SCH (22:15)
[2024-08-15] MEDS: LIDOCAINE 5% 1 PATCH TD STA (22:37)
[2024-08-15] MEDS: ENOXAPARIN INJ 40 MG/0.4 ML SYR SQ SCH (22:38)
[2024-08-15] MEDS: oxyCODONE HCL IR 5 MG TAB (IMMEDIATE RELEASE) PO PRN (23:34)
[2024-08-16] MEDS: Ipratropium HFA Inhaler (Combivent Respimat P&T Subs) INH SCH (00:33)
[2024-08-16] MEDS: Albuterol HFA 8 GM Inhaler (Combivent Respimat P&T Subs) INH SCH (00:33)
[2024-08-16] MEDS: FLUTICASONE FUROATE 100MCG 14 PUFFS/INHALER INH SCH (07:52)
[2024-08-16] MEDS: TAMSULOSIN HCL 0.4 MG CAP PO SCH (07:52)
[2024-08-16] MEDS: FOLIC ACID 1 MG TAB PO SCH (07:52)
[2024-08-16] MEDS: UMECLIDINIUM/VILANTEROL 62.5/25MCG 7 PUFFS/INHALER INH SCH (07:53)
[2024-08-16] MEDS ORDERED: NON-FORMULARY MEDICATION (Fluticasone-Umeclidin-Vilanter [Trelegy Ellipta] 100-62.5-25 mcg INH SCH (09:00)
[2024-08-16] MEDS ORDERED: LOSARTAN/HCTZ 50/12.5MG TAB PO SCH (09:00)
[2024-08-16] MEDS: CALCITONIN SALMON NA 200 IU/AC 3.7 ML BTL SCH (13:14)
--- NOTE | 2024-08-16 15:26 | Electrocardiogram Report ---
Test Reason : Blood Pressure : */* mmHG Vent. Rate : 94 BPM Atrial Rate : 94 BPM P-R Int : 154 ms QRS Dur : 120 ms QT Int : 392 ms P-R-T Axes : 59 262 52 degrees QTcB Int : 490 ms Sinus rhythm with Premature atrial complexes Right bundle branch block Inferior infarct (cited on or before 02-May-2024) Abnormal ECG When compared with ECG of 08-May-2024 12:22, Premature atrial complexes are now Present Confirmed by Grayson Gutierrez ([id number]) on 08/16/2024 3:25:52 PM Referred By: REFERRED SELF Confirmed By: Grayson Gutierrez
[2024-08-16 15:27] VITALS: TEMP 98.1
--- NOTE | 2024-08-16 16:35 | CT Scan Report ---
CT SCAN OF THE THORACIC SPINE WITHOUT IV CONTRAST CLINICAL HISTORY: T9 compression fracture. COMPARISON STUDY: Radiographs of the thoracic spine dated 08/09/2024. Chest CT scans dated 08/15/2024 a nd 06/25/2024. TECHNIQUE: CT scan of the thoracic spine is performed from the lower cervical spine to the upper lumb ar spine. Images are reviewed in the axial, sagittal, and coronal planes. IV contrast was not adminis tered for this examination. A dose lowering technique was utilized adhering to the principles of NING Juarez. CT DOSE: 1214.94 mGy.cm FINDINGS: The skeletal structures are osteopenic. Again seen is an vatic-[id number] superior endplat e compression fracture of T9. This is new from the 06/25/[address] There is mild loss of height. No significant retropulsion of fragments is seen. There is no evidence of posterior element involveme nt. Mild paravertebral edema is noted at this level. No additional acute fracture is seen involving t he thoracic spine. A chronic compression deformity of T7 is unchanged. Vertebral body height is other morales maintained. Alignment is preserved. Hyperkyphosis is noted. Anterior osteophytes are seen throug hout. The transverse and spinous processes appear intact. No lytic or blastic lesion is seen. There i s minimal multilevel degenerative disc space narrowing. There is no CT evidence of large disc herniat ion or high-grade central canal stenosis. The imaged posterior ribs appear intact. The paraspinous so ft tissues are within normal limits. Advanced emphysematous change is observed. Scar-like opacities a re again seen throughout both lungs. No airspace consolidation is identified, typical for pneumonia a nd there is no pleural effusion. Calcified granulomas are observed. A posterior mediastinal mass and left adrenal metastasis are again noted. These were discussed on yesterday's chest and abdominal CT s cans. IMPRESSION: 1. There is unchanged appearance of an jozmy-kl-qlugpxmh superior endplate compression fracture of T9 as compared to yesterday's chest CT. This is new from 06/25/2024. There is only mild loss of height, and no retropulsion of fragments is seen. 2. No additional acute fracture is seen involving the thoracic spine. 3. Advanced emphysema and additional findings as above. ACT 112: Negative or not required by law. Dictated: 08/16/2024 4:03 PM Transcribed: 08/16/2024 4:30 PM Yovanny [id number] [email or web address] Electronically signed by: Basilio Ojeda M.D. 08/16/2024 4:34 PM
--- NOTE | 2024-08-16 18:23 | Hospitalist Progress Note ---
Date of Service August 16, 2024 Assessment & Plan (1) Acute hypoxemic respiratory failure: Plan: Patient with reported saturation of 70% on room air, documented 86% on room air upon arrival. On admission with adequate oxygenation at 96% on 6L NC. No cough or congestion. CTA of the chest with no acute findings. Respiratory Biofire panel unremarkable as well. Patient with underlying COPD but does not exhibit signs of acute exacerbation at this time. Splinting secondary to discomfort likely contributing. Now off O2, on room air--> Continue supplemental O2 as needed to maintain saturation of 88-92% Continue incentive spirometry and flutter valve Continue Umeclidinium/Vilanterol, Ipratropium inhaled daily, Fluticasone inhaled daily, and Albuterol as needed (2) Back pain: Plan: Patient with superior endplate fracture of T9 - likely cause of his discomfort. No pneumothorax on imaging On chronic prednisone and recently started Pulm rehab exercises prior to fracture occurring Consult Ortho Spine to see if kyphoplasty an option for pain control--> made NPO after midnight in case could have procedure tomorrow. 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-tapered down to 5mg daily last week No longer receiving treatment for lung CA Has met to adrenal gland Plan Chronic Medical Condition: Hypertension- blood pressure low normal -holding Losartan/HCTZ for health sciences manager 1.4--> health sciences manager now down to 1.0 -Continue to monitor BPH - chronic -Continue Flomax Ppx - Lovenox on hold in case of kyphoplasty Code - DNR/DNI per discussion with patient Dispo -continued stay on medical Admission and Anticipated Discharge Date Admission Date: August 15, 2024 Subjective Pt continues to have pain in the mid back with radiation to the right>left. No pain or weakness in extremities He is upset about being on prednisone as he knows this caused him to get a compression fracture. He also thinks the exercise at pulm rehab contributed to getting the fracture. He is moving his bowels somewhat regularly. Physical Exam Constitutional: WD/WN, vitals as above Respiratory: normal respiratory effort, lungs clear to auscultation Cardiovascular: RRR, no murmur, no edema Results & Data Results & Data Vital Signs (Past 12 Hours) Vital Signs Temp Pulse Resp BP Pulse Ox O2 Del Method O2 Flow Rate 08/16/24 15:26 36.7 C 79 16 104/67 94 Nasal Cannula 6 08/16/24 12:13 82 18 97 Nasal Cannula 6 08/16/24 07:50 Nasal Cannula 6 08/16/24 07:32 76 18 93 Nasal Cannula 5 08/16/24 07:10 36.6 C 82 18 118/75 96 Nasal Cannula 6 Laboratory Results health sciences manager reviewed Diagnostic Findings CT Thoracic spine reviewed PG Care Time/CCT Total # of Minutes Spent Total Time Spent with Patient: Total time spent is greater than 50% in coordination of care (as documented) at patient's floor/unit and/or counseling patient: Coding Level of Care Code 11807 SUB INP/OBS CARE 2/35MIN Diagnoses Acute hypoxemic respiratory failure J96.01 Back pain M54.9 Adenocarcinoma of lung, stage 4 C34.90 Laterality: unspecified laterality (3) Adenocarcinoma of lung, stage 4 Laterality: unspecified laterality Qualified Code(s): C34.90 - Malignant neoplasm of unspecified part of unspecified bronchus or lung
[2024-08-17] MEDS: MoRPHine SULFATE 2 MG/ML CARP IV PRN (02:03)
[2024-08-17 07:27] VITALS: BP 144/84
[2024-08-17 07:38] VITALS: O2SAT 97
--- NOTE | 2024-08-17 08:38 | Orthopedic Consultation ---
Date of Consultation August 17, 2024 Assessment & Plan (1) Compression fracture of thoracic vertebra: Assessment T9 compression fracture. Plan at this time I have sized the patient that he is a very poor surgical candidate. He is spontaneous fracture despite minimal activity. Kyphoplasty would be at a risk of both from surgical standpoint as well as a creating adjacent level stresses and further compression fractures. He is also a poor candidate for bracing considering his lung capacity. He should avoid any lifting greater than 5 pounds and appropriate pain management. History of Present Illness Reason for Consultation: T9 compression fracture Attending Physician: Chika Suggs MD History of Present Illness This is a 74-year-old male who presents with thoracic back pain. He has a significant history of lung disease and lung cancer. He is markedly osteoporotic. He has been on prolonged steroids. He denies any specific trauma fall or event that contributed to his pain. At this point he denies any numbness or tingling lower extremities or upper extremities. Allergies Allergy/AdvReac Type Severity Reaction Status Date / Time pembrolizumab [From [employer]] AdvReac Severe Difficulty Verified 08/15/24 19:25 Breathing Home Medications Medication Instructions Recorded Confirmed Type turmeric 400 mg capsule 400 mg PO DAILY 04/20/19 08/15/24 History albuterol sulfate 90 mcg/actuation 2 puff inhalation Q6H PRN 01/30/24 08/15/24 Rx aerosol inhaler shortness of breath or wheezing #3 Inhalers losartan 50 mg-hydrochlorothiazide 1 tab PO DAILY #90 tabs 04/19/24 08/15/24 Rx 12.5 mg tablet folic acid 1 mg tablet 1 mg PO DAILY 04/25/24 08/15/24 History ipratropium 20 mcg-albuterol 100 1 puff inhalation Q6H #4 grams 05/08/24 08/15/24 Rx mcg/actuation mist for inhalation (Combivent Respimat) Portable Oxygen #1 ea 05/18/24 08/15/24 Rx fluticasone fur. 100 mcg-umeclid 1 inh inhalation DAILY #3 Inhalers 07/06/24 08/15/24 Rx 62.5 mcg-vilant 25 mcg inhalat.powder (Trelegy Ellipta) oxycodone 15 mg tablet 15 mg PO Q4H PRN Pain 08/15/24 08/15/24 History prednisone 20 mg tablet 5 mg PO BID 08/15/24 History Patient History Medical History Advanced care planning/counseling discussion Palliative care by specialist Dyspnea and respiratory abnormalities Acute and chronic respiratory failure with hypoxia Sepsis Multifocal pneumonia Chronic respiratory failure with hypoxia Hypokalemia JUAN JOSE (acute kidney injury) Leukocytosis Acute GI bleeding Symptomatic anemia Acute blood loss anemia Nocturnal hypoxia On 2L oxygen at night Surgical History S/P tonsillectomy History of cataract surgery Bilateral Family History Father , 65yo Myocardial infarction Mother , 96yo Natural with unknown cause Brother Medical history unknown Son No problems noted. Daughter No problems noted. Other Dementia Heart disease Hypertension Denies family history of Rheumatoid arthritis Sudden SIDS (sudden infant syndrome) Ovarian cancer Prostate cancer Diabetes Deep vein thrombosis Osteoporosis Coronary heart disease Dyslipidemia Cerebral aneurysm Alzheimer disease Bipolar disorder Clotting disorder Crohn's disease Depression Kidney disease Osteoarthritis Breast cancer Schizophrenia Congenital kidney disease Gestational diabetes Lung cancer COPD (chronic obstructive pulmonary disease) Colorectal cancer Pulmonary embolism Lung disease Cancer Ulcerative colitis Colonic polyp Stroke Asthma Cystic kidney disease Social History Smoking Status: Former smoker Tobacco Type: Cigarettes Age Started Using Tobacco: 19; Age Quit Using Tobacco: 70; packs per day: 1; Cigarettes Per Day: 20; Second Hand Exposure: No; Do You Dip or Chew Tobacco: No; Hx Alcohol Use: No Hx Substance Use: No Preferred Language: Lao Communication Ability: Effective Visual Impairment: No Limitations Hearing Ability: Normal Journeyman Electrician Required: No Beliefs That Will Affect Care: None marital status: Current Living Situation: Alone Current Living Situation Comment: pt states lives alone in a house current occupational status: retired 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 He is on oxygen. He is neurologically intact. Results & Data Vital Signs (Past 12 Hours) Vital Signs Temp Pulse Resp BP Pulse Ox O2 Del Method O2 Flow Rate 08/17/24 07:37 86 18 97 Nasal Cannula 6 08/17/24 07:26 36.7 C 84 18 144/84 H 94 Nasal Cannula 6 08/16/24 21:45 Nasal Cannula 6
[2024-08-17] MEDS: POLYETHYLENE (MIRALAX) 17 GM PACK PO SCH (11:43)
[2024-08-17] MEDS: SENNA 8.6 MG TAB PO SCH (11:44)
[2024-08-17 13:42] VITALS: PULSE 87; RESP 20
--- NOTE | 2024-08-17 14:00 | Discharge Summary ---
Discharge Summary Date of Service August 17, 2024 Principal Dx & Hospital Course #1 = Principal Diagnosis (1) Acute hypoxemic respiratory failure: Patient with reported saturation of 70% on room air, documented 86% on room air upon arrival. On admission with adequate oxygenation at 96% on 6L NC. No cough or congestion. CTA of the chest with no acute findings. Respiratory Biofire panel unremarkable as well. Patient with underlying COPD but does not exhibit signs of acute exacerbation at this time. Splinting secondary to discomfort likely contributing. Now on baseline O2, 3LNC--> Continue supplemental O2 as needed to maintain saturation of 88-92% Continue incentive spirometry and flutter valve Continue Umeclidinium/Vilanterol, Ipratropium inhaled daily, Fluticasone inhaled daily, and Albuterol as needed Continue Roflumilast (2) Back pain: Patient with superior endplate fracture of T9 - likely cause of his discomfort. No pneumothorax on imaging On chronic prednisone and recently started Pulm rehab exercises prior to fracture occurring Consulted Ortho Spine to see if kyphoplasty an option for pain control-->unfortunately not a good candidate because of risk of osteoporosis and fractures above and below as well as poor candidate for anesthesia due to severe lung issues Started calcitonin nasal spray Continue home Oxycodone 15mg po q 4 hours as needed Received a few doses of Morphine IV for breakthrough Continue scheduled Tylenol and heating pad Discharge to home with po oxycodone and calcitonin nasal spray, arranged appt with Palliative med for pain control and consideration of fentanyl patch or ote hr long acting opioid fo improved pain control Added Miralax and senna for opioid-induced constipation (3) Adenocarcinoma of lung, stage 4: Previously on Keytruda and 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-tapered down to 5mg daily last week-he missed 2 doses while here-was given prednisone on day of discharge No longer receiving treatment for lung CA, but has f/u with Oncology scheduled for 09/06 Has met to adrenal gland F/u with Palliative med will be arranged Plan Chronic Medical Condition: Hypertension- blood pressure normal -held Losartan/HCTZ for stunt woman 1.4--> stunt woman now down to 1.0 and can be resumed -Continue to monitor as outpt BPH - chronic -Continue Flomax Code - DNR/DNI per discussion with patient Dispo -dc to home Notes For Next Care Provider Follow up with Palliative Medicine to be arranged Medication Changes From Visit Increased oxycodone frequency to q4h Added calcitonin nasal spray Added Miralax and docusate Admission HPI Per Admitting Provider Eren Saxena is a 74yo male with stage IV non-small cell lung cancer diagnosed on 02/12/2024 presenting with severe thoracic back pain. 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 Patient is currently not undergoing any cancer-directed therapy. He continues to follow with Dr. 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 During the Oncology visit on 07/27/24 the plan was to decrease his Prednisone to 10mg daily and to followup with Pulmonary and Pulmonary rehab. Patient was participating in Pulmonary Rehab earlier in the week when he had an acute onset of severe thoracic back pain. He denies trauma. He reports that the pain comes intermittently most commonly with certain positions or movement. His pain is pleuritic as well. He denies chest pain, palpitations, fever, chills, abdominal pain, nausea, vomiting. He does feel a little more short of breath than usual and noted some bilateral LE edema today which is new for him. Upon arrival to the ER patient afebrile, mildly elevated HR, saturating 86% on room air. He has bee placed on supplemental O2 - 6L/min by NC with improvement in saturations. No report of cough. ER Course: Morphine 2mg IV Tylenol 1gm Lidoderm patch Discharge Exam Constitutional WD/WN, vitals as above Respiratory normal respiratory effort, lungs clear to auscultation Cardiovascular RRR, no murmur, no edema Psychiatric A+Ox3, euthymic affect Discharge Plan Discharge Items Patient Disposition: Home - Self-Care Reason For Visit: BACK PAIN, HYPOXIA Discharge Diagnosis: Thoracic vertebral compression fracture Condition on Discharge: Fair Activity: As commented below Lifting: No more than 5 pounds Bathing: No limitations Exercise/Sports: As tolerated Driving/Machine Use: Do not drive within 6 hours of taking oxycodone Non-emergency contact: Primary Care Provider, Oncologist and Pain Management Call non-emergency contact if: you have any medication questions, your symptoms worsen and your pain is not controlled Follow-up/Referrals: Day Stout MD [Primary Care Provider] - (Follow up within 1-2 weeks) Doyle Newell DO [Surgeon] - (You can follow up with Dr. Newell as needed for your back pain.) Nhi An DNP [Nurse Practitioner] - (Dr. An's office will contact you with your appointment date and time for pain/palliative management.) Diet: Regular Addtl Attending Provider Instructions: You were admitted with back pain that was caused by a compression fracture in your back. You were started on a nasal spray that helps with pain from this as well as to help strengthen your bones. You will also be continued on oxycodone 15mg every 4 hours as needed for pain. You will be scheduled with Palliative Medicine for further management of your pain. It is important to take over the counter laxatives to keep your bowels moving as oxycodone can cause constipation. Pending Studies at Discharge: No Stand-Alone Forms: [facility] [employer], Smoking Cessation Medications and DC Order Prescriptions: New calcitonin (salmon) 200 unit/actuation Tiline,Non-Aerosol 1 spray NA DAILY Qty: 3.7 0RF Rx Instructions: alternate nostrils each day acetaminophen [Tylenol Extra Strength] 500 mg Tablet 1,000 mg PO TID Qty: 60 0RF Rx Instructions: Over the counter polyethylene glycol 3350 [Miralax] 17 gram Powder In Packet 17 g PO DAILY Qty: 30 0RF Rx Instructions: Over the counter sennosides [Senokot] 8.6 mg Tablet 8.6 mg PO QAM Qty: 30 0RF Rx Instructions: Over the counter Continued albuterol sulfate 90 mcg/actuation HFA aerosol inhaler 2 puff inhalation Q6H PRN (Reason: shortness of breath or wheezing) Qty: 3 1RF losartan-hydrochlorothiazide 50-12.5 mg tablet 1 tab PO DAILY Qty: 90 3RF Hold Instructions: Resume on 03/20/24. Hold until seen by your primary care physician. turmeric 400 mg capsule 400 mg PO DAILY (DME) Portable Oxygen Misc See Rx Instructions .MEDSUPPLY Qty: 1 0RF Rx Instructions: Oxygen 2 liters continuous via nasal cannula on exertion with portable concentrator. JUAN 99 Trelegy Ellipta 100-62.5-25 mcg blister with device 1 inh inhalation DAILY Qty: 3 1RF folic acid 1 mg tablet 1 mg PO DAILY Combivent Respimat 20-100 mcg/actuation mist 1 puff inhalation Q6H Qty: 4 0RF oxycodone 15 mg Tablet 15 mg PO Q4H PRN (Reason: pain, moderate) Qty: 90 0RF prednisone 5 mg tablet 5 mg PO DAILY tamsulosin 0.4 mg capsule 0.4 mg PO HS roflumilast 500 mcg tablet 500 mcg PO DAILY Discharge Orders: Discharge Order (Routine); Ordered 08/17/24 Ordered By: Chika Suggs Admission Data Admit Date/Time: 08/15/24 19:51 Attending Provider: Chika Suggs Admit Provider: Dawn Arizmendi Primary Care Provider: Day Stout Other Providers: Dawn Arizmendi; Doyle Newell Hospital Stay Data Consultations 08/15/24 19:11 ED Decision to Admit Stat 08/16/24 12:07 Consult Orthopedic Spine Surgery Routine Diagnostic Imagining Performed 08/15/24 17:25 CT abd pelvis IV con only Stat 08/15/24 17:33 CTA chest dissec wo/w con [CT angio chest dissec wo/w con] Stat 08/16/24 13:46 CT thoracic spine wo con Routine Pending Results Patient Have Any Pending Studies at Discharge: No Discharge Instructions Given to Patient (Per Discharging Provider) You were admitted with back pain that was caused by a compression fracture in your back. You were started on a nasal spray that helps with pain from this as well as to help strengthen your bones. You will also be continued on oxycodone 15mg every 4 hours as needed for pain. You will be scheduled with Palliative Medicine for further management of your pain. It is important to take over the counter laxatives to keep your bowels moving as oxycodone can cause constipation. Total Time Total Time Spent Total Time Spent (In Minutes): 35 min Total Time Includes: Examination of the Patient, Discharge Planning and Medication Reconciliation Coding Level of Care Code 97872 INP/OBS DISCH >30 MIN Diagnoses Acute hypoxemic respiratory failure J96.01 Back pain M54.9 Adenocarcinoma of lung, stage 4 C34.90 Laterality: unspecified laterality
[2024-08-17] MEDS: predniSONE 5 MG TAB PO ONE (14:44)
== END 2024-08-17 17:24 | disposition home or self-care (01) | DRG 189 ==
LOC: ED 17:01 → 3E 19:51 → SUATTDRO 19:51 → 3E 21:17

== ENCOUNTER 2024-11-12 14:31 | Inpatient (IN) ==
[2024-11-12 15:50] LABS: Basophils # (auto) 0.05 K/uL (0.00-0.20); Basophils % (auto) 0.3 %; Eosinophils # (auto) 0.29 K/uL (0.00-0.50); Hematocrit (blood only) 37.9 % (42.0-52.0); Hemoglobin 12.2 g/dl (14.0-18.0); Immature Granulocytes # (auto) 0.07 K/uL (0.01-0.20); Immature Granulocytes % (auto) 0.5 %; Lymphocytes # (auto) 1.39 K/uL (1.20-3.40); Lymphocytes % (auto) 9.7 %; Mean Corpuscular Hemoglobin 28.9 pg (25.0-34.0); Mean Corpuscular Hgb Conc 32.2 g/dL (32.0-36.0); Mean Corpuscular Volume 89.8 fL (80.0-100.0); Mean Platelet Volume 8.9 fL (9.4-12.4); Monocytes # (auto) 1.39 K/uL (0.11-0.59); Monocytes % (auto) 9.7 %; Neutrophils # (auto) 11.21 K/uL (1.40-6.50); Neutrophils % (auto) 77.8 %; Platelet Count 333 K/uL (130-400); RDW Coefficient of Variation 13.3 % (11.5-14.5); RDW Standard Deviation 43.2 fL (36.4-46.3); Red Blood Count 4.22 M/uL (4.70-6.10)
[2024-11-12 16:04] LABS: Albumin Globulin Ratio 1.2 (0.9-2); BUN Creatinine Ratio 16.1 (10-20); Bilirubin,Total 0.4 mg/dl (0.2-1.0); Creatinine Clr Calc Pharmacy 36.1 ml/min; Globulin 3.4 gm/dl (2.5-4.0); Potassium 3.8 mmol/L (3.5-5.1); Total Protein 7.4 gm/dl (6.0-8.3)
--- NOTE | 2024-11-12 16:31 | Emergency Department Note ---
Impression & Plan Hemoptysis, Leukocytosis, Pneumonia, Lung cancer ED Provider Note NAME: KIM MILLER AGE: 74 SEX: M : 1950 ARRIVES VIA: Walk-In INFORMANT: [Patient] ED PROVIDER(S): [Basilio Whitehead MD] CHIEF COMPLAINT: Hemoptysis HISTORY OF PRESENT ILLNESS: The patient is a 74-year-old male who presents to the ER with complaints of coughing up blood for the last few days. The patient does feel slightly more short of breath. There has been no fever. No stuffy nose or sore throat. No abdominal pain. The patient is not on blood thinning agents. The patient has a history of lung cancer. He was on hospice but is going off of hospice. He is scheduled for a procedure next week where they will stent his esophagus as he has had difficulty swallowing. The patient spoke with his doctor's office today about the hemoptysis, he was referred to the ER. He has not had this type of issue previously. PMHx/PSHx/Social Hx: See Below PHYSICAL EXAM: GENERAL: Patient is in no acute distress. HEENT: No acute trauma, normocephalic atraumatic, mucous membranes moist, no nasal congestion. NECK: No stridor, no adenopathy, no meningismus, trachea is midline. LUNGS: Diminished breath sounds, especially on the right. There are some scattered wheezes, no respiratory distress. HEART: Without murmurs gallops or rubs, regular rate and rhythm. ABDOMEN: Soft, nontender, no peritonitis. EXTREMITIES: No cyanosis, full range of motion of all the joints without pain or difficulty. No pedal edema. NEUROLOGIC: Oriented x 3, no acute motor or sensory deficits, no focal weakness. SKIN: No jaundice, no diaphoresis. DIFFERENTIAL DIAGNOSIS: Malignancy, bronchitis, pneumonia, anemia, among others. EMERGENCY DEPARTMENT PROCEDURES: MEDICAL DECISION MAKING: There is a moderate leukocytosis, this would be consistent with infection. The patient was anemic but this was baseline looking back at previous testing. There was a normal platelet count. No coagulopathy. Creatinine was mildly elevated indicating some mild acute renal failure. No electrolyte abnormality requiring emergent correction. No concerning liver enzyme elevation. Chest x- ray shows some chronic change, no focal pneumonia. Chest CT does show a right lower lung pneumonia. He had findings consistent with his previously diagnosed malignancy. On exam, the patient was not toxic. He continued to have some mild hemoptysis while here in the ED. Patient received IV ceftriaxone as antibiotic coverage. He was given IV saline for hydration. He was given a DuoNeb. Patient is having hemoptysis. He has diagnosed lung cancer. He appears to have pneumonia by workup. Certainly, the pneumonia could be causing hemoptysis. His malignancy could be causing the hemoptysis. For now, I do think the patient deserves a hospital stay, monitoring and respiratory care. I spoke with the patient and case management. The on-call hospitalist was consulted. Prior/Outside records/notes reviewed: None Imaging/x-ray results per my interpretation: Chest x-ray shows some chronic mediastinal findings. I did not see any focal pneumonia, no CHF. Chronic Medical/Social conditions affecting care: Advanced age, history of lung cancer. Care/Management discussed with: Case management, the on-call hospitalist. 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) COPD (chronic obstructive pulmonary disease) Leukocytosis Hypertension Adenocarcinoma of lung, stage 4 (Acute) Exertional shortness of breath Ex-smoker Mass of mediastinum (Acute) Retroperitoneal mass (Acute) Hyperlipidemia (Chronic) declines statin Chronic daily headache (Chronic) Medical History Advanced care planning/counseling discussion Palliative care by specialist Dyspnea and respiratory abnormalities Acute and chronic respiratory failure with hypoxia Sepsis Multifocal pneumonia Chronic respiratory failure with hypoxia Hypokalemia JUAN JOSE (acute kidney injury) Leukocytosis Acute GI bleeding Symptomatic anemia Acute blood loss anemia Nocturnal hypoxia On 2L oxygen at night Surgical History S/P tonsillectomy History of cataract surgery Family History Father Myocardial infarction Mother Natural with unknown cause Brother Medical history unknown Son No problems noted. Daughter No problems noted. Other Dementia Heart disease Hypertension Denies family history of Rheumatoid arthritis Sudden SIDS (sudden infant syndrome) Ovarian cancer Prostate cancer Diabetes Deep vein thrombosis Osteoporosis Coronary heart disease Dyslipidemia Cerebral aneurysm Alzheimer disease Bipolar disorder Clotting disorder Crohn's disease Depression Kidney disease Osteoarthritis Breast cancer Schizophrenia Congenital kidney disease Gestational diabetes Lung cancer COPD (chronic obstructive pulmonary disease) Colorectal cancer Pulmonary embolism Lung disease Cancer Ulcerative colitis Colonic polyp Stroke Asthma Cystic kidney disease Social History Smoking Status: Never smoker Tobacco Type: Cigarettes Age Started Using Tobacco: 19; Age Quit Using Tobacco: 70; packs per day: 1; Cigarettes Per Day: 20; Second Hand Exposure: No; Do You Dip or Chew Tobacco: No; Hx Alcohol Use: No Hx Substance Use: No Preferred Language: [place] Communication Ability: Effective Visual Impairment: No Limitations Hearing Ability: Normal Damper Worker Required: No Beliefs That Will Affect Care: None marital status: Current Living Situation: Alone Current Living Situation Comment: pt states lives alone in a house current occupational status: 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 How many Children do You have: 2 other: Ex- is supportive to pt Feels Safe at Home: Yes Diet: regular caffeine: No during the past year weight has: decreased > 10 lbs Seatbelt Use: sometimes Assistive Devices: Oxygen - Continuous Allergies Allergies Allergy/AdvReac Type Severity Reaction Status Date / Time [facility] AdvReac Severe Difficulty Verified 11/12/24 19:47 Breathing Home Meds Home Medications Medication Instructions Recorded Confirmed turmeric 400 mg capsule 400 mg PO DAILY 04/20/19 11/12/24 ibuprofen 200 mg tablet 200 mg PO Q6H PRN Pain (Scale 11/12/24 11/12/24 Score 1-3) losartan 25 mg tablet 12.5 mg PO QAM 11/12/24 11/12/24 Previous Rx's Medication Instructions Recorded albuterol sulfate 90 mcg/actuation 2 puff inhalation Q6H PRN 01/30/24 aerosol inhaler shortness of breath or wheezing #3 Inhalers ipratropium 20 mcg-albuterol 100 1 puff inhalation Q6H #4 grams 05/08/24 mcg/actuation mist for inhalation (Combivent Respimat) Portable Oxygen #1 ea 05/18/24 sennosides 8.6 mg tablet (Senokot) 8.6 mg PO QAM #30 tabs 08/17/24 oxycodone 10 mg tablet See Rx Instructions PO Q4H PRN 09/01/24 pain 2 weeks #168 tabs finasteride 5 mg tablet 5 mg PO DAILY #90 tabs 10/18/24 Results & Data (ED) Vital Signs Vital Signs - 24 hr 11/12/24 14:43 11/12/24 17:22 11/12/24 19:00 Temperature 36.4 C L Temperature Source Skin Pulse Rate 102 H Pulse Rate [Apical] 102 H 100 H Respiratory Rate 16 18 18 Respiratory Effort / Characteristics Non-Labored Spontaneous Respiratory Depth Normal Respiratory Pattern Regular Blood Pressure 129/91 Blood Pressure [Right Arm] 145/99 H Blood Pressure Mean 103 Blood Pressure Mean [Right Arm] 114 Pulse Oximetry 97 92 96 Oxygen Delivery Method Room Air Nasal Cannula Nasal Cannula Oxygen Flow Rate 2 2 Sepsis Recent Fever Within 48 Hours No Sepsis New/Unexplained Change in Mental Status N/A Sepsis Action Taken by Nursing No Action Required 11/12/24 20:04 11/12/24 22:30 11/12/24 22:33 Temperature Temperature Source Pulse Rate 95 H Pulse Rate [Apical] 100 H 95 H Respiratory Rate 22 20 Respiratory Effort / Characteristics Respiratory Depth Respiratory Pattern Blood Pressure Blood Pressure [Right Arm] 132/98 142/91 H Blood Pressure Mean Blood Pressure Mean [Right Arm] 109 108 Pulse Oximetry 88 L 91 Oxygen Delivery Method Room Air Nasal Cannula Oxygen Flow Rate 2 Sepsis Recent Fever Within 48 Hours Sepsis New/Unexplained Change in Mental Status Sepsis Action Taken by [facility] Medications Current Medication List: was personally reviewed by me Laboratory Data Attestation: I reviewed the patient's lab results. 11/12/24 15:35 11/12/24 15:35 Lab Results 11/12/24 11/12/24 Range/Units 15:35 19:21 WBC 14.40 H (4.8-10.8) K/ul RBC 4.22 L (4.70-6.10) M/uL Hgb 12.2 L (14.0-18.0) g/dl Hct 37.9 L (42.0-52.0) % MCV 89.8 (80.0-100.0) fL MCH 28.9 (25.0-34.0) pg MCHC 32.2 (32.0-36.0) g/dL RDW Std Deviation 43.2 (36.4-46.3) fL RDW Coeff of Ge 13.3 (11.5-14.5) % Plt Count 333 (130-400) K/uL MPV 8.9 L (9.4-12.4) fL Immature Gran % (Auto) 0.5 % Neut % (Auto) 77.8 % Lymph % (Auto) 9.7 % Emanuel % (Auto) 9.7 % Eos % (Auto) 2.0 % Baso % (Auto) 0.3 % Neut # (Auto) 11.21 H (1.40-6.50) K/uL Lymph # (Auto) 1.39 (1.20-3.40) K/uL Emanuel # (Auto) 1.39 H (0.11-0.59) K/uL Eos # (Auto) 0.29 (0.00-0.50) K/uL Baso # (Auto) 0.05 (0.00-0.20) K/uL Immature Gran # (Auto) 0.07 (0.01-0.20) K/uL PT 11.6 (9.0-12.0) Seconds INR 1.1 (0.9-1.1) APTT 28 (21-31) Seconds PTT Ratio 1.0 Sodium 140 (136-145) mmol/L Potassium 3.8 (3.5-5.1) mmol/L Chloride 99 (98-107) mmol/L Carbon Dioxide 31 (21-32) mmol/L Anion Gap 10 (3-11) BUN 27 H (6-23) mg/dl Creatinine 1.68 H (0.6-1.4) mg/dl Est Cr Clr Drug Dosing 36.1 ml/min eGFR 42.12 BUN/Creatinine Ratio 16.1 (10-20) Glucose 120 H (70-99(Fasting)) mg/dl Calcium 10.0 (8.6-10.3) mg/dl Total Bilirubin 0.4 (0.2-1.0) mg/dl AST 10 L (13-39) U/L ALT 8 (7-52) U/L Alkaline Phosphatase 85 (34-104) U/L Total Protein 7.4 (6.0-8.3) gm/dl Albumin 4.0 (3.4-5.0) gm/dl Globulin 3.4 (2.5-4.0) gm/dl Albumin/Globulin Ratio 1.2 (0.9-2) Administered Medications Sodium Chloride (Nss) 1,000 mls @ 80 mls/hr IV .[id number] KATHLEEN Stop: 11/13/24 09:59 Last Admin: 11/12/24 22:27 Dose: 80 mls/hr Documented By: ANTONIO Discontinued Medications Albuterol (Albut/Ipratrop 3mg/0.5mg Neb 3 Ml Vial) 3 ml NEB NOW STA; Protocol Stop: 11/12/24 19:16 Last Admin: 11/12/24 19:57 Dose: 3 ml Documented By: ANTONIO Sodium Chloride (Nss) 500 mls @ 999 mls/hr IV .Q31M ONE Stop: 11/12/24 16:44 Last Infusion: 11/12/24 22:10 Dose: Infused Documented By: Admin: 11/12/24 19:57 Dose: 999 mls/hr Documented By: ANTONIO Ceftriaxone Sodium (Rocephin) 2,000 mg in 50 mls @ 100 mls/hr IV NOW STA Stop: 11/12/24 19:44 Last Infusion: 11/12/24 20:24 Dose: Infused Documented By: Admin: 11/12/24 19:57 Dose: 100 mls/hr Documented By: ANTONIO Ioversol (Optiray 320 100ml) 90 ml IV ONCE ONE Stop: 11/12/24 17:11 Last Admin: 11/12/24 17:10 Dose: 90 ml Documented By: NICOL Imaging Data Radiologist's Impression: Chest X-Ray 11/12/24 16:02 Chest radiograph, one view History: Chest pain Comparison: CT from 11/12/2024 Findings: Single AP view of the chest performed. No focal consolidation or pleural effusion. No pneumothorax. The cardiomediastinal silhouette is within normal limits. Normal pulmonary vascularity. Rounded masslike density within the mediastinal region overlying of the cardiac silhouette. Mild streaky perihilar atelectasis and/or scar. No visualized bony or soft tissue abnormality. Impression: Rounded masslike density within the mediastinal region overlying of the cardiac silhouette. Mild streaky perihilar atelectasis and/or scar. Electronically signed by Carlos Russo 11-12-2024 6:[address] 11/12/24 16:14 EXAM: CT chest diagnostic w con CLINICAL HISTORY: Hemoptysis. TECHNIQUE: Contiguous 3.[address] images of the chest were acquired with the administration of intravenous contrast. Coronal and sagittal reconstructions were obtained. 90 ml Optiray 320 was administered for post contrast images. One of the following dose reduction techniques were utilized for this exam: Automated exposure control, adjustment of the mA and/or kV according to patient size, and use of iterative reconstruction COMPARISON: 08/15/2024. FINDINGS: Lungs: Diffuse bilateral panacinar emphesymatous changes. Multiple scattered bilateral hyperdense 4 -6 mm nodules, likely old granulomatous. Small patch of peribronchial infiltration at superior segment of right lower lobe, may be inflammatory Right upper apical pleural thickening. Mediastinum: No mediastinal mass or abnormal lymphadenopathy. Normal appearance of the thymus. Hilar Structures: Normal size and configuration, no enlargement. Heart and Great Vessels: Normal heart size and configuration. No pericardial effusion. Normal caliber and course of the thoracic aorta and other great vessels. No significant atherosclerosis or aneurysm. Normal enhancement of the great vessels post-contrast. Pulmonary Arteries: No evidence of pulmonary embolism. Normal size and course of the pulmonary arteries. Bones: Collapsed T9 vertebral body about 50 % height, and T7 to a lesser extent. Chest Wall: No masses or soft tissue abnormalities. 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 Bulky left adrenal gland, with related stranding. Thrombosed mural hematoma of upper abdominal aorta is noted. Thyroid: Normal size and morphology. No nodules or masses. IMPRESSION: 1. 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 2. Diffuse bilateral panacinar emphesymatous chnges. 3. Multiple scattered bilateral hyperdense 4 -6 mm nodules, likely old granulomatous. 4. Small patches of ground glass infiltration in right lower lobe, may be inflammatory/aspirational. 5. Right upper apical pleural thickening. 6. Bulky left adrenal gland, with related stranding. 7. Thrombosed mural hematoma of upper abdominal aorta is noted. 8. Collapsed T9 vertebral body about 50 % height, and T7 to a lesser extent. (interval new finding/increasein compression) MRI is recomended for better evaluation. Electronically signed by Rhonda Heath 11-12-2024 6:42 PM Discharge Plan Visit Data Chief Complaint: GI Bleed Stated Complaint: BLOOD COMING UP THROUGH ESOPHAGUS ED Provider: Basilio Whitehead Discharge Problem: Hemoptysis, Leukocytosis, Pneumonia, Lung cancer Patient Disposition: Admitted As Inpatient Condition: Fair Forms Stand Alone Forms: [employer] Prescriptions Prescriptions: No Action albuterol sulfate 90 mcg/actuation HFA aerosol inhaler 2 puff inhalation Q6H PRN (Reason: shortness of breath or wheezing) Qty: 3 1RF oxycodone 10 mg tablet See Rx Instructions PO Q4H MDD 12 tabs PRN (Reason: pain) 14 Days Qty: 168 0RF Rx Instructions: 1 or 2 orally q4h PRN; turmeric 400 mg capsule 400 mg PO DAILY (DME) Portable Oxygen Misc See Rx Instructions .MEDSUPPLY Qty: 1 0RF Rx Instructions: Oxygen 2 liters continuous via nasal cannula on exertion with portable concentrator. JUAN 99 finasteride 5 mg tablet 5 mg PO DAILY Qty: 90 3RF losartan 25 mg tablet 12.5 mg PO QAM ibuprofen 200 mg Tablet 200 mg PO Q6H PRN (Reason: Pain (Scale Score 1-3)) Combivent Respimat 20-100 mcg/actuation mist 1 puff inhalation Q6H Qty: 4 0RF sennosides [Senokot] 8.6 mg Tablet 8.6 mg PO QAM Qty: 30 0RF Rx Instructions: Over the counter Referrals Referrals: Day Stout MD [Primary Care Provider] - Discharge Problem: Leukocytosis Qualifiers: Leukocytosis type: unspecified Qualified Code(s): D72.829 - Elevated white blood cell count, unspecified Pneumonia Qualifiers: Pneumonia type: due to unspecified organism Laterality: right Lung location: l ower lobe of lung Qualified Code(s): J18.9 - Pneumonia, unspecified organism Lung cancer Qualifiers: Laterality: unspecified laterality Lung location: unspecified part of lung Q ualified Code(s): C34.90 - Malignant neoplasm of unspecified part of unspecified bronchus or lung
[2024-11-12] MEDS: OPTIRAY 320 100ml IV ONE (17:10)
--- NOTE | 2024-11-12 18:41 | XRay Report ---
Chest radiograph, one view History: Chest pain Comparison: CT from 11/12/2024 Findings: Single AP view of the chest performed. No focal consolidation or pleural effusion. No pneumothorax. The cardiomediastinal silhouette is within normal limits. Normal pulmonary vascularity. Rounded masslike density within the mediastinal region overlying of the cardiac silhouette. Mild streaky perihilar atelectasis and/or scar. No visualized bony or soft tissue abnormality. Impression: Rounded masslike density within the mediastinal region overlying of the cardiac silhouette. Mild streaky perihilar atelectasis and/or scar. Electronically signed by Carlos Russo 11-12-2024 6:37 PM
--- NOTE | 2024-11-12 18:42 | CT Scan Report ---
EXAM: CT chest diagnostic w con CLINICAL HISTORY: Hemoptysis. TECHNIQUE: Contiguous 3.[address] images of the chest were acquired with the administration of intravenous contrast. Coronal and sagittal reconstructions were obtained. 90 ml Optiray 320 was administered for post contrast images. One of the following dose reduction techniques were utilized for this exam: Automated exposure control, adjustment of the mA and/or kV according to patient size, and use of iterative reconstruction COMPARISON: 08/15/2024. FINDINGS: Lungs: Diffuse bilateral panacinar emphesymatous changes. Multiple scattered bilateral hyperdense 4 -6 mm nodules, likely old granulomatous. Small patch of peribronchial infiltration at superior segment of right lower lobe, may be inflammatory Right upper apical pleural thickening. Mediastinum: No mediastinal mass or abnormal lymphadenopathy. Normal appearance of the thymus. Hilar Structures: Normal size and configuration, no enlargement. Heart and Great Vessels: Normal heart size and configuration. No pericardial effusion. Normal caliber and course of the thoracic aorta and other great vessels. No significant atherosclerosis or aneurysm. Normal enhancement of the great vessels post-contrast. Pulmonary Arteries: No evidence of pulmonary embolism. Normal size and course of the pulmonary arteries. Bones: Collapsed T9 vertebral body about 50 % height, and T7 to a lesser extent. Chest Wall: No masses or soft tissue abnormalities. 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 Bulky left adrenal gland, with related stranding. Thrombosed mural hematoma of upper abdominal aorta is noted. Thyroid: Normal size and morphology. No nodules or masses. IMPRESSION: 1. 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 2. Diffuse bilateral panacinar emphesymatous chnges. 3. Multiple scattered bilateral hyperdense 4 -6 mm nodules, likely old granulomatous. 4. Small patches of ground glass infiltration in right lower lobe, may be inflammatory/aspirational. 5. Right upper apical pleural thickening. 6. Bulky left adrenal gland, with related stranding. 7. Thrombosed mural hematoma of upper abdominal aorta is noted. 8. Collapsed T9 vertebral body about 50 % height, and T7 to a lesser extent. (interval new finding/increasein compression) MRI is recomended for better evaluation. Electronically signed by Rhonda Heath 11-12-2024 6:42 PM
[2024-11-12] MEDS: cefTRIAXone SODIUM 2,000 MG/50 ML BAG IV STA (19:57)
[2024-11-12] MEDS: SODIUM CHLORIDE 0.9% 500 ML IV ONE (19:57)
[2024-11-12] MEDS: ALBUT/IPRATROP 3MG/0.5MG NEB 3 ML VIAL NEB STA (19:57)
[2024-11-12 20:04] LABS: INR 1.1 (0.9-1.1); Partial Thromboplastin Time 28 Seconds (21-31); Prothrombin Time 11.6 Seconds (9.0-12.0)
--- NOTE | 2024-11-12 21:21 | History & Physical Report ---
Date of Service November 12, 2024 Assessment & Plan (1) Lung cancer: (2) Pneumonia: (3) Cancer related pain: (4) COPD with acute exacerbation: (5) Lung cancer metastatic to brain: Plan The patient is a 74-year-old male with past medical history including stage IV lung cancer, with symptoms of hemoptysis and hematemesis, COPD, pancytopenia, lung cancer metastatic to brain, hypertension, retroperitoneal mass, hyperlipidemia, chronic daily headache, BPH with LUTS, hypertension, and chronic pain syndrome. The patient presents to the emergency department with complaint of coughing up bright red blood earlier in the day today. He has a history of hematemesis as well, however, this appears to be more of a episode with hemoptysis at this time. He has history of stage IV lung cancer, and had been on hospice started a few weeks ago. He reports that he is going to be leaving hospice, to be able to see a GI physician at [facility] next week, for consideration of an esophageal stent, so is able to swallow foods. #Hemoptysis/stage IV lung cancer/pneumonia/COPD exacerbation- Suspect aspiration MRSA swab. Add vancomycin IV if positive DuoNebs 4 times daily and every 2 hours as needed Received ceftriaxone 2 g IV and a DuoNeb treatment from the ED Zosyn 4.5 g IV every 8 hours Morphine sulfate 2 mg IV every 3 hours needed for moderate pain Morphine sulfate 4 mg IV every 3 hours needed for severe pain #Hematemesis- Patient has had history of hematemesis, and has had significant dysphagia, causing 20 pound weight loss over the past few weeks to months He reports having a appointment in the outpatient setting at [facility] for possible EGD and esophageal stents placement so that he can swallow Pantoprazole 40 mg IV daily #Stage IV lung cancer with metastases to brain and elsewhere Patient has been seen by Dr. Madrigal in the past He presently is registered as hospice a few weeks ago, he reportedly is to and next week possibly if he goes forward with workup as he has expressed he wants to do Consult oncology Consideration for palliative care consult Patient needs to have a clear understanding of where he is at with his disease #Acute kidney injury- Creatinine 1.68, with base 1.10 Assessment normal saline 500 mL bolus in the ED History of Present Illness Chief Complaint: The patient presents to the emergency department with complaint of coughing up bright red blood earlier in the day today. He has a history of hematemesis as well, however, this appears to be more of a episode with hemoptysis at this time. He has history of stage IV lung cancer, and had been on hospice started a few weeks ago. He reports that he is going to be leaving hospice, to be able to see a GI physician at [facility] next week, for consideration of an esophageal stent, so is able to swallow foods. Primary Care Provider: Day Stout MD The patient is a 74-year-old male with past medical history including stage IV lung cancer, with symptoms of hemoptysis and hematemesis, COPD, pancytopenia, lung cancer metastatic to brain, hypertension, retroperitoneal mass, hyperlipidemia, chronic daily headache, BPH with LUTS, hypertension, and chronic pain syndrome. The patient presents to the emergency department with complaint of coughing up bright red blood earlier in the day today. He has a history of hematemesis as well, however, this appears to be more of a episode with hemoptysis at this time. He has history of stage IV lung cancer, and had been on hospice started a few weeks ago. He reports that he is going to be leaving hospice, to be able to see a GI physician at [facility] next week, for consideration of an esophageal stent, so is able to swallow foods. Allergies Allergy/AdvReac Type Severity Reaction Status Date / Time pembrolizumab [From BarcodingeEye] AdvReac Severe Difficulty Verified 11/12/24 19:47 Breathing Home Medications Medication Instructions Recorded Confirmed Type turmeric 400 mg capsule 400 mg PO DAILY 04/20/19 11/12/24 History albuterol sulfate 90 mcg/actuation 2 puff inhalation Q6H PRN 01/30/24 11/12/24 Rx aerosol inhaler shortness of breath or wheezing #3 Inhalers ipratropium 20 mcg-albuterol 100 1 puff inhalation Q6H #4 grams 05/08/24 11/12/24 Rx mcg/actuation mist for inhalation (Combivent Respimat) Portable Oxygen #1 ea 05/18/24 10/05/24 Rx sennosides 8.6 mg tablet (Senokot) 8.6 mg PO QAM #30 tabs 08/17/24 11/12/24 Rx oxycodone 10 mg tablet See Rx Instructions PO Q4H PRN 09/01/24 11/12/24 Rx pain 2 weeks #168 tabs finasteride 5 mg tablet 5 mg PO DAILY #90 tabs 10/18/24 11/12/24 Rx ibuprofen 200 mg tablet 200 mg PO Q6H PRN Pain (Scale 11/12/24 11/12/24 History Score 1-3) losartan 25 mg tablet 12.5 mg PO QAM 11/12/24 11/12/24 History Past Med/Surg History Problem List (Updated 11/12/24 @ 23:46 by Basilio Whitehead MD) Lung cancer (Acute) Pneumonia (Acute) Leukocytosis (Acute) Hemoptysis (Acute) Lower urinary tract symptoms Compression fracture of thoracic vertebra (Acute) Cancer related pain COPD with acute exacerbation (Acute) Pancytopenia (Acute) Lung cancer metastatic to brain (Chronic 03/11/24) COPD (chronic obstructive pulmonary disease) Leukocytosis Hypertension Adenocarcinoma of lung, stage 4 (Acute) Exertional shortness of breath Ex-smoker Mass of mediastinum (Acute) Retroperitoneal mass (Acute) Hyperlipidemia (Chronic) declines statin Chronic daily headache (Chronic) Medical History Advanced care planning/counseling discussion Palliative care by specialist Dyspnea and respiratory abnormalities Acute and chronic respiratory failure with hypoxia Sepsis Multifocal pneumonia Chronic respiratory failure with hypoxia Hypokalemia JUAN JOSE (acute kidney injury) Leukocytosis Acute GI bleeding Symptomatic anemia Acute blood loss anemia Nocturnal hypoxia On 2L oxygen at night Surgical History S/P tonsillectomy History of cataract surgery Family History Father Myocardial infarction Mother Natural with unknown cause Brother Medical history unknown Son No problems noted. Daughter No problems noted. Other Dementia Heart disease Hypertension Denies family history of Rheumatoid arthritis Sudden SIDS (sudden infant syndrome) Ovarian cancer Prostate cancer Diabetes Deep vein thrombosis Osteoporosis Coronary heart disease Dyslipidemia Cerebral aneurysm Alzheimer disease Bipolar disorder Clotting disorder Crohn's disease Depression Kidney disease Osteoarthritis Breast cancer Schizophrenia Congenital kidney disease Gestational diabetes Lung cancer COPD (chronic obstructive pulmonary disease) Colorectal cancer Pulmonary embolism Lung disease Cancer Ulcerative colitis Colonic polyp Stroke Asthma Cystic kidney disease Social History Smoking Status: Former smoker Tobacco Type: Cigarettes Age Started Using Tobacco: 19; Age Quit Using Tobacco: 70; packs per day: 1; Cigarettes Per Day: 20; Second Hand Exposure: No; Do You Dip or Chew Tobacco: No; Hx Alcohol Use: No Hx Substance Use: No Preferred Language: Frisian Communication Ability: Effective Visual Impairment: No Limitations Hearing Ability: Normal Stitcher Standard Machine Required: No Beliefs That Will Affect Care: None marital status: Current Living Situation: Alone Current Living Situation Comment: pt states lives alone in a house current occupational status: retired 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 How many Children do You have: 2 Other Information That Helps Us Care for You: No other: Ex- is supportive to pt Feels Safe at Home: Yes Safety Concerns: Feels Safe At This Time Diet: regular caffeine: No during the past year weight has: decreased > 10 lbs Seatbelt Use: sometimes Assistive Devices: Hospital Bed and Oxygen - Continuous Review of Systems Review of Systems: The patient denies palpitations, lower extremity swelling, sore throat, fevers, chills, sweats, diarrhea , constipation, abdominal pain, pelvic pain, blood in urine or stool, dysuria, urinary frequency or urgency, lightheadedness, loss of consciousness, rash, focal or generalized weakness, numbness or tingling in arms or legs, generalized arthralgias or myalgias, back or neck pain, or night sweats. The review of systems is otherwise negative other than for that already noted above, and at least 10 systems have been reviewed. Physical Exam Physical Exam: The patient is awake, alert and oriented 3, well developed and well nourished, normocephalic and atraumatic, lying in bed and in no acute distress. HEENT--PERRL, EOMI, mucous membranes and oropharynx mildly dry. Neck--supple. No JVD. No bruits. Thyroid normal, trachea midline, no adenopathy. Heart--normal S1 and S2. No murmurs, rubs or gallops. Lungs--coarse breath sounds bilaterally, with wheezes throughout. No respiratory distress, no accessory muscle use. Abdomen--normal bowel sounds and soft. Nontender. Nondistended, no hernias or masses, no organomegaly. Extremities--no cyanosis or clubbing. No edema. Dermatologic--normal skin turgor, normal color, no abnormal lymph nodes, no rash. Neurologic--cranial nerves II through XII grossly intact. Rheumatologic--normal range of motion. Psychiatric--normal affect. Results & Data Results & Data Vital Signs (Past 12 Hours) Vital Signs Temp Pulse Pulse Resp BP BP Pulse Ox 11/12/24 20:04 100 H 22 132/98 88 L 11/12/24 19:00 100 H 18 96 11/12/24 17:22 102 H 18 145/99 H 92 11/12/24 14:43 36.4 C L 102 H 16 129/91 97 O2 Del Method O2 Flow Rate 11/12/24 20:04 Room Air 11/12/24 19:00 Nasal Cannula 2 11/12/24 17:22 Nasal Cannula 2 11/12/24 14:43 Room Air Laboratory Results Laboratory Results WBC 12.31 K/ul (4.8-10.8) H 11/13/24 04:20 RBC 3.53 M/uL (4.70-6.10) L 11/13/24 04:20 Hgb 10.4 g/dl (14.0-18.0) L 11/13/24 04:20 Hct 31.8 % (42.0-52.0) L 11/13/24 04:20 MCV 90.1 fL (80.0-100.0) 11/13/24 04:20 MCH 29.5 pg (25.0-34.0) 11/13/24 04:20 MCHC 32.7 g/dL (32.0-36.0) 11/13/24 04:20 RDW Std Deviation 44.3 fL (36.4-46.3) 11/13/24 04:20 RDW Coeff of Ge 13.4 % (11.5-14.5) 11/13/24 04:20 Plt Count 312 K/uL (130-400) 11/13/24 04:20 MPV 9.1 fL (9.4-12.4) L 11/13/24 04:20 Immature Gran % (Auto) 0.5 % 11/13/24 04:20 Neut % (Auto) 77.9 % 11/13/24 04:20 Lymph % (Auto) 9.6 % 11/13/24 04:20 [place] % (Auto) 9.3 % 11/13/24 04:20 Eos % (Auto) 2.5 % 11/13/24 04:20 Baso % (Auto) 0.2 % 11/13/24 04:20 Neut # (Auto) 9.58 K/uL (1.40-6.50) H 11/13/24 04:20 Lymph # (Auto) 1.18 K/uL (1.20-3.40) L 11/13/24 04:20 [place] # (Auto) 1.15 K/uL (0.11-0.59) H 11/13/24 04:20 Eos # (Auto) 0.31 K/uL (0.00-0.50) 11/13/24 04:20 Baso # (Auto) 0.03 K/uL (0.00-0.20) 11/13/24 04:20 Immature Gran # (Auto) 0.06 K/uL (0.01-0.20) 11/13/24 04:20 PT 11.6 Seconds (9.0-12.0) 11/12/24 19:21 INR 1.1 (0.9-1.1) 11/12/24 19:21 APTT 28 Seconds (21-31) 11/12/24 19:21 PTT Ratio 1.0 11/12/24 19:21 Sodium 140 mmol/L (136-145) 11/13/24 04:20 Potassium 3.4 mmol/L (3.5-5.1) L 11/13/24 04:20 Chloride 101 mmol/L (98-107) 11/13/24 04:20 Carbon Dioxide 31 mmol/L (21-32) 11/13/24 04:20 Anion Gap 8 (3-11) 11/13/24 04:20 BUN 22 mg/dl (6-23) 11/13/24 04:20 Creatinine 1.14 mg/dl (0.6-1.4) D 11/13/24 04:20 Est Cr Clr Drug Dosing 53.1 ml/min 11/13/24 04:20 eGFR 67.07 11/13/24 04:20 BUN/Creatinine Ratio 19.3 (10-20) 11/13/24 04:20 Glucose 113 mg/dl (70-99(Fasting)) H 11/13/24 04:20 Calcium 9.0 mg/dl (8.6-10.3) 11/13/24 04:20 Magnesium 1.5 mg/dl (1.7-2.4) L 11/13/24 04:20 Total Bilirubin 0.3 mg/dl (0.2-1.0) 11/13/24 04:20 AST 7 U/L (13-39) L 11/13/24 04:20 ALT 6 U/L (7-52) L 11/13/24 04:20 Alkaline Phosphatase 62 U/L (34-104) 11/13/24 04:20 Total Protein 6.4 gm/dl (6.0-8.3) 11/13/24 04:20 Albumin 3.4 gm/dl (3.4-5.0) 11/13/24 04:20 Globulin 3.0 gm/dl (2.5-4.0) 11/13/24 04:20 Albumin/Globulin Ratio 1.1 (0.9-2) 11/13/24 04:20 Nasal Screen MRSA (PCR) Negative (Negative) 11/13/24 01:51 Impressions Chest X-Ray 11/12/24 16:02 Chest radiograph, one view History: Chest pain Comparison: CT from 11/12/2024 Findings: Single AP view of the chest performed. No focal consolidation or pleural effusion. No pneumothorax. The cardiomediastinal silhouette is within normal limits. Normal pulmonary vascularity. Rounded masslike density within the mediastinal region overlying of the cardiac silhouette. Mild streaky perihilar atelectasis and/or scar. No visualized bony or soft tissue abnormality. Impression: Rounded masslike density within the mediastinal region overlying of the cardiac silhouette. Mild streaky perihilar atelectasis and/or scar. Electronically signed by Carlos Russo 11-12-2024 6:[address] 11/12/24 16:14 EXAM: CT chest diagnostic w con CLINICAL HISTORY: Hemoptysis. TECHNIQUE: Contiguous 3.[address] images of the chest were acquired with the administration of intravenous contrast. Coronal and sagittal reconstructions were obtained. 90 ml Optiray 320 was administered for post contrast images. One of the following dose reduction techniques were utilized for this exam: Automated exposure control, adjustment of the mA and/or kV according to patient size, and use of iterative reconstruction COMPARISON: 08/15/2024. FINDINGS: Lungs: Diffuse bilateral panacinar emphesymatous changes. Multiple scattered bilateral hyperdense 4 -6 mm nodules, likely old granulomatous. Small patch of peribronchial infiltration at superior segment of right lower lobe, may be inflammatory Right upper apical pleural thickening. Mediastinum: No mediastinal mass or abnormal lymphadenopathy. Normal appearance of the thymus. Hilar Structures: Normal size and configuration, no enlargement. Heart and Great Vessels: Normal heart size and configuration. No pericardial effusion. Normal caliber and course of the thoracic aorta and other great vessels. No significant atherosclerosis or aneurysm. Normal enhancement of the great vessels post-contrast. Pulmonary Arteries: No evidence of pulmonary embolism. Normal size and course of the pulmonary arteries. Bones: Collapsed T9 vertebral body about 50 % height, and T7 to a lesser extent. Chest Wall: No masses or soft tissue abnormalities. 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 Bulky left adrenal gland, with related stranding. Thrombosed mural hematoma of upper abdominal aorta is noted. Thyroid: Normal size and morphology. No nodules or masses. IMPRESSION: 1. 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 2. Diffuse bilateral panacinar emphesymatous chnges. 3. Multiple scattered bilateral hyperdense 4 -6 mm nodules, likely old granulomatous. 4. Small patches of ground glass infiltration in right lower lobe, may be inflammatory/aspirational. 5. Right upper apical pleural thickening. 6. Bulky left adrenal gland, with related stranding. 7. Thrombosed mural hematoma of upper abdominal aorta is noted. 8. Collapsed T9 vertebral body about 50 % height, and T7 to a lesser extent. (interval new finding/increasein compression) MRI is recomended for better evaluation. Electronically signed by Rhonda Heath 11-12-2024 6:42 PM Code Status & VTE Plan Code Status Presently registered with hospice, and reportedly wants to be off hospice now and get procedures done including an esophageal stent Full code VTE Prophylaxis Plan VTE Prophylaxis will be ordered: Yes PG Care Time/CCT Total # of Minutes Spent Total Time Spent with Patient: Total time spent is greater than 50% in coordination of care (as documented) at patient's floor/unit and/or counseling patient: Coding Level of Care Code 74280 INT INP/OBS CARE 3/75MIN Diagnoses Lung cancer C34.90 Laterality: unspecified laterality Lung location: unspecified part of lung Pneumonia J18.9 Laterality: right Lung location: lower lobe of lung Pneumonia type: due to unspecified organism Cancer related pain G89.3 COPD with acute exacerbation J44.1 Lung cancer metastatic to brain C34.90; C79.31 (1) Lung cancer Laterality: unspecified laterality Lung location: unspecified part of lung Qualified Code(s): C34.90 - Malignant neoplasm of unspecified part of unspecified bronchus or lung (2) Pneumonia Laterality: right Lung location: lower lobe of lung Pneumonia type: due to unspecified organism Qualified Code(s): J18.9 - Pneumonia, unspecified organism
--- OUTSIDE RECORDS SUMMARY | 2024-11-12 21:38 | External Medical Summary | Summary of Care ---
Author Name Unknown Organization [facility] Address [address] [facility] [place] [address] Phone [phone] Care Team Providers Care Regional Project Manager Name Role Phone Day Stout MD Primary Care Provid er Encounter Details Date Type Department Care Team (Late st Contact Info) Description 11/04/2024 Telephone Gastroenterology, [facility] [address] [id number] Kait Hope MD [address] [id number] Allergies No known active allergiesdocumented as of this encounter (statuses as of 11/05/2024) Medications Treobed Ellipta 100-62.5-25 MCG/ACT Aerosol Powder Breath Activated (Fluticasone-Um eclidinium-Michael nterol) Inhale 1 puff by mouth daily 60 Each 5 4 Active Additional Information Patient not taking.Reported on 09/30/2024 Albuterol Sulfate HFA 108 (90 Base) MCG/ACT Inhalation Aerosol Solution Inhale 2 puffs by mouth every 6 hours As Needed for shortness of breath or wheezing 54 g 1 4 Active oxyCODONE HCl 5 MG Oral Capsule (Oxy IR) Take 2 Capsules by mouth every 6 hours as needed for Pain, Severe. 4 Active predniSONE 20 MG Oral Tablet (Deltasone) [...] mouth in the morning. 30 Tablet 2 4 Active Combivent Respimat 20-100 MCG/ACT Inhalation Aerosol Solution (Ipratropium-Al buterol) Inhale 1 Puff by mouth 4 times a day as needed for Wheezing. 4 Active Vitamin C 1000 MG Oral Tablet Take 2 Tablets by mouth in the morning. Active Ipratropium-Alb uterol 0.5-2.5 (3) MG/3ML Inhalation Solution (Duoneb) Inhale 3 mL by mouth every 6 hours as needed for Wheezing or Shortness of Breath. 90 mL 2 4 Active documented as of this encounter (statuses as of 11/05/2024) Active Problems Problem Noted Date Diagnosed Date Compression fracture of thor acic vertebra with routine healing 09/13/2024 Adenocarcinoma of lung, stage 4 05/27/2024 Overview (05/27/2024): Diagnosis: Lung adenocarcinoma, diagnosed 02/12/2024 Stage: IV Palliative chemoimmunotherapy with carboplatin, pemetrexed and pembrolizumab started on 2024 Assessment & Plan (09/13/2024 10:08 PM EST): Declines further treatment Breathing at baseline Assessment & Plan (07/21/2024 9:34 AM EDT): Has elected against further cancer treatment at this time Not interested in hospice yet 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 Assessment & Plan (05/27/2024 4:00 PM EDT): Declined brain radiation at this time Chronic obstructive pulmonary disease 01/18/2024 Assessment & Plan (09/13/2024 10:09 PM EST): Using duonebs prn Was previously on trelegy, no longer using On chronic low dose prednisone Ordered azithromycin to have on hand for rescue kit Assessment & Plan (05/27/2024 4:02 PM EDT): Continue spiriva Supplemental o2, using prn Migraine without status migrainosus, not intract able 01/18/2024 Chronic hypoxemic respiratory failure 01/18/2024 Assessment & Plan (09/13/2024 10:08 PM EST): Using oxygen only as needed Assessment & Plan (07/21/2024 9:32 AM EDT): Has oxygen in the home, only using intermittently during the day Left renal mass 01/18/2024 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 01/18/2024 HTN, goal below 140/90 07/01/2014 History of tobacco use 05/16/2014 Marijuana abuse 05/16/2014 Dermatitis 12/06/2002 documented as of this encounter (statuses as of 11/05/2024) Resolved Problems Problem Noted Date Diagnosed Date Resolved Date Tension type headache 05/16/20142023 Overview (08/26/2024): historical documented as of this encounter (statuses as of 11/05/2024) Social History Tobacco Use Types Packs/Day Years Used Date Smoking Tobacco: Former Cigarettes Smokeless Tobacco: Never Alcohol Use Standard Drinks/Week Comments Yes 1.7 (1 standard drink = 0.6 oz p ure alcohol) occ Sex and Gender Information Value Date Recorded Sex Assigned at Not on file Legal Sex Male 5:07 AM EST Gender Identity Not on file Sexual Orientation Not on file 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 * Telephone Encounter - Kait Hope MD - 11/04/2024 3:38 PM EST 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 Can you please arrange an EGD with me at [facility] in 2 weeks when am back. documented in this encounter Plan of Treatment Upcoming Encounters Date Type Department Care Team (Late st Contact Info) Description 01/19/2025 9:00 AM EDT Home Visit Care at Home [address] [facility] [place] [id number] Evelia Manrique PA-C [address] [facility] [place] [place] [id number] Health Maintenance Due Date Last Done Comments Albumin/Creatinine Ratio 1968 Alpha-1 Antitrypsin 1967 Hepatitis C Screening 1968 DTap/Tdap Vaccines (1 - Tdap) 1968 Zoster Vaccines (1 of 2) 1968 Depression Screening 04/20/2016 04/20/2015 GFR 04/24/2016 04/24/2015, 11/0 06/2014, 02/07/2014, Additional history exists *COPD SEVERITY VERIFIED BY PFT 01/20/2024 O2 ASSESSMENT COMPLETED IN PAST YEAR FOR COPD 02/11/2025 02/12/2024 Pneumococcal Vaccine: 50+ Years Completed 11/18/2022 COVID-19 Vaccine Completed 08/31/2024, , 08/22/2023, Additional history exists Influenza Vaccine (FLU shot) Completed , 09/06/2022, 08/20/2021, Additional history exists HPV (Gardasil) Vaccine Aged Out No lo nger eligible based on patient's age to complete this topic Hepatitis B Vaccine Aged Out No longe r eligible based on patient's age to complete this topic MENINGOCOCCAL (MENACTRA/MENVEO) Aged Out No longer eligible based on patient's age to complete this topic documented as of this encounter Medical Devices Implanted Type Area Sports Official Device Identifier Shelf Expiration Date Model / Serial / Lot Lens Intraoc 19.0 - [id number] - [id number] Implanted:Qty: 1 on 02/04/2019 by Ash Santamaria MD at OR [facility] Left: Eye [employer] 09/09/2023 [id number] / [id number] / [id number] Lens Intraoc 20.0 - [id number] - [id number] Implanted:Qty: 1 on 02/16/2019 by Ash Santamaria MD at OR [facility] Right: Eye [employer] 08/09/2023 [id number] / [id number] / [id number] documented as of this encounter Care Teams Regional Project Manager Relationship Specialty Start Date End Date Day Stout MD [address] [place] [address] [place] [place] [id number] PCP - General Internal Medicine 11/24/18 documented as of this encounter
--- OUTSIDE RECORDS SUMMARY | 2024-11-12 21:38 | External Medical Summary | Summary of Care ---
Author Name Unknown Organization [facility] Address [address] [facility] [place] [place] [address] Phone [phone] Care Team Providers Care Store Gift Wrap Associate Name Role Phone Day Stout MD Primary Care Provid er Encounter Details Date Type Department Care Team (Late st Contact Info) Description 11/12/2024 Population Health External Data Unspecified Department Allergies No known active allergiesdocumented as of this encounter (statuses as of 11/12/2024) Medications Trefidelberenice Ellipta 100-62.5-25 MCG/ACT Aerosol Powder Breath Activated [...] mouth in the morning. 30 Tablet 2 Active Combivent Respimat 20-100 MCG/ACT Inhalation Aerosol [...] or Shortness of Breath. 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, Operating Room, [facility] - 4th Floor [address] [place] [address] Kait Hope MD [address] [place] [address] 11/18/2024 11:43 AM EST - 11/18/2024 12:25 PM EST Surgery OR [facility], Operating Room, [facility] - 4th Floor [address] [place] [address] Kait Hope MD [address] [place] [address] ESOPHAGOGASTRODUODENOSCOPY (EGD), FLEXIBLE, TRANSORAL, DIAGNOSTIC 01/19/2025 9:00 AM EDT Home Visit Care at Home [address] [address] Evelia Manrique PA-C [address] [address] Scheduled Procedures Name Priority Associated Diagnoses Date/Ti me ESOPHAGOGASTRODUODENOSCOPY ( EGD), FLEXIBLE, TRANSORAL, DIAGNOSTIC Mediastinal mass 11/18/2024 11:43 AM EST Health Maintenance Due Date Last Done Comments [...] this encounter Medical Devices Implanted Type Area Agent Contract Clerk Device Identifier Shelf Expiration Date Model / Serial / Lot Lens Intraoc 19.0 - [id number] - [id number] Implanted:Qty: 1 on 02/04/2019 by Ash Santamaria MD at OR [facility] Left: Eye [employer]USCH [employer] LOMB 09/09/2023 [id number] / [id number] / [id number] Lens Intraoc 20.0 - [id number] - [id number] Implanted:Qty: 1 on 02/16/2019 by Ash Santamaria MD at OR [facility] Right: Eye BAUSCH & LOMB 08/09/2023 [id number] / [id number] / [id number] documented as of this encounter Care Teams Store Gift Wrap Associate Relationship Specialty Start Date End Date Day Stout MD [address] [place] [address] [place] [address] PCP - General Internal Medicine 11/24/18 documented as of this encounter
--- OUTSIDE RECORDS SUMMARY | 2024-11-12 21:38 | External Medical Summary | Summary of Care ---
Author Name Unknown Organization [facility] Address [address] [facility] [place] [address] Phone [phone] Care Team Providers Care Pharmacy Teacher Name Role Phone Day Stout MD Primary Care Provid er Encounter Details Date Type Department Care Team (Late st Contact Info) Description 11/04/2024 Telephone Gastroenterology, [facility] [address] [address] Kait Castanon MD [address] [address] Allergies No known active allergiesdocumented as of this encounter (statuses as of 11/09/2024) Medications Treobed Ellipta 100-62.5-25 MCG/ACT Aerosol Powder [...] as of this encounter (statuses as of 11/09/2024) Active Problems Problem Noted Date Diagnosed Date [...] as of this encounter (statuses as of 11/09/2024) Resolved Problems Problem Noted Date Diagnosed Date Resolved Date Tension type headache 05/16/20142023 Overview (08/26/2024): historical documented as of this encounter (statuses as of 11/09/2024) Social History Tobacco Use Types Packs/Day Years [...] 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 * Telephone Encounter - Hanna Newell OSA - 11/08/2024 1:25 PM EST LMM to add to OR 11/18 * Telephone Encounter - Hanna Newell OSA - 11/05/2024 9:06 AM EST Pascale, can I ask for OR time on 11/19? 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 Can you please arrange an EGD with me at [facility] in 2 weeks when am back. documented in this encounter Plan of Treatment Upcoming Encounters Date Type Department Care Team (Latest Contact Info) Description 11/18/2024 11:01 AM EST Hospital Encounter OR [facility], Operating Room, [facility] - 4th Floor [address] [place] [address] Kait Castanon MD [address] [place] [address] 11/18/2024 11:01 AM EST - 11/18/2024 11:43 AM EST Surgery OR [facility], Operating Room, [facility] - 4th Floor 400 [facility] [place] [address] Kait Castanon MD [address] [place] [address] ESOPHAGOGASTRODUODENOSCOPY (EGD), FLEXIBLE, TRANSORAL, DIAGNOSTIC 01/19/2025 9:00 AM EDT Home Visit Care at Home [address] [facility] [place] [address] Evelia Manrique PA-C [address] [place] [address] Scheduled Orders Name Type Priority Associated Diagnoses Orde r Schedule EGD, FLEXIBLE, DIAGNOSTIC Procedures Routine Dysphagia, unspecified type Ordered: 11/09/2024 Scheduled Procedures Name Priority Associated Diagnoses Date/Ti me ESOPHAGOGASTRODUODENOSCOPY ( EGD), FLEXIBLE, TRANSORAL, DIAGNOSTIC Mediastinal mass 11/18/2024 11:01 AM EST Health Maintenance Due Date Last [...] this encounter Medical Devices Implanted Type Area Dairy Tester Device Identifier Shelf Expiration Date Model / Serial / Lot Lens Intraoc 19.0 - [id number] - [id number] Implanted:Qty: 1 on 02/04/2019 by Ash Santamaria MD at OR [facility] Left: Eye [employer]USCH [employer] LOMB 09/09/2023 [id number] / [id number] / [id number] Lens Intraoc 20.0 - [id number] - [id number] Implanted:Qty: 1 on 02/16/2019 by Ash Santamaria MD at OR [facility] Right: Eye BAUSCH [employer] LOMB 08/09/2023 [id number] / [id number] / [id number] documented as of this encounter Visit Diagnoses Diagnosis Adenocarcinoma of lung, stage 4, unspecified laterality (HCC)- Primary Atrial flutter, unspecified type (HCC) Immunodeficiency (HCC) Unspecified immunity deficiency 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) Pancytopenia (HCC) Other pancytopenia Megaloblastic anemia due to poor nutrition Folate-deficiency anemia Chronic hypoxemic respiratory failure (HCC) Chronic respiratory failure Chronic obstructive pulmonary disease, unspecified COPD type (HCC) Advanced care planning/counseling discussion Other specified counseling Adenocarcinoma of right lung, 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) Chronic hypoxemic respiratory failure (HCC) Chronic respiratory failure Advanced care planning/counseling discussion Other specified counseling Adenocarcinoma of right lung, stage 4 (HCC)- Primary Chronic hypoxemic respiratory failure (HCC) Chronic respiratory failure Chronic obstructive pulmonary disease, unspecified COPD type (HCC) 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
--- OUTSIDE RECORDS SUMMARY | 2024-11-12 21:38 | External Medical Summary | Summary of Care ---
Author Name Unknown Organization [facility] Address [address] [place] [facility] [place] [address] Phone [phone] Care Team Providers Care Principal Administrative Clerk Name Role Phone Day Stout MD Primary Care Provid er Encounter Details Date Type Department Care Team (Late st Contact Info) Description 11/04/2024 Telephone Gastroenterology, [facility] [address] [address] Kait Hope MD [address] [address] Allergies No known active allergiesdocumented as of this encounter (statuses as of 11/08/2024) Medications Treobed Ellipta 100-62.5-25 MCG/ACT Aerosol Powder [...] as of this encounter (statuses as of 11/08/2024) Active Problems Problem Noted Date Diagnosed Date [...] as of this encounter (statuses as of 11/08/2024) Resolved Problems Problem Noted Date Diagnosed Date Resolved Date Tension type headache 05/16/20142023 Overview (08/26/2024): historical documented as of this encounter (statuses as of 11/08/2024) Social History Tobacco Use Types Packs/Day Years [...] 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 in 2 weeks when am back. documented in this encounter Plan of Treatment Upcoming Encounters Date Type Department Care Team (Late st Contact Info) Description 01/19/2025 9:00 AM EDT Home Visit Care at Home [address] [place] [address] Evelia Manrique PA-C [address] [place] [address] Health Maintenance Due Date Last Done Comments [...] this encounter Medical Devices Implanted Type Area Clarifier Operator Helper Device Identifier Shelf Expiration Date Model / Serial / Lot Lens Intraoc 19.0 - [id number] - [id number] Implanted:Qty: 1 on 02/04/2019 by Ash Santamaria MD at OR [facility] Left: Eye BAUSCH [employer] LOMB 09/09/2023 [id number] / [id number] / [id number] Lens Intraoc 20.0 - [id number] - [id number] Implanted:Qty: 1 on 02/16/2019 by Ash Santamaria MD at OR [facility] Right: Eye BAUSCH [employer] LOMB 08/09/2023 [id number] / [id number] / [id number] documented as of this encounter Care Teams Principal Administrative Clerk Relationship Specialty Start Date End Date Day Stout MD [address] [place] [address] [place] [address] PCP - General Internal Medicine 11/24/18 documented as of this encounter
--- OUTSIDE RECORDS SUMMARY | 2024-11-12 21:38 | External Medical Summary | Summary of Care ---
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 documented in this encounter Plan of Treatment Upcoming Encounters Date Type Department Care Team (Latest Contact Info) Description 11/18/2024 9:45 AM EST Hospital Encounter OR [facility], Operating Room, [facility] - 4th Floor 400 [facility] [place] [address] Kait Hope MD [address] [place] [address] 11/18/2024 9:45 AM EST - 11/18/2024 10:27 AM EST Surgery OR [facility], Operating Room, [facility] - 4th Floor [address] [place] [address] [address] Kait Hope MD [address] [place] [address] ESOPHAGOGASTRODUODENOSCOPY (EGD), FLEXIBLE, TRANSORAL, DIAGNOSTIC 01/19/2025 9:00 AM EDT Home Visit Care at Home [address] [place] [address] Evelia Manrique PA-C [address] [place] [address] Scheduled Procedures Name Priority Associated Diagnoses Date/Ti me ESOPHAGOGASTRODUODENOSCOPY ( EGD), FLEXIBLE, TRANSORAL, DIAGNOSTIC Mediastinal mass 11/18/2024 9:45 AM EST Health Maintenance Due Date Last [...] this encounter Medical Devices Implanted Type Area Injection Molding Machine Setter Device Identifier Shelf Expiration Date Model / Serial / Lot Lens Intraoc 19.0 - [id number] - [id number] Implanted:Qty: 1 on 02/04/2019 by Ash Santamaria MD at OR [facility] Left: Eye BAUSCH [employer] LOMB 09/09/2023 [id number] / [id number] / [id number] Lens Intraoc 20.0 - [id number] - [id number] Implanted:Qty: 1 on 02/16/2019 by Ash Santamaria MD at OR [facility] Right: Eye BAUSCH & LOMB 08/09/2023 [id number] / [id number] / [id number] documented as of this encounter Care Teams Field Project Manager Relationship Specialty Start Date End Date Day Stout MD [address] [place] [address] [place] [address] PCP - General Internal Medicine 11/24/18 documented as of this encounter
--- OUTSIDE RECORDS SUMMARY | 2024-11-12 21:38 | External Medical Summary | Summary of Care ---
Author Name Unknown Organization [facility] Address [address] [facility] [place] [address] Phone [phone] Care Team Providers Care Adjunct Art History Instructor Name Role Phone Day Stout MD Primary Care Provid er Reason for Visit * Reason Onset Date Comments Pre Op Discussion 11/11/2024 Encounter Details Date Type Department Care Team (Late st Contact Info) Description 11/11/2024 Telephone ENDO GE, Endoscopy Suite [facility] [address] [place] [address] Jessa Teague, DO [address] [place] [address] Pre Op Discussion Allergies No known active allergiesdocumented as of this encounter (statuses as of 11/11/2024) Medications Trelegy Ellipta 100-62.5-25 MCG/ACT Aerosol Powder Breath [...] as of this encounter (statuses as of 11/11/2024) Active Problems Problem Noted Date Diagnosed Date [...] as of this encounter (statuses as of 11/11/2024) Resolved Problems Problem Noted Date Diagnosed Date Resolved Date Tension type headache 05/16/20142023 Overview (08/26/2024): historical documented as of this encounter (statuses as of 11/11/2024) Social History Tobacco Use Types Packs/Day Years [...] 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 Pt has a procedure scheduled 11/18/24 in the OR with Dr. Hope for an esophageal stent. 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 Dr. Teague notified and recommended that Pt go to the ER for evaluation. Made pt aware of providers recommendations and pt stated that he would not be able to go to theER until tomorrow 11/12/24, and that he wasn't sure he liked the idea of going to the ER. Re-education given on reason for ER recommendation and pt said ok. Call back number given to pt. documented in this encounter Plan of Treatment Upcoming Encounters Date Type Department Care Team (Latest Contact Info) Description 11/18/2024 11:43 AM EST Hospital Encounter OR [facility], Operating Room, [facility] - 4th Floor [address] [place] [address] Kait Hope MD [address] [place] [address] 11/18/2024 11:43 AM EST - 11/18/2024 12:25 PM EST Surgery OR [facility], Operating Room, [facility] - 4th Floor [address] [place] [address] Kait Hope MD [address] [place] [address] ESOPHAGOGASTRODUODENOSCOPY (EGD), FLEXIBLE, TRANSORAL, DIAGNOSTIC 01/19/2025 9:00 AM EDT Home Visit Care at Home [address] [place] [address] Evelia Manrique PA-C [address] [place] [address] Scheduled Procedures Name Priority Associated Diagnoses Date/Ti [...] this encounter Medical Devices Implanted Type Area Recovery Engineer Device Identifier Shelf Expiration Date Model / Serial / Lot Lens Intraoc 19.0 - [id number] - [id number] Implanted:Qty: 1 on 02/04/2019 by Ash Santamaria MD at OR [facility] Left: Eye BAUSCH & LOMB 09/09/2023 [id number] / [id number] / [id number] Lens Intraoc 20.0 - [id number] - [id number] Implanted:Qty: 1 on 02/16/2019 by Ash Santamaria MD at OR [facility] Right: Eye BAUSCH & LOMB 08/09/2023 [id number] / [id number] / [id number] documented as of this encounter Care Teams Adjunct Art History Instructor Relationship Specialty Start Date End Date Day Stout MD [address] [place] [address] [place] [address] PCP - General Internal Medicine 11/24/18 documented as of this encounter
--- OUTSIDE RECORDS SUMMARY | 2024-11-12 21:38 | External Medical Summary | Summary of Care ---
Author Name Unknown Organization [facility] Address [address] [facility] [place] [address] Phone [phone] Care Team Providers Care Hole Digger Truck Driver Name Role Phone Day Stout MD Primary Care Provid er Encounter Details Date Type Department Care Team (Late st Contact Info) Description 11/04/2024 Telephone Gastroenterology, [facility] [address] [address] Kait Hope MD [address] [address] Allergies No known active allergiesdocumented as of this encounter (statuses as of 11/04/2024) Medications Treobed Ellipta 100-62.5-25 MCG/ACT Aerosol Powder [...] as of this encounter (statuses as of 11/04/2024) Active Problems Problem Noted Date Diagnosed Date [...] as of this encounter (statuses as of 11/04/2024) Resolved Problems Problem Noted Date Diagnosed Date Resolved Date Tension type headache 05/16/20142023 Overview (08/26/2024): historical documented as of this encounter (statuses as of 11/04/2024) Social History Tobacco Use Types Packs/Day Years [...] 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 Can you please arrange an EGD with me at [facility] in 2 weeks when am back. documented in this encounter Plan of Treatment Upcoming Encounters Date Type Department Care Team (Late st Contact Info) Description 01/19/2025 9:00 AM EDT Home Visit Care at Home [address] [place] [facility] [place] [address] Evelia Manrique PA-C [address] [place] [address] Health Maintenance Due Date Last Done Comments [...] this encounter Medical Devices Implanted Type Area Wharf Laborer Device Identifier Shelf Expiration Date Model / Serial / Lot Lens Intraoc 19.0 - [id number] - [id number] Implanted:Qty: 1 on 02/04/2019 by Ash Santamaria MD at OR [facility] Left: Eye BAUSCH & LOMB 09/09/2023 [id number] / [id number] / [id number] Lens Intraoc 20.0 - [id number] - [id number] Implanted:Qty: 1 on 02/16/2019 by Ash Santamaria MD at OR [facility] Right: Eye BAUSCH & LOMB 08/09/2023 [id number] / [id number] / [id number] documented as of this encounter Care Teams Hole Digger Truck Driver Relationship Specialty Start Date End Date Day Stout MD [address] [place] [address] [place] [id number] PCP - General Internal Medicine 11/24/18 documented as of this encounter
--- OUTSIDE RECORDS SUMMARY | 2024-11-12 21:38 | External Medical Summary | Summary of Care ---
Author Name Unknown Organization [facility] Address [address] [place] [place] [address] Phone [phone] Care Team Providers Care Slurry Blender Name Role Phone Day Stout MD Primary Care Provid er Reason for Visit * Reason Onset Date Comments Patient Call 11/12/2024 Encounter Details Date Type Department Care Team (Late st Contact Info) Description 11/12/2024 Telephone ENDO [facility]TRA [facility], Endoscopy Suite [facility] [address] [place], [place] [address] Jessa Teague, DO [address] [place] [address] Patient Call Allergies No known active allergiesdocumented as of this encounter (statuses as of 11/12/2024) Medications Trelegy Ellipta 100-62.5-25 MCG/ACT Aerosol Powder [...] 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 documented in this encounter Plan of Treatment Upcoming Encounters Date Type Department Care Team (Latest Contact Info) Description 11/18/2024 11:43 AM EST Hospital Encounter OR [facility], Operating Room, [facility] - 4th Floor [address] [place] [phone] Kait Hope MD 132 [facility] [place] [address] 11/18/2024 11:43 AM EST - 11/18/2024 12:25 PM EST Surgery OR [facility], Operating Room, [facility] - 4th Floor [address] [phone] Kait Hope MD [address] [place] [address] ESOPHAGOGASTRODUODENOSCOPY (EGD), FLEXIBLE, TRANSORAL, DIAGNOSTIC 01/19/2025 9:00 AM EDT Home Visit Care at Home [address] [place] [address] Evelia Manrique PA-C [address] [place], [place] [id number] Scheduled Procedures Name Priority Associated Diagnoses Date/Ti [...] this encounter Medical Devices Implanted Type Area Jalousie Installer Device Identifier Shelf Expiration Date Model / Serial / Lot Lens Intraoc 19.0 - [id number] - [id number] Implanted:Qty: 1 on 02/04/2019 by Ash Santamaria MD at OR [facility] Left: Eye BAUSCH & LOMB 09/09/2023 [id number] / [id number] / [id number] Lens Intraoc 20.0 - [id number] - [id number] Implanted:Qty: 1 on 02/16/2019 by Ash Santamaria MD at OR [facility] Right: Eye BAUSCH & LOMB 08/09/2023 [id number] / [id number] / [id number] documented as of this encounter Care Teams Slurry Blender Relationship Specialty Start Date End Date Day Stout MD [address] [place] [address] [place] [address] PCP - General Internal Medicine 11/24/18 documented as of this encounter
--- OUTSIDE RECORDS SUMMARY | 2024-11-12 21:38 | External Medical Summary | Summary of Care ---
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 Not [...] 11/18/2024 11:43 AM EST Hospital Encounter OR [facility], Operating Room, [facility] - 4th Floor [address] [place] [address] Kait Hope MD [address] [place] [address] 11/18/2024 11:43 AM EST - 11/18/2024 12:25 PM EST Surgery [facility], Operating Room, [facility] - 4th Floor [address] [place] [address] Kait Hope MD [address] [place] [address] ESOPHAGOGASTRODUODENOSCOPY (EGD), FLEXIBLE, TRANSORAL, DIAGNOSTIC 01/19/2025 9:00 AM EDT Home Visit Care at Home [address] [place] [address] Evelia Manrique PA-C [address] [place] [address] Scheduled Procedures Name Priority Associated Diagnoses Date/Ti [...] this encounter Medical Devices Implanted Type Area Mental Health Clinician Device Identifier Shelf Expiration Date Model / Serial / Lot Lens Intraoc 19.0 - [id number] - [id number] Implanted:Qty: 1 on 02/04/2019 by Ash Santamaria MD at OR [facility] Left: Eye [employer] 09/09/2023 [id number] / [id number] / [id number] Lens Intraoc 20.0 - [id number] - [id number] Implanted:Qty: 1 on 02/16/2019 by Ash Santamaria MD at OR [facility] Right: Eye [employer] 08/09/2023 [id number] / [id number] / [id number] documented as of this encounter Care Teams Refinery Operator Light Ends Recovery Relationship Specialty Start Date End Date Day Stout MD [address] [place] [address] [place] [id number] PCP - General Internal Medicine 11/24/18 documented as of this encounter
[2024-11-12] MEDS: SODIUM CHLORIDE 0.9% 1,000 ML IV SCH (22:27)
[2024-11-13] MEDS ORDERED: MoRPHine SULFATE 2 MG/ML CARP IV PRN (00:37)
[2024-11-13] MEDS ORDERED: IPRATROPIUM BROMIDE/ALBUTEROL respimat INH INH SCH (00:37)
[2024-11-13] MEDS ORDERED: MoRPHine SULFATE 4 MG/ML 1 ML CARP\\VIAL IV PRN (00:37)
[2024-11-13] MEDS: CEFEPIME 2000MG 2,000 MG/20 ML SYR IV SCH (01:59)
[2024-11-13 04:44] LABS: Basophils # (auto) 0.03 K/uL (0.00-0.20); Basophils % (auto) 0.2 %; Eosinophils # (auto) 0.31 K/uL (0.00-0.50); Eosinophils % (auto) 2.5 %; Hematocrit (blood only) 31.8 % (42.0-52.0); Hemoglobin 10.4 g/dl (14.0-18.0); Immature Granulocytes # (auto) 0.06 K/uL (0.01-0.20); Immature Granulocytes % (auto) 0.5 %; Lymphocytes # (auto) 1.18 K/uL (1.20-3.40); Lymphocytes % (auto) 9.6 %; Mean Corpuscular Hemoglobin 29.5 pg (25.0-34.0); Mean Corpuscular Hgb Conc 32.7 g/dL (32.0-36.0); Mean Corpuscular Volume 90.1 fL (80.0-100.0); Mean Platelet Volume 9.1 fL (9.4-12.4); Monocytes # (auto) 1.15 K/uL (0.11-0.59); Monocytes % (auto) 9.3 %; Neutrophils # (auto) 9.58 K/uL (1.40-6.50); Neutrophils % (auto) 77.9 %; Platelet Count 312 K/uL (130-400); RDW Coefficient of Variation 13.4 % (11.5-14.5); RDW Standard Deviation 44.3 fL (36.4-46.3); Red Blood Count 3.53 M/uL (4.70-6.10); White Blood Count 12.31 K/ul (4.8-10.8)
[2024-11-13 05:03] LABS: Albumin Globulin Ratio 1.1 (0.9-2); Albumin Level 3.4 gm/dl (3.4-5.0); BUN Creatinine Ratio 19.3 (10-20); Bilirubin,Total 0.3 mg/dl (0.2-1.0); Creatinine Clr Calc Pharmacy 53.1 ml/min; Magnesium 1.5 mg/dl (1.7-2.4); Potassium 3.4 mmol/L (3.5-5.1); Total Protein 6.4 gm/dl (6.0-8.3)
[2024-11-13] MEDS: PIPERACILLIN/TAZOBACTAM 4.5 GM/100 ML BAG IV SCH (06:43)
[2024-11-13] MEDS: ALBUT/IPRATROP 3MG/0.5MG NEB 3 ML VIAL NEB SCH (06:56)
[2024-11-13] MEDS ORDERED: Albuterol HFA 8 GM Inhaler (Combivent Respimat P&T Subs) INH SCH (07:00)
[2024-11-13] MEDS ORDERED: Ipratropium HFA Inhaler (Combivent Respimat P&T Subs) INH SCH (07:00)
[2024-11-13 07:32] VITALS: TEMP 98.8
--- NOTE | 2024-11-13 08:52 | Hospitalist Progress Note ---
Date of Service November 13, 2024 Assessment & Plan (1) Lung cancer: (2) Pneumonia: (3) Cancer related pain: (4) COPD with acute exacerbation: (5) Lung cancer metastatic to brain: Plan 74-year-old male with past medical history including stage IV lung cancer, with symptoms of hemoptysis and hematemesis, COPD, pancytopenia, lung cancer metastatic to brain, hypertension, retroperitoneal mass, hyperlipidemia, chronic daily headache, BPH with LUTS, hypertension, and chronic pain syndrome. The patient presents to the emergency department with complaint of coughing up bright red blood earlier in the day today. He has a history of hematemesis as well, however, this appears to be more of a episode with hemoptysis at this time. He has history of stage IV lung cancer, and had been on hospice started a few weeks ago. He reports that he is going to be leaving hospice, to be able to see a GI physician at [facility] next week, for consideration of an esophageal stent, so is able to swallow foods. #Hemoptysis/stage IV lung cancer/pneumonia/COPD exacerbation-hgb hasdropped 2 gms but not in range of transfusion DuoNebs 4 times daily and every 2 hours as needed Zosyn 4.5 g IV every 8 hours Morphine sulfate parenterally for pain control #Hematemesis- Patient has had history of hematemesis, and has had significant dysphagia, causing 20 pound weight loss over the past few weeks to months He reports having a appointment in the outpatient setting at [facility] for possible EGD and esophageal stents placement so that he can swallow Pantoprazole 40 mg IV daily #Stage IV lung cancer with metastases to brain and elsewhere Patient has been seen by Dr. Madrigal in the past He presently is registered as hospice a few weeks ago, he reportedly is to and next week possibly if he goes forward with workup as he has expressed he wants to do Consult oncology Consideration for palliative care consult Patient needs to have a clear understanding of where he is at with his disease #Acute kidney injury- Creatinine 1.68, with base 1.10 Assessment normal saline 500 mL bolus in the ED Admission and Anticipated Discharge Date Admission Date: November 12, 2024 Results & Data Results & Data Vital Signs (Past 12 Hours) Vital Signs Temp Pulse Pulse Resp BP Pulse Ox Pulse Ox 11/13/24 07:32 98.8 F 100 H 28 H 136/85 91 11/13/24 07:27 101 H 11/13/24 06:57 96 H 14 94 11/13/24 05:47 11/13/24 02:04 16 141/90 H 96 11/13/24 02:04 94 11/13/24 02:03 88 16 141/90 H 99 11/13/24 01:08 96 H 11/13/24 00:00 94 H 16 133/90 98 11/12/24 22:33 95 H 11/12/24 22:30 95 H 20 142/91 H 91 O2 Del Method O2 Del Method O2 Flow Rate O2 Flow Rate 11/13/24 07:32 Room Air 11/13/24 07:27 11/13/24 06:57 Nasal Cannula 3 11/13/24 05:47 Nasal Cannula 2 11/13/24 02:04 Nasal Cannula 3 11/13/24 02:04 Nasal Cannula 3 11/13/24 02:03 Nasal Cannula 3 11/13/24 01:08 11/13/24 00:00 Nasal Cannula 2 11/12/24 22:33 11/12/24 22:30 Nasal Cannula 2 PG Care Time/CCT Total # of Minutes Spent Total Time Spent with Patient: Total time spent is greater than 50% in coordination of care (as documented) at patient's floor/unit and/or counseling patient: Coding Diagnoses Lung cancer C34.90 Laterality: unspecified laterality Lung location: unspecified part of lung Pneumonia J18.9 Laterality: right Lung location: lower lobe of lung Pneumonia type: due to unspecified organism Cancer related pain G89.3 COPD with acute exacerbation J44.1 Lung cancer metastatic to brain C34.90; C79.31 (1) Lung cancer Laterality: unspecified laterality Lung location: unspecified part of lung Qualified Code(s): C34.90 - Malignant neoplasm of unspecified part of unspecified bronchus or lung (2) Pneumonia Laterality: right Lung location: lower lobe of lung Pneumonia type: due to unspecified organism Qualified Code(s): J18.9 - Pneumonia, unspecified organism
[2024-11-13] MEDS: POTASSIUM CHLORIDE CRTAB 20 MEQ TABCR PO STA (08:58)
[2024-11-13] MEDS: PANTOprazole 40 MG/10 ML SYR IV SCH (09:05)
[2024-11-13 11:01] VITALS: RESP 18; O2SAT 94
[2024-11-13 13:54] VITALS: BP 117/88; PULSE 79
[2024-11-13 17:19] LABS: A calco-baum cmplx NotReported Not Detected (NotDetected); Bact fragilis Not Reported Not Detected (NotDetected); Blood Culture Id Panel See PCR Comment (NotDetected); C auris Not Reported Not Detected (NotDetected); Calbicans Not Reported Not Detected (NotDetected); Candida glabrata Not Reported Not Detected (NotDetected); Candida krusei Not Reported Not Detected (NotDetected); Cneoformans/gatti Not Reported Not Detected (NotDetected); Cparapsilosis Not Reported Not Detected (NotDetected); E cloacae compx Not Reported Not Detected (NotDetected); Efaecalis Not Reported Not Detected (NotDetected); Efaecium Not Reported Not Detected (NotDetected); Enterobacterales Not Reported Not Detected (NotDetected); Escherichia coli Not Reported Not Detected (NotDetected); H influenzae Not Reported Not Detected (NotDetected); K aerogenes Not Reported Not Detected (NotDetected); Koxytoca Not Reported Not Detected (NotDetected); Kpneumoniae grp Not Reported Not Detected (NotDetected); Lmonocyt Not Reported Not Detected (NotDetected); N meningitidis Not Reported Not Detected (NotDetected); P aeruginosa Not Reported Not Detected (NotDetected); Proteus spp Not Reported Not Detected (NotDetected); Salmonella spp Not Reported Not Detected (NotDetected); Staph lugdunensis Not Reported Not Detected (NotDetected); Staphaureus Not Reported Not Detected (NotDetected); Staphepi Not Reported Not Detected (NotDetected); Staphylococcus spp. DETECTED (NotDetected); Stenmaltophilia Not Reported Not Detected (NotDetected); Strep agal(GrpB) Not Reported Not Detected (NotDetected); Strep pneum Not Reported Not Detected (NotDetected); Strep pyog (GrpA) Not Reported Not Detected (NotDetected); Strep spp Not Reported Not Detected (NotDetected)
[2024-11-13 17:31] LABS: Staph spp. Not Reported DETECTED (NotDetected)
--- NOTE | 2024-11-13 17:36 | Discharge Summary ---
Discharge Summary Date of Service November 13, 2024 Principal Dx & Hospital Course #1 = Principal Diagnosis (1) Lung cancer: (2) Pneumonia: (3) Cancer related pain: (4) COPD with acute exacerbation: (5) Lung cancer metastatic to brain: Plan 74-year-old male with past medical history including stage IV lung cancer, with symptoms of hemoptysis and hematemesis, COPD, pancytopenia, lung cancer metastatic to brain, hypertension, retroperitoneal mass, hyperlipidemia, chronic daily headache, BPH with LUTS, hypertension, and chronic pain syndrome. The patient presents to the emergency department with complaint of coughing up janelle ght red blood earlier in the day today. He has a history of hematemesis as well, however,he is planning on an esophageal stent with Dr Hope, and called that office, he was advised to come to ER. Pt was frustrated in ER and demanded to leave, threatening to leave AMA. I dishcarged him on augmentin suspension for concern for esophegeal mucosal breech, he did have Zosyn while here. he did eat some pudding and drink water He has history of stage IV lung cancer, and had been on hospice started a few weeks ago. He reports that he is going to be leaving hospice, to be able to see a GI physician at [facility] next week, for consideration of an esophageal stent, so is able to swallow foods. #Hemoptysis/stage IV lung cancer/pneumonia/COPD exacerbation-hgb has dropped but on recheck remained stable #Hematemesis- Patient has had history of hematemesis, and has had significant dysphagia, causing 20 pound weight loss over the past few weeks to months He reports having a appointment in the outpatient setting at [facility] for possible EGD and esophageal stents placement so that he can swallow #Stage IV lung cancer with metastases to brain and elsewhere Patient has been seen by Dr. Madrigal in the past He presently is registered as hospice a few weeks ago, he reportedly is to and next week possibly if he goes forward with workup as he has expressed he wants to do discussed that stent is a temporary measure if he in not going to continue treatment, he states he does not want to continue treatment for cancer #Acute kidney injury-resolved with ivf Notes For Next Care Provider Did receive notification of blood culture showed positivity for gram-positive's. Patient was sent on Augmentin. Patient wanted to leave at all costs. Will continue to follow blood cultures and interface with the patient if it is penicillin resistant. Admission HPI Per Admitting Provider The patient is a 74-year-old male with past medical history including stage IV lung cancer, with symptoms of hemoptysis and hematemesis, COPD, pancytopenia, lung cancer metastatic to brain, hypertension, retroperitoneal mass, hyperlipidemia, chronic daily headache, BPH with LUTS, hypertension, and chronic pain syndrome. The patient presents to the emergency department with complaint of coughing up bright red blood earlier in the day today. He has a history of hematemesis as well, however, this appears to be more of a episode with hem optysis at this time. He has history of stage IV lung cancer, and had been on hospice started a few weeks ago. He reports that he is going to be leaving hospice, to be able to see a GI physician at [facility] next week, for consideration of an esophageal stent, so is able to swallow foods. Discharge Exam Constitutional Patient is gruff and wants to leave the hospital. Lungs have decreased breath sounds at the bases Card exam is regular He was alert and oriented and seem to understand the gravity of his decisions Discharge Plan Discharge Items Patient Disposition: Home - Home Health Services Reason For Visit: HEMOTYSIS, LUNG CA, COPD EX, PNEUMONIA Discharge Diagnosis: coughing up blood lung cancer narrowed swallowing tube from mass Condition on Discharge: Fair Activity: Resume your previous activity Non-emergency contact: Specialist and Marketing Operations Associate Call non-emergency contact if: your symptoms worsen Follow-up/Referrals: Day Stout MD [Primary Care Provider] - Kait Hope MD [Physician] - Diet: Regular Diet Texture: Mechanical soft (ground) Addtl Attending Provider Instructions: please continue to try to have nutrition and more importantly hydration please follow up with Dr Hope at [facility] for consideration of esophageal stent contact your home health provider when you are home Addtl Manager Of Warehouse Provider Instructions: we have started an antibiotic as we cannot completely rule out some pneumonia from vomiting, we are going to give you a short course of an antibiotic for that Pending Studies at Discharge: No Stand-Alone Forms: My [facility] [employer], Smoking Cessation Medications and DC Order Prescriptions: New amoxicillin-pot clavulanate [Augmentin] 250-62.5 mg/5 mL suspension for reconstitution 10 ml PO TID 7 Days Qty: 210 0RF Continued albuterol sulfate 90 mcg/actuation HFA aerosol inhaler 2 puff inhalation Q6H PRN (Reason: shortness of breath or wheezing) Qty: 3 1RF oxycodone 10 mg tablet See Rx Instructions PO Q4H MDD 12 tabs PRN (Reason: pain) 14 Days Qty: 168 0RF Rx Instructions: 1 or 2 orally q4h PRN; turmeric 400 mg capsule 400 mg PO DAILY (DME) Portable Oxygen Misc See Rx Instructions .MEDSUPPLY Qty: 1 0RF Rx Instructions: Oxygen 2 liters continuous via nasal cannula on exertion with portable concentrator. JUAN 99 finasteride 5 mg tablet 5 mg PO DAILY Qty: 90 3RF losartan 25 mg tablet 12.5 mg PO QAM ibuprofen 200 mg Tablet 200 mg PO Q6H PRN (Reason: Pain (Scale Score 1-3)) Combivent Respimat 20-100 mcg/actuation mist 1 puff inhalation Q6H Qty: 4 0RF sennosides [Senokot] 8.6 mg Tablet 8.6 mg PO QAM Qty: 30 0RF Rx Instructions: Over the counter Discharge Orders: Discharge Order (Routine); Ordered 11/13/24 Ordered By: Andre Fierro Admission Data Admit Date/Time: 11/12/24 21:20 Attending Provider: Andre Fierro Admit Provider: Cristian Boyle Primary Care Provider: Day Stout Other Providers: Cristian Boyle; Mynor Gonzalez Other Interventions: Discharge Summary Assessment (RN) Last Done: 11/13/24 13:51 Hospital Stay Data Consultations 11/12/24 19:17 ED Decision to Admit Stat 11/13/24 00:37 Consult Hematology Routine Diagnostic Imagining Performed 11/12/24 16:14 CT chest diagnostic w con Stat Pending Results Patient Have Any Pending Studies at Discharge: No Discharge Instructions Given to Patient (Per Discharging Provider) please continue to try to have nutrition and more importantly hydration please follow up with Dr Hope at [facility] for consideration of esophageal stent contact your home health provider when you are home Total Time Total Time Spent Total Time Spent (In Minutes): It required greater than 30 minutes to prepare this patient for discharge. Coding Level of Care Code 80154 INP/OBS DISCH >30 MIN Diagnoses Lung cancer C34.90 Laterality: unspecified laterality Lung location: unspecified part of lung Pneumonia J18.9 Laterality: right Lung location: lower lobe of lung Pneumonia type: due to unspecified organism Cancer related pain G89.3 COPD with acute exacerbation J44.1 Lung cancer metastatic to brain C34.90; C79.31
== END 2024-11-13 15:29 | disposition home health service (06) | DRG 194 ==
LOC: ED 14:31 → EDINP 21:20 → SUATTDRO 21:20 → EDINP 11-13 00:38